=== PATIENT | female | born 1950 | race Caucasian/White ===

== ENCOUNTER 2020-10-25 07:17 | Outpatient (REF) | payer MEDICARE, SELFPAY ==
--- NOTE | ~2020-10-25 | MM_ITS ---
EXAMINATION: BONE DENSITOMETRY CLINICAL INDICATION: Osteoporosis. COMPARISON: Previous BD dated 10/20/2019 and baseline BD dated 09/05/2007. TECHNIQUE: Using a [employer] DXA System (software version: 13.1) manufactured by [employer], dual-energy x-ray absorptiometry was performed of the lumbar spine and left hip. The images are of good technical quality. Summary results are attached. FINDINGS: AP SPINE L1-L4: Current: BMD 1.210 g/cm2, Z-score 2.1, T-score 0.3, normal, 5.7% increase from previous, 11.5% increase from baseline (<5% change is not significant). Prior: BMD 1.145 g/cm2. Baseline: BMD 1.085 g/cm2. LEFT FEMUR, NECK: Current: BMD 0.796 g/cm2, Z-score 0.0, T-score -1.7, osteopenia. Prior: BMD 0.637 g/cm2. Baseline: BMD 0.879 g/cm2. LEFT FEMUR, TOTAL: Current: BMD 0.769 g/cm2, Z-score -0.4, T-score -1.9, osteopenia, 31.2% increase from previous, 6.2% decrease from baseline (<5% change is not significant). Prior: BMD 0.586 g/cm2. Baseline: BMD 0.820 g/cm2. IDENTIFIED RISK FACTORS: Menopause, glucocorticoids (chronic), osteoporosis. HISTORY OF FRACTURE: None listed. MEDICATIONS: Bisphosphonate. MM/XR DEXA axial skeleton IMPRESSION: 1. DIAGNOSIS: Osteopenia based on the lowest T-score value of -1.9 in the total femur applying World Health Organization criteria. 2. 10-YEAR FRACTURE RISK PREDICTION, FRAX: Major osteoporotic fracture (clinical spine, forearm, hip or shoulder) 16.5%. Hip fracture 2.9%. 3. Treatment Recommendations: NOF guidelines recommend consideration for treatment in postmenopausal women and men age 50 and older presenting with the following: -A hip or vertebral (clinical or morphometric) fracture. -T-score less than or equal to -2.5 at the femoral neck or spine after appropriate evaluation to exclude secondary causes. -Low bone mass at the hip or spine and a 10-year fracture probability by FRAX of greater than or equal to 3% for hip fracture or greater than or equal to 20% for major osteoporotic fracture based on the [place] adapted WHO algorithm. 4. Other Recommendations: All treatment decisions require clinical judgment and consideration of individual patient factors, including patient preferences, comorbidities, previous drug use, risk factors not captured in the FRAX model (e.g. frailty, falls, vitamin D deficiency, increased bone turnover, interval significant decline in bone density) and possible under or overestimation of fracture risk by FRAX. Additional medical evaluation for secondary cause of low bone mineral density may be appropriate. FUTURE SCAN RECOMMENDATION: People with diagnosed cases of osteoporosis or at high risk for fracture should have regular bone mineral density tests. For patients eligible for Medicare, routine testing is allowed once every 2 years. The testing frequency can be increased to one year for patients who have rapidly progressing disease, those who are receiving or discontinuing medical therapy to restore bone mass, or have additional risk factors.
--- NOTE | ~2020-10-25 | MM_ITS ---
EXAMINATION: MM SCREENING DIGITAL BREAST TOMOSYNTHESIS, BILATERAL CLINICAL INFORMATION: Screening. Asymptomatic. The lifetime risk of breast cancer based on the Tyrer-Cuzick Model is 3%. COMPARISON: Mammography: 10/20/2019, 10/10/2018, 10/08/2017 TECHNIQUE: Digital breast tomosynthesis is performed in both the craniocaudal and mediolateral oblique views along with computer-aided detection (CAD). Synthesized 2D images are generated from the tomosynthesis. FINDINGS: There are scattered areas of fibroglandular density (ACR BI-RADS breast composition Category b). There are no significant masses, abnormal calcifications, or other abnormalities. Incidental intramammary node again noted mid 9:00 right breast. The bilateral axilla and skin contours are unremarkable. MM/MM tomosynthesis screening BI IMPRESSION: No mammographic evidence of malignancy. ASSESSMENT: BI-RADS 2: Benign RECOMMENDATION: Routine annual mammography screening. This patient's information was entered into a reminder system with a target due date for their next mammogram.
== END 2020-10-25 07:18 | disposition home or self-care (01) ==
LOC: HO.MAMMO 07:17
PROVIDERS: PCP Internal Medicine; Visit Provider Internal Medicine
DX: Z12.31 Encounter for screening mammogram for malignant neoplasm of breast (principal); M81.0 Age-related osteoporosis without current pathological fracture; N95.9 Unspecified menopausal and perimenopausal disorder; Z79.899 Other long term (current) drug therapy
CPT/HCPCS: 77063; 77067; 77080

== ENCOUNTER 2020-11-15 14:21 | Outpatient (REF) | payer MEDICARE, OTHER, SELFPAY ==
--- NOTE | ~2020-11-15 | CT_ITS ---
EXAMINATION: CT CHEST SCREENING CLINICAL INFORMATION: Nicotine dependence. COMPARISON: CTA chest 10/17/2014 TECHNIQUE: Multidetector volumetric CT imaging of the chest is performed without contrast using low dose technique. Additional 2-D coronal and sagittal reformatted images and axial 3-D maximum intensity projection (MIP) images are generated on the CT workstation. This CT examination was performed using dose optimization techniques as appropriate, variously including the following: *Automated exposure control *Adjustment of mA and/or kV according to patient size (this includes techniques or standardized protocols for targeted exams where dose is matched to indication/reason for exam; i.e. extremities or head) *Use of iterative reconstruction technique DLP: 40 mGy-cm FINDINGS: LUNGS: There is centrilobular emphysema without acute pneumonic process. There are several pulmonary nodules. 3 mm nodule right upper lobe axial image 110/6, 5 mm nodule left upper lobe axial image 20/5, 4 mm, 5 and 2 mm nodules left lower lobe superior segment axial image 31/5, patchy atelectasis right middle lobe and lingular segments. There is bilateral anterior segment and right posterior segment lower lobe atelectasis. MEDIASTINUM: The thyroid lobes are symmetrical and normal. The central trachea and the bronchi are widely patent. Heart size and the great vessels are normal caliber. There are small shotty mediastinal lymph nodes. The thyroid glands are symmetrical and normal. No pericardial effusion seen. There are coronary artery calcifications present. PLEURA: There is no pleural effusion. No pleural mass or thickening. AXILLA: No lymphadenopathy. UPPER ABDOMEN: Visualized liver, spleen, pancreas, and bilateral adrenal glands are unremarkable. Gallbladder has been surgically removed. OSSEOUS STRUCTURES: No lytic or sclerotic process seen. There is mild spondylosis dorsal spine. CT/CT lung screening IMPRESSION: Several pulmonary nodules, as described above. There is mild centrilobular emphysema. Bilateral lower lobe anterobasal and right lower lobe posterobasal, right middle lobe and lingular segment atelectasis. ASSESSMENT: Lung-RADS category 2: Benign. RECOMMENDATION: Low-dose annual CT chest.
== END 2020-11-15 14:22 | disposition home or self-care (01) ==
LOC: HO.CT 14:21
PROVIDERS: Visit Provider Physician Assistant Medical
DX: Z87.891 Personal history of nicotine dependence (principal)
CPT/HCPCS: 71271; G0296

== ENCOUNTER 2021-11-05 07:19 | Outpatient (REF) | payer MEDICARE, OTHER, SELFPAY ==
--- NOTE | ~2021-11-05 | MM_ITS ---
EXAMINATION: MM SCREENING DIGITAL BREAST TOMOSYNTHESIS, BILATERAL CLINICAL INFORMATION: Screening. Asymptomatic. The lifetime risk of breast cancer based on the Tyrer-Cuzick Model is 3%. COMPARISON: Mammography: 10/25/2020, 10/20/2019, 10/10/2018 TECHNIQUE: Digital breast tomosynthesis is performed in both the craniocaudal and mediolateral oblique views along with computer-aided detection (CAD). Synthesized 2D images are generated from the tomosynthesis. FINDINGS: There are scattered areas of fibroglandular density (ACR BI-RADS breast composition Category b). There are no significant masses, abnormal calcifications, or other abnormalities. Parenchymal pattern is similar to prior studies. There is incidental intramammary node mid 9:00 right breast and upper outer quadrant mid left breast similar to prior exams. The axilla are unremarkable. MM/MM tomosynthesis screening BI IMPRESSION: No mammographic evidence of malignancy. ASSESSMENT: BI-RADS 2: Benign RECOMMENDATION: Routine annual mammography screening. This patient's information was entered into a reminder system with a target due date for their next mammogram.
== END 2021-11-05 07:20 | disposition home or self-care (01) ==
LOC: HO.MAMMO 07:19
PROVIDERS: PCP Internal Medicine; Visit Provider Internal Medicine
DX: Z12.31 Encounter for screening mammogram for malignant neoplasm of breast (principal)
CPT/HCPCS: 77063; 77067

== ENCOUNTER 2021-11-20 08:08 | Outpatient (REF) | payer MEDICARE, OTHER, SELFPAY ==
--- NOTE | ~2021-11-20 | CT_ITS ---
EXAMINATION: CT CHEST SCREENING CLINICAL INFORMATION: Former smoker. Quit 15 years ago. 45 pack year history. COMPARISON: Previous chest CT most recent October 2020 TECHNIQUE: Multidetector volumetric CT imaging of the chest is performed without contrast using low dose technique. Additional 2D coronal and sagittal reformatted images and axial 3D maximum intensity projection (MIP) images are generated on the CT workstation. This CT examination was performed using dose optimization techniques as appropriate, variously including the following: *Automated exposure control *Adjustment of mA and/or kV according to patient size (this includes techniques or standardized protocols for targeted exams where dose is matched to indication/reason for exam; i.e. extremities or head) *Use of iterative reconstruction technique DLP: 41 mGy-cm FINDINGS: LUNGS: There is evidence of emphysema. There is right apical pleural-parenchymal scarring. There is a 6 mm left lower lobe nodule that is no longer seen axial image 272 series 4 on 2020 exam. There is a 4 mm left upper lobe nodule that is decreased in size from 7 mm axial image 183 series 4 on October 2020 exam. The bilateral pulmonary nodules are otherwise stable. Largest pulmonary nodules are a 4 mm left upper lobe nodule axial image 65 and and bilobed no new pulmonary nodule. Tubular branching left lower lobe nodule measuring 8 x 9 mm axial image 256 series 5. No new pulmonary nodule. No endobronchial or endotracheal lesion. Scarring or subsegmental atelectasis at the lung bases that is stable. MEDIASTINUM: The mediastinum is normal. CORONARY ARTERY CALCIFICATION: Mild PLEURA: There is no pleural effusion. No pleural mass or thickening. Bilateral posterior medial diaphragmatic hernias containing fat. AXILLA: No lymphadenopathy. UPPER ABDOMEN: Unremarkable OSSEOUS STRUCTURES: Degenerative changes of the spine. CT/CT lung screening IMPRESSION: Emphysema. Stable right apical pleural and parenchymal scarring. Interval decrease in 2 left pulmonary nodules in the left upper and left lower lobes. Otherwise pulmonary nodules are stable. ASSESSMENT: Lung-RADS category 2: Benign RECOMMENDATION: Annual low-dose chest CT follow-up recommended.
== END 2021-11-20 08:09 | disposition home or self-care (01) ==
LOC: HO.CT 08:08
PROVIDERS: PCP Internal Medicine; Visit Provider Physician Assistant Medical
DX: Z12.2 Encounter for screening for malignant neoplasm of respiratory organs (principal); Z87.891 Personal history of nicotine dependence
CPT/HCPCS: 71271

== ENCOUNTER 2022-01-26 10:25 | Inpatient (IN) | payer MEDICARE, OTHER, SELFPAY ==
[2022-01-26] VITALS (12 sets, daily range): BP systolic 129–171; BP diastolic 79–90; PULSE 106–136; RESP 18–30; TEMP 35.8–37.3; O2SAT 90–95; BMI 26.4
--- NOTE | ~2022-01-26 | CT_ITS ---
EXAMINATION: CT ANGIOGRAM OF THE CHEST WITH AND WITHOUT CONTRAST (CT PULMONARY ANGIOGRAM FOR PE) CLINICAL INFORMATION: Reason for Exam hypoxia, sob, elevated ddimer COMPARISON: None TECHNIQUE: Prior to contrast administration, noncontrast localization images were obtained. Subsequently, multidetector volumetric imaging was performed from the thoracic inlet to below the diaphragms following the administration of 80 mL Omnipaque 350 intravenous contrast. No contrast reaction reported Sagittal, coronal, and MIP oblique sagittal reformatted images were obtained on the CT workstation, uploaded to PACS, and reviewed. This CT examination was performed using dose optimization techniques as appropriate, variously including the following: *Automated exposure control *Adjustment of mA and/or kV according to patient size (this includes techniques or standardized protocols for targeted exams where dose is matched to indication/reason for exam; i.e. extremities or head) *Use of iterative reconstruction technique Total exam dose-length product 124 mGy-cm FINDINGS: QUALITY OF STUDY/CONTRAST BOLUS: Satisfactory. PULMONARY ARTERIES: There is good opacification of main, right or left ovary arteries without any intraluminal filling defects or narrowing. THORACIC AORTA: No aneurysm or dissection. LUNG: There is diffuse emphysematous changes of both lungs with right lower lobe atelectasis/infiltrate and mild atelectatic changes in the left lung base. There are multiple bilateral nodules. 4 mm nodule right upper lobe axial image 166 2/7, 5 mm nodules adjacent to each other left lower lobe superior segment axial image 264/7,. There is mild bronchial wall thickening involving both upper lobes, lower lobes and right middle lobe. Focal atelectatic changes are seen in the right middle lobe. PLEURA: No pleural effusion or pneumothorax. MEDIASTINUM: Normal heart size. No pericardial effusion. No hilar or mediastinal lymphadenopathy. No evidence of septal bowing or right heart strain. CHEST WALL/AXILLA: No axillary or internal mammary lymphadenopathy. OSSEOUS STRUCTURES: No aggressive lytic or sclerotic process seen. UPPER ABDOMEN: Visualized liver, spleen, pancreas and bilateral adrenal glands unremarkable. No reflux of contrast into the hepatic veins to suggest elevated right heart pressures. CT/CT angio chest PE protocol IMPRESSION: 1. No evidence of PE. 2. No evidence of aortic dissection or aneurysm. 3. Diffuse emphysema with right lower lobe atelectasis/infiltrate and mild atelectatic changes left lung base. 4. Multiple bilateral pulmonary nodules. 5. Peribronchial wall thickening suggestive of bronchial airway disease. VTE: negative
--- NOTE | ~2022-01-26 | US_ITS ---
EXAMINATION: US VENOUS ULTRASOUND WITH DOPPLER LOWER EXTREMITY, RIGHT CLINICAL INFORMATION: Right lower extremity swelling. COMPARISON: None TECHNIQUE: Ultrasound of the deep veins is performed from the hip to the calf with compression sonography and color and pulse Doppler assessment. Spectral analysis with color-flow imaging is performed. FINDINGS: There is normal venous compression and respiratory variation and augmented flow. The visualized common femoral vein, superficial femoral vein, profunda femoral vein, popliteal vein, and the trifurcation region shows no evidence of deep venous thrombosis. No right popliteal cyst. Mild subcutaneous edema is noted in the right calf. US/US venous duplex LE RT IMPRESSION: 1. No evidence for deep venous thrombosis in the visualized veins of the right lower extremity. 2. Mild subcutaneous edema in the right calf.
--- NOTE | ~2022-01-26 | XR_ITS ---
EXAMINATION: XR CHEST CLINICAL INFORMATION: Shortness of breath and congestion COMPARISON: 11/15/2020 TECHNIQUE: 2 views of the chest were obtained. FINDINGS: The lungs are hyperaerated. No acute consolidations. Heart and pulmonary vessels are normal. XR/XR chest 2V IMPRESSION: No active disease. No evidence for congestive failure.
[2022-01-26 11:18] LABS: Anion Gap 20 (12-20); Blood Urea Nitrogen 18 mg/dL (9-16); Calcium 8.5 mg/dL (8.4-10.2); Carbon Dioxide 24 mmol/L (22-29); Chloride 102 mmol/L (96-108); Creatinine Clr Calc Pharmacy 49.8; Estimated Glomerular Filt Rate > 60; Glucose Random 167 mg/dL (60-115); Sodium 142 mmol/L (135-145)
[2022-01-26 11:21] LABS: Hematocrit 46.8 % (37.0-47.0); Hemoglobin 15.3 g/dl (12.0-16.0); Mean Corpuscular HGB Conc 32.7 g/dl (31.0-35.0); Mean Corpuscular Hemoglobin 30.7 pg (27.0-33.0); Mean Platelet Volume 9.9 fL (9.4-12.3); NRBC Pct Auto 0.6 /100WBC (0.0-0.2); Platelet Count 463 X10*3/uL (160-400); Red Blood Count 4.98 X10*6/uL (4.20-5.50); Red Cell Distribution Width 14.2 % (11.0-16.0)
[2022-01-26 11:31] LABS: WBC ABN SCTR FOR CBC 1; White Blood Count 14.3 X10*3/uL (4.8-10.8)
[2022-01-26 11:44] LABS: Influenza A PCR NEGATIVE (Negative); Influenza B PCR NEGATIVE (Negative); Resp Syncy Virus RNA Qual PCR NEGATIVE (Negative); SARS COV2 PCR INHOUSE NEGATIVE (Negative)
[2022-01-26 11:56] LABS: Neutrophils Percent Manual 39 % (45-73)
[2022-01-26 11:59] LABS: Atypical Lymph Absolute Manual 0.1 x10*3/uL; Atypical Lymphs Percent Manual 1 % (0-6); Band Neutrophils Percent 17 % (3-5); Basophils Abs Manual 0.3 X10*3/uL (0.0-0.2); Basophils Percent Manual 2 % (0-2); Lymphocytes Absolute Manual 4.3 X10*3/uL (1.2-4.9); Lymphocytes Percent Manual 30 % (20-40); Metamyelocytes Absolute 0.3 X10*3/uL; Metamyelocytes Percent 2 %; Monocytes Absolute Manual 1.3 X10*3/uL (0.1-1.2); Monocytes Percent Manual 9 % (2-11); Nucleated Red Blood Cells 2 /100WBC (0-0)
[2022-01-26 12:02] LABS: Burr Cells 1+ (0-2) /OIF; Platelet Estimate INCREASED (NORMAL); Platelet Morphology Comment NORMAL; Polychromasia 1+ (0-2) /OIF; RBC Morphology NOTED; Schistocytes 1+ (0-2) /OIF
--- NOTE | 2022-01-26 12:15 | ED_ITS ---
HPI - SOB/Dyspnea General Chief Complaint: Dyspnea Stated Complaint: SOB/on 2L of oxygen Time Seen by Provider: 01/26/22 12:08 Source: patient Mode of arrival: ambulatory Limitations: no limitations History of Present Illness HPI Narrative: patient has COPD and has had worsening shortness of breath despite taking her medications recently. Patient is on 2L at home and never needs it. Patient has had chills no fever. Has been taking mucinex with no improvement. MD elicited complaint: shortness of breath Pertinent past history: COPD Onset (ago): day(s) Context: recent illness Timing: constant Severity: moderate Known history of: COPD Associated symptoms: chest pain and cough Related Data Home Medications Medication Instructions Recorded Confirmed alendronate 70 mg tablet 1 tab PO SA 01/26/22 01/26/22 atorvastatin 20 mg tablet 1 tab PO DAILY 01/26/22 01/26/22 montelukast 10 mg tablet 1 tab PO DAILY 01/26/22 01/26/22 risperidone 0.5 mg tablet 0.5 tab PO DAILY 01/26/22 01/26/22 risperidone 0.5 mg tablet 1 tab PO BEDTIME 01/26/22 01/26/22 tiotropium bromide 18 mcg capsule 1 cap inhalation DAILY 01/26/22 01/26/22 with inhalation device (Spiriva with HandiHaler) valsartan 80 mg tablet 1 tab PO DAILY 01/26/22 01/26/22 venlafaxine 150 mg 1 cap PO DAILY 01/26/22 01/26/22 capsule,extended release 24 hr Allergies Allergy/AdvReac Type Severity Reaction Status Date / Time Sulfa (Sulfonamide Allergy Anaphylaxis Verified 01/26/22 10:36 Antibiotics) Review of Systems Neurologic: Denies Sensory deficit (Neuro) [facility] Past Medical History Medical History (Updated 01/26/22 @ 15:08 by DOMINGA Trejo) Depression Emphysema of lung Hypertension Osteopenia (~2007) Personal history of nicotine dependence Surgical History History of cholecystectomy History of colonoscopy Family History Family History Mother Eye cancer Maternal Grandmother Cirrhosis Father Lung cancer Social History Social History Alcohol intake: never Patient Tobacco Use Status: Former Tobacco user Quit Date: 2017 Years Smoked: 51 (onset 17, 1ppd x 51yrs, 47+PYH - quit 2016) Smoked in Last 30 Days: No Use of substances other than those prescribed or required for medical reasons: No Advance Directives: No Advance Directives Information Provided: Yes Physical Exam Vital Signs: Vital Signs: Last Vital Signs Temp 98.1 F 01/26/22 13:13 Pulse 112 H 01/26/22 15:20 Resp 18 01/26/22 15:20 BP 149/83 H 01/26/22 13:13 Pulse Ox 94 01/26/22 13:13 O2 Del Method 01/26/22 13:13 O2 Flow Rate 3 01/26/22 13:13 Oxygen Flow Rate 3 01/26/22 10:36 BMI result Body Mass Index 26.4 Const: Other: Frail short of breath Nutritional Appearance: average body habitus Orientation/consciousness: oriented to person and patient oriented x3 Limitations: no limitations HEENT: Head: Yes normal to inspection Ears: external ears normal General nose exam: Normal external nose present Mouth: Normal oral and palatal mucosa present and oropharynx normal Throat: Yes posterior oropharynx normal Eyes: General: appearance normal, both eyes and all related structures Neck: Other: supple Neck: Yes normal visual inspection Chest: Chest palpation & inspection: normal inspection of the chest Resp: Other: very distant Breath sounds Cardio: Jugular venous distension: no JVD Rate: regular rate Rhythm: regular rhythm Heart sounds: S1 normal heart sound present and S2 normal heart sound present GI: Inspection: Yes normal to inspection Palpation (GI): Soft to palpation, nontender and No hepatosplenomegaly present Auscultation: normal bowel sounds : General: Yes no CVA tenderness Back/Spine/Pelvis: Back: no CVA tenderness Skin: General skin exam: no rashes or lesions noted Neuro: General: oriented to person and patient oriented x3 Cranial nerves: Yes CN's II-XII intact bilaterally Motor exam (neuro): 5/5 motor strength present throughout Sensory Exam: No Sensory deficit (Neuro) Extrem: Other: right leg slightly swollen Psych: Appearance: grossly normal Course Reevaluation(s) Reevaluation #1: I spent 40 minutes of critical care, with interventions, assessments, speaking to patient, consultants, and family. Patient worked up for sepsis and respiratory failure. Will admit for infection and COPD exacerbation Time: 14:09 Medications Administered Generic Name Dose Route Start Last Admin Trade Name Freq PRN Reason Stop Dose Admin Albuterol/Ipratropium 3 ml 01/26/22 16:00 01/26/22 15:18 Albuterol/Iprat 2.5/0.5mg 3 Ml Ampul.Neb INHALE 3 ml RQ4H WHILE AWAKE STEF Administration Enoxaparin Sodium 40 mg 01/26/22 15:00 01/26/22 15:30 Enoxaparin Sodium 40 Mg/0.4 Ml Syringe SUBCUT 40 mg Q24H STEF Administration Ceftriaxone Sodium 1 gm/ 50 mls @ 100 mls/hr 01/26/22 15:00 01/26/22 15:30 Sodium Chloride IV 02/01/22 15:29 100 mls/hr Q24H STEF Administration Discontinued Medications Generic Name Dose Route Start Last Admin Trade Name Freq PRN Reason Stop Dose Admin Albuterol/Ipratropium 3 ml 01/26/22 12:38 01/26/22 13:21 Albuterol/Iprat 2.5/0.5mg 3 Ml Ampul.Neb INHALE 01/26/22 12:39 3 ml ONCE ONE Administration Sodium Chloride 500 mls @ 250 mls/hr 01/26/22 12:45 01/26/22 13:16 Ns IVCONT 01/26/22 14:44 250 mls/hr .Q2H STEF Administration MDM - SOB/Dyspnea Lab Data Result diagrams: 01/26/22 10:45 01/26/22 10:45 Labs: Lab Results 01/26/22 01/26/22 01/26/22 Range/Units 10:45 10:45 10:45 WBC 14.3 H (4.8-10.8) X10*3/uL RBC 4.98 (4.20-5.50) X10*6/uL Hgb 15.3 (12.0-16.0) g/dl Hct 46.8 (37.0-47.0) % MCV 94.0 (80.0-98.0) fL MCH 30.7 (27.0-33.0) pg MCHC 32.7 (31.0-35.0) g/dl RDW 14.2 (11.0-16.0) % Plt Count 463 H (160-400) X10*3/uL MPV 9.9 (9.4-12.3) fL Immature Gran % (Auto) Cancelled Neut % (Auto) Cancelled Lymph % (Auto) Cancelled Stearns % (Auto) Cancelled Eos % (Auto) Cancelled Baso % (Auto) Cancelled Lymph # (Auto) Cancelled Stearns # (Auto) Cancelled Eos # (Auto) Cancelled Baso # (Auto) Cancelled Abs Immat Gran (auto) Cancelled Absolute Neuts (auto) Cancelled Absolute Nucleated RBC 0.080 H (0.0-0.012) X10*3/uL Nucleated RBC % (auto) 0.6 H (0.0-0.2) /100WBC Neutrophils % (Manual) 39 L (45-73) % Band Neutrophils % 17 H (3-5) % Lymphocytes % (Manual) 30 (20-40) % Atypical Lymphs % (Man) 1 (0-6) % Monocytes % (Manual) 9 (2-11) % Basophils % (Manual) 2 (0-2) % Metamyelocytes % 2 % Abs Neuts (Manual) 8.0 (2.0-8.3) X10*3/uL Lymphocytes # (Manual) 4.3 (1.2-4.9) X10*3/uL Atyp Lymphs # (Manual) 0.1 x10*3/uL Monocytes # (Manual) 1.3 H (0.1-1.2) X10*3/uL Basophils # (Manual) 0.3 H (0.0-0.2) X10*3/uL Metamyelocytes # 0.3 X10*3/uL Nucleated RBCs 2 H (0-0) /100WBC Platelet Estimate INCREASED (NORMAL) Plt Morphology Comment NORMAL RBC Morphology NOTED Polychromasia 1+ (0-2) /OIF [place] Cells 1+ (0-2) /OIF Schistocytes 1+ (0-2) /OIF Sodium 142 (135-145) mmol/L Potassium 4.0 (3.3-5.1) mmol/L Chloride 102 (96-108) mmol/L Carbon Dioxide 24 (22-29) mmol/L Anion Gap 20 (12-20) BUN 18 H (9-16) mg/dL Creatinine 0.91 (0.5-1.4) mg/dL Estim Creat Clear Calc 49.8 Estimated GFR > 60 Random Glucose 167 H (60-115) mg/dL Lactic Acid (0.5-2.0) mmol/L Calcium 8.5 (8.4-10.2) mg/dL Influenza Type A (PCR) NEGATIVE (Negative) Influenza Type B (PCR) NEGATIVE (Negative) RSV RNA Qual (PCR) NEGATIVE (Negative) SARS-CoV-2 RNA (RT-PCR) NEGATIVE (Negative) 01/26/22 Range/Units 12:53 WBC (4.8-10.8) X10*3/uL RBC (4.20-5.50) X10*6/uL Hgb (12.0-16.0) g/dl Hct (37.0-47.0) % MCV (80.0-98.0) fL MCH (27.0-33.0) pg MCHC (31.0-35.0) g/dl RDW (11.0-16.0) % Plt Count (160-400) X10*3/uL MPV (9.4-12.3) fL Immature Gran % (Auto) Neut % (Auto) Lymph % (Auto) [place] % (Auto) Eos % (Auto) Baso % (Auto) Lymph # (Auto) Ste[place]s # (Auto) Eos # (Auto) Baso # (Auto) Abs Immat Gran (auto) Absolute Neuts (auto) Absolute Nucleated RBC (0.0-0.012) X10*3/uL Nucleated RBC % (auto) (0.0-0.2) /100WBC Neutrophils % (Manual) (45-73) % Band Neutrophils % (3-5) % Lymphocytes % (Manual) (20-40) % Atypical Lymphs % (Man) (0-6) % Monocytes % (Manual) (2-11) % Basophils % (Manual) (0-2) % Metamyelocytes % % Abs Neuts (Manual) (2.0-8.3) X10*3/uL Lymphocytes # (Manual) (1.2-4.9) X10*3/uL Atyp Lymphs # (Manual) x10*3/uL Monocytes # (Manual) (0.1-1.2) X10*3/uL Basophils # (Manual) (0.0-0.2) X10*3/uL Metamyelocytes # X10*3/uL Nucleated RBCs (0-0) /100WBC Platelet Estimate (NORMAL) Plt Morphology Comment RBC Morphology Polychromasia /OIF [place] Cells /OIF Schistocytes /OIF Sodium (135-145) mmol/L Potassium (3.3-5.1) mmol/L Chloride (96-108) mmol/L Carbon Dioxide (22-29) mmol/L Anion Gap (12-20) BUN (9-16) mg/dL Creatinine (0.5-1.4) mg/dL Estim Creat Clear Calc Estimated GFR Random Glucose (60-115) mg/dL Lactic Acid 1.6 (0.5-2.0) mmol/L Calcium (8.4-10.2) mg/dL Influenza Type A (PCR) (Negative) Influenza Type B (PCR) (Negative) RSV RNA Qual (PCR) (Negative) SARS-CoV-2 RNA (RT-PCR) (Negative) Imaging Data Chest x-ray: Radiologist's impression: FINDINGS: The lungs are hyperaerated. No acute consolidations. Heart and pulmonary vessels are normal. XR/XR chest 2V IMPRESSION: No active disease. No evidence for congestive failure. duplex: Radiologist's impression: FINDINGS: There is normal venous compression and respiratory variation and augmented flow. The visualized common femoral vein, superficial femoral vein, profunda femoral vein, popliteal vein, and the trifurcation region shows no evidence of deep venous thrombosis. No right popliteal cyst. Mild subcutaneous edema is noted in the right calf. US/US venous duplex LE RT IMPRESSION: 1.? No evidence for deep venous thrombosis in the visualized veins of the right lower extremity. 2.? Mild subcutaneous edema in the right calf. Discharge Plan Discharge Clinical Impression: Acute exacerbation of chronic obstructive pulmonary disease (COPD), Leukocytosis, Bandemia Patient Disposition: Admitted As Inpatient
[2022-01-26 13:10] LABS: Lactic Acid 1.6 mmol/L (0.5-2.0)
--- NOTE | 2022-01-26 13:11 | PHA.MEDREC ---
Pharmacy Consult ? Medication Reconciliation Pharmacy has completed the medication reconciliation.
[2022-01-26] MEDS: 0.9 % Sodium Chloride 500 ML 250 ML IVCONT (13:16)
[2022-01-26] MEDS: Albuterol/Iprat 2.5/0.5MG 3 ML AMPUL.NEB INHALE ×3 (13:21→19:03)
--- NOTE | 2022-01-26 13:22 | PC.NURSE ---
Antibiotic started late due to cultures needing to be drawn
--- NOTE | 2022-01-26 13:52 | PC.NURSE ---
No pumps on unit to start medication. Charge nurse notified
--- NOTE | 2022-01-26 14:27 | PC.NURSE ---
Phlebotomy called by technical services librarian due to patient being a difficult blood draw
--- NOTE | 2022-01-26 14:57 | PM.IMHP ---
History of Present Illness Date of Service: 01/26/22 Attending physician on admission: Josesito Friedman Chief Complaint: sob, cough, runny nose 71-year-old female with history of COPD on p.r.n. 2 L supplemental O2 at home, hypertension, hyperlipidemia, osteopenia, and who is a former smoker with 49 pack-year history presented to ED for evaluation of upper respiratory symptoms have been worsening over the last 4 days. She states that she developed a productive cough with runny nose, shortness of breath. There has also been anorexia and nausea but no vomiting. She has also noted pleuritic chest pain. She typically does not need to use her supplemental oxygen but has been requiring this due to the SOB. She denies any sick contacts. Denies any fevers, chills, sore throat, sinus pain, headaches, orthopnea, PND, vomiting, diarrhea, constipation, abdominal pain, urinary symptoms, or chest pressure. She denies any recent COPD exacerbations and has never been intubated. On arrival, patient is afebrile, tachycardic to 114, tachypneic to 24, with oximetry 91% on 3L supplemental O2, desatting into the high 80s on room air. There is leukocytosis of 14.1 with bandemia 17%. Lactic acid. Creatinine normal, electrolyte levels normal. Negative for COVID-19, RSV, and influenza. Chest x-ray negative for any acute focal consolidations or evidence of congestive heart failure. Right lower extremity was noted to be mildly swollen compared to the left and venous duplex results are pending. D-dimer results are pending. Does follow for routine lung cancer screenings with last chest CT showing emphysema with interval decrease in 2 left pulmonary nodules and left upper and left lower lobes with 1 year follow-up advised. In the ED, patient given DuoNeb updraft as well as 500 mL NS. Patient to be admitted for COPD exacerbation with sepsis. Review of Systems Review of Systems: General: No fevers, malaise, unintentional weight loss HEENT: + rhinorrhea. No blurred vision, diplopia. No sore throat, nasal congestion, sinus pain, ear pain Cardiovascular: + pleuritic chest pain. No chest pressure, palpitations, or leg edema Respiratory: + shortness of breath, productive cough. No orthopnea, PND, wheezing GI: +anorexia, +nausea. No vomiting, diarrhea, constipation, melena, hematochezia : No dysuria, hematuria, increased urinary frequency, decreased urinary output MSK: No myalgia, back pain Neuro: No headaches, weakness, paresthesias Skin: No rashes or lesions [facility] Medical History (Updated 01/26/22 @ 15:08 by DOMINGA Trejo) Depression Emphysema of lung Hypertension Osteopenia (~2007) Personal history of nicotine dependence Family History Mother Eye cancer Maternal Grandmother Cirrhosis Father Lung cancer Surgical History History of cholecystectomy History of colonoscopy Social History Alcohol intake: never Patient Tobacco Use Status: Former Tobacco user Quit Date: 2016 Years Smoked: 51 (onset 17, 1ppd x 51yrs, 47+PYH - quit 2016) Smoked in Last 30 Days: No Use of substances other than those prescribed or required for medical reasons: No Advance Directives: No Advance Directives Information Provided: Yes Meds Allergies Allergy/AdvReac Type Severity Reaction Status Date / Time Sulfa (Sulfonamide Allergy Anaphylaxis Verified 01/26/22 10:36 Antibiotics) Active Medications: Current Medications Acetaminophen (Acetaminophen 325 Mg Tablet) 650 mg PO Q6H PRN PRN Reason: Pain, Mild, fever Albuterol Sulfate (Albuterol Sulfate (0.083%) 2.5 Mg/3 Ml Vial.Neb) 2.5 mg INHALE Q2H PRN PRN Reason: Shortness of Breath/Wheezing Albuterol/Ipratropium (Albuterol/Iprat 2.5/0.5mg 3 Ml Ampul.Neb) 3 ml INHALE RQ4H WHILE AWAKE STEF Atorvastatin Calcium (Atorvastatin Calcium 20 Mg Tablet) 20 mg PO DAILY STEF Docusate Sodium (Docusate Sodium 100 Mg Capsule) 100 mg PO DAILY PRN PRN Reason: Constipation Enoxaparin Sodium (Enoxaparin Sodium 40 Mg/0.4 Ml Syringe) 40 mg SUBCUT Q24H STEF Azithromycin 500 mg/ Sodium (Chloride) 250 mls @ 125 mls/hr IV Q24H [facility] Stop: 01/28/22 16:59 Ceftriaxone Sodium 1 gm/ (Sodium Chloride) 50 mls @ 100 mls/hr IV Q24H [facility] Stop: 02/01/22 15:29 Montelukast Sodium (Montelukast Sodium 10 Mg Tablet) 10 mg PO DAILY [facility] Ondansetron HCl (Ondansetron Hcl 4 Mg/2 Ml Vial) 4 mg IVPUSH Q8H PRN PRN Reason: Nausea and Vomiting Pharmacy Consult (Consult Rx Perform Med Rec) 1 each MISCELLANE ONCE PRN PRN Reason: Consult order Risperidone (Risperidone 0.25 Mg Tablet) 0.25 mg PO DAILY [facility] Risperidone (Risperidone 0.5 Mg Tablet) 0.5 mg PO BEDTIME [facility] Sodium Chloride (0.9 % Sodium Chloride Flush 3 Ml Syringe) 3 ml IVFLUSH QSHIFT [facility] Tiotropium Forks (Tiotropium [place]ks 18 Mcg Cap.W.Dev) 1 puff INHALE RDAILY [facility] Valsartan (Valsartan 80 Mg Tablet) 80 mg PO DAILY [facility]; Protocol Venlafaxine HCl (Venlafaxine Hcl Er 150 Mg Cap.Er.24h) 150 mg PO DAILY [facility] Home Medications Medication Instructions Recorded Confirmed Last Taken Type alendronate 70 mg tablet 1 tab PO SA 01/26/22 01/26/22 01/24/22 History atorvastatin 20 mg tablet 1 tab PO DAILY 01/26/22 01/26/22 01/26/22 History montelukast 10 mg tablet 1 tab PO DAILY 01/26/22 01/26/22 01/26/22 History risperidone 0.5 mg tablet 0.5 tab PO DAILY 01/26/22 01/26/22 01/26/22 History risperidone 0.5 mg tablet 1 tab PO BEDTIME 01/26/22 01/26/22 01/25/22 History tiotropium bromide 18 mcg capsule 1 cap inhalation DAILY 01/26/22 01/26/22 01/26/22 History with inhalation device (Spiriva with HandiHaler) valsartan 80 mg tablet 1 tab PO DAILY 01/26/22 01/26/22 01/26/22 History venlafaxine 150 mg 1 cap PO DAILY 01/26/22 01/26/22 01/26/22 History capsule,extended release 24 hr Physical Exam Vital Signs and Narrative: Vital Signs: Last Vital Signs Temp 98.1 F 01/26/22 13:13 Pulse 114 H 01/26/22 13:22 Resp 20 01/26/22 13:13 BP 149/83 H 01/26/22 13:13 Pulse Ox 94 01/26/22 13:13 O2 Del Method 01/26/22 13:13 O2 Flow Rate 3 01/26/22 13:13 Oxygen Flow Rate 3 01/26/22 10:36 BMI result Body Mass Index 26.4 Constitutional - Awake and Alert, No apparent distress Eyes - PERRLA, EOMI Cardiovascular - S1S2, RRR, bilateral nonpitting edema Respiratory - Normal lung expansion, Normal respiratory effort, No respiratory distress, CTA bilaterally Gastrointestinal - NT / ND; +BS; No rebound or guarding - No CVA tenderness Extremities - no calf tenderness bilaterally, nonpitting ble edema, R>L Musculoskeletal - Normal inspection, normal ROM Skin - Warm/Dry Neurological - Alert & oriented x3, CN II-XII in tact, 5/5 strength BUE and BLE Psychological - Appropriate affect Results Labs CBC and Chem 7: 01/26/22 10:45 01/26/22 10:45 Labs: Laboratory Results - last 24 hr 01/26/22 01/26/22 01/26/22 10:45 10:45 10:45 MCV 94.0 MCH 30.7 MCHC 32.7 RDW 14.2 Plt Count 463 H MPV 9.9 Immature Gran % (Auto) Cancelled Neut % (Auto) Cancelled Lymph % (Auto) Cancelled [place] % (Auto) Cancelled Eos % (Auto) Cancelled Baso % (Auto) Cancelled Lymph # (Auto) Cancelled [place] # (Auto) Cancelled Eos # (Auto) Cancelled Baso # (Auto) Cancelled Abs Immat Gran (auto) Cancelled Absolute Neuts (auto) Cancelled Absolute Nucleated RBC 0.080 H Nucleated RBC % (auto) 0.6 H Neutrophils % (Manual) 39 L Band Neutrophils % 17 H Lymphocytes % (Manual) 30 Atypical Lymphs % (Man) 1 Monocytes % (Manual) 9 Basophils % (Manual) 2 Metamyelocytes % 2 Abs Neuts (Manual) 8.0 Lymphocytes # (Manual) 4.3 Atyp Lymphs # (Manual) 0.1 Monocytes # (Manual) 1.3 H Basophils # (Manual) 0.3 H Metamyelocytes # 0.3 Nucleated RBCs 2 H Platelet Estimate INCREASED Plt Morphology Comment NORMAL RBC Morphology NOTED Polychromasia 1+ (0-2) [place] Cells 1+ (0-2) Schistocytes 1+ (0-2) Anion Gap 20 Estim Creat Clear Calc 49.8 Estimated GFR > 60 Random Glucose 167 H Lactic Acid Calcium 8.5 Influenza Type A (PCR) NEGATIVE Influenza Type B (PCR) NEGATIVE RSV RNA Qual (PCR) NEGATIVE SARS-CoV-2 RNA (RT-PCR) NEGATIVE 01/26/22 12:53 MCV MCH MCHC RDW Plt Count MPV Immature Gran % (Auto) Neut % (Auto) Lymph % (Auto) [place] % (Auto) Eos % (Auto) Baso % (Auto) Lymph # (Auto) [place] # (Auto) Eos # (Auto) Baso # (Auto) Abs Immat Gran (auto) Absolute Neuts (auto) Absolute Nucleated RBC Nucleated RBC % (auto) Neutrophils % (Manual) Band Neutrophils % Lymphocytes % (Manual) Atypical Lymphs % (Man) Monocytes % (Manual) Basophils % (Manual) Metamyelocytes % Abs Neuts (Manual) Lymphocytes # (Manual) Atyp Lymphs # (Manual) Monocytes # (Manual) Basophils # (Manual) Metamyelocytes # Nucleated RBCs Platelet Estimate Plt Morphology Comment RBC Morphology Polychromasia [place] Cells Schistocytes Anion Gap Estim Creat Clear Calc Estimated GFR Random Glucose Lactic Acid 1.6 Calcium Influenza Type A (PCR) Influenza Type B (PCR) RSV RNA Qual (PCR) SARS-CoV-2 RNA (RT-PCR) Imaging Radiologist's Impressions: Impressions Chest X-Ray 01/26/22 10:54 IMPRESSION: No active disease. No evidence for congestive failure. Assessment and Plan (1) Acute exacerbation of chronic obstructive pulmonary disease (COPD): Status: Acute (2) Sepsis: Status: Acute Plan 71-year-old female with history of COPD on p.r.n. 2 L supplemental O2 at home, hypertension, hyperlipidemia, osteopenia, and who is a former smoker with 49 pack-year history admitted for COPD exacerbation with sepsis with acute hypoxic respiratory failure. #Sepsis-secondary to COPD exacerbation -leukocytosis 14.3 with 79% bandemia, tachycardic to 114 (sinus), tachypneic to 24. Lactic acid normal. No evidence of end-organ dysfunction -CXR negative for pneumonia -negative for COVID-19, influenza, RSV. Full respiratory panel pending -treat COPD exacerbation per below -follow CBC -admit to telemetry # acute hypoxic respiratory failure-secondary to COPD exacerbation -continue supplemental O2 to maintain oximetry of 92% -treat to OPD exacerbation as below -Venous duplex pending to rule out DVT given RLE swelling -D-Dimer ordered due to acute hypoxia. CTA chest pending results # acute COPD exacerbation -CXR negative for pneumonia -continue supplemental oxygen as above (requires intermittent use of 2 L supplemental O2 at home) -IV Solu-Medrol 60 mg b.i.d. -DuoNebs q.4h while awake -albuterol q.2h p.r.n. -continue maintenance medications -Tessalon Perles and guaifenesin p.r.n. for cough -IV ceftriaxone x7 days and 500 mg IV azithromycin x3 days # hypertension-reasonably controlled -continue valsartan # HLD -continue statin # depression/anxiety -continue venlafaxine and risperidone DVT prophylaxis-Lovenox Full code Patient requires inpatient stay of at least 2 midnights for management of COPD exacerbation with acute hypoxic respiratory failure with sepsis requiring supplemental O2 and IV antibiotics and close monitoring Quality Stroke Does the patient have a stroke diagnosis?: No VTE Prior VTE?: No VTE Risk Level:: Medical - moderate - high VTE Device Contraindication: Treatment Not Indicated VTE Drug Contraindication: N/A - Med Ordered
[2022-01-26] MEDS: Enoxaparin Sodium 40 MG/0.4 ML SYRINGE SUBCUT (15:30)
[2022-01-26] MEDS: cefTRIAXone sodium 1 GM in 0.9 % Sodium Chloride 50 ML IV (15:30)
[2022-01-26] MEDS: Azithromycin 500 MG in 0.9 % Sodium Chloride 250 ML 125 MG IV (16:05)
[2022-01-26] MEDS: methylPREDNISolone Sod Succ 125 MG/2 ML VIAL 60 MG IVPUSH (16:05)
[2022-01-26 16:13] LABS: D Dimer High Sensitivity 374 NG/ML
--- NOTE | 2022-01-26 16:14 | PC.NURSE ---
Provider aware of patients vital signs and is at bedside
[2022-01-26] MEDS: HYDROmorphone HCl 0.5 MG/0.5 ML SYRINGE 0.25 MG IVPUSH (16:37)
--- NOTE | 2022-01-26 18:06 | PC.NURSE ---
Addendum entered by Siddharth Nguyen 01/26/22 18:36: Dr. Shaffer, Dr. Friedman at [facility]. Original Note: Shreya Blankenship aware of vital signs and was at [facility].
[2022-01-26] MEDS: Enoxaparin Sodium 60 MG/0.6 ML SYRINGE 20 MG SUBCUT (18:13)
[2022-01-26 18:22] LABS: INTERNATIONAL NORM RATIO 1.3 (0.9-1.1); Prothrombin Time 15.1 SEC (10.0-13.1)
[2022-01-26 18:24] LABS: Partial Thromboplastin Time 31.9 SEC (26.0-36.4)
[2022-01-26 19:00] LABS: Venous Blood Gas Refer to POC result
[2022-01-26 19:02] LABS: VBG HCO3 25 mmol/L (22-26); VBG pCO2 52 mmHg; VBG pH 7.29 (7.32-7.43); VBG pO2 56 mmHg
[2022-01-26 19:36] LABS: ABG Base Excess -0.3 mmol/L; ABG HCO3 26 mmol/L (22-26); ABG pCO2 48 mmHg (32-45); ABG pH 7.33 (7.35-7.45); ABG pO2 70 mmHg (83-108)
--- NOTE | 2022-01-26 20:47 | MHC.CM.PN ---
IMM 01/26. Lives w . Independent. O2 prn ([employer]). No services. Pfizer x2/booster x1. HCP reviewed, completed and signed. Copies given. Uploaded into [facility] and [facility]. HCP/ London Sampson ([phone]). May need RT consult prior to d/c. D/C plan: home w/o services per patient. will provide transport home. CM following for discharge planning.
[2022-01-26] MEDS: risperiDONE 0.5 MG TABLET PO (21:21)
[2022-01-26 23:19] LABS: ABG Refer to POC result
[2022-01-27] VITALS (13 sets, daily range): BP systolic 127–176; BP diastolic 63–89; PULSE 111–125; RESP 18–24; TEMP 36.3–37.3; O2SAT 90–95; BMI 26.7
[2022-01-27] MEDS: 0.9 % Sodium Chloride Flush 3 ML SYRINGE IVFLUSH ×2 (00:33→09:17)
--- NOTE | 2022-01-27 02:04 | PC.NURSE ---
pt resting comfortably at this time. SpO2 93% on highflow
[2022-01-27] MEDS: methylPREDNISolone Sod Succ 125 MG/2 ML VIAL 60 MG IVPUSH ×2 (04:02→15:01)
[2022-01-27 06:33] LABS: Hematocrit 45.1 % (37.0-47.0); Hemoglobin 14.8 g/dl (12.0-16.0); Mean Corpuscular HGB Conc 32.8 g/dl (31.0-35.0); Mean Corpuscular Hemoglobin 31.2 pg (27.0-33.0); Mean Corpuscular Volume 94.9 fL (80.0-98.0); Mean Platelet Volume 9.8 fL (9.4-12.3); NRBC Pct Auto 0.5 /100WBC (0.0-0.2); Platelet Count 468 X10*3/uL (160-400); Red Blood Count 4.75 X10*6/uL (4.20-5.50); Red Cell Distribution Width 14.4 % (11.0-16.0)
[2022-01-27 06:34] LABS: WBC ABN SCTR FOR CBC 1
[2022-01-27 06:49] LABS: B Type Natriuretic Peptide 248 pg/mL (<100)
[2022-01-27 07:20] LABS: Atypical Lymph Absolute Manual 0.2 x10*3/uL; Atypical Lymphs Percent Manual 1 % (0-6); Band Neutrophils Percent 21 % (3-5); Lymphocytes Absolute Manual 2.2 X10*3/uL (1.2-4.9); Lymphocytes Percent Manual 12 % (20-40); Metamyelocytes Absolute 0.2 X10*3/uL; Metamyelocytes Percent 1 %; Monocytes Absolute Manual 1.8 X10*3/uL (0.1-1.2); Monocytes Percent Manual 10 % (2-11); Neutrophils Absolute Manual 13.7 X10*3/uL (2.0-8.3); Neutrophils Percent Manual 55 % (45-73)
--- NOTE | 2022-01-27 07:21 | ECG_ITS ---
Test Reason : ELEVATED TROPONINS Blood Pressure : / mmHG Vent. Rate : 129 BPM Atrial Rate : 129 BPM P-R Int : 136 ms QRS Dur : 080 ms QT Int : 312 ms P-R-T Axes : 065 066 068 degrees QTc Int : 457 ms Sinus tachycardia with occasional Premature ventricular complexes Low voltage QRS Nonspecific ST abnormality Abnormal ECG No previous ECGs available Referred By: Shreya Blankenship Electronically Signed By:FAISAL ROTHMAN MD
[2022-01-27 07:22] LABS: Dohle Bodies PRESENT; Macrocytosis 1+ (5-14) /OIF; Polychromasia 1+ (0-2) /OIF; RBC Morphology NOTED; Toxic Granulation PRESENT
[2022-01-27 07:27] LABS: Toxic Vacuolation PRESENT
[2022-01-27 07:28] LABS: Platelet Estimate INCREASED (NORMAL); Platelet Morphology Comment NORMAL
[2022-01-27] MEDS: Albuterol/Iprat 2.5/0.5MG 3 ML AMPUL.NEB INHALE ×4 (07:37→19:55)
[2022-01-27] MEDS: iohexoL 350 MG/ML 100 ML INFUS..BTL IV (08:40)
[2022-01-27] MEDS: Atorvastatin Calcium 20 MG TABLET PO (09:17)
[2022-01-27] MEDS: Montelukast Sodium 10 MG TABLET PO (09:17)
[2022-01-27] MEDS: risperiDONE 0.25 MG TABLET PO (09:17)
[2022-01-27] MEDS: Valsartan 80 MG TABLET PO (09:17)
[2022-01-27] MEDS: Venlafaxine HCl ER 150 MG CAP.ER.24H PO (09:17)
[2022-01-27 10:04] LABS: Troponin-I High Sensitivity 114.9 ng/L (<3.5-17.0)
--- NOTE | 2022-01-27 10:04 | HO.PM.IMPN ---
Subjective Subjective Date of Service: 01/27/22 Interval History: Seen in follow up for acute hypoxia with probable COPD exacerbation Interval history: Reports improvement in work of breathing since yesterday. Still with wheezing and coughing, pleuritic chest pain. No chest pain, lightheadedness, abd pain, nausea, vomiting, urinary symptoms. Remains afebrile. Review of Systems General: No fevers, malaise, unintentional weight loss HEENT: No blurred vision, diplopia. No sore throat, nasal congestion, rhinorrhea, sinus pain, ear pain Cardiovascular: +pleuritic chest pressure. No chest pain, palpitations, or leg edema Respiratory: +sob, +wheezing, +cough. GI: No abdominal pain, nausea, vomiting, diarrhea, constipation, melena, hematochezia : No dysuria, hematuria, increased urinary frequency, decreased urinary output MSK: No myalgia, back pain Neuro: No headaches, weakness, paresthesias Skin: No rashes or lesions Physical Exam Vital Signs: Vital Signs: Last Vital Signs Temp 98.3 F 01/27/22 07:43 Pulse 120 H 01/27/22 07:43 Resp 24 H 01/27/22 07:37 BP 176/85 H 01/27/22 07:43 Pulse Ox 93 01/27/22 07:43 O2 Del Method 01/27/22 07:43 O2 Flow Rate 40 01/27/22 03:00 FiO2 35 01/27/22 03:00 Oxygen Flow Rate 3 01/26/22 10:36 BMI result Body Mass Index 26.7 Constitutional - Awake and Alert, No apparent distress Eyes - PERRLA, EOMI Cardiovascular - S1S2, RRR, No edema Respiratory - Normal lung expansion, Normal respiratory effort, No respiratory distress on 5L high flow O2, wheezing RLL, otherwise CTA Gastrointestinal - NT / ND; +BS; No rebound or guarding Extremities - no calf tenderness bilaterally, no swelling Skin - Warm/Dry Neurological - Alert & oriented x3, CN II-XII in tact, 5/5 strength BUE and BLE Psychological - Appropriate affect Objective Data Active Medications Acetaminophen (Acetaminophen 325 Mg Tablet) 650 mg PO Q6H PRN PRN Reason: Pain, Mild, fever Albuterol Sulfate (Albuterol Sulfate (0.083%) 2.5 Mg/3 Ml Vial.Neb) 2.5 mg INHALE Q2H PRN PRN Reason: Shortness of Breath/Wheezing Albuterol/Ipratropium (Albuterol/Iprat 2.5/0.5mg 3 Ml Ampul.Neb) 3 ml INHALE RQ4H WHILE AWAKE [facility] Last Admin: 01/27/22 07:37 Dose: 3 ml Documented By: SHANEL Atorvastatin Calcium (Atorvastatin Calcium 20 Mg Tablet) 20 mg PO DAILY [facility] Last Admin: 01/27/22 09:17 Dose: 20 mg Documented By: LÓPEZ Docusate Sodium (Docusate Sodium 100 Mg Capsule) 100 mg PO DAILY PRN PRN Reason: Constipation Enoxaparin Sodium (Enoxaparin Sodium 40 Mg/0.4 Ml Syringe) 40 mg SUBCUT Q24H [facility] Last Admin: 01/26/22 15:30 Dose: 40 mg Documented By: KRISTOFER Hydromorphone HCl (Hydromorphone Hcl 0.5 Mg/0.5 Ml Syringe) 0.25 mg IVPUSH Q4H PRN; Protocol PRN Reason: increased wob/sob Last Admin: 01/26/22 16:37 Dose: 0.25 mg Documented By: KRISTOFER Azithromycin 500 mg/ Sodium (Chloride) 250 mls @ 125 mls/hr IV Q24H [facility] Stop: 01/28/22 16:59 Last Infusion: 01/27/22 03:03 Dose: 0 mls/hr Documented By: TARI Ceftriaxone Sodium 1 gm/ (Sodium Chloride) 50 mls @ 100 mls/hr IV Q24H [facility] Stop: 02/01/22 15:29 Last Infusion: 01/26/22 16:08 Dose: 0 mls/hr Documented By: KRISTOFER Methylprednisolone Sodium Succinate (Methylprednisolone Sod Succ 125 Mg/2 Ml Vial) 60 mg IVPUSH Q12H [facility] Last Admin: 01/27/22 04:02 Dose: 60 mg Documented By: TARI Montelukast Sodium (Montelukast Sodium 10 Mg Tablet) 10 mg PO DAILY [facility] Last Admin: 01/27/22 09:17 Dose: 10 mg Documented By: LÓPEZ Ondansetron HCl (Ondansetron Hcl 4 Mg/2 Ml Vial) 4 mg IVPUSH Q8H PRN PRN Reason: Nausea and Vomiting Pharmacy Consult (Consult Rx Perform Med Rec) 1 each MISCELLANE ONCE PRN PRN Reason: Consult order Risperidone (Risperidone 0.25 Mg Tablet) 0.25 mg PO DAILY [facility] Last Admin: 01/27/22 09:17 Dose: 0.25 mg Documented By: LÓPEZ Risperidone (Risperidone 0.5 Mg Tablet) 0.5 mg PO BEDTIME [facility] Last Admin: 01/26/22 21:21 Dose: 0.5 mg Documented By: ANNI Sodium Chloride (0.9 % Sodium Chloride Flush 3 Ml Syringe) 3 ml IVFLUSH QSHIFT [facility] Last Admin: 01/27/22 09:17 Dose: 3 ml Documented By: LÓPEZ Tiotropium Independence (Tiotropium Independence 18 Mcg Cap.W.Dev) 1 puff INHALE RDAILY [facility] Last Admin: 01/27/22 07:39 Dose: Not Given Documented By: SHANEL Non-Admin Reason: med not avail. pharmacy called Valsartan (Valsartan 80 Mg Tablet) 80 mg PO DAILY [facility]; Protocol Last Admin: 01/27/22 09:17 Dose: 80 mg Documented By: LÓPEZ Venlafaxine HCl (Venlafaxine Hcl Er 150 Mg Cap.Er.24h) 150 mg PO DAILY [facility] Last Admin: 01/27/22 09:17 Dose: 150 mg Documented By: LÓPEZ Labs CBC & Chem 7: 01/27/22 06:08 01/26/22 10:45 Labs: Laboratory Results - last 24 hr 01/26/22 01/26/22 01/26/22 10:45 10:45 10:45 MCV 94.0 MCH 30.7 MCHC 32.7 RDW 14.2 Plt Count 463 H MPV 9.9 Immature Gran % (Auto) Cancelled Neut % (Auto) Cancelled Lymph % (Auto) Cancelled Long % (Auto) Cancelled Eos % (Auto) Cancelled Baso % (Auto) Cancelled Lymph # (Auto) Cancelled Long # (Auto) Cancelled Eos # (Auto) Cancelled Baso # (Auto) Cancelled Abs Immat Gran (auto) Cancelled Absolute Neuts (auto) Cancelled Absolute Nucleated RBC 0.080 H Nucleated RBC % (auto) 0.6 H Neutrophils % (Manual) 39 L Band Neutrophils % 17 H Lymphocytes % (Manual) 30 Atypical Lymphs % (Man) 1 Monocytes % (Manual) 9 Basophils % (Manual) 2 Metamyelocytes % 2 Abs Neuts (Manual) 8.0 Lymphocytes # (Manual) 4.3 Atyp Lymphs # (Manual) 0.1 Monocytes # (Manual) 1.3 H Basophils # (Manual) 0.3 H Metamyelocytes # 0.3 Nucleated RBCs 2 H Toxic Granulation Toxic Vacuolation Dohle Bodies Platelet Estimate INCREASED Plt Morphology Comment NORMAL RBC Morphology NOTED Polychromasia 1+ (0-2) Macrocytosis [place] Cells 1+ (0-2) Schistocytes 1+ (0-2) Smear Path Review SEE NOTE PT INR APTT D-Dimer High Sensitivty O2 Saturation ABG pH at Pt Temp ABG pCO2 at Pt Temp ABG pO2 at Pt Temp ABG HCO3 ABG Base Excess (Actual) VBG pH VBG pCO2 VBG pO2 VBG HCO3 VBG O2 Saturation VBG Base Excess Anion Gap 20 Estim Creat Clear Calc 49.8 Estimated GFR > 60 Random Glucose 167 H Lactic Acid Calcium 8.5 Troponin I High Sens B-Natriuretic Peptide Influenza Type A (PCR) NEGATIVE Influenza Type B (PCR) NEGATIVE RSV RNA Qual (PCR) NEGATIVE SARS-CoV-2 RNA (RT-PCR) NEGATIVE 01/26/22 01/26/22 01/26/22 12:53 15:31 18:56 MCV MCH MCHC RDW Plt Count MPV Immature Gran % (Auto) Neut % (Auto) Lymph % (Auto) Long % (Auto) Eos % (Auto) Baso % (Auto) Lymph # (Auto) Long # (Auto) Eos # (Auto) Baso # (Auto) Abs Immat Gran (auto) Absolute Neuts (auto) Absolute Nucleated RBC Nucleated RBC % (auto) Neutrophils % (Manual) Band Neutrophils % Lymphocytes % (Manual) Atypical Lymphs % (Man) Monocytes % (Manual) Basophils % (Manual) Metamyelocytes % Abs Neuts (Manual) Lymphocytes # (Manual) Atyp Lymphs # (Manual) Monocytes # (Manual) Basophils # (Manual) Metamyelocytes # Nucleated RBCs Toxic Granulation Toxic Vacuolation Dohle Bodies Platelet Estimate Plt Morphology Comment RBC Morphology Polychromasia Macrocytosis [place] Cells Schistocytes Smear Path Review PT 15.1 H INR 1.3 H APTT 31.9 D-Dimer High Sensitivty 374 O2 Saturation ABG pH at Pt Temp ABG pCO2 at Pt Temp ABG pO2 at Pt Temp ABG HCO3 ABG Base Excess (Actual) VBG pH 7.29 L VBG pCO2 52 VBG pO2 56 VBG HCO3 25 VBG O2 Saturation 79.0 VBG Base Excess -2.0 Anion Gap Estim Creat Clear Calc Estimated GFR Random Glucose Lactic Acid 1.6 Calcium Troponin I High Sens B-Natriuretic Peptide Influenza Type A (PCR) Influenza Type B (PCR) RSV RNA Qual (PCR) SARS-CoV-2 RNA (RT-PCR) 01/26/22 01/27/22 01/27/22 19:29 06:08 06:08 MCV 94.9 MCH 31.2 MCHC 32.8 RDW 14.4 Plt Count 468 H MPV 9.8 Immature Gran % (Auto) Cancelled Neut % (Auto) Cancelled Lymph % (Auto) Cancelled Long % (Auto) Cancelled Eos % (Auto) Cancelled Baso % (Auto) Cancelled Lymph # (Auto) Cancelled Long # (Auto) Cancelled Eos # (Auto) Cancelled Baso # (Auto) Cancelled Abs Immat Gran (auto) Cancelled Absolute Neuts (auto) Cancelled Absolute Nucleated RBC 0.090 H Nucleated RBC % (auto) 0.5 H Neutrophils % (Manual) 55 Band Neutrophils % 21 H Lymphocytes % (Manual) 12 L Atypical Lymphs % (Man) 1 Monocytes % (Manual) 10 Basophils % (Manual) Metamyelocytes % 1 Abs Neuts (Manual) 13.7 H Lymphocytes # (Manual) 2.2 Atyp Lymphs # (Manual) 0.2 Monocytes # (Manual) 1.8 H Basophils # (Manual) Metamyelocytes # 0.2 Nucleated RBCs Toxic Granulation PRESENT Toxic Vacuolation PRESENT Dohle Bodies PRESENT Platelet Estimate INCREASED Plt Morphology Comment NORMAL RBC Morphology NOTED Polychromasia 1+ (0-2) Macrocytosis 1+ (5-14) [place] Cells Schistocytes Smear Path Review PT INR APTT D-Dimer High Sensitivty O2 Saturation 92.0 ABG pH at Pt Temp 7.33 L ABG pCO2 at Pt Temp 48 H ABG pO2 at Pt Temp 70 L ABG HCO3 26 ABG Base Excess (Actual) -0.3 VBG pH VBG pCO2 VBG pO2 VBG HCO3 VBG O2 Saturation VBG Base Excess Anion Gap Estim Creat Clear Calc Estimated GFR Random Glucose Lactic Acid Calcium Troponin I High Sens 134.0 H* B-Natriuretic Peptide Influenza Type A (PCR) Influenza Type B (PCR) RSV RNA Qual (PCR) SARS-CoV-2 RNA (RT-PCR) 01/27/22 01/27/22 06:08 09:04 MCV MCH MCHC RDW Plt Count MPV Immature Gran % (Auto) Neut % (Auto) Lymph % (Auto) Long % (Auto) Eos % (Auto) Baso % (Auto) Lymph # (Auto) Long # (Auto) Eos # (Auto) Baso # (Auto) Abs Immat Gran (auto) Absolute Neuts (auto) Absolute Nucleated RBC Nucleated RBC % (auto) Neutrophils % (Manual) Band Neutrophils % Lymphocytes % (Manual) Atypical Lymphs % (Man) Monocytes % (Manual) Basophils % (Manual) Metamyelocytes % Abs Neuts (Manual) Lymphocytes # (Manual) Atyp Lymphs # (Manual) Monocytes # (Manual) Basophils # (Manual) Metamyelocytes # Nucleated RBCs Toxic Granulation Toxic Vacuolation Dohle Bodies Platelet Estimate Plt Morphology Comment RBC Morphology Polychromasia Macrocytosis [place] Cells Schistocytes Smear Path Review PT INR APTT D-Dimer High Sensitivty O2 Saturation ABG pH at Pt Temp ABG pCO2 at Pt Temp ABG pO2 at Pt Temp ABG HCO3 ABG Base Excess (Actual) VBG pH VBG pCO2 VBG pO2 VBG HCO3 VBG O2 Saturation VBG Base Excess Anion Gap Estim Creat Clear Calc Estimated GFR Random Glucose Lactic Acid Calcium Troponin I High Sens 114.9 H* B-Natriuretic Peptide 248 H Influenza Type A (PCR) Influenza Type B (PCR) RSV RNA Qual (PCR) SARS-CoV-2 RNA (RT-PCR) Assessment and Plan (1) Sepsis: Status: Acute (2) Acute exacerbation of chronic obstructive pulmonary disease (COPD): Status: Acute (3) Pneumonia: Status: Acute (4) Acute on chronic respiratory failure with hypoxemia: Status: Acute Plan 71-year-old female with history of COPD on p.r.n. 2 L supplemental O2 at home, hypertension, hyperlipidemia, osteopenia, and who is a former smoker with 49 pack-year history admitted for COPD exacerbation with sepsis with acute hypoxic respiratory failure. #Sepsis-secondary to COPD exacerbation and evolving pneumonia -leukocytosis persists, WBC increased to 18.0 (steroids contributory) with 21% bandemia, tachycardic to 124 today (sinus, albuterol contributory), tachypneic to 22.? Lactic acid normal 1.6.? No evidence of end-organ dysfunction -negative for COVID-19, influenza, RSV.? Full respiratory panel pending -CTA chest showing possible evolving pneumonia left lung base -Continue ceftriaxone and azithromycin D2 -treat COPD exacerbation per below -follow CBC -admit to telemetry # acute hypoxic respiratory failure-secondary to COPD exacerbation and evolving pneumonia -ABG ph 7.33/48/70/26. Discussed with ICU providers who advise patient is compensating appropriately and that cause of hemodynamic instability is more metabolic than respiratory. Initial trop 134, repeat 114. EKG Sinus tach, rate 136, with occassional PVCs and nonspecific ST abnormality. Elevated trops likely secondary to demand ischemia from hypoxia. BNP 248. CTA chest without evidence of effusions/edema and no hx heart failure. Echocardiogram ordered -Currently requiring high flow O2 at 40 liter flow with FiO2 35. continue supplemental O2 to maintain oximetry of 88-93% -treat COPD exacerbation and pneumonia as below -Venous duplex RLE negative for DVT, D-Dimer elevated to 374. Chest CTA negative for PE, but showing possible evolving pneumonia vs atelectasis left lung base #Evolving pneumonia LLL -CTA chest with possible evolving pneumonia vs atelectassis as above -Continue ceftriaxone and azithromycin # acute COPD exacerbation- with wheezing and productive cough -continue supplemental oxygen as above (requires intermittent use of 2 L supplemental O2 at home) -IV Solu-Medrol 60 mg b.i.d. -DuoNebs q.4h while awake -albuterol q.2h p.r.n. -continue maintenance medications -Tessalon Perles and guaifenesin p.r.n. for cough -Abx as above # hypertension-reasonably controlled -continue valsartan # HLD -continue statin # depression/anxiety -continue venlafaxine and risperidone DVT prophylaxis-Lovenox Full code Patient requires ongoing inpatient stay for further work up and management of acute on chronic hypoxia with copd exacerbation and evolving pneumonia with sepsis requiring high flow O2, IV steroids, IV abx, and close monitoring due to hemodynamic instability. Quality Stroke Does the patient have a stroke diagnosis?: No VTE Prior VTE?: No VTE Risk Level:: Medical - moderate - high VTE Device Contraindication: Treatment Not Indicated VTE Drug Contraindication: N/A - Med Ordered
--- NOTE | 2022-01-27 12:32 | MHC.CM.PN ---
VA/IMM addressed with Patient at bedside; original has been given to Patient and a copy has been placed on the chart.
[2022-01-27] MEDS: Enoxaparin Sodium 40 MG/0.4 ML SYRINGE SUBCUT (14:59)
[2022-01-27] MEDS: 0.9 % Sodium Chloride 1,000 ML 80 ML IVCONT (14:59)
[2022-01-27] MEDS: cefTRIAXone sodium 1 GM in 0.9 % Sodium Chloride 50 ML IV (15:07)
[2022-01-27] MEDS: Azithromycin 500 MG in 0.9 % Sodium Chloride 250 ML 125 MG IV (16:54)
[2022-01-27 19:04] LABS: INTERNATIONAL NORM RATIO 1.2 (0.9-1.1); Prothrombin Time 14.4 SEC (10.0-13.1)
[2022-01-27] MEDS: risperiDONE 0.5 MG TABLET PO (19:51)
[2022-01-28] VITALS (10 sets, daily range): BP systolic 129–156; BP diastolic 70–85; PULSE 102–116; RESP 12–20; TEMP 35.9–36.7; O2SAT 92–96
[2022-01-28 06:28] LABS: Hematocrit 41.7 % (37.0-47.0); Hemoglobin 13.2 g/dl (12.0-16.0); Mean Corpuscular HGB Conc 31.7 g/dl (31.0-35.0); Mean Corpuscular Hemoglobin 30.7 pg (27.0-33.0); Mean Platelet Volume 9.8 fL (9.4-12.3); NRBC Pct Auto 0.5 /100WBC (0.0-0.2); Platelet Count 430 X10*3/uL (160-400); Red Cell Distribution Width 14.8 % (11.0-16.0)
[2022-01-28] MEDS: 0.9 % Sodium Chloride 1,000 ML 80 ML IVCONT ×2 (06:28→20:15)
[2022-01-28] MEDS: methylPREDNISolone Sod Succ 125 MG/2 ML VIAL 60 MG IVPUSH ×2 (06:28→16:21)
[2022-01-28 06:33] LABS: WBC ABN SCTR FOR CBC 1; White Blood Count 23.9 X10*3/uL (4.8-10.8)
--- NOTE | 2022-01-28 07:00 | CA_ITS ---
Transthoracic Echocardiogram Patient (Last, First, Middle): Kelly Sampson, Gender: Female Date of : 1950 Age: 71 Procedure Date: 01/28/2022 Procedure Type: Transthoracic Echocardiogram Location: [facility] [place] Height: 154. cm Weight: 63.96 kg BSA: 1.62 m2 Heart Rate: 105 bpm BP: 140 / 88 mmHg [facility] Counsel: STEFANIE Referring MD: Shreya ORR Symptoms: persistent sinus tach, hypoxia Study Quality: Technically Difficult/Contrast ECG Rhythm: Tachycardia Conclusions: - Normal left ventricular cavity size. There is normal left ventricular wall thickness. The left ventricular systolic function is hyperdynamic. The visually estimated ejection fraction is >70%. - Mildly increased right ventricular cavity size. There is normal right ventricular systolic function. - Prominent epicardial adipose tissue noted. There is no evidence of pericardial effusion. Findings Procedure Information Contrast agent, definity, is being given per protocol without apparent complications. Left Ventricle Normal left ventricular cavity size. There is normal left ventricular wall thickness. The left ventricular systolic function is hyperdynamic. The visually estimated ejection fraction is >70%. There is no evidence of regional wall motion abnormalities. There is abnormal septal motion with excessive respiratory change. Diastolic function is normal for age. Right Ventricle Mildly increased right ventricular cavity size. There is normal right ventricular systolic function. Atria The left atrium is normal in size. The right atrium is mildly dilated. Aortic Valve The aortic valve structure and function is likely normal. There is mild calcification of the aortic valve. There is no aortic valve stenosis. There is no aortic valve regurgitation. Mitral Valve The mitral valve appears normal. There is no mitral valve regurgitation. There is no mitral valve stenosis. Pulmonic Valve The pulmonic valve is likely normal. Tricuspid Valve Normal tricuspid valve structure and function. There is trace tricuspid valve regurgitation. Normal right atrial pressure. Mild pulmonary hypertension is present. Great Vessels The aorta was not well visualized. The visualized portions of the pulmonary artery and branches are normal. Venous The inferior vena cava is normal in size and collapses greater than 50% with inspiration. Pericardium/Pleural Prominent epicardial adipose tissue noted. There is no evidence of pericardial effusion. Prior Study Comparison No prior study available for comparison. Measurements 2D Linear Measurements IVSd: 0.66 0.6-0.9/0.6-1.0 cm LVIDd: 3.72 3.9-5.3/4.2-5.9 cm LVIDd Index: 2.30 2.4-3.2/2.2-3.1 cm/m2 LVIDs: 3.11 2.0-3.6 cm LVPWd: 0.79 0.7-1.1 cm LA Diam: 2.60 2.7-3.8/3.0-4.0 cm LAIDs Index: 1.60 1.5-2.3 cm/m2 LV Mass: 90.26 67-162/88-224 g LV Mass Index: 55.72 43-95/49-115 g/m2 LVOT Diam: 1.80 3.0+(-)1.3 cm 2D Systolic Function EF 4C: 79.50 >55% EF 2C: 75.40 >55% EF BiP: 77.60 >55% Mitral Valve MV Pk E: 0.54 MV PK A: 0.97 MV Decel Time: 190.00 E/A: 0.60 E'Lateral: 7.83 E'Medial: 6.64 E/E' Med: 8.20 E/E' Lat: 6.90 PHT: 56.00 MVA PHT: 3.93 Decel Sargent: 2.85 Aortic Valve AoV Pk Asaf: 1.78 AoV Mn Asaf: 1.22 AoV VTI: 0.28 AoV Pk Grad: 13.00 Aov Mn Grad: 7.00 TJ Cont.VTI: 1.93 LVOT LVOT Pk Asaf: 1.37 LVOT Mn Asaf: 0.83 LVOT VTI: 0.21 LVOT Pk Grad: 8.00 LVOT Mn Grad: 4.00 LVOT Diam: 1.80 LVOT Area: 2.54 Diastolic Function MV Pk E: 0.54 MV Pk A: 0.97 E/A: 0.60 E'Medial: 6.64 E/E' Med: 8.20 E' Laterial: 7.83 E/E' Lat: 6.90 Right Ventricle TAPSE (mm): 21.90 TVS' Asaf: 13.40 Tricuspid Valve TR Pk Asaf: 3.23 TR Pk Grad: 42.00 RA Press: 3.00 RVSP: 45.00 Great Vessels Aorta Sinus of Valsalva: 2.90 2.0-3.5 cm Ao Asc: 2.40 2.1-3.4 cm Pulmonary Valve PV Pk Asaf: 1.05 Peak PV Grad: 4.00 Updated in Other Vendor System with Status of Final Hayden Warren MD electronically signed on 01/29/2022 1:32:10 PM with status of Final
[2022-01-28] MEDS: Albuterol/Iprat 2.5/0.5MG 3 ML AMPUL.NEB INHALE ×3 (07:36→14:59)
[2022-01-28 07:38] LABS: VBG Base Excess -0.7 mmol/L; VBG HCO3 24 mmol/L (22-26); VBG pCO2 39 mmHg; VBG pH 7.38 (7.32-7.43); VBG pO2 59 mmHg
[2022-01-28 07:39] LABS: Venous Blood Gas Refer to POC result
[2022-01-28 07:53] LABS: Band Neutrophils Percent 8 % (3-5); Lymphocytes Absolute Manual 2.4 X10*3/uL (1.2-4.9); Lymphocytes Percent Manual 10 % (20-40); Metamyelocytes Absolute 0.2 X10*3/uL; Metamyelocytes Percent 1 %; Monocytes Absolute Manual 1.9 X10*3/uL (0.1-1.2); Monocytes Percent Manual 8 % (2-11); Myelocytes Absolute 1.9 X10*/uL; Myelocytes Percent 8 %; Neutrophils Absolute Manual 17.2 X10*3/uL (2.0-8.3); Neutrophils Percent Manual 64 % (45-73); Nucleated Red Blood Cells 1 /100WBC (0-0); Promyelocytes Absolute 0.2 X10*3/uL; Promyelocytes Percent 1 %
[2022-01-28 07:56] LABS: Macrocytosis 1+ (5-14) /OIF; Platelet Estimate INCREASED (NORMAL); Platelet Morphology Comment NORMAL; Polychromasia 1+ (0-2) /OIF; RBC Morphology NOTED; Toxic Granulation PRESENT
[2022-01-28 08:00] LABS: Anion Gap 17 (12-20); Blood Urea Nitrogen 39 mg/dL (9-16); Calcium 8.1 mg/dL (8.4-10.2); Carbon Dioxide 23 mmol/L (22-29); Chloride 107 mmol/L (96-108); Creatinine Clr Calc Pharmacy 51.2; Estimated Glomerular Filt Rate > 60; Glucose Random 138 mg/dL (60-115); Sodium 143 mmol/L (135-145)
[2022-01-28] MEDS: risperiDONE 0.25 MG TABLET PO (09:08)
[2022-01-28] MEDS: Montelukast Sodium 10 MG TABLET PO (09:08)
[2022-01-28] MEDS: Atorvastatin Calcium 20 MG TABLET PO (09:08)
[2022-01-28] MEDS: Venlafaxine HCl ER 150 MG CAP.ER.24H PO (09:08)
[2022-01-28] MEDS: Valsartan 80 MG TABLET PO (09:09)
--- NOTE | 2022-01-28 11:32 | HO.PM.IMPN ---
Subjective Subjective Date of Service: 01/28/22 Interval History: Seen in follow up for acute hypoxia with COPD exacerbation, pneumonia, and sepsis Interval history: Reports feeling much better. Resting comfortably on High flow O2. Improvement in cough, sob. Remains afebrile. Review of Systems General: No fevers, malaise, unintentional weight loss HEENT: No blurred vision, diplopia. Cardiovascular: +pleuritic chest pressure. No chest pain, palpitations, or leg edema Respiratory: No sob, wheezing, cough GI: No abdominal pain, nausea, vomiting, diarrhea, constipation, melena, hematochezia : No dysuria, hematuria, increased urinary frequency, decreased urinary output MSK: No myalgia, back pain Neuro: No headaches, weakness, paresthesias Skin: No rashes or lesions Physical Exam Vital Signs: Vital Signs: Last Vital Signs Temp 96.7 F L 01/28/22 09:04 Pulse 110 H 01/28/22 09:04 Resp 18 01/28/22 11:15 BP 156/75 H 01/28/22 09:04 Pulse Ox 93 01/28/22 09:04 O2 Del Method 01/28/22 09:04 O2 Flow Rate 35 01/28/22 09:04 FiO2 35 01/28/22 09:04 Oxygen Flow Rate 3 01/26/22 10:36 BMI result Body Mass Index 26.7 Constitutional - Awake and Alert, No apparent distress Eyes - PERRLA, EOMI Cardiovascular - S1S2, RRR, No edema Respiratory - Normal lung expansion, Normal respiratory effort, No respiratory distress on 5L high flow O2, scattered wheezing Gastrointestinal - NT / ND; +BS; No rebound or guarding Extremities - no calf tenderness bilaterally, no swelling Skin - Warm/Dry Neurological - Alert & oriented x3 Psychological - Appropriate affect Objective Data Active Medications Acetaminophen (Acetaminophen 325 Mg Tablet) 650 mg PO Q6H PRN PRN Reason: Pain, Mild, fever Albuterol Sulfate (Albuterol Sulfate (0.083%) 2.5 Mg/3 Ml Vial.Neb) 2.5 mg INHALE Q2H PRN PRN Reason: Shortness of Breath/Wheezing Albuterol/Ipratropium (Albuterol/Iprat 2.5/0.5mg 3 Ml Ampul.Neb) 3 ml INHALE RQ4H WHILE AWAKE [facility] Last Admin: 01/28/22 11:14 Dose: 3 ml Documented By: SHANEL Atorvastatin Calcium (Atorvastatin Calcium 20 Mg Tablet) 20 mg PO DAILY [facility] Last Admin: 01/28/22 09:08 Dose: 20 mg Documented By: JUANITO Docusate Sodium (Docusate Sodium 100 Mg Capsule) 100 mg PO DAILY PRN PRN Reason: Constipation Enoxaparin Sodium (Enoxaparin Sodium 40 Mg/0.4 Ml Syringe) 40 mg SUBCUT Q24H [facility] Last Admin: 01/27/22 14:59 Dose: 40 mg Documented By: LÓPEZ Hydromorphone HCl (Hydromorphone Hcl 0.5 Mg/0.5 Ml Syringe) 0.25 mg IVPUSH Q4H PRN; Protocol PRN Reason: increased wob/sob Last Admin: 01/26/22 16:37 Dose: 0.25 mg Documented By: KRISTOFER Azithromycin 500 mg/ Sodium (Chloride) 250 mls @ 125 mls/hr IV Q24H [facility] Stop: 01/28/22 16:59 Last Infusion: 01/27/22 19:24 Dose: 0 mls/hr Documented By: LÓPEZ Ceftriaxone Sodium 1 gm/ (Sodium Chloride) 50 mls @ 100 mls/hr IV Q24H [facility] Stop: 02/01/22 15:29 Last Infusion: 01/27/22 16:29 Dose: 0 mls/hr Documented By: LÓPEZ Sodium Chloride (Ns) 1,000 mls @ 80 mls/hr IVCONT .[id number] [facility] Last Admin: 01/28/22 06:28 Dose: 80 mls/hr Documented By: MATTHIAS Methylprednisolone Sodium Succinate (Methylprednisolone Sod Succ 125 Mg/2 Ml Vial) 60 mg IVPUSH Q12H [facility] Last Admin: 01/28/22 06:28 Dose: 60 mg Documented By: MATTHIAS Montelukast Sodium (Montelukast Sodium 10 Mg Tablet) 10 mg PO DAILY [facility] Last Admin: 01/28/22 09:08 Dose: 10 mg Documented By: JUANITO Ondansetron HCl (Ondansetron Hcl 4 Mg/2 Ml Vial) 4 mg IVPUSH Q8H PRN PRN Reason: Nausea and Vomiting Pharmacy Consult (Consult Rx Perform Med Rec) 1 each MISCELLANE ONCE PRN PRN Reason: Consult order Risperidone (Risperidone 0.25 Mg Tablet) 0.25 mg PO DAILY [facility] Last Admin: 01/28/22 09:08 Dose: 0.25 mg Documented By: JUANITO Risperidone (Risperidone 0.5 Mg Tablet) 0.5 mg PO BEDTIME [facility] Last Admin: 01/27/22 19:51 Dose: 0.5 mg Documented By: MATTHIAS Sodium Chloride (0.9 % Sodium Chloride Flush 3 Ml Syringe) 3 ml IVFLUSH QSHIFT [facility] Last Admin: 01/28/22 09:11 Dose: Not Given Documented By: JUANITO Non-Admin Reason: IV Running Tiotropium [place] (Tiotropium [place] 18 Mcg Cap.W.Dev) 1 puff INHALE RDAILY [facility] Last Admin: 01/28/22 07:40 Dose: Not Given Documented By: SHANEL Non-Admin Reason: med unavail pharmacy called Valsartan (Valsartan 80 Mg Tablet) 80 mg PO DAILY [facility]; Protocol Last Admin: 01/28/22 09:09 Dose: 80 mg Documented By: JUANITO Venlafaxine HCl (Venlafaxine Hcl Er 150 Mg Cap.Er.24h) 150 mg PO DAILY [facility] Last Admin: 01/28/22 09:08 Dose: 150 mg Documented By: JUANITO Labs CBC & Chem 7: 01/28/22 05:36 01/28/22 05:36 Labs: Laboratory Results - last 24 hr 01/27/22 01/28/22 01/28/22 18:24 05:36 05:36 MCV 97.0 MCH 30.7 MCHC 31.7 RDW 14.8 Plt Count 430 H MPV 9.8 Immature Gran % (Auto) Cancelled Neut % (Auto) Cancelled Lymph % (Auto) Cancelled [place] % (Auto) Cancelled Eos % (Auto) Cancelled Baso % (Auto) Cancelled Lymph # (Auto) Cancelled [place] # (Auto) Cancelled Eos # (Auto) Cancelled Baso # (Auto) Cancelled Abs Immat Gran (auto) Cancelled Absolute Neuts (auto) Cancelled Absolute Nucleated RBC 0.120 H Nucleated RBC % (auto) 0.5 H Neutrophils % (Manual) 64 Band Neutrophils % 8 H Lymphocytes % (Manual) 10 L Monocytes % (Manual) 8 Metamyelocytes % 1 Myelocytes % 8 Promyelocytes % 1 Abs Neuts (Manual) 17.2 H Lymphocytes # (Manual) 2.4 Monocytes # (Manual) 1.9 H Metamyelocytes # 0.2 Myelocytes # 1.9 Promyelocytes # 0.2 Nucleated RBCs 1 H Toxic Granulation PRESENT Platelet Estimate INCREASED Plt Morphology Comment NORMAL RBC Morphology NOTED Polychromasia 1+ (0-2) Macrocytosis 1+ (5-14) PT 14.4 H INR 1.2 H VBG pH VBG pCO2 VBG pO2 VBG HCO3 VBG O2 Saturation VBG Base Excess Anion Gap 17 Estim Creat Clear Calc 51.2 Estimated GFR > 60 Random Glucose 138 H Calcium 8.1 L 01/28/22 07:32 MCV MCH MCHC RDW Plt Count MPV Immature Gran % (Auto) Neut % (Auto) Lymph % (Auto) [place] % (Auto) Eos % (Auto) Baso % (Auto) Lymph # (Auto) [place] # (Auto) Eos # (Auto) Baso # (Auto) Abs Immat Gran (auto) Absolute Neuts (auto) Absolute Nucleated RBC Nucleated RBC % (auto) Neutrophils % (Manual) Band Neutrophils % Lymphocytes % (Manual) Monocytes % (Manual) Metamyelocytes % Myelocytes % Promyelocytes % Abs Neuts (Manual) Lymphocytes # (Manual) Monocytes # (Manual) Metamyelocytes # Myelocytes # Promyelocytes # Nucleated RBCs Toxic Granulation Platelet Estimate Plt Morphology Comment RBC Morphology Polychromasia Macrocytosis PT INR VBG pH 7.38 VBG pCO2 39 VBG pO2 59 VBG HCO3 24 VBG O2 Saturation 86.0 VBG Base Excess -0.7 Anion Gap Estim Creat Clear Calc Estimated GFR Random Glucose Calcium Microbiology Microbiology Results: Microbiology 01/26/22 15:29 Blood Culture - Preliminary Blood - Venous No growth after 24 hours. 01/26/22 15:35 Blood Culture - Preliminary Blood - Venous No growth after 24 hours. Assessment and Plan (1) Acute on chronic respiratory failure with hypoxemia: Status: Acute (2) Pneumonia: Status: Acute (3) Sepsis: Status: Acute (4) Acute exacerbation of chronic obstructive pulmonary disease (COPD): Status: Acute Plan 71-year-old female with history of COPD on p.r.n. 2 L supplemental O2 at home, hypertension, hyperlipidemia, osteopenia, and who is a former smoker with 49 pack-year history admitted for COPD exacerbation with sepsis with acute hypoxic respiratory failure. #Sepsis-secondary to COPD exacerbation and pneumonia- resolving -leukocytosis persists, WBC increased to 23.5 (like 2/2 steroids) with 8% bandemia, tachycardic improved (sinus, albuterol contributory), tachypneic resolved.? Lactic acid normal 1.6.? No evidence of end-organ dysfunction -negative for COVID-19, influenza, RSV.? Full respiratory panel pending -CTA chest showing possible evolving pneumonia left lung base -Blood cultures negative -Continue ceftriaxone and azithromycin D3 (duration 5 days) -treat COPD exacerbation per below -follow CBC -admit to telemetry # acute hypoxic respiratory failure-secondary to COPD exacerbation and evolving pneumonia- improving -ABG ph 7.33/48/70/26 on admission. -Venous duplex RLE negative for DVT, D-Dimer elevated to 374. Chest CTA negative for PE, but showing possible evolving pneumonia vs atelectasis left lung base. Discussed with ICU providers who advise patient is compensating appropriately and that cause of hemodynamic instability is more metabolic than respiratory. Initial trop 134, repeat 114. EKG Sinus tach, rate 136, with occassional PVCs and nonspecific ST abnormality. Elevated trops likely secondary to demand ischemia from hypoxia. BNP 248. CTA chest without evidence of effusions/edema and no hx heart failure. Echocardiogram pending -Repeated VBG this morning- normal, no CO2 retention -Titrate O2 from high flow to [place] oxymask @15L to maintain O2 sat 92% -treat COPD exacerbation and pneumonia as below #Evolving pneumonia LLL -CTA chest with possible evolving pneumonia vs atelectassis as above -Continue ceftriaxone and azithromycin (duration 5 days, D3) -Strep pneumo, legionella, and sputum cultures pending # acute COPD exacerbation- still with wheezing requiring supplemental O2 as above -IV Solu-Medrol 60 mg b.i.d. -DuoNebs q.4h while awake -albuterol q.2h p.r.n. -continue maintenance medications -Tessalon Perles and guaifenesin p.r.n. for cough -Abx as above # hypertension-reasonably controlled -continue valsartan # HLD -continue statin # depression/anxiety -continue venlafaxine and risperidone DVT prophylaxis-Lovenox Full code Patient requires ongoing inpatient stay for further work up and management of acute on chronic hypoxia with copd exacerbation and evolving pneumonia with sepsis requiring high flow O2, IV steroids, IV abx, and close monitoring for hemodynamic stability. Quality Stroke Does the patient have a stroke diagnosis?: No VTE Prior VTE?: No VTE Risk Level:: Medical - moderate - high VTE Device Contraindication: Treatment Not Indicated VTE Drug Contraindication: N/A - Med Ordered
[2022-01-28] MEDS: cefTRIAXone sodium 1 GM in 0.9 % Sodium Chloride 50 ML IV (16:12)
--- NOTE | 2022-01-28 16:14 | MHC.CM.PN ---
per rounds pt ready for dc
[2022-01-28] MEDS: Enoxaparin Sodium 40 MG/0.4 ML SYRINGE SUBCUT (16:16)
[2022-01-28] MEDS: Azithromycin 500 MG in 0.9 % Sodium Chloride 250 ML 125 MG IV (16:55)
[2022-01-28] MEDS: risperiDONE 0.5 MG TABLET PO (20:13)
[2022-01-28] MEDS: 0.9 % Sodium Chloride Flush 3 ML SYRINGE IVFLUSH (20:13)
[2022-01-29] VITALS (9 sets, daily range): BP systolic 118–153; BP diastolic 69–83; PULSE 78–118; RESP 16–20; TEMP 36.4–36.9; O2SAT 90–98
[2022-01-29] MEDS: methylPREDNISolone Sod Succ 125 MG/2 ML VIAL 60 MG IVPUSH (04:20)
[2022-01-29 07:12] LABS: Hematocrit 41.5 % (37.0-47.0); Hemoglobin 13.2 g/dl (12.0-16.0); Mean Corpuscular HGB Conc 31.8 g/dl (31.0-35.0); Mean Corpuscular Volume 97.4 fL (80.0-98.0); Mean Platelet Volume 9.5 fL (9.4-12.3); NRBC Pct Auto 0.2 /100WBC (0.0-0.2); Platelet Count 461 X10*3/uL (160-400); Red Blood Count 4.26 X10*6/uL (4.20-5.50); Red Cell Distribution Width 14.8 % (11.0-16.0)
[2022-01-29 07:13] LABS: WBC ABN SCTR FOR CBC 1
[2022-01-29 07:30] LABS: Anion Gap 14 (12-20); Blood Urea Nitrogen 31 mg/dL (9-16); Calcium 7.7 mg/dL (8.4-10.2); Carbon Dioxide 26 mmol/L (22-29); Chloride 109 mmol/L (96-108); Creatinine Clr Calc Pharmacy 59.2; Estimated Glomerular Filt Rate > 60; Glucose Random 128 mg/dL (60-115); Potassium 3.7 mmol/L (3.3-5.1); Sodium 145 mmol/L (135-145)
[2022-01-29] MEDS: Albuterol/Iprat 2.5/0.5MG 3 ML AMPUL.NEB INHALE ×3 (07:46→15:19)
[2022-01-29 08:03] LABS: Atypical Lymphs Percent Manual 1 % (0-6); Band Neutrophils Percent 9 % (3-5); Basophils Percent Manual 2 % (0-2); Lymphocytes Percent Manual 3 % (20-40); Metamyelocytes Percent 3 %; Monocytes Percent Manual 7 % (2-11); Myelocytes Percent 1 %; Neutrophils Percent Manual 74 % (45-73)
[2022-01-29 08:06] LABS: Macrocytosis 1+ (5-14) /OIF; Platelet Estimate INCREASED (NORMAL); Platelet Morphology Comment NORMAL; RBC Morphology NOTED
[2022-01-29 08:07] LABS: Toxic Granulation PRESENT
[2022-01-29 08:08] LABS: Atypical Lymph Absolute Manual 0.3 x10*3/uL; Basophils Abs Manual 0.5 X10*3/uL (0.0-0.2); Lymphocytes Absolute Manual 0.8 X10*3/uL (1.2-4.9); Metamyelocytes Absolute 0.8 X10*3/uL; Monocytes Absolute Manual 1.9 X10*3/uL (0.1-1.2); Myelocytes Absolute 0.3 X10*/uL; Neutrophils Absolute Manual 22.7 X10*3/uL (2.0-8.3); White Blood Count 27.4 X10*3/uL (4.8-10.8)
[2022-01-29] MEDS: Valsartan 80 MG TABLET PO (09:40)
[2022-01-29] MEDS: Atorvastatin Calcium 20 MG TABLET PO (09:40)
[2022-01-29] MEDS: Montelukast Sodium 10 MG TABLET PO (09:40)
[2022-01-29] MEDS: risperiDONE 0.25 MG TABLET PO (09:41)
[2022-01-29] MEDS: Venlafaxine HCl ER 150 MG CAP.ER.24H PO (09:41)
[2022-01-29] MEDS: 0.9 % Sodium Chloride Flush 3 ML SYRINGE IVFLUSH ×3 (09:41→19:18)
--- NOTE | 2022-01-29 14:11 | HO.PM.IMPN ---
Subjective Subjective Date of Service: 01/29/22 Interval History: Feeling better this morning, feels shortness of breath has improved, denies fever chills, no lightheadedness or dizziness no nausea, no vomiting, no abdominal pain, no acute overnight events currently on 5 L of oxygen Review of Systems SHIP BOSS no headache no dizziness CVS no chest pain no urgency, no frequency. Review of Systems: Yes all other systems are reviewed and are negative Physical Exam Vital Signs: Vital Signs: Last Vital Signs Temp 98.5 F 01/29/22 11:30 Pulse 115 H 01/29/22 12:05 Resp 17 01/29/22 12:05 BP 137/76 01/29/22 11:30 Pulse Ox 94 01/29/22 11:30 O2 Del Method 01/29/22 11:30 O2 Flow Rate 6 01/29/22 11:30 FiO2 33 01/29/22 07:33 Oxygen Flow Rate 3 01/26/22 10:36 BMI result Body Mass Index 26.7 Const: Other: General awake alert x3, resting comfortably in no acute distress. Neck no JVD. CVS regular rate rhythm, Respiratory lungs diminished breath sound few expiratory wheeze,no respiratory distress Gastrointestinal abdomen soft, nontender, bowel sounds audible, no guarding , no rigidity. Extremities no edema. Neuro nonfocal Skin no rash Psych appropriate affect Objective Data Active Medications Acetaminophen (Acetaminophen 325 Mg Tablet) 650 mg PO Q6H PRN PRN Reason: Pain, Mild, fever Albuterol Sulfate (Albuterol Sulfate (0.083%) 2.5 Mg/3 Ml Vial.Neb) 2.5 mg INHALE Q2H PRN PRN Reason: Shortness of Breath/Wheezing Albuterol/Ipratropium (Albuterol/Iprat 2.5/0.5mg 3 Ml Ampul.Neb) 3 ml INHALE RQ4H WHILE AWAKE [facility] Last Admin: 01/29/22 12:01 Dose: 3 ml Documented By: SHAE Atorvastatin Calcium (Atorvastatin Calcium 20 Mg Tablet) 20 mg PO DAILY [facility] Last Admin: 01/29/22 09:40 Dose: 20 mg Documented By: CECIL Docusate Sodium (Docusate Sodium 100 Mg Capsule) 100 mg PO DAILY PRN PRN Reason: Constipation Enoxaparin Sodium (Enoxaparin Sodium 40 Mg/0.4 Ml Syringe) 40 mg SUBCUT Q24H [facility] Last Admin: 01/28/22 16:16 Dose: 40 mg Documented By: JUANITO Hydromorphone HCl (Hydromorphone Hcl 0.5 Mg/0.5 Ml Syringe) 0.25 mg IVPUSH Q4H PRN; Protocol PRN Reason: increased wob/sob Last Admin: 01/26/22 16:37 Dose: 0.25 mg Documented By: KRISTOFER Ceftriaxone Sodium 1 gm/ (Sodium Chloride) 50 mls @ 100 mls/hr IV Q24H [facility] Stop: 02/01/22 15:29 Last Infusion: 01/28/22 16:58 Dose: 0 mls/hr Documented By: JUANITO Methylprednisolone Sodium Succinate (Methylprednisolone Sod Succ 125 Mg/2 Ml Vial) 60 mg IVPUSH Q12H [facility] Last Admin: 01/29/22 04:20 Dose: 60 mg Documented By: JOLEEN Montelukast Sodium (Montelukast Sodium 10 Mg Tablet) 10 mg PO DAILY [facility] Last Admin: 01/29/22 09:40 Dose: 10 mg Documented By: CECIL Ondansetron HCl (Ondansetron Hcl 4 Mg/2 Ml Vial) 4 mg IVPUSH Q8H PRN PRN Reason: Nausea and Vomiting Pharmacy Consult (Consult Rx Perform Med Rec) 1 each MISCELLANE ONCE PRN PRN Reason: Consult order Risperidone (Risperidone 0.25 Mg Tablet) 0.25 mg PO DAILY [facility] Last Admin: 01/29/22 09:41 Dose: 0.25 mg Documented By: CECIL Risperidone (Risperidone 0.5 Mg Tablet) 0.5 mg PO BEDTIME [facility] Last Admin: 01/28/22 20:13 Dose: 0.5 mg Documented By: JOLEEN Sodium Chloride (0.9 % Sodium Chloride Flush 3 Ml Syringe) 3 ml IVFLUSH QSHIFT [facility] Last Admin: 01/29/22 09:41 Dose: 3 ml Documented By: CECIL Tiotropium [place] (Tiotropium [place] 18 Mcg Cap.W.Dev) 1 puff INHALE RDAILY [facility] Last Admin: 01/29/22 12:01 Dose: 1 puff Documented By: SHAE Valsartan (Valsartan 80 Mg Tablet) 80 mg PO DAILY [facility]; Protocol Last Admin: 01/29/22 09:40 Dose: 80 mg Documented By: CECIL Venlafaxine HCl (Venlafaxine Hcl Er 150 Mg Cap.Er.24h) 150 mg PO DAILY [facility] Last Admin: 01/29/22 09:41 Dose: 150 mg Documented By: CECIL Labs CBC & Chem 7: 01/29/22 06:19 01/29/22 06:19 Labs: Laboratory Results - last 24 hr 01/27/22 01/29/22 01/29/22 18:08 06:19 06:19 MCV 97.4 MCH 31.0 MCHC 31.8 RDW 14.8 Plt Count 461 H MPV 9.5 Immature Gran % (Auto) Cancelled Neut % (Auto) Cancelled Lymph % (Auto) Cancelled [place] % (Auto) Cancelled Eos % (Auto) Cancelled Baso % (Auto) Cancelled Lymph # (Auto) Cancelled [place] # (Auto) Cancelled Eos # (Auto) Cancelled Baso # (Auto) Cancelled Abs Immat Gran (auto) Cancelled Absolute Neuts (auto) Cancelled Absolute Nucleated RBC 0.060 H Nucleated RBC % (auto) 0.2 Neutrophils % (Manual) 74 H Band Neutrophils % 9 H Lymphocytes % (Manual) 3 L Atypical Lymphs % (Man) 1 Monocytes % (Manual) 7 Basophils % (Manual) 2 Metamyelocytes % 3 Myelocytes % 1 Abs Neuts (Manual) 22.7 H Lymphocytes # (Manual) 0.8 L Atyp Lymphs # (Manual) 0.3 Monocytes # (Manual) 1.9 H Basophils # (Manual) 0.5 H Metamyelocytes # 0.8 Myelocytes # 0.3 Toxic Granulation PRESENT Platelet Estimate INCREASED Plt Morphology Comment NORMAL RBC Morphology NOTED Macrocytosis 1+ (5-14) Anion Gap 14 Estim Creat Clear Calc 59.2 Estimated GFR > 60 Random Glucose 128 H Calcium 7.7 L Respiratory Panel Rodríguez Cancelled Adenovirus (Rapid PCR) Cancelled B.pert (TEM-PCR) Cancelled B.parapertussis DNA PCR Cancelled C. pneumoniae DNA (PCR) Cancelled Coronavirus OC43 (PCR) Cancelled Coronavirus HKU1 (PCR) Cancelled Coronavirus 229E (PCR) Cancelled Coronavirus NL63 (PCR) Cancelled Human Metapneumovir PCR Cancelled Influenza A (RT-PCR) Cancelled Influenza B (RT-PCR) Cancelled M. pneumoniae (PCR) Cancelled Parainfluenza 1 (PCR) Cancelled Parainfluenza 2 (PCR) Cancelled Parainfluenza 3 (PCR) Cancelled Parainfluenza 4 (PCR) Cancelled RSV (PCR) Cancelled Entero/Rhino (PCR) Cancelled SARS-CoV-2 RNA (RT-PCR) Cancelled Microbiology Microbiology Results: Microbiology 01/26/22 15:29 Blood Culture - Preliminary Blood - Venous No growth after 48 hours. 01/26/22 15:35 Blood Culture - Preliminary Blood - Venous No growth after 48 hours. Assessment and Plan (1) Acute on chronic respiratory failure with hypoxemia: Status: Acute (2) Pneumonia: Status: Acute (3) Sepsis: Status: Acute (4) Acute exacerbation of chronic obstructive pulmonary disease (COPD): Status: Acute Plan 71-year-old female with history of COPD on p.r.n. 2 L supplemental O2 at home, hypertension, hyperlipidemia, osteopenia, and who is a former smoker with 49 pack-year history admitted for COPD exacerbation with sepsis with acute hypoxic respiratory failure. #Sepsis-secondary to COPD exacerbation and pneumonia- resolving -leukocytosis persists likely due to steroids, no diarrhea, tachycardia improved , tachypneic resolved.? Lactic acid normal 1.6.? No evidence of end-organ dysfunction -negative for COVID-19, influenza, RSV.? -CTA chest showing possible evolving pneumonia left lung base -Blood cultures negative -Continue ceftriaxone and azithromycin D4/5 # acute hypoxic respiratory failure-secondary to acute COPD exacerbation and evolving pneumonia- improving Hypoxia improving, On 5 L of oxygen, gradually wean oxygen ABG ph 7.33/48/70/26 on admission. Repeat VBG is normal Venous duplex RLE negative for DVT, D-Dimer elevated to 374. Chest CTA negative for PE, but showing possible evolving pneumonia vs atelectasis left lung base. CTA chest without evidence of effusions/edema and no hx heart failure. Echocardiogram showed EF greater than 70% no wall motion abnormality, normal diastolic function abnormal septal motion with excessive respiratory change continue ceftriaxone and azithromycin day 4/5 -Strep pneumo, legionella, and sputum cultures pending -IV Solu-Medrol 60 mg b.i.d. -DuoNebs q.4h while awake,albuterol q.2h p.r.n. -Tessalon Perles and guaifenesin p.r.n. for cough Continue close clinical follow-up # hypertension-reasonably controlled -continue valsartan # HLD -continue statin # depression/anxiety -continue venlafaxine and risperidone DVT prophylaxis-Lovenox Full code Patient requires ongoing inpatient stay for further work up and management of acute on chronic hypoxia with copd exacerbation and evolving pneumonia with sepsis Quality Stroke Does the patient have a stroke diagnosis?: No VTE Prior VTE?: No VTE Risk Level:: Medical - moderate - high VTE Device Contraindication: Treatment Not Indicated VTE Drug Contraindication: N/A - Med Ordered
[2022-01-29] MEDS: Omeprazole 20 MG CAPSULE.DR PO (15:49)
[2022-01-29] MEDS: Enoxaparin Sodium 40 MG/0.4 ML SYRINGE SUBCUT (15:49)
[2022-01-29] MEDS: cefTRIAXone sodium 1 GM in 0.9 % Sodium Chloride 50 ML IV (15:49)
[2022-01-29] MEDS: methylPREDNISolone Sod Succ 40 MG/ML VIAL IVPUSH (15:49)
[2022-01-29] MEDS: Azithromycin 250 MG TABLET PO (15:49)
[2022-01-29] MEDS: risperiDONE 0.5 MG TABLET PO (19:18)
[2022-01-30] VITALS (10 sets, daily range): BP systolic 93–141; BP diastolic 58–86; PULSE 52–108; RESP 13–20; TEMP 36.1–37; O2SAT 89–98
[2022-01-30] MEDS: methylPREDNISolone Sod Succ 40 MG/ML VIAL IVPUSH ×2 (02:43→15:15)
[2022-01-30] MEDS: Omeprazole 20 MG CAPSULE.DR PO (05:11)
[2022-01-30] MEDS: Albuterol/Iprat 2.5/0.5MG 3 ML AMPUL.NEB INHALE ×4 (07:41→19:37)
[2022-01-30 07:54] LABS: Anion Gap 13 (12-20); Blood Urea Nitrogen 22 mg/dL (9-16); Calcium 8.2 mg/dL (8.4-10.2); Carbon Dioxide 30 mmol/L (22-29); Chloride 105 mmol/L (96-108); Creatinine Clr Calc Pharmacy 64.2; Estimated Glomerular Filt Rate > 60; Glucose Random 142 mg/dL (60-115); Sodium 144 mmol/L (135-145)
[2022-01-30] MEDS: Atorvastatin Calcium 20 MG TABLET PO (10:30)
[2022-01-30] MEDS: Montelukast Sodium 10 MG TABLET PO (10:30)
[2022-01-30] MEDS: Venlafaxine HCl ER 150 MG CAP.ER.24H PO (10:30)
[2022-01-30] MEDS: risperiDONE 0.25 MG TABLET PO (10:30)
[2022-01-30] MEDS: Valsartan 80 MG TABLET PO (10:30)
--- NOTE | 2022-01-30 14:28 | HO.PM.IMPN ---
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 Review of Systems: Yes all other systems are reviewed and are negative Physical Exam Vital Signs: Vital Signs: Last Vital Signs Temp 98.2 F 01/30/22 11:02 Pulse 108 H 01/30/22 11:41 Resp 18 01/30/22 11:41 BP 139/76 01/30/22 11:02 Pulse Ox 92 01/30/22 11:02 O2 Del Method 01/30/22 11:02 O2 Flow Rate 3 01/30/22 11:02 FiO2 33 01/29/22 07:33 Oxygen Flow Rate 3 01/26/22 10:36 BMI result Body Mass Index 26.7 Const: Other: General awake alert x3, resting comfortably in no acute distress.? Neck? no JVD. CVS? regular rate rhythm, Respiratory lungs persistent diminished breath sound with expiratory wheeze,no respiratory distress Gastrointestinal abdomen soft, nontender, bowel sounds audible, no guarding , no rigidity. Extremities no edema. Neuro nonfocal Skin no rash Psych appropriate affect Objective Data Active Medications Acetaminophen (Acetaminophen 325 Mg Tablet) 650 mg PO Q6H PRN PRN Reason: Pain, Mild, fever Albuterol Sulfate (Albuterol Sulfate (0.083%) 2.5 Mg/3 Ml Vial.Neb) 2.5 mg INHALE Q2H PRN PRN Reason: Shortness of Breath/Wheezing Albuterol/Ipratropium (Albuterol/Iprat 2.5/0.5mg 3 Ml Ampul.Neb) 3 ml INHALE RQ4H WHILE AWAKE [facility] Last Admin: 01/30/22 14:26 Dose: 3 ml Documented By: SEBAS Atorvastatin Calcium (Atorvastatin Calcium 20 Mg Tablet) 20 mg PO DAILY [facility] Last Admin: 01/30/22 10:30 Dose: 20 mg Documented By: YRN Azithromycin (Azithromycin 250 Mg Tablet) 250 mg PO Q24H [facility] Last Admin: 01/29/22 15:49 Dose: 250 mg Documented By: CECIL Docusate Sodium (Docusate Sodium 100 Mg Capsule) 100 mg PO DAILY PRN PRN Reason: Constipation Enoxaparin Sodium (Enoxaparin Sodium 40 Mg/0.4 Ml Syringe) 40 mg SUBCUT Q24H [facility] Last Admin: 01/29/22 15:49 Dose: 40 mg Documented By: CECIL Hydromorphone HCl (Hydromorphone Hcl 0.5 Mg/0.5 Ml Syringe) 0.25 mg IVPUSH Q4H PRN; Protocol PRN Reason: increased wob/sob Last Admin: 01/26/22 16:37 Dose: 0.25 mg Documented By: KRISTOFER Ceftriaxone Sodium 1 gm/ (Sodium Chloride) 50 mls @ 100 mls/hr IV Q24H [facility] Stop: 02/01/22 15:29 Last Infusion: 01/29/22 16:24 Dose: 0 mls/hr Documented By: CECIL Methylprednisolone Sodium Succinate (Methylprednisolone Sod Succ 40 Mg/Ml Vial) 40 mg IVPUSH Q12H [facility] Last Admin: 01/30/22 02:43 Dose: 40 mg Documented By: JOLEEN Montelukast Sodium (Montelukast Sodium 10 Mg Tablet) 10 mg PO DAILY [facility] Last Admin: 01/30/22 10:30 Dose: 10 mg Documented By: YRN Omeprazole (Omeprazole 20 Mg Capsule.Dr) 20 mg PO DAILY@0630 [facility] Last Admin: 01/30/22 05:11 Dose: 20 mg Documented By: JOLEEN Ondansetron HCl (Ondansetron Hcl 4 Mg/2 Ml Vial) 4 mg IVPUSH Q8H PRN PRN Reason: Nausea and Vomiting Pharmacy Consult (Consult Rx Perform Med Rec) 1 each MISCELLANE ONCE PRN PRN Reason: Consult order Risperidone (Risperidone 0.25 Mg Tablet) 0.25 mg PO DAILY [facility] Last Admin: 01/30/22 10:30 Dose: 0.25 mg Documented By: YRN Risperidone (Risperidone 0.5 Mg Tablet) 0.5 mg PO BEDTIME [facility] Last Admin: 01/29/22 19:18 Dose: 0.5 mg Documented By: JOLEEN Sodium Chloride (0.9 % Sodium Chloride Flush 3 Ml Syringe) 3 ml IVFLUSH QSHIFT [facility] Last Admin: 01/30/22 07:23 Dose: Not Given Documented By: YRN Non-Admin Reason: See Note Tiotropium [place] (Tiotropium [place] 18 Mcg Cap.W.Dev) 1 puff INHALE RDAILY [facility] Last Admin: 01/30/22 07:41 Dose: 1 puff Documented By: SHAE Valsartan (Valsartan 80 Mg Tablet) 80 mg PO DAILY [facility]; Protocol Last Admin: 01/30/22 10:30 Dose: 80 mg Documented By: YRN Venlafaxine HCl (Venlafaxine Hcl Er 150 Mg Cap.Er.24h) 150 mg PO DAILY [facility] Last Admin: 01/30/22 10:30 Dose: 150 mg Documented By: YRN Labs CBC & Chem 7: 01/29/22 06:19 01/30/22 07:05 Labs: Laboratory Results - last 24 hr 01/30/22 07:05 Anion Gap 13 Estim Creat Clear Calc 64.2 Estimated GFR > 60 Random Glucose 142 H Calcium 8.2 L D Assessment and Plan (1) Acute on chronic respiratory failure with hypoxemia: Status: Acute (2) Pneumonia: Status: Acute (3) Sepsis: Status: Acute (4) Acute exacerbation of chronic obstructive pulmonary disease (COPD): Status: Acute Plan 71-year-old female with history of COPD on p.r.n. 2 L supplemental O2 at home, hypertension, hyperlipidemia, osteopenia, and who is a former smoker with 49 pack-year history admitted for COPD exacerbation with sepsis with acute hypoxic respiratory failure. #Sepsis-secondary to COPD exacerbation and pneumonia- resolving -leukocytosis persists likely due to steroids, no diarrhea, tachycardia improved , tachypneic resolved.? Lactic acid normal 1.6.? No evidence of end-organ dysfunction -negative for COVID-19, influenza, RSV.? -CTA chest showing possible evolving pneumonia left lung base -Blood cultures negative -Continue ceftriaxone and azithromycin D5/5 # acute hypoxic respiratory failure-secondary to acute COPD exacerbation and evolving pneumonia- improving Hypoxia improving, On 3 L of oxygen, has 2 L of oxygen at home but was not using. ABG ph 7.33/48/70/26 on admission. Repeat VBG is normal Venous duplex RLE negative for DVT, D-Dimer elevated to 374. Chest CTA negative for PE, but showing possible evolving pneumonia vs atelectasis left lung base. Echocardiogram showed EF greater than 70% no wall motion abnormality, normal diastolic function abnormal septal motion with excessive respiratory change continue ceftriaxone and azithromycin day 5 -Strep pneumo, legionella, and sputum cultures pending -IV Solu-Medrol reduced to 40 mg b.i.d.continue DuoNebs q.4h while awake,albuterol q.2h p.r.n. -Tessalon Perles and guaifenesin p.r.n. for cough will continue current treatment due to persistent diminished breath sound encourage out of bed to chair, incentive spirometry # hypertension-reasonably controlled -continue valsartan # HLD -continue statin # depression/anxiety -continue venlafaxine and risperidone DVT prophylaxis-Lovenox Full code Patient requires ongoing inpatient stay for further work up and management of acute on chronic hypoxia with copd exacerbation and evolving pneumonia with sepsis on IV steroids and IV antibiotics Quality Stroke Does the patient have a stroke diagnosis?: No VTE Prior VTE?: No VTE Risk Level:: Medical - moderate - high VTE Device Contraindication: Treatment Not Indicated VTE Drug Contraindication: N/A - Med Ordered
[2022-01-30] MEDS: Azithromycin 250 MG TABLET PO (15:16)
[2022-01-30] MEDS: cefTRIAXone sodium 1 GM in 0.9 % Sodium Chloride 50 ML IV (15:16)
[2022-01-30] MEDS: Enoxaparin Sodium 40 MG/0.4 ML SYRINGE SUBCUT (15:16)
[2022-01-30] MEDS: 0.9 % Sodium Chloride Flush 3 ML SYRINGE IVFLUSH ×2 (15:17→21:35)
--- NOTE | 2022-01-30 15:23 | MHC.CM.PN ---
per rounds pt not ready for dc today plan remanins home with family
[2022-01-30] MEDS: risperiDONE 0.5 MG TABLET PO (21:35)
[2022-01-31] VITALS (8 sets, daily range): BP systolic 137–165; BP diastolic 72–97; PULSE 84–115; RESP 12–18; TEMP 36.9–37.2; O2SAT 89–93
[2022-01-31] MEDS: methylPREDNISolone Sod Succ 40 MG/ML VIAL IVPUSH ×2 (03:08→16:17)
[2022-01-31] MEDS: Omeprazole 20 MG CAPSULE.DR PO (05:46)
[2022-01-31 07:00] LABS: Hematocrit 41.8 % (37.0-47.0); Hemoglobin 13.7 g/dl (12.0-16.0); Mean Corpuscular HGB Conc 32.8 g/dl (31.0-35.0); Mean Corpuscular Hemoglobin 32.1 pg (27.0-33.0); Mean Corpuscular Volume 97.9 fL (80.0-98.0); Mean Platelet Volume 9.7 fL (9.4-12.3); NRBC Pct Auto 0.1 /100WBC (0.0-0.2); Platelet Count 391 X10*3/uL (160-400); Red Blood Count 4.27 X10*6/uL (4.20-5.50); Red Cell Distribution Width 14.6 % (11.0-16.0); White Blood Count 28.3 X10*3/uL (4.8-10.8)
[2022-01-31 07:01] LABS: Hemoglobin 13.4 g/dl (12.0-16.0); Mean Corpuscular HGB Conc 31.9 g/dl (31.0-35.0); Mean Corpuscular Hemoglobin 31.1 pg (27.0-33.0); Mean Corpuscular Volume 97.4 fL (80.0-98.0); Mean Platelet Volume 9.6 fL (9.4-12.3); NRBC Pct Auto 0.1 /100WBC (0.0-0.2); Platelet Count 399 X10*3/uL (160-400); Red Blood Count 4.31 X10*6/uL (4.20-5.50); Red Cell Distribution Width 14.6 % (11.0-16.0); White Blood Count 28.3 X10*3/uL (4.8-10.8)
[2022-01-31 07:49] LABS: Anion Gap 13 (12-20); Blood Urea Nitrogen 18 mg/dL (9-16); Carbon Dioxide 31 mmol/L (22-29); Chloride 102 mmol/L (96-108); Creatinine Clr Calc Pharmacy 63.2; Estimated Glomerular Filt Rate > 60; Glucose Random 130 mg/dL (60-115); Potassium 3.5 mmol/L (3.3-5.1); Sodium 142 mmol/L (135-145)
[2022-01-31] MEDS: Albuterol/Iprat 2.5/0.5MG 3 ML AMPUL.NEB INHALE ×3 (07:59→14:44)
[2022-01-31] MEDS: Atorvastatin Calcium 20 MG TABLET PO (09:37)
[2022-01-31] MEDS: Montelukast Sodium 10 MG TABLET PO (09:37)
[2022-01-31] MEDS: Valsartan 80 MG TABLET PO (09:37)
[2022-01-31] MEDS: Venlafaxine HCl ER 150 MG CAP.ER.24H PO (09:37)
[2022-01-31] MEDS: risperiDONE 0.25 MG TABLET PO (09:37)
[2022-01-31] MEDS: 0.9 % Sodium Chloride Flush 3 ML SYRINGE IVFLUSH ×3 (09:40→20:07)
--- NOTE | 2022-01-31 12:43 | HO.PM.IMPN ---
Subjective Subjective Date of Service: 01/31/22 Interval History: still complaining of shortness of breath and chest congestion, remains on 3 L of oxygen finger oximetry 91%, denies fever, no chills, denies headache or dizziness tolerating diet no nausea no vomiting no diarrhea no abdominal pain, denies chest discomfort, has been mostly in bed. 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 Review of Systems: Yes all other systems are reviewed and are negative Physical Exam Vital Signs: Vital Signs: Last Vital Signs Temp 98.7 F 01/31/22 08:00 Pulse 111 H 01/31/22 10:44 Resp 12 01/31/22 08:00 BP 137/72 01/31/22 08:00 Pulse Ox 92 01/31/22 08:00 O2 Del Method 01/31/22 08:00 O2 Flow Rate 3.5 01/31/22 08:00 FiO2 33 01/29/22 07:33 Oxygen Flow Rate 3 01/26/22 10:36 BMI result Body Mass Index 26.7 Const: Other: General awake alert x3, in no acute distress.? Neck? no JVD. CVS? regular rate rhythm, Respiratory lungs persistent diminished breath sound? with expiratory wheeze,no respiratory distress Gastrointestinal abdomen soft, nontender, bowel sounds audible, no guarding , no rigidity. Extremities no edema. Neuro nonfocal Skin no rash Psych appropriate affect Objective Data Active Medications Acetaminophen (Acetaminophen 325 Mg Tablet) 650 mg PO Q6H PRN PRN Reason: Pain, Mild, fever Albuterol Sulfate (Albuterol Sulfate (0.083%) 2.5 Mg/3 Ml Vial.Neb) 2.5 mg INHALE Q2H PRN PRN Reason: Shortness of Breath/Wheezing Albuterol/Ipratropium (Albuterol/Iprat 2.5/0.5mg 3 Ml Ampul.Neb) 3 ml INHALE RQ4H WHILE AWAKE [facility] Last Admin: 01/31/22 10:43 Dose: 3 ml Documented By: SHANEL Atorvastatin Calcium (Atorvastatin Calcium 20 Mg Tablet) 20 mg PO DAILY [facility] Last Admin: 01/31/22 09:37 Dose: 20 mg Documented By: KALEY Azithromycin (Azithromycin 250 Mg Tablet) 250 mg PO Q24H [facility] Last Admin: 01/30/22 15:16 Dose: 250 mg Documented By: WICHO Docusate Sodium (Docusate Sodium 100 Mg Capsule) 100 mg PO DAILY PRN PRN Reason: Constipation Enoxaparin Sodium (Enoxaparin Sodium 40 Mg/0.4 Ml Syringe) 40 mg SUBCUT Q24H [facility] Last Admin: 01/30/22 15:16 Dose: 40 mg Documented By: WICHO Hydromorphone HCl (Hydromorphone Hcl 0.5 Mg/0.5 Ml Syringe) 0.25 mg IVPUSH Q4H PRN; Protocol PRN Reason: increased wob/sob Last Admin: 01/26/22 16:37 Dose: 0.25 mg Documented By: KRISTOFER Ceftriaxone Sodium 1 gm/ (Sodium Chloride) 50 mls @ 100 mls/hr IV Q24H [facility] Stop: 02/01/22 15:29 Last Infusion: 01/30/22 17:12 Dose: 100 mls/hr Documented By: WICHO Methylprednisolone Sodium Succinate (Methylprednisolone Sod Succ 40 Mg/Ml Vial) 40 mg IVPUSH Q12H [facility] Last Admin: 01/31/22 03:08 Dose: 40 mg Documented By: PAUL Montelukast Sodium (Montelukast Sodium 10 Mg Tablet) 10 mg PO DAILY [facility] Last Admin: 01/31/22 09:37 Dose: 10 mg Documented By: KALEY Omeprazole (Omeprazole 20 Mg Capsule.Dr) 20 mg PO DAILY@0630 [facility] Last Admin: 01/31/22 05:46 Dose: 20 mg Documented By: PAUL Ondansetron HCl (Ondansetron Hcl 4 Mg/2 Ml Vial) 4 mg IVPUSH Q8H PRN PRN Reason: Nausea and Vomiting Pharmacy Consult (Consult Rx Perform Med Rec) 1 each MISCELLANE ONCE PRN PRN Reason: Consult order Risperidone (Risperidone 0.25 Mg Tablet) 0.25 mg PO DAILY [facility] Last Admin: 01/31/22 09:37 Dose: 0.25 mg Documented By: KALEY Risperidone (Risperidone 0.5 Mg Tablet) 0.5 mg PO BEDTIME [facility] Last Admin: 01/30/22 21:35 Dose: 0.5 mg Documented By: PAUL Sodium Chloride (0.9 % Sodium Chloride Flush 3 Ml Syringe) 3 ml IVFLUSH QSHIFT [facility] Last Admin: 01/31/22 09:40 Dose: 3 ml Documented By: KALEY Tiotropium [place] (Tiotropium [place] 18 Mcg Cap.W.Dev) 1 puff INHALE RDAILY [facility] Last Admin: 01/31/22 07:59 Dose: 1 puff Documented By: SHANEL Valsartan (Valsartan 80 Mg Tablet) 80 mg PO DAILY [facility]; Protocol Last Admin: 01/31/22 09:37 Dose: 80 mg Documented By: KALEY Venlafaxine HCl (Venlafaxine Hcl Er 150 Mg Cap.Er.24h) 150 mg PO DAILY [facility] Last Admin: 01/31/22 09:37 Dose: 150 mg Documented By: KALEY Labs CBC & Chem 7: 01/31/22 06:22 12 06:22 Labs: Laboratory Results - last 24 hr 01/31/22 01/31/22 01/31/22 06:22 06:22 06:22 MCV 97.9 97.4 MCH 32.1 31.1 MCHC 32.8 31.9 RDW 14.6 14.6 Plt Count 391 399 MPV 9.7 9.6 Absolute Nucleated RBC 0.020 H 0.020 H Nucleated RBC % (auto) 0.1 0.1 Anion Gap 13 Estim Creat Clear Calc 63.2 Estimated GFR > 60 Random Glucose 130 H Calcium 8.0 L Assessment and Plan (1) Acute on chronic respiratory failure with hypoxemia: Status: Acute (2) Pneumonia: Status: Acute (3) Sepsis: Status: Acute (4) Acute exacerbation of chronic obstructive pulmonary disease (COPD): Status: Acute Plan 71-year-old female with history of COPD on p.r.n. 2 L supplemental O2 at home, hypertension, hyperlipidemia, osteopenia, and who is a former smoker with 49 pack-year history admitted for COPD exacerbation with sepsis with acute hypoxic respiratory failure. #Sepsis-secondary to COPD exacerbation and pneumonia- slowly improving -leukocytosis persists likely due to steroids, no diarrhea, no fever, intermittent tachycardia likely due to updraft , tachypneic resolved.? Lactic acid normal 1.6.? No evidence of end-organ dysfunction -negative for COVID-19, influenza, RSV.? -CTA chest showed multiple pulmonary nodules diffuse emphysema with right lower lobe atelectasis/ infiltrate and mild atelectatic changes left lung base -Blood cultures negative -on ceftriaxone and azithromycin D6 # acute hypoxic respiratory failure-secondary to acute COPD exacerbation and evolving pneumonia- improving Hypoxia improving, On 3 L of oxygen, has 2 L of oxygen at home but was not using. ABG ph 7.33/48/70/26 on admission. Repeat VBG is normal Venous duplex RLE negative for DVT, D-Dimer elevated to 374. Chest CTA negative for PE, but showing possible evolving pneumonia vs atelectasis left lung base. Echocardiogram showed EF greater than 70% no wall motion abnormality, normal diastolic function abnormal septal motion with excessive respiratory change Strep pneumo, legionella, and sputum cultures pending -IV Solu-Medrol 40 mg b.i.d.continue DuoNebs q.4h while awake,albuterol q.2h p.r.n. -Tessalon Perles and guaifenesin p.r.n. for cough, will add Breo daily encourage out of bed to chair, incentive spirometry # hypertension-reasonably controlled -continue valsartan # HLD -continue statin # depression/anxiety -continue venlafaxine and risperidone DVT prophylaxis-Lovenox Full code Patient requires ongoing inpatient stay for further work up and management of acute on chronic hypoxia with copd exacerbation and evolving pneumonia with sepsis on IV steroids and IV antibiotics Quality Stroke Does the patient have a stroke diagnosis?: No VTE Prior VTE?: No VTE Risk Level:: Medical - moderate - high VTE Device Contraindication: Treatment Not Indicated VTE Drug Contraindication: N/A - Med Ordered
[2022-01-31] MEDS: Azithromycin 250 MG TABLET PO (16:17)
[2022-01-31] MEDS: Enoxaparin Sodium 40 MG/0.4 ML SYRINGE SUBCUT (16:17)
[2022-01-31] MEDS: cefTRIAXone sodium 1 GM in 0.9 % Sodium Chloride 50 ML IV (16:18)
[2022-01-31] MEDS: risperiDONE 0.5 MG TABLET PO (20:07)
[2022-02-01] VITALS (10 sets, daily range): BP systolic 131–168; BP diastolic 75–95; PULSE 100–114; RESP 16–20; TEMP 36.1–37.1; O2SAT 86–94
[2022-02-01] MEDS: methylPREDNISolone Sod Succ 40 MG/ML VIAL IVPUSH ×2 (02:18→15:56)
[2022-02-01] MEDS: Omeprazole 20 MG CAPSULE.DR PO (05:23)
[2022-02-01 05:34] LABS: Strep Pneumo Ag urine Not Detected (Not Detected)
[2022-02-01] MEDS: Albuterol/Iprat 2.5/0.5MG 3 ML AMPUL.NEB INHALE ×4 (07:50→18:52)
[2022-02-01] MEDS: Fluticasone/Vilanterol 100/25 BLST.W.DEV 1 PUFF INHALE (07:51)
[2022-02-01] MEDS: Venlafaxine HCl ER 150 MG CAP.ER.24H PO (08:03)
[2022-02-01] MEDS: Valsartan 80 MG TABLET PO (08:03)
[2022-02-01] MEDS: Montelukast Sodium 10 MG TABLET PO (08:04)
[2022-02-01] MEDS: Atorvastatin Calcium 20 MG TABLET PO (08:04)
[2022-02-01] MEDS: 0.9 % Sodium Chloride Flush 3 ML SYRINGE IVFLUSH ×3 (08:04→20:04)
[2022-02-01] MEDS: risperiDONE 0.25 MG TABLET PO (08:04)
--- NOTE | 2022-02-01 15:29 | P.PNIM_ITS ---
Subjective Subjective Date of Service: 02/01/22 Interval History: feeling better eager to be discharged home but noted to have significant drop in oxygen to 83% with minimal ambulation, feels better with less shortness of breath cough denies fever chills, tolerating diet with no nausea no vomiting no abdominal pain or diarrhea denies chest pain, currently on 3 L of oxygen with finger oximetry 91% Review of Systems Review of Systems: Yes all other systems are reviewed and are negative Physical Exam Vital Signs: Vital Signs: Last Vital Signs Temp 97.7 F 02/01/22 12:00 Pulse 104 H 02/01/22 14:27 Resp 18 02/01/22 14:27 BP 145/78 H 02/01/22 12:00 Pulse Ox 91 L 02/01/22 12:00 O2 Del Method 02/01/22 12:00 O2 Flow Rate 3 02/01/22 08:00 FiO2 33 01/29/22 07:33 Oxygen Flow Rate 3 01/26/22 10:36 BMI result Body Mass Index 26.7 Const: Other: General awake alert x3, in no acute distress.? Neck? no JVD. CVS? regular rate rhythm, Respiratory lungs persistent diminished breath sound? with expiratory wheeze,no respiratory distress Gastrointestinal abdomen soft, nontender, bowel sounds audible, no guarding , no rigidity. Extremities no edema. Neuro nonfocal Skin no rash Psych appropriate affect Objective Data Active Medications Acetaminophen (Acetaminophen 325 Mg Tablet) 650 mg PO Q6H PRN PRN Reason: Pain, Mild, fever Albuterol Sulfate (Albuterol Sulfate (0.083%) 2.5 Mg/3 Ml Vial.Neb) 2.5 mg INHALE Q2H PRN PRN Reason: Shortness of Breath/Wheezing Albuterol/Ipratropium (Albuterol/Iprat 2.5/0.5mg 3 Ml Ampul.Neb) 3 ml INHALE RQ4H WHILE AWAKE [facility] Last Admin: 02/01/22 14:26 Dose: 3 ml Documented By: SHANEL Atorvastatin Calcium (Atorvastatin Calcium 20 Mg Tablet) 20 mg PO DAILY [facility] Last Admin: 02/01/22 08:04 Dose: 20 mg Documented By: KALEY Azithromycin (Azithromycin 250 Mg Tablet) 250 mg PO Q24H [facility] Last Admin: 01/31/22 16:17 Dose: 250 mg Documented By: KALEY Docusate Sodium (Docusate Sodium 100 Mg Capsule) 100 mg PO DAILY PRN PRN Reason: Constipation Enoxaparin Sodium (Enoxaparin Sodium 40 Mg/0.4 Ml Syringe) 40 mg SUBCUT Q24H [facility] Last Admin: 01/31/22 16:17 Dose: 40 mg Documented By: KALEY Fluticasone/Vilanterol (Fluticasone/Vilanterol 100/25 Blst.W.Dev) 1 puff INHALE RDAILY [facility] Last Admin: 02/01/22 07:51 Dose: 1 puff Documented By: SHANEL Methylprednisolone Sodium Succinate (Methylprednisolone Sod Succ 40 Mg/Ml Vial) 40 mg IVPUSH Q12H [facility] Last Admin: 02/01/22 02:18 Dose: 40 mg Documented By: PAUL Montelukast Sodium (Montelukast Sodium 10 Mg Tablet) 10 mg PO DAILY [facility] Last Admin: 02/01/22 08:04 Dose: 10 mg Documented By: KALEY Omeprazole (Omeprazole 20 Mg Capsule.Dr) 20 mg PO DAILY@0630 [facility] Last Admin: 02/01/22 05:23 Dose: 20 mg Documented By: PAUL Ondansetron HCl (Ondansetron Hcl 4 Mg/2 Ml Vial) 4 mg IVPUSH Q8H PRN PRN Reason: Nausea and Vomiting Pharmacy Consult (Consult Rx Perform Med Rec) 1 each MISCELLANE ONCE PRN PRN Reason: Consult order Risperidone (Risperidone 0.25 Mg Tablet) 0.25 mg PO DAILY [facility] Last Admin: 02/01/22 08:04 Dose: 0.25 mg Documented By: KALEY Risperidone (Risperidone 0.5 Mg Tablet) 0.5 mg PO BEDTIME [facility] Last Admin: 01/31/22 20:07 Dose: 0.5 mg Documented By: PAUL Sodium Chloride (0.9 % Sodium Chloride Flush 3 Ml Syringe) 3 ml IVFLUSH QSHIFT [facility] Last Admin: 02/01/22 08:04 Dose: 3 ml Documented By: KALEY Tiotropium [place] (Tiotropium [place] 18 Mcg Cap.W.Dev) 1 puff INHALE RDAILY [facility] Last Admin: 02/01/22 07:51 Dose: 1 puff Documented By: SHANEL Valsartan (Valsartan 80 Mg Tablet) 80 mg PO DAILY [facility]; Protocol Last Admin: 02/01/22 08:03 Dose: 80 mg Documented By: KALEY Venlafaxine HCl (Venlafaxine Hcl Er 150 Mg Cap.Er.24h) 150 mg PO DAILY [facility] Last Admin: 02/01/22 08:03 Dose: 150 mg Documented By: KALEY Labs CBC & Chem 7: 01/31/22 06:22 01/31/22 06:22 Labs: Laboratory Results - last 24 hr 01/28/22 03:15 Ur Strep pneumoniae Ag Not Detected Microbiology Microbiology Results: Microbiology 01/26/22 15:29 Blood Culture - Final Blood - Venous No growth after 5 days. 01/26/22 15:35 Blood Culture - Final Blood - Venous No growth after 5 days. Assessment and Plan (1) Acute on chronic respiratory failure with hypoxemia: Status: Acute (2) Pneumonia: Status: Acute (3) Sepsis: Status: Acute (4) Acute exacerbation of chronic obstructive pulmonary disease (COPD): Status: Acute Plan 71-year-old female with history of COPD on p.r.n. 2 L supplemental O2 at home, hypertension, hyperlipidemia, osteopenia, and who is a former smoker with 49 pack-year history admitted for COPD exacerbation with sepsis with acute hypoxic respiratory failure. #Sepsis-secondary to COPD exacerbation and pneumonia- slowly improving -leukocytosis persists likely due to steroids, no diarrhea, no fever, intermittent tachycardia likely due to updraft , tachypneic resolved.? Lactic acid normal 1.6.? No evidence of end-organ dysfunction -negative for COVID-19, influenza, RSV.? -CTA chest showed multiple pulmonary nodules diffuse emphysema with right lower lobe atelectasis/ infiltrate and mild atelectatic changes left lung base -Blood cultures negative - last day on ceftriaxone and azithromycin D7 # acute hypoxic respiratory failure-secondary to acute COPD exacerbation and evolving pneumonia- improving Hypoxia improving, On 3 L of oxygen, has 2 L of oxygen at home but was not using. ABG ph 7.33/48/70/26 on admission. Repeat VBG is normal Venous duplex RLE negative for DVT, D-Dimer elevated to 374. Chest CTA negative for PE, but showing possible evolving pneumonia vs atelectasis left lung base. Echocardiogram showed EF greater than 70% no wall motion abnormality, normal diastolic function abnormal septal motion with excessive respiratory change Strep pneumo not detected, legionella, pending -IV Solu-Medrol 40 mg b.i.d.continue DuoNebs q.4h while awake,albuterol q.2h p.r.n. -Tessalon Perles and guaifenesin p.r.n. for cough, Breo daily encourage out of bed to chair, incentive spirometry, oxygenation dropped with ambulation will assess for home O2 at a.m. question has 2 L of oxygen at home # hypertension-reasonably controlled -continue valsartan # HLD -continue statin # depression/anxiety -continue venlafaxine and risperidone DVT prophylaxis-Lovenox Full code Patient requires ongoing inpatient stay for further work up and management of acute on chronic hypoxia with copd exacerbation and evolving pneumonia with sepsis on IV steroids and IV antibiotics Quality Stroke Does the patient have a stroke diagnosis?: No VTE Prior VTE?: No VTE Risk Level:: Medical - moderate - high VTE Device Contraindication: Treatment Not Indicated VTE Drug Contraindication: N/A - Med Ordered
[2022-02-01] MEDS: cefTRIAXone sodium 1 GM in 0.9 % Sodium Chloride 50 ML IV (15:56)
[2022-02-01] MEDS: Enoxaparin Sodium 40 MG/0.4 ML SYRINGE SUBCUT (15:56)
[2022-02-01] MEDS: Azithromycin 250 MG TABLET PO (15:56)
[2022-02-01] MEDS: risperiDONE 0.5 MG TABLET PO (20:04)
[2022-02-02] MEDS: methylPREDNISolone Sod Succ 40 MG/ML VIAL IVPUSH (02:49)
[2022-02-02 03:40] VITALS: BP 167/97; PULSE 105; RESP 18; TEMP 36.4; O2SAT 95
[2022-02-02] MEDS: Omeprazole 20 MG CAPSULE.DR PO (05:22)
[2022-02-02] MEDS: Fluticasone/Vilanterol 100/25 BLST.W.DEV 1 PUFF INHALE (07:26)
[2022-02-02] MEDS: Albuterol/Iprat 2.5/0.5MG 3 ML AMPUL.NEB INHALE ×2 (07:26→10:59)
[2022-02-02 07:28] VITALS: PULSE 86; RESP 18; O2SAT 91
[2022-02-02 07:37] VITALS: BP 159/96; PULSE 106; RESP 16; O2SAT 92
[2022-02-02] MEDS: Montelukast Sodium 10 MG TABLET PO (09:20)
[2022-02-02] MEDS: risperiDONE 0.25 MG TABLET PO (09:20)
[2022-02-02] MEDS: Venlafaxine HCl ER 150 MG CAP.ER.24H PO (09:21)
[2022-02-02] MEDS: Atorvastatin Calcium 20 MG TABLET PO (09:21)
[2022-02-02] MEDS: Valsartan 80 MG TABLET PO (09:21)
[2022-02-02 10:17] VITALS: PULSE 108; PULSE 111; PULSE 112; O2SAT 84; O2SAT 86; O2SAT 89
[2022-02-02 10:22] LABS: CDiff Gene PCR NEGATIVE (Negative)
[2022-02-02 11:00] VITALS: PULSE 102; RESP 18; O2SAT 90
[2022-02-02 11:09] VITALS: BP 142/69; PULSE 107; RESP 16; TEMP 37.1; O2SAT 92
--- NOTE | 2022-02-02 11:19 | PC.RT ---
pt was evaluated for Home Oxygen. SHe needs 2 liters at rest and 6 while ambulating. Pt states she has an [employer] she bought out right for her home use. The max this goes to is 3 liters. I told her she needed 6 and she refuses to have any other DME and oxygen at home except her [employer]. I also told her the severity of her low Oxygen Sat levels when ambulating. Dr. Friedman is aware and will speak to the patient.
--- NOTE | 2022-02-02 13:13 | MHC.CM.PN ---
per rounds pt not READY FOR DC TODAY dc plan remains home with
[2022-02-02] MEDS: predniSONE 20 MG TABLET 40 MG PO (14:16)
--- NOTE | 2022-02-02 14:17 | PM.DS ---
DS: Providers Provider Date of Service: 02/02/22 Date of admission: 01/26/22 14:36 Primary care physician: Alok Guallpa MD DS: Diagnosis Discharge Diagnosis (1) Acute on chronic respiratory failure with hypoxemia: Status: Acute (2) Pneumonia: Status: Acute (3) Sepsis: Status: Acute (4) Acute exacerbation of chronic obstructive pulmonary disease (COPD): Status: Acute DS: Summary Hospital Course Hospital Course: Date of Service: 01/26/22 Attending physician on admission: Josesito Friedman Chief Complaint: sob, cough, runny nose 71-year-old female with history of COPD on p.r.n. 2 L supplemental O2 at home, hypertension, hyperlipidemia, osteopenia, and who is a former smoker with 49 pack-year history presented to ED for evaluation of upper respiratory symptoms have been worsening over the last 4 days.? She states that she developed a productive cough with runny nose, shortness of breath.? There has also been anorexia and nausea but no vomiting.? She has also noted pleuritic chest pain.? She typically does not need to use her supplemental oxygen but has been requiring this due to the SOB.? She denies any sick contacts.? Denies any fevers, chills, sore throat, sinus pain, headaches, orthopnea, PND, vomiting, diarrhea, constipation, abdominal pain, urinary symptoms, or chest pressure.? She denies any recent COPD exacerbations and has never been intubated.? On arrival, patient is afebrile, tachycardic to 114, tachypneic to 24, with oximetry 91% on 3L supplemental O2, desatting into the high 80s on room air.? There is leukocytosis of 14.1 with bandemia 17%.? Lactic acid.? Creatinine normal, electrolyte levels normal.? Negative for COVID-19, RSV, and influenza.? Chest x-ray negative for any acute focal consolidations or evidence of congestive heart failure.? Right lower extremity was noted to be mildly swollen compared to the left and venous duplex results are pending.? D-dimer results are pending.? Does follow for routine lung cancer screenings with last chest CT showing emphysema with interval decrease in 2 left pulmonary nodules and left upper and left lower lobes with 1 year follow-up advised.? In the ED, patient given DuoNeb updraft as well as 500 mL NS.? Patient to be admitted for COPD exacerbation with sepsis. hospital course 71-year-old female with history of COPD on p.r.n. 2 L supplemental O2 at home, hypertension, hyperlipidemia, osteopenia, and who is a former smoker with 49 pack-year history admitted for COPD exacerbation with sepsis with acute hypoxic respiratory failure. #Sepsis-secondary to COPD exacerbation and pneumonia, shortness of breath gradually improved, leukocytosis persists likely due to steroids, no diarrhea, no fever, intermittent tachycardia likely due to updraft , tachypneic resolved.? Lactic acid normal 1.6.? No evidence of end-organ dysfunction,negative for COVID-19, influenza, RSV,CTA chest? showed multiple pulmonary nodules diffuse emphysema with right lower lobe atelectasis/ infiltrate and mild atelectatic changes left lung base, patient treated with iv steroids,updrafts treatment ,IV ceftriaxone and azithromycin for 7 days, blood cultures came back negative, since patient is overall feeling better she is being discharged home on prednisone, recommend to use prednisone po, albuterol inhaler as needed and Breo 1 inhaler added, advised to rest avoid crowded places and secondhand smoke, patient has advanced emphysema, encouraged to use incentive spirometry. # acute hypoxic respiratory failure-secondary to acute COPD exacerbation and pneumonia prior to discharge patient had home O2 eval and qualifies for 2 L of oxygen at rest and 6 L with ambulation ?? # hypertension-reasonably controlled continue valsartan # HLD -continue statin # depression/anxiety -continue venlafaxine and risperidone Time Spent with Patient Time attestation: Total time spent providing and/or coordinating discharge services: Discharge coordination time: Greater than 30 minutes Quality: Safe Use of Opioids Does Pt have an Active Cancer Diagnosis on the Problem List?: No Quality: Stroke Does the patient have a stroke diagnosis?: No Physical Exam Vital Signs: Vital Signs: Last Vital Signs Temp 98.7 F 02/02/22 11:09 Pulse 107 H 02/02/22 11:09 Resp 16 02/02/22 11:09 BP 142/69 H 02/02/22 11:09 Pulse Ox 92 02/02/22 11:09 O2 Del Method 02/02/22 11:09 O2 Flow Rate 3 02/02/22 11:09 FiO2 33 01/29/22 07:33 Oxygen Flow Rate 3 01/26/22 10:36 BMI result Body Mass Index 26.7 Const: Other: General awake alert x3, in no acute distress.? Neck? no JVD. CVS? regular rate rhythm, Respiratory lungs sounds improved, no expiratory wheeze, no respiratory distress diminished breath sounds, Gastrointestinal abdomen soft, nontender, bowel sounds audible, no guarding , no rigidity. Extremities no edema. Neuro nonfocal Skin no rash Psych appropriate affect DS: Data Data Completed and Pending Labs on day of discharge: Laboratory Results - last 24 hr 02/02/22 09:25 C. difficile Tox B Gene NEGATIVE Discharge Plan Discharge Anticipated Discharge Date/Time: 02/02/22 14:04 Patient Disposition: Home, Self-Care Discharge Diagnosis: sepsis secondary to COPD exacerbation and pneumonia acute hypoxic respiratory failure Referrals: Alok Guallpa MD [Primary Care Provider] - 1 Week Discharge Medications: New fluticasone furoate-vilanterol [Breo Ellipta] 100-25 mcg/dose Blister With Device 1 ea inhalation RDAILY Qty: 60 0RF albuterol sulfate 2.5 mg /3 mL (0.083 %) Solution For Nebulization 2.5 mg inhalation Q2H PRN (Reason: Shortness Of Breath/Wheezing) Qty: 90 0RF prednisone 20 mg tablet 20 mg PO DAILY Qty: 15 0RF Rx Instructions: take 40mg (20 mg 2 tablets) x5 days, then take 20 mg 1 tablet by mouth daily for 5 days Continued atorvastatin 20 mg tablet 1 tab PO DAILY alendronate 70 mg tablet 1 tab PO SA venlafaxine 150 mg capsule,extended release 24hr 1 cap PO DAILY valsartan 80 mg tablet 1 tab PO DAILY montelukast 10 mg tablet 1 tab PO DAILY risperidone 0.5 mg tablet 0.5 tab PO DAILY risperidone 0.5 mg tablet 1 tab PO BEDTIME Spiriva with HandiHaler 18 mcg capsule, w/inhalation device 1 cap inhalation DAILY Discharge Orders: Discharge Order (Routine); Ordered 02/02/22 Ordered By: Josesito Friedman Diet: Advance to usual diet Activity on Discharge: As tolerated Stand Alone Forms: Patient Portal Discharge page Care Plan Goals: hypoxia take 2 L of oxygen at rest and 6 L with ambulation, avoid crowded places, no exposure to smoke, rest, take albuterol inhaler 2 puffs every 3 hours as needed take prednisone 40 mg daily for 5 days then 20 mg daily for 5 days take Spiriva and Breo inhaler Health Concerns: take all home medications as before Plan of Treatment: outpatient follow-up with primary care physician Assessment: as above Patient Instructions: Influenza Virus Vaccine (By injection)
--- NOTE | 2022-02-02 14:21 | MHC.CM.PN ---
pt dcd home no skilled serveis orderd by
[2022-02-04 20:23] LABS: Legionella Ag Urine Not Detected (Not Detected)
== END 2022-02-02 14:40 | disposition home or self-care (01) | DRG 871 ==
LOC: HO.ED 14:10 → HO.EDOVER 15:01 → HO.IMC 01-27 02:04
PROVIDERS: Student in an Organized Health Care Education/Training Program; Admitting Provider Physician Assistant; Emergency Provider Emergency Medicine; PCP Internal Medicine; Visit Provider Hospitalist
DX: A41.9 Sepsis, unspecified organism (principal); J18.9 Pneumonia, unspecified organism; J96.21 Acute and chronic respiratory failure with hypoxia; I24.8 Other forms of acute ischemic heart disease; J43.9 Emphysema, unspecified; I10 Essential (primary) hypertension; F41.9 Anxiety disorder, unspecified; F32.A Depression, unspecified; E78.5 Hyperlipidemia, unspecified; Z20.822 Contact with and (suspected) exposure to COVID-19; Z23 Encounter for immunization; Z99.81 Dependence on supplemental oxygen; Z87.891 Personal history of nicotine dependence; Z88.2 Allergy status to sulfonamides; Z79.899 Other long term (current) drug therapy
CPT/HCPCS: 0241U; 36415; 36600; 71046; 71275; 80048; 82803; 83605; 83880; 84484; 85007; 85025; 85027; 85379; 85610; 85730; 87040; 87449; 87493; 87633; 87899; 90686; 93005; 93306; 93971; 94640; 99285; J0456; J0696; J1170; J1650; J2920; J2930; Q9957; Q9967

== ENCOUNTER 2022-02-16 13:12 | Outpatient (REF) | payer MEDICARE, OTHER, SELFPAY ==
--- NOTE | ~2022-02-16 | XR_ITS ---
EXAMINATION: XR CHEST CLINICAL INFORMATION: Shortness of breath, rule out pneumonia COMPARISON: CTA chest 01/27/2022 TECHNIQUE: 2 views of the chest were obtained. FINDINGS: Streaky bibasilar opacities again seen. The appearance is similar to the prior chest CT 01/27/2022. No new focal consolidation. No pleural effusion. Normal pulmonary vascularity. Regional skeleton intact. Multilevel degenerative changes of the thoracic spine. XR/XR chest 2V IMPRESSION: Persistent streaky opacities at the right greater than left lung base. This could represent atelectasis or pneumonia, similar to 01/27/2022, new since 11/20/2021.
[2022-02-16 16:53] LABS: PLT CLUMP 1
[2022-02-16 16:55] LABS: Basophils Absolute Auto 0.1 X10*3/uL (0.0-0.2); Basophils Percent Auto 0.6 % (0-2); Eosinophils Absolute Auto 0.3 X10*3/uL (0.0-0.4); Eosinophils Percent Auto 2.4 % (0-4); Hematocrit 45.6 % (37.0-47.0); Hemoglobin 14.7 g/dl (12.0-16.0); Imm Gran Abs Auto 0.12 X10*3/uL (0.00-0.03); Lymphocytes Absolute Auto 3.2 X10*3/uL (1.2-4.9); MANUAL DIFF FLAG SCAN; Mean Corpuscular HGB Conc 32.2 g/dl (31.0-35.0); Mean Corpuscular Hemoglobin 31.1 pg (27.0-33.0); Mean Corpuscular Volume 96.6 fL (80.0-98.0); Mean Platelet Volume 12.1 fL (9.4-12.3); Monocytes Absolute Auto 1.6 X10*3/uL (0.1-1.2); Monocytes Percent Auto 12.7 % (2-11); Neutrophils Percent Auto 57.3 % (45-73); Red Blood Count 4.72 X10*6/uL (4.20-5.50); Red Cell Distribution Width 14.7 % (11.0-16.0); SCAN SMEAR FLAG 1
[2022-02-16 17:14] LABS: White Blood Count 12.2 X10*3/uL (4.8-10.8)
[2022-02-16 17:15] LABS: SLIDE REVIEW VERIFIED
[2022-02-16 17:26] LABS: Alanine Aminotransferase 23 U/L (0-31); Alkaline Phosphatase 75 U/L (39-117); Anion Gap 17 (12-20); Aspartate Amino Transferase 19 U/L (5-31); Bilirubin Total 0.8 mg/dL (0.0-1.0); Blood Urea Nitrogen 12 mg/dL (9-16); Calcium 9.6 mg/dL (8.4-10.2); Carbon Dioxide 26 mmol/L (22-29); Chloride 102 mmol/L (96-108); Estimated Glomerular Filt Rate 55; Glucose Random 117 mg/dL (60-115); Potassium 4.7 mmol/L (3.3-5.1); Sodium 140 mmol/L (135-145); Total Protein 6.8 g/dL (6.5-8.0)
== END 2022-02-16 13:13 | disposition home or self-care (01) ==
LOC: HO.HMGCX 13:12
PROVIDERS: PCP Internal Medicine; Visit Provider Internal Medicine
DX: R53.83 Other fatigue (principal); R06.02 Shortness of breath; D72.829 Elevated white blood cell count, unspecified
CPT/HCPCS: 36415; 71046; 80053; 85025

== ENCOUNTER 2022-02-24 12:47 | Outpatient (REF) | payer MEDICARE, OTHER, SELFPAY ==
--- NOTE | ~2022-02-24 | XR_ITS ---
EXAMINATION: XR CHEST CLINICAL INFORMATION: Shortness of breath. Rule out pneumonia. COMPARISON: Previous chest x-ray 02/16/[address] December 2021 TECHNIQUE: 2 views of the chest were obtained. FINDINGS: The cardiac and mediastinal contours are stable. The lungs are well inflated. There is bibasilar bronchial wall thickening. No definite pneumonia is seen. There is blunting at the posterior costophrenic angles questionable for tiny bilateral pleural effusions. No pneumothorax. Degenerative changes of the spine. XR/XR chest 2V IMPRESSION: Well-inflated lungs. Bronchial wall thickening at the lung bases. No definite pneumonia.
[2022-02-24 14:00] LABS: MANUAL DIFF FLAG NO
[2022-02-24 14:10] LABS: Basophils Absolute Auto 0.1 X10*3/uL (0.0-0.2); Basophils Percent Auto 0.9 % (0-2); Eosinophils Absolute Auto 0.4 X10*3/uL (0.0-0.4); Eosinophils Percent Auto 3.4 % (0-4); Hematocrit 43.9 % (37.0-47.0); Hemoglobin 14.2 g/dl (12.0-16.0); Imm Gran Abs Auto 0.08 X10*3/uL (0.00-0.03); Imm Gran Pct Auto 0.6 % (0.0-0.4); Lymphocytes Percent Auto 31.1 % (20-40); Mean Corpuscular HGB Conc 32.3 g/dl (31.0-35.0); Mean Corpuscular Hemoglobin 30.7 pg (27.0-33.0); Mean Corpuscular Volume 94.8 fL (80.0-98.0); Mean Platelet Volume 10.5 fL (9.4-12.3); Monocytes Absolute Auto 1.4 X10*3/uL (0.1-1.2); Monocytes Percent Auto 11.1 % (2-11); Neutrophils Absolute Auto 6.8 x10*3/uL (2.0-8.3); Neutrophils Percent Auto 52.9 % (45-73); Platelet Count 237 X10*3/uL (160-400); Red Blood Count 4.63 X10*6/uL (4.20-5.50); Red Cell Distribution Width 14.2 % (11.0-16.0); White Blood Count 12.9 X10*3/uL (4.8-10.8)
== END 2022-02-24 12:48 | disposition home or self-care (01) ==
LOC: HO.HMGCX 12:47
PROVIDERS: PCP Internal Medicine; Visit Provider Internal Medicine
DX: R06.02 Shortness of breath (principal)
CPT/HCPCS: 36415; 71046; 85025

== ENCOUNTER 2022-03-05 13:12 | Outpatient (REF) | payer MEDICARE, OTHER, SELFPAY ==
--- NOTE | ~2022-03-05 | XR_ITS ---
EXAMINATION: XR CHEST CLINICAL INFORMATION: Cough, rule out pneumonia COMPARISON: CT chest 01/27/2022, Chest radiograph 02/24/2022 TECHNIQUE: 2 views of the chest were obtained. FINDINGS: Lungs are once again noted to be hyperinflated with flattening of the diaphragms consistent with COPD. Bibasilar atelectasis is again noted. No infiltrates, effusions or lung masses are seen. The pulmonary nodules seen on the CT scan are beyond the resolution of plain film radiograph. The heart size is normal and there is no evidence of CHF. XR/XR chest 2V IMPRESSION: COPD. No acute intrathoracic disease.
[2022-03-05 14:08] LABS: Basophils Absolute Auto 0.1 X10*3/uL (0.0-0.2); Eosinophils Absolute Auto 0.4 X10*3/uL (0.0-0.4); Eosinophils Percent Auto 2.8 % (0-4); Hematocrit 42.1 % (37.0-47.0); Hemoglobin 13.8 g/dl (12.0-16.0); Imm Gran Pct Auto 0.8 % (0.0-0.4); Lymphocytes Absolute Auto 4.1 X10*3/uL (1.2-4.9); Lymphocytes Percent Auto 32.1 % (20-40); MANUAL DIFF FLAG SCAN; Mean Corpuscular HGB Conc 32.8 g/dl (31.0-35.0); Mean Corpuscular Hemoglobin 30.7 pg (27.0-33.0); Mean Corpuscular Volume 93.6 fL (80.0-98.0); Mean Platelet Volume 9.9 fL (9.4-12.3); Monocytes Absolute Auto 1.7 X10*3/uL (0.1-1.2); Monocytes Percent Auto 13.2 % (2-11); Neutrophils Absolute Auto 6.4 x10*3/uL (2.0-8.3); Neutrophils Percent Auto 50.1 % (45-73); Platelet Count 338 X10*3/uL (160-400); Red Cell Distribution Width 14.6 % (11.0-16.0); SCAN SMEAR FLAG 1; White Blood Count 12.7 X10*3/uL (4.8-10.8)
[2022-03-05 14:42] LABS: SLIDE REVIEW VERIFIED
== END 2022-03-05 13:13 | disposition home or self-care (01) ==
LOC: HO.HMGCX 13:12
PROVIDERS: PCP Internal Medicine; Visit Provider Internal Medicine
DX: R53.83 Other fatigue (principal)
CPT/HCPCS: 36415; 71046; 85025

== ENCOUNTER 2022-03-24 13:38 | Outpatient (REF) | payer MEDICARE, OTHER, SELFPAY ==
--- NOTE | ~2022-03-24 | CT_ITS ---
EXAMINATION: CT CHEST WITH CONTRAST CLINICAL INFORMATION: Shortness of breath COMPARISON: Chest radiograph 03/05/2022. CT 01/27/2022. TECHNIQUE: Multidetector volumetric CT imaging of the chest was obtained after the administration of 65 mL of Omnipaque 350 intravenous contrast without immediate adverse reactions. Axial MIP volume rendering provided. Sagittal and coronal reformatted images were obtained. This CT examination was performed using dose optimization techniques as appropriate, variously including the following: *Automated exposure control *Adjustment of mA and/or kV according to patient size (this includes techniques or standardized protocols for targeted exams where dose is matched to indication/reason for exam; i.e. extremities or head) *Use of iterative reconstruction technique DLP: ID mGy-cm FINDINGS: [employer]: Right upper quadrant surgical clips. LUNGS: The central airways are patent. There is severe centrilobular and paraseptal emphysema. Streaky opacities of the right middle lobe and both lower lobes. No dense consolidation. No pneumothorax. Pulmonary nodules are noted. 1. Redemonstration of left lower lobe nodules in the superior segment measuring up to 0.6 cm on series 5 image 105. This measured 0.5 cm on the prior. There is an adjacent 0.4 cm nodule on series 5 image 105 which is slightly decreased in prominence from previous. This is likely a bronchial filling defect, with additional small bronchial filling defects noted. 2. There is a new left upper lobe 0.6 cm nodule on series 5 image 64. 3. Increased anterior right upper lobe 0.4 cm nodule on series 5 image 61. This previously measured 0.2 cm. MEDIASTINUM: Normal heart size. No pericardial effusion. No mediastinal lymphadenopathy. The visualized thyroid gland is unremarkable. PLEURA: There is no pleural effusion. No pleural mass or thickening. AXILLA: No lymphadenopathy. UPPER ABDOMEN: Cholecystectomy. Low-attenuation of the liver suggestive of hepatic steatosis. OSSEOUS STRUCTURES: No acute or suspicious osseous abnormality. Mild degenerative changes throughout the spine. CT/CT chest w IV con IMPRESSION: 1. Severe emphysema. No consolidation. 2. There are multiple pulmonary nodules which are either new or increased in size from previous imaging. These measure up to 0.6 cm in the left lower lobe. Recommendations are below . 3. Streaky opacities of the right middle lobe and both lower lobes may represent atelectasis or scarring. No dense consolidation. According to the UPDATED 2017 Fleischner Society recommendations, the advised follow-up imaging for multiple solid nodules, the largest measuring 6 mm or greater, is: LOW RISK PATIENT: CT at 3-6 months, then consider CT at 18-24 months. HIGH RISK PATIENT: CT at 3-6 months, then at 18-24 months. Fleischner guidelines were followed.
[2022-03-24] MEDS: iohexoL 350 MG/ML 100 ML INFUS..BTL IV (14:49)
[2022-03-25 08:24] LABS: GFR POC 57
== END 2022-03-24 13:39 | disposition home or self-care (01) ==
LOC: HO.CT 13:38
PROVIDERS: Visit Provider Internal Medicine
DX: R06.02 Shortness of breath (principal)
CPT/HCPCS: 71260; 82565; Q9967

== ENCOUNTER → 2022-04-23 13:04 | Outpatient (BNVA) | payer MEDICARE, OTHER, SELFPAY | PROVIDERS: PCP Internal Medicine; Visit Provider Hospitalist | DX: J41.8 Mixed simple and mucopurulent chronic bronchitis (principal); J96.11 Chronic respiratory failure with hypoxia; R91.8 Other nonspecific abnormal finding of lung field; K21.9 Gastro-esophageal reflux disease without esophagitis | CPT/HCPCS: 99202 ==

== ENCOUNTER 2022-05-26 08:46 | Outpatient (REF) | payer MEDICARE, OTHER, SELFPAY ==
--- NOTE | 2022-05-26 11:36 | PFT_ITS ---
Forced vital capacity 67%, FEV1 38%, FEV1/FVC ratio is 43. PBF82-57 is 14% and MVV 39%. Post bronchodilator therapy, there is no change. Total lung capacity 93%, and residual volume 121%. Diffusion capacity 24% CONCLUSION: Very severe obstructive airway disorder. No response to bronchodilator therapy. There is evidence of some air trapping. Clinical correlation recommended. MD EDILIA Ac/MODL / [id number]
== END 2022-05-26 08:47 | disposition home or self-care (01) ==
LOC: HO.RESP 08:46
PROVIDERS: PCP Internal Medicine; Visit Provider Hospitalist
DX: J41.8 Mixed simple and mucopurulent chronic bronchitis (principal)
CPT/HCPCS: 94060; 94727; 94729

== ENCOUNTER → 2022-06-04 13:46 | Outpatient (BNVA) | payer MEDICARE, OTHER, SELFPAY | PROVIDERS: PCP Internal Medicine; Visit Provider Hospitalist | DX: J96.11 Chronic respiratory failure with hypoxia (principal); J41.8 Mixed simple and mucopurulent chronic bronchitis; R91.8 Other nonspecific abnormal finding of lung field; K21.9 Gastro-esophageal reflux disease without esophagitis | CPT/HCPCS: 99212 ==

== ENCOUNTER 2022-06-22 13:35 | Outpatient (REF) | payer MEDICARE, OTHER, SELFPAY ==
--- NOTE | ~2022-06-22 | CT_ITS ---
EXAMINATION: CT CHEST WITHOUT CONTRAST CLINICAL INFORMATION: Follow-up pulmonary nodule COMPARISON: Previous chest CT most recent March 2022 TECHNIQUE: Multidetector volumetric CT imaging of the chest was done. Axial MIP volume rendering provided. Sagittal and coronal reformatted images were obtained. This CT examination was performed using dose optimization techniques as appropriate, variously including the following: *Automated exposure control *Adjustment of mA and/or kV according to patient size (this includes techniques or standardized protocols for targeted exams where dose is matched to indication/reason for exam; i.e. extremities or head) *Use of iterative reconstruction technique DLP: 121 mGy-cm FINDINGS: LUNGS: There is evidence of emphysema. There is biapical pleural parenchymal scarring that is stable. Left: There is a 3 mm left apical nodule axial image 76 series 5 that is stable. The previously identified apical posterior segment left upper lobe nodule measures 3 x 5 mm axial image 184 series 5 compared to 3 x 7 mm March 2022. There is an adjacent more inferior 3 mm nodule 92 series 5 that is stable. There is a 4 mm left upper lobe nodule axial image 209 series 5 that is stable. There is a 5 mm left lower lobe nodule axial image 3:15 series 5 that is stable. There is a new 3 mm left lower lobe nodule axial image 351 series 5. There 3 small adjacent approximately 3 mm left lower lobe nodules axial image 417, 4:30 and measuring 2 mm axial image 433 series 5 that are stable. There is chronic scarring or subsegmental atelectasis in the lingula and left lower lobe. Right: There is a 4 mm right upper lobe nodule axial image 173 series 5. This may be slightly increased in size measuring 4 mm on prior exam. There is a 3 x 4 mm posterior segment of right upper lobe nodule located medially near the mediastinum axial image 211 series 5. This is decreased in size in size from 6 mm on previous exam. There is a 4 mm right anterior upper lobe nodule axial image 305 series 5 that is stable. There is a new 4 mm right middle lobe nodule axial image 351 series 5. There is chronic scarring or subsegmental atelectasis right middle lobe and right lower lobe that is stable. There is mild bronchiectasis in the right middle and right lower lobes. MEDIASTINUM: The mediastinum is normal. CORONARY ARTERY CALCIFICATION: Moderate PLEURA: There is no pleural effusion. No pleural mass or thickening. AXILLA: No lymphadenopathy. UPPER ABDOMEN: Unremarkable. OSSEOUS STRUCTURES: Degenerative changes of the spine. CT/CT chest wo IV con IMPRESSION: Waxing and waning appearance of pulmonary nodules. The largest pulmonary nodules in the bilateral upper lobes appear slightly decreased in size. Continued chest CT follow-up in 6-12 months recommended. Emphysema. Fleischner guidelines were followed.
== END 2022-06-22 13:36 | disposition home or self-care (01) ==
LOC: HO.CT 13:35
PROVIDERS: PCP Internal Medicine; Visit Provider Internal Medicine
DX: R91.1 Solitary pulmonary nodule (principal)
CPT/HCPCS: 71250

== ENCOUNTER 2022-11-12 07:19 | Outpatient (REF) | payer MEDICARE, OTHER, SELFPAY ==
--- NOTE | ~2022-11-12 | MM_ITS ---
EXAMINATION: MM SCREENING DIGITAL BREAST TOMOSYNTHESIS, BILATERAL CLINICAL INFORMATION: Screening. Asymptomatic. COMPARISON: Mammography: This study is compared with prior exams dating back to 2017. TECHNIQUE: Digital breast tomosynthesis is performed in both the craniocaudal and mediolateral oblique views along with computer-aided detection (CAD). Synthesized 2D images are generated from the tomosynthesis. FINDINGS: The breasts are almost entirely fatty (ACR BI-RADS breast composition Category a). There are no significant masses, abnormal calcifications, or other abnormalities. MM/MM tomosynthesis screening BI IMPRESSION: No mammographic evidence of malignancy. ASSESSMENT: BI-RADS BI-RADS 1 - Negative RECOMMENDATION: Routine annual mammography screening. 1 year F/U This examination should not preclude the clinical evaluation of a suspicious palpable abnormality. This patient's information was entered into a reminder system with a target due date for their next mammogram.
== END 2022-11-12 07:20 | disposition home or self-care (01) ==
LOC: HO.MAMMO 07:19
PROVIDERS: PCP Internal Medicine; Visit Provider Internal Medicine
DX: Z12.31 Encounter for screening mammogram for malignant neoplasm of breast (principal)
CPT/HCPCS: 77063; 77067

== ENCOUNTER → 2022-11-12 07:30 | Outpatient (BNV) | payer MEDICARE, OTHER, SELFPAY | PROVIDERS: PCP Internal Medicine; Visit Provider Radiology Diagnostic Radiology | DX: Z12.31 Encounter for screening mammogram for malignant neoplasm of breast (principal) | CPT/HCPCS: 77063; 77067 ==

== ENCOUNTER 2022-12-01 09:40 | Outpatient (AMB) | payer MEDICARE, OTHER, SELFPAY ==
[2022-12-01 10:05] VITALS: BP 128/76; PULSE 77; O2SAT 89; BMI 26.9
--- NOTE | 2022-12-01 10:05 | MHC.OFFVIS ---
Intake Vital Signs 12/01/22 10:05 Height 5 ft 1 in Weight 142 lb 3.17 oz BMI 26.9 BP 128/76 Blood Pressure Location Lt brachial Position Sitting Pulse 77 Pulse Source Pulse Oximeter Pulse Oximetry (%) 89 L Oxygen Delivery Method Room Air Comment 2 Liters Oxygen(Inogen One) Intake Visit Reasons: copd Ton Container Filler Required: No Allergies Sulfa (Sulfonamide Antibiotics) Allergy (Verified 12/01/22 10:08) Anaphylaxis HPI HPI Comments History of Present Illness Details The patient is a 72 year woman with a known history of COPD and chronic respiratory failure on oxygen who apparently was in her usual state health until back in late fall when she developed worsening respiratory symptoms and was admitted to the hospital with right lower lobe pneumonia. The patient was treated with antibiotics in addition to prednisone and she done was also placed on oxygen. She did have a portable oxygen concentrator that she had for many years but she did not really have to use it. After that hospitalization she started having to use it more often. As far as his follow-up she did see her primary care doctor who will order repeat CT scan sometime in March 2022. it actually demonstrated that she has either new nodules or worsening of her ongoing nodules. She is also taking part of the lung cancer screening program. Therefore based on her increasing nodular densities in the concerns because of her high risk for cancer will go ahead and % throughout the lung cancer screening program that is scheduled for WednesdayMay 01. Once we can review her imaging studies from previous and her most recent CT scan with give further recommendations about future CT scans through the lung cancer screening program in the meantime the patient will continue using her oxygen. She is very happy with her current respiratory regimen including Spiriva Respimat and Breo. Therefore when I going to be looking to change that at this time. She seems to very happy with her treatment. She will need pulmonary function studies although she is reluctant to do so to assess her baseline pulmonary function. The patient still is very active. She was seen by Pulmonary in the past and she did go to pulmonary rehabilitation but she did find it very useful. 06/04/2022 the patient is here for a pulmonary follow-up visit. The patient overall is feeling about the same. She continues use her oxygen via the portable oxygen concentrator with good effect. She continues to have shortness of breath. Moderate severity. She tries to stay active. She already did pulmonary rehabilitation. She is not interested in doing it again. 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 She does have a component of chronic bronchitis. Will go ahead and start her on azithromycin for the chronic bronchitis therapy. We also talked about Daliresp being an option although I does have the GI symptoms. Theophylline will be another option for her. The last blood gas she had was in 2021 demonstrated normal acid-base status with therefore she does not qualify for noninvasive ventilator at this time. The patient is not interested in referral to [place] for lung transplant. The patient would not qualify for lung volume reduction intervention as her diffusing capacity is also significantly low already. For the chronic bronchitis component will start her on his azithromycin and will also request an Acapella valve for chest physical therapy that she can perform twice a day. 12/01/2022 the patient is here for a pulmonary follow-up visit. Overall the patient has been doing well. She continues use oxygen with good effect. She did take the azithromycin 3 times a week for 3 months and it did help. She stop that after worse. The patient continues to use the Breo and also the Spiriva. I have been affecting beneficial. She has not required any prednisone. She is starting to exercise a little more which is reassuring. She does wonder about other options regarding her emphysema and COPD. We did talk about lung volume reduction to interventions but at this point I do not believe she will be a great candidate because heard air trapping is not significantly elevated. In addition to that we talked about medications such as theophylline. She does have some wheezing on examination and I do believe that the often will provide her some relief with some of the bronchodilator effects. Will start her on a low dose to minimize adverse reactions. Will keep her in the low stop therapeutic range to minimize adverse effects. We did also review her CT scan of the chest that she had to the lung cancer screening program. It was reassuring that she does have waxing waning pulmonary nodules in the bigger nodules did disappear. COUNT INCLUDES THE [facility] Medical History (Updated 09/10/22 @ 08:43 by Shreya Bates PA-C) GERD (gastroesophageal reflux disease) Pulmonary nodules COPD (chronic obstructive pulmonary disease) Chronic respiratory failure Depression Hypertension Personal history of nicotine dependence Osteopenia (~2004) Surgical History (Updated 09/10/22 @ 08:43 by Shreya Bates PA-C) History of cholecystectomy History of colonoscopy Family History Mother Eye cancer Maternal Grandmother Cirrhosis Father Lung cancer Social History Household Members: Spouse Housing: House Do you presently have visiting nurse or other home services: No Alcohol intake: never Patient Tobacco Use Status: Former Tobacco user Quit Date: 2016 Tobacco use type: Cigarette Years Smoked: 51 (onset 17, 1ppd x 51yrs, 47+PYH - quit 2017) Second Hand Smoke Exposure: No service: No Current occupational status: retired Review of Systems Const Denies fever(s) and Denies weight loss Eyes Denies change in vision ENT Denies change in voice Card Denies chest pain and Reports dyspnea on exertion Resp Reports cough, Reports dyspnea on exertion and Denies wheezing GI Reports dyspepsia and Reports heartburn Musc Reports myalgias Skin/Breast Denies rash Neuro Reports no additional complaints Endo Denies flushing Stuatr/Lymph Denies easy bleeding and Denies easy bruising Aller/Immun Denies wheezing Physical Exam Vital Signs: Last Vital Signs Pulse 77 12/01/22 10:05 BP 128/76 12/01/22 10:05 Pulse Ox 89 L 12/01/22 10:05 Oxygen Delivery Method Room Air 12/01/22 10:05 BMI result Body Mass Index 26.9 Const General: comfortable HEENT Head: Yes normocephalic Neck Neck: Yes supple Chest Chest palpation & inspection: normal inspection of the chest Resp Effort & Inspection: normal respiratory effort and prolonged expiratory phase Auscultation: no rhonchi, wheezes and diminished lung sounds Cardio Rate: regular rate Rhythm: regular rhythm Heart sounds: S1 normal heart sound present and S2 normal heart sound present GI Palpation (GI): Soft to palpation Skin General skin exam: no rashes or lesions noted Extrem General: Yes no clubbing, cyanosis or edema Assessment & Plan Assessment & Plan (1) Chronic respiratory failure: Code(s): J96.10 - Chronic respiratory failure, unspecified whether with hypoxia or hypercapnia Qualifiers: Respiratory failure complication: hypoxia Qualified Code(s): J96.11 - Chronic respiratory failure with hypoxia (2) COPD (chronic obstructive pulmonary disease): Code(s): J44.9 - Chronic obstructive pulmonary disease, unspecified Qualifiers: COPD type: chronic bronchitis Chronic bronchitis type: mixed simple and mucopurulent Qualified Code(s): J41.8 - Mixed simple and mucopurulent chronic bronchitis (3) Pulmonary nodules: Code(s): R91.8 - Other nonspecific abnormal finding of lung field (4) GERD (gastroesophageal reflux disease): Code(s): K21.9 - Gastro-esophageal reflux disease without esophagitis Qualifiers: Esophagitis presence: without esophagitis Qualified Code(s): K21.9 - Gastro-esophageal reflux disease without esophagitis Plan Continue Breo/Spiriva stop Azithromycin MWF for now start Thephylline MANDIE as needed continue singulair 200 daily, then increase to BID LDCT program reflux diet sleep with HOB elevated continue oxygen supplementation F/U 6 months Medications: New theophylline ER 200 mg PO Q12H 30 days 60 tabs 6RF Coding Level of Care Code Est Pt Level 4 (12030) Diagnoses Chronic respiratory failure with hypoxia J96.11 Respiratory failure complication: hypoxia Mixed simple and mucopurulent chronic bronchitis J41.8 COPD type: chronic bronchitis Chronic bronchitis type: mixed simple and mucopurulent Pulmonary nodules R91.8 Gastroesophageal reflux disease without esophagitis K21.9 Esophagitis presence: without esophagitis Time Spent (min) 17
== END 2022-12-01 10:23 | disposition home or self-care (01) ==
PROVIDERS: PCP Internal Medicine; Visit Provider Hospitalist
DX: J96.11 Chronic respiratory failure with hypoxia (principal); J41.8 Mixed simple and mucopurulent chronic bronchitis; R91.8 Other nonspecific abnormal finding of lung field; K21.9 Gastro-esophageal reflux disease without esophagitis
CPT/HCPCS: 99214

== ENCOUNTER → 2022-12-01 09:40 | Outpatient (BNVA) | payer MEDICARE, OTHER, SELFPAY | PROVIDERS: Visit Provider Hospitalist | DX: J41.8 Mixed simple and mucopurulent chronic bronchitis (principal); J96.11 Chronic respiratory failure with hypoxia; R91.8 Other nonspecific abnormal finding of lung field; K21.9 Gastro-esophageal reflux disease without esophagitis; Z79.899 Other long term (current) drug therapy | CPT/HCPCS: 99212 ==

== ENCOUNTER 2023-01-05 07:35 | Outpatient (REF) | payer MEDICARE, OTHER, SELFPAY ==
--- NOTE | ~2023-01-05 | CT_ITS ---
EXAMINATION: CT CHEST LOW-DOSE SCREENING WITHOUT CONTRAST HISTORY: Asymptomatic patient meeting criteria for lung screening. PATIENT PACK-YEAR HISTORY: 57 Current Smoker: No If former smoker, years since quittin COMPARISON: 06/22/2022 TECHNIQUE: Multidetector volumetric non-contrast CT imaging of the chest was performed using low dose screening CT technique. Axial thin section 0.625 mm reformations in soft tissue and lung windows were obtained. Sagittal and coronal reformations were obtained. Axial MIP images were also created and reviewed. RECONSTRUCTED WIDTH: 1.25 mm x 1.25 mm TOTAL EXAM DLP: 45 mGy-cm CTDIvol: 1.05 L mGy FINDINGS: LUNGS: Moderate centrilobular emphysema. 4 mm nodule right upper lobe on image 132 of series 6. 5 mm nodule right upper lobe on image 170 of series 6. 4 mm nodule right middle lobe on image 236 of series 6. 4 mm nodule in the lingula on image 255 of series 6. 6 mm nodule left lower lobe on image 263 of series 6. There are additional scattered nodules measuring 3 mm and less. No focal consolidation. Central airways are patent. PLEURA: No pleural effusion. LYMPH NODES: No bulky mediastinal, hilar or axillary lymphadenopathy. MEDIASTINUM: Pulmonary arteries are ectatic. Heart size is normal. No pericardial effusion. CORONARY ARTERY CALCIFICATIONS: Moderate. CHEST WALL/BREASTS: No acute abnormality. UPPER ABDOMEN: This study was performed without contrast and with lower than standard dose, reducing the sensitivity for detection of small lesions in the upper abdomen. Status post cholecystectomy. OSSEOUS STRUCTURES: No destructive bone lesions. CT/CT lung screen follow up IMPRESSION: No change in bilateral pulmonary nodules measuring up to 6 mm. LUNG-RADS CATEGORY ASSESSMENT: 2. Benign appearance or behavior. Nodules with a very low likelihood of becoming a clinically active cancer due to size or lack of growth. Continue annual screening with low-dose CT in 12 months. Probability of malignancy less than 1%. INCIDENTAL FINDINGS (S CATEGORY): Finding: No incidental findings. Significance category: Normal or normal variant. RECOMMENDATION: Low dose lung CT. overall in 1 year. Visual estimate of coronary calcified plaque burden: Moderate. However, this exam cannot replace a dedicated cardiac CT calcium score for accurate assessment. LUNG-RADS CATEGORY: 2 -- BENIGN
== END 2023-01-05 07:36 | disposition home or self-care (01) ==
LOC: HO.CT 07:35
PROVIDERS: PCP Internal Medicine; Visit Provider Physician Assistant Medical
DX: Z12.2 Encounter for screening for malignant neoplasm of respiratory organs (principal); Z87.891 Personal history of nicotine dependence
CPT/HCPCS: 71250

== ENCOUNTER 2023-06-01 09:30 | Outpatient (AMB) | payer MEDICARE, OTHER, SELFPAY ==
[2023-06-01 09:46] VITALS: BP 134/60; PULSE 86; O2SAT 91; BMI 25.5
--- NOTE | 2023-06-01 09:46 | MHC.OFFVIS ---
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 The patient was treated with antibiotics in addition to prednisone and she done was also placed on oxygen. She did have a portable oxygen concentrator that she had for many years but she did not really have to use it. After that hospitalization she started having to use it more often. As far as his follow-up she did see her primary care doctor who will order repeat CT scan sometime in March 2022. it actually demonstrated that she has either new nodules or worsening of her ongoing nodules. She is also taking part of the lung cancer screening program. Therefore based on her increasing nodular densities in the concerns because of her high risk for cancer will go ahead and % throughout the lung cancer screening program that is scheduled for WednesdayMay 01. Once we can review her imaging studies from previous and her most recent CT scan with give further recommendations about future CT scans through the lung cancer screening program in the meantime the patient will continue using her oxygen. She is very happy with her current respiratory regimen including Spiriva Respimat and Breo. Therefore when I going to be looking to change that at this time. She seems to very happy with her treatment. She will need pulmonary function studies although she is reluctant to do so to assess her baseline pulmonary function. The patient still is very active. She was seen by Pulmonary in the past and she did go to pulmonary rehabilitation but she did find it very useful. 06/04/2022 the patient is here for a pulmonary follow-up visit. The patient overall is feeling about the same. She continues use her oxygen via the portable oxygen concentrator with good effect. She continues to have shortness of breath. Moderate severity. She tries to stay active. She already did pulmonary rehabilitation. She is not interested in doing it again. We did review her pulmonary function studies demonstrating very severe COPD with a trend of hyperinflation and air trapping and very severe diffusion impairment due to her Eneida. She does have a component of chronic bronchitis. Will go ahead and start her on azithromycin for the chronic bronchitis therapy. We also talked about Daliresp being an option although I does have the GI symptoms. Theophylline will be another option for her. The last blood gas she had was in 2021 demonstrated normal acid-base status with therefore she does not qualify for noninvasive ventilator at this time. The patient is not interested in referral to [facility] for lung transplant. The patient would not qualify for lung volume reduction intervention as her diffusing capacity is also significantly low already. For the chronic bronchitis component will start her on his azithromycin and will also request an Acapella valve for chest physical therapy that she can perform twice a day. 12/01/2022 the patient is here for a pulmonary follow-up visit. Overall the patient has been doing well. She continues use oxygen with good effect. She did take the azithromycin 3 times a week for 3 months and it did help. She stop that after worse. The patient continues to use the Breo and also the Spiriva. I have been affecting beneficial. She has not required any prednisone. She is starting to exercise a little more which is reassuring. She does wonder about other options regarding her emphysema and COPD. We did talk about lung volume reduction to interventions but at this point I do not believe she will be a great candidate because heard air trapping is not significantly elevated. In addition to that we talked about medications such as theophylline. She does have some wheezing on examination and I do believe that the often will provide her some relief with some of the bronchodilator effects. Will start her on a low dose to minimize adverse reactions. Will keep her in the low stop therapeutic range to minimize adverse effects. We did also review her CT scan of the chest that she had to the lung cancer screening program. It was reassuring that she does have waxing waning pulmonary nodules in the bigger nodules did disappear. 06/01/2023 the patient is here for a pulmonary follow-up visit. The patient overall has been doing well. She is responding well to the current respiratory regimen. She also has the oxygen supplementation that is also affecting beneficial. The patient did try the theophylline but she stopped it because of palpitations. She is participating in the lung cancer screening program. Next the fall 2023. She is working on smoking cessation. She has been smoking cigarette today. She does have patches available at home that she can put on if she feels her cravings getting significant. [facility] Medical History (Updated 09/10/22 @ 08:43 by Shreya Bates PA-C) GERD (gastroesophageal reflux disease) Pulmonary nodules COPD (chronic obstructive pulmonary disease) Chronic respiratory failure Depression Hypertension Personal history of nicotine dependence Osteopenia (~2005) Surgical History (Updated 09/10/22 @ 08:43 by Shreya Bates PA-C) History of cholecystectomy History of colonoscopy Family History Mother Eye cancer Maternal Grandmother Cirrhosis Father Lung cancer Social History Household Members: Spouse Housing: House Do you presently have visiting nurse or other home services: No Alcohol intake: never Comment: patient refuses bed alarm. 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 Tobacco Use Status: Former Tobacco user Quit Date: 2016 Tobacco use type: Cigarette Years Smoked: 51 (onset 17, 1ppd x 51yrs, 47+PYH - quit 2016) Second Hand Smoke Exposure: No service: No Current occupational status: retired Review of Systems Const Denies fever(s) and Denies weight loss Eyes Denies change in vision ENT Denies change in voice Card Denies chest pain and Reports dyspnea on exertion Resp Reports cough, Reports dyspnea on exertion and Denies wheezing GI Reports dyspepsia and Reports heartburn Musc Reports myalgias Skin/Breast Denies rash Neuro Reports no additional complaints Endo Denies flushing Stuart/Lymph Denies easy bleeding and Denies easy bruising Aller/Immun Denies wheezing Physical Exam Vital Signs: Last Vital Signs Pulse 86 06/01/23 09:46 BP 134/60 06/01/23 09:46 Pulse Ox 91 L 06/01/23 09:46 Oxygen Delivery Method Room Air 06/01/23 09:46 BMI result Body Mass Index 25.5 Const General: comfortable HEENT Head: Yes normocephalic Neck Neck: Yes supple Chest Chest palpation & inspection: normal inspection of the chest Resp Effort & Inspection: normal respiratory effort and prolonged expiratory phase Auscultation: no rhonchi, wheezes and diminished lung sounds Cardio Rate: regular rate Rhythm: regular rhythm Heart sounds: S1 normal heart sound present and S2 normal heart sound present GI Palpation (GI): Soft to palpation Skin General skin exam: no rashes or lesions noted Extrem General: Yes no clubbing, cyanosis or edema Assessment & Plan Assessment & Plan (1) Chronic respiratory failure: Code(s): J96.10 - Chronic respiratory failure, unspecified whether with hypoxia or hypercapnia Qualifiers: Respiratory failure complication: hypoxia Qualified Code(s): J96.11 - Chronic respiratory failure with hypoxia (2) COPD (chronic obstructive pulmonary disease): Code(s): J44.9 - Chronic obstructive pulmonary disease, unspecified Qualifiers: COPD type: chronic bronchitis Chronic bronchitis type: mixed simple and mucopurulent Qualified Code(s): J41.8 - Mixed simple and mucopurulent chronic bronchitis (3) Pulmonary nodules: Code(s): R91.8 - Other nonspecific abnormal finding of lung field (4) GERD (gastroesophageal reflux disease): Code(s): K21.9 - Gastro-esophageal reflux disease without esophagitis Qualifiers: Esophagitis presence: without esophagitis Qualified Code(s): K21.9 - Gastro-esophageal reflux disease without esophagitis Plan Continue Breo/Spiriva stopped Azithromycin MWF for now stopped Thephylline due to palpitation MANDIE as needed continue singulair 10mg daily, LDCT program reflux diet sleep with HOB elevated continue oxygen supplementation F/U 6-12 months Coding Level of Care Code Est Pt Level 4 (15937) Diagnoses Chronic respiratory failure with hypoxia J96.11 Respiratory failure complication: hypoxia Mixed simple and mucopurulent chronic bronchitis J41.8 COPD type: chronic bronchitis Chronic bronchitis type: mixed simple and mucopurulent Pulmonary nodules R91.8 Gastroesophageal reflux disease without esophagitis K21.9 Esophagitis presence: without esophagitis Time Spent (min) 16
== END 2023-06-01 10:04 | disposition home or self-care (01) ==
PROVIDERS: PCP Internal Medicine; Visit Provider Hospitalist
DX: J96.11 Chronic respiratory failure with hypoxia (principal); J41.8 Mixed simple and mucopurulent chronic bronchitis; R91.8 Other nonspecific abnormal finding of lung field; K21.9 Gastro-esophageal reflux disease without esophagitis
CPT/HCPCS: 99214

== ENCOUNTER → 2023-06-01 09:30 | Outpatient (BNVA) | payer MEDICARE, OTHER, SELFPAY | PROVIDERS: PCP Internal Medicine; Visit Provider Hospitalist | DX: K21.9 Gastro-esophageal reflux disease without esophagitis (principal); J96.11 Chronic respiratory failure with hypoxia; J41.8 Mixed simple and mucopurulent chronic bronchitis; R91.8 Other nonspecific abnormal finding of lung field | CPT/HCPCS: 99212 ==

== ENCOUNTER 2023-11-19 07:12 | Outpatient (REF) | payer MEDICARE, OTHER, SELFPAY ==
--- NOTE | ~2023-11-19 | MM_ITS ---
EXAMINATION: BONE DENSITOMETRY CLINICAL INDICATION: Postmenopausal. Rule out osteoporosis. COMPARISON: Previous BD dated 10/25/2020 and baseline BD dated 09/05/2007. TECHNIQUE: Using a [employer] DXA System (software version: 13.1) manufactured by [email or web address], dual-energy x-ray absorptiometry was performed of the lumbar spine and left hip. The images are of good technical quality. Summary results are attached. FINDINGS: LEFT FEMUR, NECK: Current: BMD 0.851 g/cm2, Z-score 0.6, T-score -1.3, osteopenia. Prior: BMD 0.796 g/cm2. Baseline: BMD 0.879 g/cm2. LEFT FEMUR, TOTAL: Current: BMD 0.791 g/cm2, Z-score 0.0, T-score -1.7, osteopenia, 2.9% increase from previous, 3.5% decrease from baseline (<5% change is not significant). Prior: BMD 0.769 g/cm2. Baseline: BMD 0.820 g/cm2. AP SPINE L1-L3 (excluding L4): The data of L1-L4 has been changed to exclude the L4 vertebral body, because at this level may cause overestimation of lumbar spine density. Current: BMD 1.160 g/cm2, Z-score 1.9, T-score -0.1, normal, 0.4% increase from previous, 8.5% increase from baseline (<5% change is not significant). Prior: BMD 1.155 g/cm2. Baseline: BMD 1.069 g/cm2. IDENTIFIED RISK FACTORS: Osteoporosis, menopause. HISTORY OF FRACTURE: None listed. MEDICATIONS: Bisphosphonates. MM/XR DEXA axial skeleton IMPRESSION: 1. DIAGNOSIS: Osteopenia based on the lowest T-score value of -1.7 in the total femur applying World Health Organization criteria. 2. 10-YEAR FRACTURE RISK PREDICTION, FRAX: Not performed in this patient on estrogen or bone building treatments. 3. Treatment Recommendations: NOF guidelines recommend consideration for treatment in postmenopausal women and men age 50 and older presenting with the following: -A hip or vertebral (clinical or morphometric) fracture. -T-score less than or equal to -2.5 at the femoral neck or spine after appropriate evaluation to exclude secondary causes. -Low bone mass at the hip or spine and a 10-year fracture probability by FRAX of greater than or equal to 3% for hip fracture or greater than or equal to 20% for major osteoporotic fracture based on the [place] adapted WHO algorithm. 4. Other Recommendations: All treatment decisions require clinical judgment and consideration of individual patient factors, including patient preferences, comorbidities, previous drug use, risk factors not captured in the FRAX model (e.g. frailty, falls, vitamin D deficiency, increased bone turnover, interval significant decline in bone density) and possible under or overestimation of fracture risk by FRAX. Additional medical evaluation for secondary cause of low bone mineral density may be appropriate. FUTURE SCAN RECOMMENDATION: People with diagnosed cases of osteoporosis or at high risk for fracture should have regular bone mineral density tests. For patients eligible for Medicare, routine testing is allowed once every 2 years. The testing frequency can be increased to one year for patients who have rapidly progressing disease, those who are receiving or discontinuing medical therapy to restore bone mass, or have additional risk factors. Electronically signed by: Vick Bobby MD 12/07/2023 08:38 AM EDT
--- NOTE | ~2023-11-19 | MM_ITS ---
EXAMINATION: MM SCREENING DIGITAL BREAST TOMOSYNTHESIS, BILATERAL CLINICAL INFORMATION: Screening. Asymptomatic. COMPARISON: Mammography: Comparison is made with available priors TECHNIQUE: Digital breast mammography with tomosynthesis is performed in both the craniocaudal and mediolateral oblique views along with computer-aided detection (CAD). FINDINGS: There are scattered areas of fibroglandular density (ACR BI-RADS breast composition Category b). There are no significant masses, abnormal calcifications, or other abnormalities. MM/MM tomosynthesis screening BI IMPRESSION: No mammographic evidence of malignancy. ASSESSMENT: BI-RADS BI-RADS 1 - Negative RECOMMENDATION: Routine annual mammography screening. 1 year F/U This examination should not preclude the clinical evaluation of a suspicious palpable abnormality. This patient's information was entered into a reminder system with a target due date for their next mammogram. Electronically signed by: Jeri Foster DO 12/01/2023 11:58 AM EDT
== END 2023-11-19 07:13 | disposition home or self-care (01) ==
LOC: HO.MAMMO 07:12
PROVIDERS: PCP Internal Medicine; Visit Provider Internal Medicine
DX: Z12.31 Encounter for screening mammogram for malignant neoplasm of breast (principal); Z13.820 Encounter for screening for osteoporosis; Z78.0 Asymptomatic menopausal state
CPT/HCPCS: 77063; 77067; 77080

== ENCOUNTER → 2023-11-19 07:30 | Outpatient (BNV) | payer MEDICARE, OTHER, SELFPAY | PROVIDERS: PCP Internal Medicine; Visit Provider Internal Medicine | DX: Z12.31 Encounter for screening mammogram for malignant neoplasm of breast (principal) | CPT/HCPCS: 77063; 77067 ==

== ENCOUNTER 2024-01-10 07:23 | Outpatient (REF) | payer MEDICARE, OTHER, SELFPAY | END 2024-01-10 07:24 | disposition home or self-care (01) | LOC: HO.CT 07:23 | PROVIDERS: PCP Internal Medicine; Visit Provider Physician Assistant Medical | DX: Z12.2 Encounter for screening for malignant neoplasm of respiratory organs (principal); Z87.891 Personal history of nicotine dependence | CPT/HCPCS: 71271 ==

== ENCOUNTER 2024-02-07 12:35 | Inpatient (IN) | payer MEDICARE, OTHER, SELFPAY ==
[2024-02-07] VITALS (17 sets, daily range): BP systolic 60–142; BP diastolic 38–73; PULSE 88–119; RESP 16–22; TEMP 36.4–36.9; O2SAT 93–102; BMI 21.7
--- NOTE | ~2024-02-07 | CT_ITS ---
EXAMINATION: CT ABDOMEN AND PELVIS WITHOUT CONTRAST CLINICAL INFORMATION: Leukocytosis. C. difficile. COMPARISON: Lung screening CT 01/10/2024. TECHNIQUE: Multidetector volumetric imaging was performed from the superior aspect of the liver through the pubic symphysis. Sagittal and coronal reformatted images were obtained on the technologist's workstation. This CT examination was performed using dose optimization techniques as appropriate, variously including the following: *Automated exposure control *Adjustment of mA and/or kV according to patient size (this includes techniques or standardized protocols for targeted exams where dose is matched to indication/reason for exam; i.e. extremities or head) *Use of iterative reconstruction technique DLP: 423 mGy-cm FINDINGS: LUNG BASES: New bronchial wall thickening and patchy bibasilar consolidation right more than left. Concerns include bronchopneumonia or aspiration. Known severe emphysema. Known coronary disease. LIVER, GALLBLADDER, AND BILIARY TREE: Unenhanced liver is within normal limits in size, density and contour. A 12 mm low-attenuation lesion in segment IVb adjacent to falciform ligament likely reflects an hemangioma. Appearance is indeterminate. No follow-up indicated at this time. The gallbladder is surgically absent. No biliary ductal dilation. PANCREAS: The pancreas demonstrates diffuse atrophy and fatty replacement. No gross ductal dilation or mass. No inflammation. SPLEEN: Unremarkable. ADRENAL GLANDS: Unremarkable. KIDNEYS AND URETERS: No renal mass, calculus or hydronephrosis. Nonspecific bilateral perinephric fat stranding typically age-related. BLADDER: The bladder is unremarkable. GASTROINTESTINAL TRACT: The splenic flexure and descending colon are thick-walled with mild pericolonic fat stranding. This is consistent with known C. difficile colitis. The rectum is distended with air and fluid consistent with liquid stool. No perirectal abscess or collection. There is moderate sigmoid diverticulosis. Inflammatory changes predominate proximal to the diverticular disease. No definite diverticulitis. Normal appendix. Normal terminal ileum. No small bowel obstruction. No free peritoneal gas. No significant ascites aside from trace fluid in the left paracolic gutter. ABDOMINAL WALL: Significant dependent edema along the back. Soft tissue gas in the left abdominal wall consistent with an injection site. LYMPH NODES: No retroperitoneal adenopathy. VASCULAR: Moderate atherosclerotic peripheral vascular disease. PELVIC VISCERA: Uterus and adnexa within normal limits for technique. No gross pelvic free fluid or adenopathy. OSSEOUS STRUCTURES: Degenerative changes in the hips and spine. Spondylosis most pronounced at the L5-S1 level. Diffuse osteopenia. CT/CT abdomen pelvis wo IV con IMPRESSION: 1. Mild descending colitis. 2. Moderate sigmoid diverticulosis without definite diverticulitis. 3. Cholecystectomy. 4. Patchy bibasilar consolidation and bronchial wall thickening concerning for aspiration or bronchopneumonia. Fleischner guidelines were followed. Electronically signed by: Jamaal Martínez MD 02/12/2024 04:58 PM EST
--- NOTE | ~2024-02-07 | NM_ITS ---
EXAMINATION: PULMONARY PERFUSION STUDY CLINICAL INFORMATION: Tachycardia, shortness of breath, question pulmonary embolism. COMPARISON: No previous lung scan is available for comparison. A radiograph of the chest dated 02/13/2024 is available for comparison. TECHNIQUE: Following the intravenous injection of 3.5 mCi Tc-99m MAA, the lungs were imaged in the anterior and posterior, left and right lateral and POLA, CAIN, LPO, and RPO projections using a gamma scintillation camera. FINDINGS: No segmental perfusion defects are present. There is mild heterogeneity present bilaterally, most severely in the upper lobes bilaterally, but there are no focal anatomic appearing perfusion defects present. The chest radiograph dated 02/13/2024 shows bibasilar infiltrates slice atelectasis and subpulmonic pleural effusions. NM/NM pul perfusion IMPRESSION: Very low probability of pulmonary embolism. Electronically signed by: Ander Mcleod MD 02/14/2024 03:50 PM [facility]
--- NOTE | ~2024-02-07 | XR_ITS ---
EXAMINATION: XR CHEST CLINICAL INFORMATION: Coughing. COMPARISON: 03/05/2022. TECHNIQUE: Frontal view of the chest was obtained. FINDINGS: Prominent epicardial fat pad. Cardiac, hilar, and mediastinal contours are normal. There is calcification of the aortic arch. Diffuse hyperinflated and hyperlucent pulmonary parenchyma, consistent with COPD. Increased thoracic AP diameter. Stable foci of scarring in the right middle lobe and lingula. Lungs otherwise clear. No pneumothorax or effusions. There are mild to moderate spinal degenerative changes. No acute bony or soft tissue abnormalities. XR/XR chest 1V IMPRESSION: 1. COPD. Stable foci of scarring right middle lobe and lingula. 2. No active superimposed disease. Electronically signed by: Adin Pruitt MD 02/07/2024 04:20 PM [facility]
--- NOTE | ~2024-02-07 | US_ITS ---
EXAMINATION: US RETROPERITONEAL LIMITED (RENAL ONLY) CLINICAL INFORMATION: Elevated creatinine. Rule out obstruction.. COMPARISON: None available. TECHNIQUE: Renal ultrasound FINDINGS: RIGHT KIDNEY: 9.7 x 3.8 x 4.3 cm (SAG x AP x TRV). The kidney is normal in size, contour, and echogenicity. Renal cortical thickness is normal. No calculi or focal parenchymal lesions. No hydronephrosis. LEFT KIDNEY: 9.5 x 4.2 x 5 cm (SAG x AP x TRV). The kidney is normal in size, contour, and echogenicity. Renal cortical thickness is normal. No calculi or focal parenchymal lesions. No hydronephrosis. US/US renal BI IMPRESSION: No evidence of hydronephrosis.. Electronically signed by: Jorge Conti MD 02/07/2024 06:48 PM [facility]
--- NOTE | ~2024-02-07 | XR_ITS ---
EXAMINATION: XR CHEST 1 VIEW CLINICAL INFORMATION: hypoxia COMPARISON: February 07, 2024 TECHNIQUE: Single portable frontal view. Tubes and lines: None Lungs and pleura: Bibasilar infiltrate/atelectasis at lung bases and bilateral subpulmonic pleural effusions has increased. Heart and mediastinum: The mediastinum is within normal limits.. Bones/soft tissue: Skeletal structures included are normal for patient's age. XR/XR chest 1V IMPRESSION: 1. Worsening bibasilar infiltrate/atelectasis and bilateral subpulmonic pleural effusions. 2. No pneumothorax. 3. No significant change. Electronically signed by: Vick Bobby MD 02/13/2024 02:51 PM EST
--- NOTE | 2024-02-07 13:09 | ED_ITS ---
HPI - General Adult General Chief complaint: Abdominal Pain Stated complaint: Low blood pressure sent by [employer] Time Seen by Provider: 02/07/24 13:42 Source: patient and family (-Ej) Mode of arrival: ambulatory Limitations: no limitations History of Present Illness ED Provider: Dr. Manuel Cramer HPI narrative: 73-year-old female with a history of hypertension, COPD, GERD, nicotine dependence who presents emergency department for evaluation of lightheadedness, dizziness, weakness, nausea, diarrhea and 2 syncopal episodes. Patient states that she got sick (02/04/2024) , 3 days prior to evaluation. She states that she had loose watery diarrheal stool which was brown. She had 2-3 episodes per day. She states that on Wednesday she felt lightheaded and dizzy and had 2 episodes where she passed out. She states that since that time she has been feeling lightheaded especially when she gets up to walk. She states that she was had fever, chills, rhinorrhea, sore throat, cough which is nonproductive, chest tightness which is worse with coughing and shortness of breath. She states she was had no appetite and she was had nausea but no vomiting. Her states she got weaker so he brought her to the hospital today for evaluation. Related Data Home Medications ?Medication ?Instructions ?Recorded ?Confirmed alendronate 70 mg tablet 70 mg PO SA 01/26/22 01/26/22 atorvastatin 20 mg tablet 20 mg PO DAILY 01/26/22 01/26/22 montelukast 10 mg tablet 10 mg PO DAILY 01/26/22 01/26/22 risperidone 0.5 mg tablet 0.5 tab PO DAILY 01/26/22 01/26/22 valsartan 80 mg tablet 80 mg PO DAILY 01/26/22 01/26/22 venlafaxine 150 mg 150 mg PO DAILY 01/26/22 01/26/22 capsule,extended release 24 hr Oxygen Home Use 04/23/22 tiotropium bromide 2.5 2 puff inhalation DAILY 02/08/24 mcg/actuation mist for inhalation (Spiriva Respimat) Previous Rx's ?Medication ?Instructions ?Recorded fluticasone furoate 100 1 ea inhalation RDAILY #60 ea 02/02/22 mcg-vilanterol 25 mcg/dose inhalation powder (Breo Ellipta) Allergies Allergy/AdvReac Type Severity Reaction Status Date / Time Sulfa (Sulfonamide Allergy Anaphylaxis Verified 02/07/24 13:10 Antibiotics) Review of Systems 2 Review of Systems: Yes all other systems are reviewed and are negative [facility] Past Medical History [facility] Narrative: Social history: The patient denies tobacco use. She occasionally drinks alcohol. She denies drug use. Her , Efren is here in the emergency department with her. Medical History (Updated 02/07/24 @ 23:12 by Mimi Bautista PA-C) GERD (gastroesophageal reflux disease) Pulmonary nodules COPD (chronic obstructive pulmonary disease) Chronic respiratory failure Depression Hypertension Personal history of nicotine dependence Osteopenia (~2004) Surgical History (Updated 09/10/22 @ 08:43 by Shreya Bates PA-C) History of cholecystectomy History of colonoscopy Family History Family History Mother Eye cancer Maternal Grandmother Cirrhosis Father Lung cancer Social History Social History Household Members: Spouse Housing: House Do you presently have visiting nurse or other home services: No Alcohol intake: never Comment: patient refuses bed alarm. 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4 F Pulse Rate 90 88 90 Respiratory Rate 18 18 17 Blood Pressure 60/38 L 72/39 L 86/51 L Pulse Oximetry 93 95 96 Oxygen Delivery Method Room Air Room Air Room Air 02/07/24 15:36 02/07/24 16:00 02/07/24 16:19 Temperature 98 F 97.5 F Pulse Rate 94 100 111 H Respiratory Rate 18 19 18 Blood Pressure 100/61 92/55 L 78/50 L Pulse Oximetry 95 98 94 Oxygen Delivery Method Room Air 02/07/24 16:45 02/07/24 16:58 02/07/24 17:04 Temperature Pulse Rate 104 H 112 H 103 H Respiratory Rate 18 18 Blood Pressure 84/51 L 96/57 L 85/49 L Pulse Oximetry 102 H 94 Oxygen Delivery Method Room Air Room Air 02/07/24 17:04 02/07/24 17:05 02/07/24 17:28 Temperature 97.9 F Pulse Rate 109 H 119 H 98 Respiratory Rate 18 Blood Pressure 83/48 L 71/40 L 95/58 L Pulse Oximetry 94 Oxygen Delivery Method Room Air 02/07/24 18:09 02/07/24 19:00 02/07/24 19:18 Temperature 97.6 F Pulse Rate 95 90 92 Respiratory Rate 22 H 16 Blood Pressure 88/58 L 100/66 90/63 Pulse Oximetry 96 93 Oxygen Delivery Method Room Air Room Air 02/07/24 19:53 02/07/24 21:23 02/07/24 21:54 Temperature 97.7 F Pulse Rate 95 94 100 Respiratory Rate 16 20 20 Blood Pressure 142/73 H 123/67 114/60 Pulse Oximetry 97 97 97 Oxygen Delivery Method Room Air Room Air Room Air BMI result Body Mass Index 21.7 Vital signs revealed hypotension with a blood pressure of 60/38 Exam: General: Awake, alert in no distress Head: Normocephalic, atraumatic EENT: PERRL, Lids normal, sclera normal, conjunctiva normal, nose normal , ears normal, throat without erythema or exudates Neck: Supple, no adenopathy Lung: breath sounds symmetric, no wheezing, rales or rhonchi Chest: symmetric movement, nontender Heart: regular rate and rhythm, normal S1, S2 no murmurs or rubs Abdomen: soft, non-tender, nondistended, normal bowel sounds Back: no vertebral tenderness, no CVAT Extremities: no deformities, moves all extremities symmetrically Neuro: Awake, alert, oriented, normal speech, cranial nerves intact, moves all extremities symmetrically Psych: Pleasant, cooperative Course Course Course Narrative: RME: Patient presents to ED for feeling lightheaded. Patient was sent from primary care provider due to low blood pressure. Patient states having diarrhea since Wednesday multiple rounds. Patient is hypotensive 60 over 38. Mother symptoms chest tightness. Labs fluids ordered. Patient to be brought to the ED. patient had increased dosage of Wegovy weight loss shot. Medications Administered Generic Name Dose Route Start Last Admin Trade Name Freq PRN Reason Stop Dose Admin Heparin Sodium (Porcine) 5,000 unit 02/07/24 23:00 02/07/24 23:59 Heparin Sodium,Porcine 5,000 Unit/Ml Vial SUBCUT 5,000 unit Q8H STEF Administration Lactated Ringer's 1,000 mls @ 125 mls/hr 02/07/24 22:45 02/08/24 08:09 Lr IVCONT 125 mls/hr .Q8H STEF Administration Sodium Chloride 3 ml 02/08/24 00:00 02/08/24 00:03 0.9 % Sodium Chloride Flush 3 Ml Syringe IVFLUSH Not Given QSHIFT STEF Vancomycin HCl 125 mg 02/08/24 00:00 02/08/24 06:40 Vancomycin Hcl 125 Mg Capsule PO 125 mg Q6H STEF Administration Discontinued Medications Generic Name Dose Route Start Last Admin Trade Name Freq PRN Reason Stop Dose Admin Ceftriaxone Sodium 1 gm 02/07/24 15:05 02/07/24 15:18 Ceftriaxone Sodium 1 Gm Vial IVPUSH 02/07/24 15:06 1 gm ONCE ONE Administration Sodium Chloride 1,000 mls @ 999 mls/hr 02/07/24 13:10 02/07/24 14:42 Ns IV 02/07/24 14:10 Infused .Q1H1M STA Infusion Sodium Chloride 1,000 mls @ 999 mls/hr 02/07/24 14:48 02/07/24 16:23 Ns IV 02/07/24 15:48 Infused .Q1H1M STA Infusion Potassium Chloride 10 meq in 100 mls @ 100 mls/hr 02/07/24 15:00 02/07/24 20:18 Potassium Chloride/H20 IV 02/07/24 18:59 Infused Q1H STEF Infusion Azithromycin 500 mg/ Sodium 250 mls @ 125 mls/hr 02/07/24 15:05 02/07/24 17:51 Chloride IV 02/07/24 17:04 Infused ONCE ONE Infusion Lactated Ringer's 1,000 mls @ 999 mls/hr 02/07/24 16:12 12/09/24 19:00 Lr IV 02/07/24 17:12 Infused .Q1H1M STA Infusion Potassium Chloride 40 meq 02/07/24 14:49 02/07/24 15:11 Potassium Chloride Packet 20 Meq Packet PO 02/07/24 14:50 40 meq ONCE ONE Administration Potassium Chloride 40 meq 02/07/24 19:27 02/07/24 19:52 Potassium Chloride Packet 20 Meq Packet PO 02/07/24 19:28 40 meq ONCE ONE Administration Medical Decision Making Medical Decision Making MDM Narrative: 73-year-old female with a history of hypertension, COPD, GERD, nicotine dependence who presents emergency department for evaluation of lightheadedness, dizziness, weakness, nausea, diarrhea and 2 syncopal episodes. These symptoms started 3 days prior. She also stated that she was had fever, chills, rhinorrhea, sore throat, cough which is nonproductive, chest tightness which is worse with coughing and shortness of breath. She states she was had no appetite and she was had nausea but no vomiting. Her states she got weaker so he brought her to the hospital today for evaluation. Vital signs revealed that she was hypotensive otherwise unremarkable. Physical exam was unremarkable. 14:59 Differential diagnosis: ?Includes but is not limited to viral syndrome, COVID- 19, RSV, influenza, pneumonia, bronchitis, volume depletion, dehydration, electrolyte abnormalities Following evaluation was ordered: CBC, CMP, BNP, lactic acid, rapid strep, COVID-19, influenza, RSV, urinalysis, blood cultures x2, chest x-ray one view Course: 14:59 At this time, I suspect that the patient may have an infectious process therefore she was made a code sepsis. Laboratory evaluation revealed an elevated white blood cell count, low potassium and elevated BUN and creatinine above her baseline suggesting that she is severely volume depleted most likely secondary to her diarrhea and lack of oral intake. This severe volume depletion most likely explains her hypotension , however sepsis needs to be considered as well. Patient was ordered to get 2 L of normal saline IV and 1 L of lactated Ringer's IV. The patient may have a very subtle subtle left lower lobe infiltrate compared to a previous x-ray in March of 2022. Patient was ordered to get ceftriaxone 1 g IV and azithromycin 500 mg IV for community-acquired pneumonia. I ordered the following treatment for the patient's low potassium : potassium chloride 40 mEq orally x2 and potassium chloride 10 mEq per 100 cc normal saline per hours x4 doses. 21:08 Renal ultrasound did not reveal any obstructive process which is reassuring. Urinalysis positive for protein, blood and leukocyte esterase. Microscopic however revealed 0-2 RBCs, 6-10 WBCs 6-10 squamous cells and no bacteria suggesting that she was not have a urinary tract infection at this time. Radiology interpretation of the chest x-ray was no acute disease. 21:37 Patient's repeat BMP revealed normalization of the patient potassium to 3.5. Patient's BUN and creatinine also improved to 49 and 2.89. At this time I suspect that the patient has an acute viral illness causing gastroenteritis. After repleting her volume, her blood pressure is now 142/73. The patient will need to be admitted for further volume depletion and to monitor her acute kidney injury. I did discuss admission over tiger text with the covering hospitalist, Dr. Davidson and the patient will be admitted for further treatment. Admission/Observation Consideration of admission/observation: Escalation of care including admission/observation considered (Yes) Lab Data MDM Lab Attestation statement: I reviewed the patient's lab results. My individual interpretation patient's laboratory evaluation is as follows: WBC elevated 24,400 with a left shift 80 neutrophils. Potassium was low 2.2. BUN and creatinine were elevated at 62 and 3.75. Bicarb was low at 19. COVID-19, influenza and RSV were negative. Rapid strep was negative. BNP was normal. Lactic acid was normal at 1.9. COVID-19, influenza, RSV and rapid strep were negative. 02/08/24 05:13 02/08/24 05:13 Labs: Lab Results 02/07/24 02/07/24 02/07/24 Range/Units 13:28 16:57 20:53 WBC 24.4 H (4.8-10.8) X10*3/uL RBC 4.69 (4.20-5.50) X10*6/uL Hgb 14.9 (12.0-16.0) g/dl Hct 41.7 (37.0-47.0) % MCV 88.9 (80.0-98.0) fL MCH 31.8 (27.0-33.0) pg MCHC 35.7 H (31.0-35.0) g/dl RDW 13.8 (11.0-16.0) % Plt Count 321 (160-400) X10*3/uL MPV 10.4 (9.4-12.3) fL Immature Gran % (Auto) 0.9 H (0.0-0.4) % Neut % (Auto) 80.6 H (45-73) % Lymph % (Auto) 5.4 L (20-40) % [place] % (Auto) 9.8 (2-11) % Eos % (Auto) 2.7 (0-4) % Baso % (Auto) 0.6 (0-2) % Lymph # (Auto) 1.3 (1.2-4.9) X10*3/uL [place] # (Auto) 2.4 H (0.1-1.2) X10*3/uL Eos # (Auto) 0.7 H (0.0-0.4) X10*3/uL Baso # (Auto) 0.1 (0.0-0.2) X10*3/uL Abs Immat Gran (auto) 0.22 H (0.00-0.03) X10*3/uL Absolute Neuts (auto) 19.7 H (2.0-8.3) x10*3/uL Absolute Nucleated RBC 0.000 (0.0-0.012) X10*3/uL Nucleated RBC % (auto) 0.0 (0.0-0.2) /100WBC Smear Tech's Comments VERIFIED Sodium 135 137 (135-145) mmol/L Potassium 2.2 L* 3.5 D (3.3-5.1) mmol/L Chloride 101 117 H (96-108) mmol/L Carbon Dioxide 19 L 11 L (22-29) mmol/L Anion Gap 17 13 (12-20) BUN 62 H 49 H (9-16) mg/dL Creatinine 3.75 H 2.89 H (0.5-1.4) mg/dL Estim Creat Clear Calc 10.4 13.4 Estimated GFR 12 16 Random Glucose 121 H 113 (60-115) mg/dL Lactic Acid 1.9 (0.5-2.0) mmol/L Calcium 8.4 D 7.5 L D (8.4-10.2) mg/dL Magnesium 2.0 (1.6-2.6) mg/dL Total Bilirubin 0.5 (0.0-1.0) mg/dL AST 19 (5-31) U/L ALT 20 (0-31) U/L Alkaline Phosphatase 75 (39-117) U/L Troponin I High Sens 7.5 D (<3.5-17.0) ng/L B-Natriuretic Peptide 30 (<100) pg/mL Total Protein 7.2 (6.5-8.0) g/dL Albumin 3.9 (3.5-5.0) g/dL Procalcitonin 2.99 ng/mL Urine Color Yellow Urine Appearance Clear Urine pH 5.5 (5.0-9.0) Ur Specific [place] 1.010 (1.005-1.025) Urine Protein 30 (1+) H (Neg-Trace) mg/dL Urine Glucose (UA) Negative (Negative) mg/dL Urine Ketones Negative (Negative) mg/dL Urine Blood Trace H (Negative) Urine Nitrite Negative (Negative) Ur Leukocyte Esterase Small (1+) H (Negative) Urine RBC 0-2 (0-2) /HPF Urine WBC 6-10 H (0-5) /HPF Ur Squamous Epith Cells 6-10 (0-2) /HPF Urine Bacteria None Seen (None Seen) Hyaline Casts 6-10 (0-2) /LPF C. difficile Tox B Gene (Negative) C. difficile Toxin A&B (Negative) C. difficile Interpret Influenza Type A (PCR) NEGATIVE (Negative) Influenza Type B (PCR) NEGATIVE (Negative) RSV RNA Qual (PCR) NEGATIVE (Negative) SARS-CoV-2 RNA (RT-PCR) NEGATIVE (Negative) S. pyogenes GrpA ELBA Negative (Negative) 02/07/24 Range/Units 21:53 WBC (4.8-10.8) X10*3/uL RBC (4.20-5.50) X10*6/uL Hgb (12.0-16.0) g/dl Hct (37.0-47.0) % MCV (80.0-98.0) fL MCH (27.0-33.0) pg MCHC (31.0-35.0) g/dl RDW (11.0-16.0) % Plt Count (160-400) X10*3/uL MPV (9.4-12.3) fL Immature Gran % (Auto) (0.0-0.4) % Neut % (Auto) (45-73) % Lymph % (Auto) (20-40) % [place] % (Auto) (2-11) % Eos % (Auto) (0-4) % Baso % (Auto) (0-2) % Lymph # (Auto) (1.2-4.9) X10*3/uL [place] # (Auto) (0.1-1.2) X10*3/uL Eos # (Auto) (0.0-0.4) X10*3/uL Baso # (Auto) (0.0-0.2) X10*3/uL Abs Immat Gran (auto) (0.00-0.03) X10*3/uL Absolute Neuts (auto) (2.0-8.3) x10*3/uL Absolute Nucleated RBC (0.0-0.012) X10*3/uL Nucleated RBC % (auto) (0.0-0.2) /100WBC Smear Tech's Comments Sodium (135-145) mmol/L Potassium (3.3-5.1) mmol/L Chloride (96-108) mmol/L Carbon Dioxide (22-29) mmol/L Anion Gap (12-20) BUN (9-16) mg/dL Creatinine (0.5-1.4) mg/dL Estim Creat Clear Calc Estimated GFR Random Glucose (60-115) mg/dL Lactic Acid (0.5-2.0) mmol/L Calcium (8.4-10.2) mg/dL Magnesium (1.6-2.6) mg/dL Total Bilirubin (0.0-1.0) mg/dL AST (5-31) U/L ALT (0-31) U/L Alkaline Phosphatase (39-117) U/L Troponin I High Sens (<3.5-17.0) ng/L B-Natriuretic Peptide (<100) pg/mL Total Protein (6.5-8.0) g/dL Albumin (3.5-5.0) g/dL Procalcitonin ng/mL Urine Color Urine Appearance Urine pH (5.0-9.0) Ur Specific [place] (1.005-1.025) Urine Protein (Neg-Trace) mg/dL Urine Glucose (UA) (Negative) mg/dL Urine Ketones (Negative) mg/dL Urine Blood (Negative) Urine Nitrite (Negative) Ur Leukocyte Esterase (Negative) Urine RBC (0-2) /HPF Urine WBC (0-5) /HPF Ur Squamous Epith Cells (0-2) /HPF Urine Bacteria (None Seen) Hyaline Casts (0-2) /LPF C. difficile Tox B Gene POSITIVE A* (Negative) C. difficile Toxin A&B Positive A* (Negative) C. difficile Interpret SEE NOTE Influenza Type A (PCR) (Negative) Influenza Type B (PCR) (Negative) RSV RNA Qual (PCR) (Negative) SARS-CoV-2 RNA (RT-PCR) (Negative) S. pyogenes GrpA ELBA (Negative) Independent Interpretation I performed an independent interpretation of an: Plain X-Ray Interpretation: 15:15 hours: My independent interpretation patient's chest x-ray is as follows: Subtle left lower lobe infiltrate, new compared to 03/05/2022 x-ray 15:15 hours: My independent interpretation patient's 12 EKG done at Radiology Impression Discussion of test interpretation with radiology: I have reviewed the radiologist's reading. Radiologist Impression: XR chest 1V IMPRESSION: 1. COPD. Stable foci of scarring right middle lobe and lingula. 2. No active superimposed disease. Electronically signed by: Adin Pruitt MD 02/07/2024 04:20 PM EST Independent Historian Clinical information obtained from an independent historian. History obtained from or confirmed by: Spouse Critical Care Time Critical Care Time Critical Care Time: Yes Total Critical Care Time: 120 Attestation: Critical Care: The patient was critically ill with a high probability of imminent or life threatening deterioration. I spent greater than 30 minutes of discontinuous time evaluating the patient,delivering critical care at the bedside, discussing and evaluating pertinent data with consultants. Critical care time does not include time spent performing separately billable procedures or teaching. Total time spent performing critical care was 120 minutes. Discharge Plan Discharge Clinical Impression: Prerenal renal failure, Volume depletion, Acute hypokalemia, Diarrhea, Poor fluid intake, Acute hypotension Patient Disposition: Admitted As Inpatient
[2024-02-07 13:40] LABS: Basophils Absolute Auto 0.1 X10*3/uL (0.0-0.2); Basophils Percent Auto 0.6 % (0-2); Eosinophils Absolute Auto 0.7 X10*3/uL (0.0-0.4); Eosinophils Percent Auto 2.7 % (0-4); Hematocrit 41.7 % (37.0-47.0); Imm Gran Abs Auto 0.22 X10*3/uL (0.00-0.03); Imm Gran Pct Auto 0.9 % (0.0-0.4); Lymphocytes Absolute Auto 1.3 X10*3/uL (1.2-4.9); Lymphocytes Percent Auto 5.4 % (20-40); MANUAL DIFF FLAG SCAN; Mean Corpuscular HGB Conc 35.7 g/dl (31.0-35.0); Mean Corpuscular Hemoglobin 31.8 pg (27.0-33.0); Mean Corpuscular Volume 88.9 fL (80.0-98.0); Mean Platelet Volume 10.4 fL (9.4-12.3); Monocytes Absolute Auto 2.4 X10*3/uL (0.1-1.2); Monocytes Percent Auto 9.8 % (2-11); Neutrophils Absolute Auto 19.7 x10*3/uL (2.0-8.3); Neutrophils Percent Auto 80.6 % (45-73); Platelet Count 321 X10*3/uL (160-400); Red Blood Count 4.69 X10*6/uL (4.20-5.50); Red Cell Distribution Width 13.8 % (11.0-16.0); SCAN SMEAR FLAG 1; White Blood Count 24.4 X10*3/uL (4.8-10.8)
[2024-02-07] MEDS: 0.9 % Sodium Chloride 1,000 ML 999 ML IV ×2 (13:41→14:53)
[2024-02-07 13:42] LABS: Hemoglobin 14.9 g/dl (12.0-16.0)
[2024-02-07 13:48] LABS: IDNOW Serial# 58CA691E; Strep A Nucleic Acid Negative (Negative)
[2024-02-07 13:59] LABS: SLIDE REVIEW VERIFIED
[2024-02-07 14:04] LABS: Lactic Acid 1.9 mmol/L (0.5-2.0)
--- NOTE | 2024-02-07 14:06 | ED.NAVMDI ---
HPI - Nausea/Vomiting/Diarrhea General Chief complaint: Abdominal Pain Stated complaint: Low blood pressure sent by [employer] Time Seen by Provider: 02/07/24 13:42 Source: patient and family (-Ej) Mode of arrival: ambulatory Limitations: no limitations History of Present Illness ED Provider: Dr. Manuel Cramer HPI Narrative: 73-year-old female with a history of GERD, pulmonary nodule, COPD, chronic respiratory failure, depression, hypertension, nicotine dependence, osteopenia, who presents emergency department for evaluation of nausea, vomiting, diarrhea, lightheadedness, poor oral intake, chest pain since Wednesday (3 days prior to evaluation). Patient states that on Wednesday she developed 2-3 loose diarrheal stools per day with no blood in his stool. She also states she had 1-2 episodes of vomiting on Wednesday. She states that her diarrhea persisted until today. She states that on Wednesday she felt lightheaded and dizzy and had 2 episodes where she passed out. She states that she was had a subjective fever and chills at home. She also complains of rhinorrhea, sore throat and a nonproductive cough. She states she has been having intermittent chest tightness as well as feeling extremely weak. The patient does take Wegovy. Related Data Home Medications ?Medication ?Instructions ?Recorded ?Confirmed alendronate 70 mg tablet 1 tab PO SA 01/26/22 01/26/22 atorvastatin 20 mg tablet 1 tab PO DAILY 01/26/22 01/26/22 montelukast 10 mg tablet 1 tab PO DAILY 01/26/22 01/26/22 risperidone 0.5 mg tablet 0.5 tab PO DAILY 01/26/22 01/26/22 valsartan 80 mg tablet 1 tab PO DAILY 01/26/22 01/26/22 venlafaxine 150 mg 1 cap PO DAILY 01/26/22 01/26/22 capsule,extended release 24 hr Oxygen Home Use 04/23/22 tiotropium bromide 2.5 2 puff inhalation DAILY 04/23/22 mcg/actuation mist for inhalation (Spiriva Respimat) Previous Rx's ?Medication ?Instructions ?Recorded fluticasone furoate 100 1 ea inhalation RDAILY #60 ea 02/02/22 mcg-vilanterol 25 mcg/dose inhalation powder (Breo Ellipta) Allergies Allergy/AdvReac Type Severity Reaction Status Date / Time Sulfa (Sulfonamide Allergy Anaphylaxis Verified 02/07/24 13:10 Antibiotics) Review of Systems Review of Systems: Yes all other systems are reviewed and are negative [facility] Past Medical History [facility] Narrative: Social history: She was in her is here in the emergency department with her. She denies tobacco use. She occasionally drinks alcohol. She denies drug use. Medical History (Updated 02/07/24 @ 21:09 by Manuel Cramer MD) GERD (gastroesophageal reflux disease) Pulmonary nodules COPD (chronic obstructive pulmonary disease) Chronic respiratory failure Depression Hypertension Personal history of nicotine dependence Osteopenia (~2004) Surgical History (Updated 09/10/22 @ 08:43 by Shreya Bates PA-C) History of cholecystectomy History of colonoscopy Family History Family History Mother Eye cancer Maternal Grandmother Cirrhosis Father Lung cancer Social History Social History Household Members: Spouse Housing: House Do you presently have visiting nurse or other home services: No Alcohol intake: never Comment: patient refuses bed alarm. educated marketing communications manager thomas Patient Tobacco Use Status: Former Tobacco user Tobacco use type: Cigarette Years Smoked: 51 (onset 17, 1ppd x 51yrs, 47+PYH - quit 2016) Smoked in Last 30 Days: Yes Second Hand Smoke Exposure: No Use of substances other than those prescribed or required for medical reasons: No Any prior treatment program specific to substance use: No Advance Directives: No Advance Directives Information Provided: Yes Do you have a plan to hurt others: No Plan service: No Current occupational status: retired Physical Exam Vital Signs: Vital Signs: Last Vital Signs Temp 97.7 F 02/07/24 21:54 Pulse 100 02/07/24 21:54 Resp 20 02/07/24 21:54 BP 114/60 02/07/24 21:54 Pulse Ox 97 02/07/24 21:54 O2 Del Method Room Air 02/07/24 21:54 BMI result Body Mass Index 21.7 Vital signs revealed hypotension with a blood pressure of 72/39 Exam: General: Awake, alert in no distress Head: Normocephalic, atraumatic EENT: PERRL, Lids normal, sclera normal, conjunctiva normal, nose normal , ears normal, throat without erythema or exudates Neck: Supple, no adenopathy Lung: breath sounds symmetric, no wheezing, rales or rhonchi Chest: symmetric movement, nontender Heart: regular rate and rhythm, normal S1, S2 no murmurs or rubs Abdomen: soft, non-tender, nondistended, normal bowel sounds Back: no vertebral tenderness, no CVAT Extremities: no deformities, moves all extremities symmetrically Neuro: Awake, alert, oriented, normal speech, cranial nerves intact, moves all extremities symmetrically Psych: Pleasant, cooperative Medications Administered Discontinued Medications Generic Name Dose Route Start Last Admin Trade Name Freq PRN Reason Stop Dose Admin Ceftriaxone Sodium 1 gm 02/07/24 15:05 02/07/24 15:18 Ceftriaxone Sodium 1 Gm Vial IVPUSH 02/07/24 15:06 1 gm ONCE ONE Administration Sodium Chloride 1,000 mls @ 999 mls/hr 02/07/24 13:10 02/07/24 14:42 Ns IV 02/07/24 14:10 Infused .Q1H1M STA Infusion Sodium Chloride 1,000 mls @ 999 mls/hr 02/07/24 14:48 02/07/24 16:23 Ns IV 02/07/24 15:48 Infused .Q1H1M STA Infusion Potassium Chloride 10 meq in 100 mls @ 100 mls/hr 02/07/24 15:00 02/07/24 20:18 Potassium Chloride/H20 IV 02/07/24 18:59 Infused Q1H STEF Infusion Azithromycin 500 mg/ Sodium 250 mls @ 125 mls/hr 02/07/24 15:05 02/07/24 17:51 Chloride IV 02/07/24 17:04 Infused ONCE ONE Infusion Lactated Ringer's 1,000 mls @ 999 mls/hr 02/07/24 16:12 02/07/24 19:00 Lr IV 02/07/24 17:12 Infused .Q1H1M STA Infusion Potassium Chloride 40 meq 02/07/24 14:49 02/07/24 15:11 Potassium Chloride Packet 20 Meq Packet PO 02/07/24 14:50 40 meq ONCE ONE Administration Potassium Chloride 40 meq 02/07/24 19:27 02/07/24 19:52 Potassium Chloride Packet 20 Meq Packet PO 02/07/24 19:28 40 meq ONCE ONE Administration Medical Decision Making Medical Decision Making [facility] Narrative: 73-year-old female with a history of GERD, pulmonary nodule, COPD, chronic respiratory failure, depression, hypertension, nicotine dependence, osteopenia, who presents emergency department for evaluation of nausea, vomiting, diarrhea, lightheadedness, poor oral intake, chest pain since Wednesday (3 days prior to evaluation). Patient had 2 syncopal episodes on Wednesday. Vital signs revealed hypotension otherwise unremarkable. Physical exam was unremarkable. Differential diagnosis: ?Includes but is not limited to viral syndrome, COVID-19, influenza, RSV, electrolyte abnormalities, anemia Following evaluation was ordered: CBC, CMP, BNP, VBG, lactic acid, PTT, troponin, lipase, urinalysis, blood cultures x2, COVID-19, influenza, RSV, chest x-ray two view, EKG Course: 1459: Given the [place] [address], is concerned that she may have an infectious source therefore she was made a sepsis alert. Lab Data 02/07/24 13:28 02/07/24 20:53 Labs: Lab Results 02/07/24 02/07/24 02/07/24 Range/Units 13:28 16:57 20:53 WBC 24.4 H (4.8-10.8) X10*3/uL RBC 4.69 (4.20-5.50) X10*6/uL Hgb 14.9 (12.0-16.0) g/dl Hct 41.7 (37.0-47.0) % MCV 88.9 (80.0-98.0) fL MCH 31.8 (27.0-33.0) pg MCHC 35.7 H (31.0-35.0) g/dl RDW 13.8 (11.0-16.0) % Plt Count 321 (160-400) X10*3/uL MPV 10.4 (9.4-12.3) fL Immature Gran % (Auto) 0.9 H (0.0-0.4) % Neut % (Auto) 80.6 H (45-73) % Lymph % (Auto) 5.4 L (20-40) % [place] % (Auto) 9.8 (2-11) % Eos % (Auto) 2.7 (0-4) % Baso % (Auto) 0.6 (0-2) % Lymph # (Auto) 1.3 (1.2-4.9) X10*3/uL [place] # (Auto) 2.4 H (0.1-1.2) X10*3/uL Eos # (Auto) 0.7 H (0.0-0.4) X10*3/uL Baso # (Auto) 0.1 (0.0-0.2) X10*3/uL Abs Immat Gran (auto) 0.22 H (0.00-0.03) X10*3/uL Absolute Neuts (auto) 19.7 H (2.0-8.3) x10*3/uL Absolute Nucleated RBC 0.000 (0.0-0.012) X10*3/uL Nucleated RBC % (auto) 0.0 (0.0-0.2) /100WBC Smear Tech's Comments VERIFIED Sodium 135 137 (135-145) mmol/L Potassium 2.2 L* 3.5 D (3.3-5.1) mmol/L Chloride 101 117 H (96-108) mmol/L Carbon Dioxide 19 L 11 L (22-29) mmol/L Anion Gap 17 13 (12-20) BUN 62 H 49 H (9-16) mg/dL Creatinine 3.75 H 2.89 H (0.5-1.4) mg/dL Estim Creat Clear Calc 10.4 13.4 Estimated GFR 12 16 Random Glucose 121 H 113 (60-115) mg/dL Lactic Acid 1.9 (0.5-2.0) mmol/L Calcium 8.4 D 7.5 L D (8.4-10.2) mg/dL Magnesium 2.0 (1.6-2.6) mg/dL Total Bilirubin 0.5 (0.0-1.0) mg/dL AST 19 (5-31) U/L ALT 20 (0-31) U/L Alkaline Phosphatase 75 (39-117) U/L Troponin I High Sens 7.5 D (<3.5-17.0) ng/L B-Natriuretic Peptide 30 (<100) pg/mL Total Protein 7.2 (6.5-8.0) g/dL Albumin 3.9 (3.5-5.0) g/dL Urine Color Yellow Urine Appearance Clear Urine pH 5.5 (5.0-9.0) Ur Specific [place] 1.010 (1.005-1.025) Urine Protein 30 (1+) H (Neg-Trace) mg/dL Urine Glucose (UA) Negative (Negative) mg/dL Urine Ketones Negative (Negative) mg/dL Urine Blood Trace H (Negative) Urine Nitrite Negative (Negative) Ur Leukocyte Esterase Small (1+) H (Negative) Urine RBC 0-2 (0-2) /HPF Urine WBC 6-10 H (0-5) /HPF Ur Squamous Epith Cells 6-10 (0-2) /HPF Urine Bacteria None Seen (None Seen) Hyaline Casts 6-10 (0-2) /LPF Influenza Type A (PCR) NEGATIVE (Negative) Influenza Type B (PCR) NEGATIVE (Negative) RSV RNA Qual (PCR) NEGATIVE (Negative) SARS-CoV-2 RNA (RT-PCR) NEGATIVE (Negative) S. pyogenes GrpA ELBA Negative (Negative) Radiology Impression Discussion of test interpretation with radiology: I have reviewed the radiologist's reading. Radiologist Impression: US renal BI IMPRESSION: No evidence of hydronephrosis.. Electronically signed by: Jorge Conti MD 02/07/2024 06:48 PM EST XR chest 1V IMPRESSION: 1. COPD. Stable foci of scarring right middle lobe and lingula. 2. No active superimposed disease. Electronically signed by: Adin Pruitt MD 02/07/2024 04:20 PM EST Independent Historian Clinical information obtained from an independent historian. History obtained from or confirmed by: Spouse Discharge Plan Discharge Clinical Impression: Prerenal renal failure, Volume depletion, Acute hypokalemia, Diarrhea, Poor fluid intake, Acute hypotension Patient Disposition: Admitted As Inpatient Print Language: Ecuadorean
[2024-02-07 14:09] LABS: B Type Natriuretic Peptide 30 pg/mL (<100)
[2024-02-07 14:12] LABS: Troponin-I High Sensitivity 7.5 ng/L (<3.5-17.0)
[2024-02-07 14:13] LABS: Alanine Aminotransferase 20 U/L (0-31); Albumin Level 3.9 g/dL (3.5-5.0); Alkaline Phosphatase 75 U/L (39-117); Anion Gap 17 (12-20); Aspartate Amino Transferase 19 U/L (5-31); Bilirubin Total 0.5 mg/dL (0.0-1.0); Blood Urea Nitrogen 62 mg/dL (9-16); Calcium 8.4 mg/dL (8.4-10.2); Carbon Dioxide 19 mmol/L (22-29); Chloride 101 mmol/L (96-108); Creatinine Clr Calc Pharmacy 10.4; Estimated Glomerular Filt Rate 12; Glucose Random 121 mg/dL (60-115); Sodium 135 mmol/L (135-145); Total Protein 7.2 g/dL (6.5-8.0)
[2024-02-07 14:15] LABS: Influenza A PCR NEGATIVE (Negative); Influenza B PCR NEGATIVE (Negative); Potassium 2.2 mmol/L (3.3-5.1); Resp Syncy Virus RNA Qual PCR NEGATIVE (Negative); SARS COV2 PCR INHOUSE NEGATIVE (Negative)
[2024-02-07] MEDS: Potassium Chloride Packet 20 MEQ PACKET 40 MEQ PO ×2 (15:11→19:52)
[2024-02-07] MEDS: Potassium Chloride/H20 10 MEQ/100 ML PIGGYBACK 100 MEQ IV ×4 (15:11→19:18)
--- NOTE | 2024-02-07 15:16 | ECG_ITS ---
Test Reason : sepsis Blood Pressure : / mmHG Vent. Rate : 095 BPM Atrial Rate : 095 BPM P-R Int : 156 ms QRS Dur : 086 ms QT Int : 366 ms P-R-T Axes : 065 076 062 degrees QTc Int : 459 ms Normal sinus rhythm Low voltage QRS ST & T wave abnormality, consider inferior ischemia Abnormal ECG When compared with ECG of 27-JAN-2022 09:24, Premature ventricular complexes are no longer Present Nonspecific T wave abnormality now evident in Inferior leads Nonspecific T wave abnormality, worse in Anterolateral leads Referred By: Manuel Cramer Electronically Signed By:CHARLIE ROMO MD
[2024-02-07] MEDS: cefTRIAXone sodium 1 GM VIAL IVPUSH (15:18)
[2024-02-07] MEDS: Azithromycin 500 MG in 0.9 % Sodium Chloride 250 ML 125 MG IV (15:26)
[2024-02-07] MEDS: Lactated Ringers 1,000 ML 999 ML IV (16:19)
[2024-02-07 17:04] LABS: Appearance Urine Clear; Color Urine Yellow; Glucose Urine UA Negative (Negative); Leukocyte Esterase Urine Small (1+) (Negative); Nitrite Urine Negative (Negative); PH 5.5 (5.0-9.0); UMIC TRIGGER UACC YES; Urine Blood Trace (Negative); Urine Ketones Negative (Negative); Urine Protein 30 (1+) mg/dL (Neg-Trace)
[2024-02-07 17:40] LABS: Bacteria Urine None Seen (None Seen); RBC Urine 0-2 /HPF (0-2); UACC Culture Trigger YES
--- NOTE | 2024-02-07 20:10 | MHC.EDTECH ---
This tech took over care of pt at 1900,rounded and introduced self to pt,RN assisted pt to the bathroom,pt has a steady gait,pt appears comfortable,call thomas in reach
--- NOTE | 2024-02-07 20:14 | PC.NURSE ---
assumed care of pt 1899. ivf infused bp as documented. MD made aware of 1920 BP pt denies complaints of dizziness/cp/sob/other. last bag of potassium hung and infusing pt is on continuous cardiac monitoring nsr. pt ambulated with steady gait to bathroom and back, had another episode of diarrhea, consulted with MD ?medication to help with diarrhea and to defer at this time per MD, will obtain sample with next episode. verbal order to repeat bmp when iv potassium infused. pt resting comfortably. call thomas within reach.
--- NOTE | 2024-02-07 20:56 | MHC.EDTECH ---
Repeat lab drawn and sent to lab
[2024-02-07 21:12] LABS: Anion Gap 13 (12-20); Blood Urea Nitrogen 49 mg/dL (9-16); Calcium 7.5 mg/dL (8.4-10.2); Carbon Dioxide 11 mmol/L (22-29); Chloride 117 mmol/L (96-108); Creatinine Clr Calc Pharmacy 13.4; Estimated Glomerular Filt Rate 16; Glucose Random 113 mg/dL (60-115); Potassium 3.5 mmol/L (3.3-5.1); Sodium 137 mmol/L (135-145)
--- NOTE | 2024-02-07 21:55 | MHC.EDTECH ---
Rounds and vitals completed,pt ambulated to the bathroom with a steady gait,patient had a liquid BM,sample obtained and sent to lab
--- NOTE | 2024-02-07 22:44 | P.HPHOSP_ITS ---
History of Present Illness Date of Service: 02/07/24 Attending physician on admission: Hina Krueger Chief Complaint: Diarrhea, vomiting, poor p.o. intake Patient is a 73-year-old female with a past medical history significant for HTN, COPD, GERD, previous smoker, who presented to the ED with 3-4 days of lightheadedness, weakness, nausea, vomiting x1 episode, diarrhea and 2 syncopal episodes 4 days ago at home. She reports loose watery diarrhea, brown, no hematochezia. Episodes occur multiple times a day if she has anything to eat or drink. She has not been able to tolerate much by mouth due to her symptoms. She reported 2 episodes of dizziness and syncope a few days ago prior to the diarrheal illness beginning. She now has lightheadedness with exertion. She also reports recent fever, chills, runny nose, sore throat and productive cough but has not been able to bring up the sputum. She reports that her is being treated currently for an upper respiratory infection. Review of Systems 2 Constitutional: Constitutional: Reports chills, Reports fatigue, Reports fever(s) and Reports headache(s) (mild) Eyes: Eyes: Denies change in vision ENT: Reports headache(s) (mild), Reports nasal congestion, Reports nasal discharge and Reports sore throat Cardiovascular: Cardiovascular: Denies chest pain, Denies rapid heart rate, Reports lightheadedness and Denies dyspnea on exertion Respiratory: Respiratory: Reports chest congestion, Reports cough, Denies hemoptysis, Denies dyspnea on exertion and Denies wheezing Gastrointestinal: Gastrointestinal: Denies melena, Denies hematochezia, Denies coffee ground emesis, Reports diarrhea, Reports nausea, Reports vomiting and Denies hematemesis Genitourinary: Genitourinary: Denies dysuria and Denies urinary urgency Musculoskeletal: Musculoskeletal: Denies myalgias Integumentary/Breasts: Skin/Breast: Denies rash Neurologic: Denies confusion and Reports headache(s) (mild) Psychiatric: Psychiatric: Denies confusion Endocrine: Endocrine: Reports fatigue Hematologic/Lymphatic: Hematologic/Lymphatic: Denies easy bleeding and Denies easy bruising Allergic/Immunologic: Allergic/Immunologic: Denies wheezing [facility] Medical History (Updated 02/07/24 @ 23:12 by Mimi Bautista PA-C) GERD (gastroesophageal reflux disease) Pulmonary nodules COPD (chronic obstructive pulmonary disease) Chronic respiratory failure Depression Hypertension Personal history of nicotine dependence Osteopenia (~2005) Functional capacity: independent ambulation Family History Mother Eye cancer Maternal Grandmother Cirrhosis Father Lung cancer Surgical History (Updated 09/10/22 @ 08:43 by Shreya Bates PA-C) History of cholecystectomy History of colonoscopy Social History Household Members: Spouse Housing: House Do you presently have visiting nurse or other home services: No Alcohol intake: never Comment: patient refuses bed alarm. educated electronic systems technician thomas Patient Tobacco Use Status: Former Tobacco user Tobacco use type: Cigarette Years Smoked: 51 (onset 17, 1ppd x 51yrs, 47+PYH - quit 2016) Smoked in Last 30 Days: Yes Second Hand Smoke Exposure: No Use of substances other than those prescribed or required for medical reasons: No Any prior treatment program specific to substance use: No Advance Directives: No Advance Directives Information Provided: Yes Do you have a plan to hurt others: No Plan service: No Current occupational status: retired Narrative: Social occasional alcohol, previous smoker quit 8 years ago, no drug use. Meds Allergies Allergy/AdvReac Type Severity Reaction Status Date / Time Sulfa (Sulfonamide Allergy Anaphylaxis Verified 02/07/24 13:10 Antibiotics) Home Medications ?Medication ?Instructions ?Recorded ?Confirmed ?Last Taken ?Type alendronate 70 mg tablet 1 tab PO SA 01/26/22 01/26/22 01/24/22 History atorvastatin 20 mg tablet 1 tab PO DAILY 01/26/22 01/26/22 01/26/22 History montelukast 10 mg tablet 1 tab PO DAILY 01/26/22 01/26/22 01/26/22 History risperidone 0.5 mg tablet 0.5 tab PO DAILY 01/26/22 01/26/22 01/26/22 History valsartan 80 mg tablet 1 tab PO DAILY 01/26/22 01/26/22 01/26/22 History venlafaxine 150 mg 1 cap PO DAILY 01/26/22 01/26/22 01/26/22 History capsule,extended release 24 hr Oxygen Home Use 04/23/22 Unknown History tiotropium bromide 2.5 2 puff inhalation DAILY 04/23/22 Unknown History mcg/actuation mist for inhalation (Spiriva Respimat) Physical Exam 2 Vital Signs and Narrative: Vital Signs: Last Vital Signs Temp 97.7 F 02/07/24 21:54 Pulse 100 02/07/24 21:54 Resp 20 02/07/24 21:54 BP 114/60 02/07/24 21:54 Pulse Ox 97 02/07/24 21:54 O2 Del Method Room Air 02/07/24 21:54 BMI result Body Mass Index 21.7 General: AOx3, no acute distress Resp: CTA bilaterally CVS: S1, S2, RRR GI: +BS, NT, no distention Skin: Warm, dry Neuro: Cranial nerves II-XII grossly intact bilaterally. Motor grossly intact bilaterally Extremities: No LE edema Psych: Appropriate affect Const: General: No confusion Orientation/consciousness: No confusion Neuro: General: No confusion Results Labs 02/07/24 13:28 02/07/24 20:53 Labs: Laboratory Results - last 24 hr 02/07/24 02/07/24 02/07/24 13:28 16:57 20:53 MCV 88.9 MCH 31.8 MCHC 35.7 H RDW 13.8 Plt Count 321 MPV 10.4 Immature Gran % (Auto) 0.9 H Neut % (Auto) 80.6 H Lymph % (Auto) 5.4 L [place] % (Auto) 9.8 Eos % (Auto) 2.7 Baso % (Auto) 0.6 Lymph # (Auto) 1.3 [place] # (Auto) 2.4 H Eos # (Auto) 0.7 H Baso # (Auto) 0.1 Abs Immat Gran (auto) 0.22 H Absolute Neuts (auto) 19.7 H Absolute Nucleated RBC 0.000 Nucleated RBC % (auto) 0.0 Smear Tech's Comments VERIFIED Anion Gap 17 13 Estim Creat Clear Calc 10.4 13.4 Estimated GFR 12 16 Random Glucose 121 H 113 Lactic Acid 1.9 Calcium 8.4 D 7.5 L D Magnesium 2.0 Total Bilirubin 0.5 AST 19 ALT 20 Alkaline Phosphatase 75 Troponin I High Sens 7.5 D B-Natriuretic Peptide 30 Total Protein 7.2 Albumin 3.9 Urine Color Yellow Urine Appearance Clear Urine pH 5.5 Ur Specific [place] 1.010 Urine Protein 30 (1+) H Urine Glucose (UA) Negative Urine Ketones Negative Urine Blood Trace H Urine Nitrite Negative Ur Leukocyte Esterase Small (1+) H Urine RBC 0-2 Urine WBC 6-10 H Ur Squamous Epith Cells 6-10 Urine Bacteria None Seen Hyaline Casts 6-10 Influenza Type A (PCR) NEGATIVE Influenza Type B (PCR) NEGATIVE RSV RNA Qual (PCR) NEGATIVE SARS-CoV-2 RNA (RT-PCR) NEGATIVE S. pyogenes GrpA ELBA Negative Imaging Radiologist's Impressions: Impressions Chest X-Ray 02/07/24 14:15 IMPRESSION: 1. COPD. Stable foci of scarring right middle lobe and lingula. 2. No active superimposed disease. Electronically signed by: Adni Pruitt MD 02/07/2024 04:20 PM EST RP Renal Ultrasound 02/07/24 15:47 IMPRESSION: No evidence of hydronephrosis.. Electronically signed by: Jorge Conti MD 02/07/2024 06:48 PM EST RP Assessment and Plan (1) VIKI (acute kidney injury): Status: Acute (2) C. difficile diarrhea: Status: Acute (3) SIRS (systemic inflammatory response syndrome): Status: Acute (4) Acute hypokalemia: Status: Acute Plan Patient is a 73-year-old female with a past medical history significant for HTN, COPD, GERD, previous smoker, who presented to the ED with 3-4 days of lightheadedness, weakness, nausea, vomiting x1 episode, diarrhea and 2 syncopal episodes 4 days ago at home. VIKI/SIRS secondary to c diff - leukocytosis [id number], normal lactate, blood cultures pending - hypotensive likely due to volume depletion and lack of PO intake, responsive to fluids in ED - CXR negative - COVID/flu/RSV negative - renal US normal, UA negative, urine cx pending - c diff + and GI panel pending - orthostatics and EKG normal. trop negative - given 3L IVF in ED, continue LR 125ml/hr - started ceftraixone and azithromycin in ED for presumed pneumonia, doubt bacterial pneumonia, will discontinue - c diff +, vancomycin 125mg PO Q6H - ID consult - monitor CBC, BMP hypokalemia - K 2.2, 3.5 on repeat - given PO K 80meq and 30meq IV in ED - mag normal - follow BMP and mag HTN - continue home meds once med rec done COPD unspecified without acute exacerbation - continue home inhalers/meds once med rec done GERD - no PPI due to C diff infection Full code VTE prophylaxis: Heparin Patient with VIKI/sirs secondary to C diff infection requiring admission for at least 2 midnights stay for IV fluids and monitoring. Quality Stroke Does the patient have a stroke diagnosis?: No VTE Prior VTE?: No VTE Risk Level:: Medical - moderate - high VTE Device Contraindication: Treatment Not Indicated VTE Drug Contraindication: N/A - Med Ordered
[2024-02-07 23:05] LABS: CDiff Gene PCR POSITIVE (Negative)
[2024-02-07 23:05] LABS: Procalcitonin 2.99 ng/mL
[2024-02-07 23:51] LABS: CDIFF Internal ctrl Dots and bkg OK (V); CDiff Toxin Positive (Negative)
[2024-02-07] MEDS: vancomycin HCL 125 MG CAPSULE PO (23:59)
[2024-02-07] MEDS: Lactated Ringers 1,000 ML 125 ML IVCONT (23:59)
[2024-02-07] MEDS: Heparin Sodium,Porcine 5,000 UNIT/ML VIAL 5000 UNIT SUBCUT (23:59)
[2024-02-08] VITALS (10 sets, daily range): BP systolic 103–146; BP diastolic 62–85; PULSE 73–109; RESP 16–21; TEMP 36.6–37; O2SAT 92–97; BMI 21.7
--- NOTE | 2024-02-08 00:06 | MHC.EDTECH ---
Rounds completed,pt is resting quietly,belongings list completed,copy placed in chart,call thomas in reach
[2024-02-08 05:20] LABS: Basophils Absolute Auto 0.1 X10*3/uL (0.0-0.2); Basophils Percent Auto 0.6 % (0-2); Eosinophils Absolute Auto 0.6 X10*3/uL (0.0-0.4); Eosinophils Percent Auto 2.7 % (0-4); Hematocrit 36.6 % (37.0-47.0); Imm Gran Abs Auto 0.46 X10*3/uL (0.00-0.03); Imm Gran Pct Auto 2.1 % (0.0-0.4); Lymphocytes Absolute Auto 1.4 X10*3/uL (1.2-4.9); Lymphocytes Percent Auto 6.4 % (20-40); MANUAL DIFF FLAG SCAN; Mean Corpuscular HGB Conc 35.5 g/dl (31.0-35.0); Mean Corpuscular Hemoglobin 31.7 pg (27.0-33.0); Mean Corpuscular Volume 89.3 fL (80.0-98.0); Mean Platelet Volume 10.3 fL (9.4-12.3); Monocytes Absolute Auto 2.7 X10*3/uL (0.1-1.2); Monocytes Percent Auto 12.4 % (2-11); Neutrophils Absolute Auto 16.6 x10*3/uL (2.0-8.3); Neutrophils Percent Auto 75.8 % (45-73); Platelet Count 302 X10*3/uL (160-400); Red Cell Distribution Width 14.3 % (11.0-16.0); SCAN SMEAR FLAG 1; White Blood Count 21.9 X10*3/uL (4.8-10.8)
[2024-02-08 05:36] LABS: Anion Gap 15 (12-20); Blood Urea Nitrogen 42 mg/dL (9-16); Calcium 7.7 mg/dL (8.4-10.2); Carbon Dioxide 11 mmol/L (22-29); Chloride 118 mmol/L (96-108); Estimated Glomerular Filt Rate 24; Glucose Random 95 mg/dL (60-115); Magnesium 1.6 mg/dL (1.6-2.6); Potassium 3.3 mmol/L (3.3-5.1); Sodium 141 mmol/L (135-145)
[2024-02-08 05:41] LABS: SLIDE REVIEW VERIFIED
[2024-02-08] MEDS: vancomycin HCL 125 MG CAPSULE PO ×3 (06:40→18:19)
[2024-02-08] MEDS: Lactated Ringers 1,000 ML 125 ML IVCONT ×2 (08:09→18:19)
[2024-02-08 09:24] LABS: Venous Blood Gas Refer to POC result
[2024-02-08 09:24] LABS: VBG Base Excess -10.1 mmol/L; VBG HCO3 13 mmol/L (22-26); VBG pCO2 23 mmHg; VBG pH 7.35 (7.32-7.43); VBG pO2 146 mmHg
[2024-02-08] MEDS: Potassium Chloride ER 20 MEQ TAB.ER.PRT PO (09:28)
[2024-02-08] MEDS: Heparin Sodium,Porcine 5,000 UNIT/ML VIAL 5000 UNIT SUBCUT ×2 (09:28→15:35)
[2024-02-08] MEDS: 0.9 % Sodium Chloride Flush 3 ML SYRINGE IVFLUSH ×2 (09:29→15:35)
--- NOTE | 2024-02-08 09:30 | PC.NURSE ---
Assumed care of patient at 0700 , patient holding home pill case in her hands. Stating she is going to take morning meds. Patient educated that patient should not take her homes meds that the pharmacy comes to do a med rec with patient and we will give patient her medications one they are ordered. Patient stating the pharmacy saw her last night and told her it was fine to take her home meds. Pharmacy called stating no one told patient that but they would come do a med rec with her. Message sent to Dr. Metzger- aware that patient may take her own home meds. Dr. Metzger at bedside also told patient not to take home meds. Upon MD leaving patient took all home meds except lipitor Message sent to MD about taking patient taking her home meds except lipitor. at bedside.
--- NOTE | 2024-02-08 09:35 | PC.NURSE ---
stating patient should not take lipitor, patient aware
--- NOTE | 2024-02-08 09:45 | PHA.MEDREC ---
Addendum entered by Tania Vincent RPh 02/08/24 09:57: reviewed by [facility]. Original Note: Pharmacy Consult ? Medication Reconciliation Pharmacy has completed the medication reconciliation. Spoke to patient to confirm med list. Patient was able to name what medications she takes. Patient confirmed Alendronate 70 mg is every Wednesday, last dose 02/05/24. Risperidone is 0.5 mg qam and 0.25 mg qpm. Patient took all her medications except Breo Ellipta, Spiriva Respimat and Atorvastatin 20 mg. Patient was very adamant about taking her own home medications while she is her. Spent a good 10 min explaining the importance of her NOT taking her medications on her own. DR Metzger came in as I was Explaining to the patient that we will administer her medications here, he also instructed patient NOT to take any of her home medications.
--- NOTE | 2024-02-08 12:34 | MHC.CM.PN ---
CM met with Patient and her at bedside in the ED; Patient appeared to need to use the restroom and asked CM to speak with her /HCP, outside of the curtain/room. CM addressed IMM with and in error, gave him the signed copy. Patient lives in a house with her and she required no services nor DME [employer]. Home/self care is the goal and CM has initiated and will follow for dc planning. PCP is Dr. Alok Guallpa and will transport to home.
[2024-02-08 14:02] LABS: Anion Gap 14 (12-20); Blood Urea Nitrogen 32 mg/dL (9-16); Calcium 7.7 mg/dL (8.4-10.2); Carbon Dioxide 16 mmol/L (22-29); Chloride 118 mmol/L (96-108); Creatinine Clr Calc Pharmacy 23.5; Estimated Glomerular Filt Rate 31; Glucose Random 90 mg/dL (60-115); Potassium 3.3 mmol/L (3.3-5.1); Sodium 145 mmol/L (135-145)
--- NOTE | 2024-02-08 14:07 | P.PNIM_ITS ---
Subjective Subjective Date of Service: 02/08/24 Interval History: c diff ,viki,syncope Review of Systems diarrhae improving no new syncope episode Physical Exam 2 Vital Signs: Vital Signs: Last Vital Signs Temp 97.9 F 02/08/24 04:00 Pulse 95 02/08/24 08:03 Resp 18 02/08/24 08:03 BP 123/77 02/08/24 08:03 Pulse Ox 94 02/08/24 08:03 O2 Del Method Room Air 02/08/24 08:03 BMI result Body Mass Index 21.7 General: AOx3, no acute distress Resp: CTA bilaterally CVS: S1, S2, RRR GI: +BS, NT, no distention Skin: Warm, dry Neuro: Cranial nerves II-XII grossly intact bilaterally. Motor grossly intact bilaterally Extremities: No LE edema Psych: Appropriate affect Objective Data Active Medications Acetaminophen (Acetaminophen 325 Mg Tablet) 975 mg PO Q6H PRN PRN Reason: Pain, Mild (Pain Scale 1-3), fever or headache Calcium Carbonate (Calcium Carbonate 750 Mg Tab.Chew) 750 mg PO Q4H PRN PRN Reason: Heartburn Heparin Sodium (Porcine) (Heparin Sodium,Porcine 5,000 Unit/Ml Vial) 5,000 unit SUBCUT Q8H [facility] Last Admin: 02/08/24 09:28 Dose: 5,000 unit Documented By: WENCESLAO Lactated Ringer's (Lr) 1,000 mls @ 125 mls/hr IVCONT .Q8H [facility] Last Admin: 02/08/24 08:09 Dose: 125 mls/hr Documented By: WENCESLAO Metronidazole (Flagyl) 500 mg in 100 mls @ 100 mls/hr IV Q8H [facility] Magnesium Hydroxide (Milk Of Magnesia 30 Ml Oral.Susp) 30 ml PO DAILY PRN PRN Reason: Constipation Melatonin (Melatonin 3 Mg Tablet) 6 mg PO BEDTIME PRN PRN Reason: Insomnia Ondansetron HCl (Ondansetron Hcl 4 Mg/2 Ml Vial) 4 mg IVPUSH Q6H PRN PRN Reason: Nausea and Vomiting Oxycodone HCl (Oxycodone Hcl Immed Release 5 Mg Tablet) 5 mg PO Q6H PRN PRN Reason: Pain, Moderate(Pain Scale 4-6) Sodium Chloride (0.9 % Sodium Chloride Flush 3 Ml Syringe) 3 ml IVFLUSH QSHIFT [facility] Last Admin: 02/08/24 09:29 Dose: 3 ml Documented By: WENCESLAO Vancomycin HCl (Vancomycin Hcl 125 Mg Capsule) 125 mg PO Q6H [facility] Last Admin: 02/08/24 11:58 Dose: 125 mg Documented By: BEVERLEY Labs 02/08/24 05:13 02/08/24 13:36 Labs: Laboratory Results - last 24 hr 02/07/24 02/07/24 02/07/24 13:28 16:57 20:53 MCV MCH MCHC RDW Plt Count MPV Immature Gran % (Auto) Neut % (Auto) Lymph % (Auto) [place] % (Auto) Eos % (Auto) Baso % (Auto) Lymph # (Auto) [place] # (Auto) Eos # (Auto) Baso # (Auto) Abs Immat Gran (auto) Absolute Neuts (auto) Absolute Nucleated RBC Nucleated RBC % (auto) Smear Tech's Comments VBG pH VBG pCO2 VBG pO2 VBG HCO3 VBG O2 Saturation VBG Base Excess Anion Gap 17 13 Estim Creat Clear Calc 10.4 13.4 Estimated GFR 12 16 Random Glucose 121 H 113 Calcium 8.4 D 7.5 L D Magnesium 2.0 Total Bilirubin 0.5 AST 19 ALT 20 Alkaline Phosphatase 75 Troponin I High Sens 7.5 D B-Natriuretic Peptide 30 Total Protein 7.2 Albumin 3.9 Procalcitonin 2.99 Urine Color Yellow Urine Appearance Clear Urine pH 5.5 Ur Specific [place] 1.010 Urine Protein 30 (1+) H Urine Glucose (UA) Negative Urine Ketones Negative Urine Blood Trace H Urine Nitrite Negative Ur Leukocyte Esterase Small (1+) H Urine RBC 0-2 Urine WBC 6-10 H Ur Squamous Epith Cells 6-10 Urine Bacteria None Seen Hyaline Casts 6-10 C. difficile Tox B Gene C. difficile Toxin A&B C. difficile Interpret Influenza Type A (PCR) NEGATIVE Influenza Type B (PCR) NEGATIVE RSV RNA Qual (PCR) NEGATIVE SARS-CoV-2 RNA (RT-PCR) NEGATIVE 02/07/24 02/08/24 02/08/24 21:53 05:13 09:19 MCV 89.3 MCH 31.7 MCHC 35.5 H RDW 14.3 Plt Count 302 MPV 10.3 Immature Gran % (Auto) 2.1 H Neut % (Auto) 75.8 H Lymph % (Auto) 6.4 L [place] % (Auto) 12.4 H Eos % (Auto) 2.7 Baso % (Auto) 0.6 Lymph # (Auto) 1.4 [place] # (Auto) 2.7 H Eos # (Auto) 0.6 H Baso # (Auto) 0.1 Abs Immat Gran (auto) 0.46 H Absolute Neuts (auto) 16.6 H Absolute Nucleated RBC 0.000 Nucleated RBC % (auto) 0.0 Smear Tech's Comments VERIFIED VBG pH 7.35 VBG pCO2 23 VBG pO2 146 VBG HCO3 13 L VBG O2 Saturation 99.0 VBG Base Excess -10.1 Anion Gap 15 Estim Creat Clear Calc 19.0 Estimated GFR 24 Random Glucose 95 Calcium 7.7 L Magnesium 1.6 Total Bilirubin AST ALT Alkaline Phosphatase Troponin I High Sens B-Natriuretic Peptide Total Protein Albumin Procalcitonin Urine Color Urine Appearance Urine pH Ur Specific [place] Urine Protein Urine Glucose (UA) Urine Ketones Urine Blood Urine Nitrite Ur Leukocyte Esterase Urine RBC Urine WBC Ur Squamous Epith Cells Urine Bacteria Hyaline Casts C. difficile Tox B Gene POSITIVE A* C. difficile Toxin A&B Positive A* C. difficile Interpret SEE NOTE Influenza Type A (PCR) Influenza Type B (PCR) RSV RNA Qual (PCR) SARS-CoV-2 RNA (RT-PCR) 02/08/24 13:36 MCV MCH MCHC RDW Plt Count MPV Immature Gran % (Auto) Neut % (Auto) Lymph % (Auto) [place] % (Auto) Eos % (Auto) Baso % (Auto) Lymph # (Auto) [place] # (Auto) Eos # (Auto) Baso # (Auto) Abs Immat Gran (auto) Absolute Neuts (auto) Absolute Nucleated RBC Nucleated RBC % (auto) Smear Tech's Comments VBG pH VBG pCO2 VBG pO2 VBG HCO3 VBG O2 Saturation VBG Base Excess Anion Gap 14 Estim Creat Clear Calc 23.5 Estimated GFR 31 Random Glucose 90 Calcium 7.7 L Magnesium Total Bilirubin AST ALT Alkaline Phosphatase Troponin I High Sens B-Natriuretic Peptide Total Protein Albumin Procalcitonin Urine Color Urine Appearance Urine pH Ur Specific [place] Urine Protein Urine Glucose (UA) Urine Ketones Urine Blood Urine Nitrite Ur Leukocyte Esterase Urine RBC Urine WBC Ur Squamous Epith Cells Urine Bacteria Hyaline Casts C. difficile Tox B Gene C. difficile Toxin A&B C. difficile Interpret Influenza Type A (PCR) Influenza Type B (PCR) RSV RNA Qual (PCR) SARS-CoV-2 RNA (RT-PCR) Microbiology Microbiology Results: Microbiology 02/07/24 Unknown Urine Culture - Preliminary Urine clean catch - Clean Catch Midstream No growth to date. Assessment and Plan (1) C. difficile diarrhea: Status: Acute (2) VIKI (acute kidney injury): Status: Acute (3) SIRS (systemic inflammatory response syndrome): Status: Acute Assessment and Plan: 73-year-old female with a past medical history significant for HTN, COPD, GERD, previous smoker, who presented to the ED with 3-4 days of lightheadedness, weakness, nausea, vomiting x1 episode, diarrhea and 2 syncopal episodes 4 days ago at home. VIKI/SIRS secondary to c diff: wbc: 21.9, normal lactate, blood cultures pending hypotensive likely due to volume depletion and lack of PO intake, responsive to fluids in ED CXR negative,COVID/flu/RSV negative renal US normal, UA negative c diff + and GI panel pending,cultures pending orthostatics and EKG normal. trop negative. plan:seen by iD-vancomycin 125mg PO Q6H as well as flagyl 500 mh q8hr added monitor CBC, BMP hypokalemia and hypomagnesemia : repleted and resolved viki -due to dec po intake/dehydration continue ivf NAGMA-due to dirrahae -ph normal on vbg,improving with hydration. syncope epsodes-tele seems fine sofar seems likely due to hypotension /bp meds /dec po intake. HTN- Hold valsartan.bp stable COPD unspecified without acute exacerbation continue home inhalers. GERD - no PPI due to C diff infection VTE prophylaxis: Heparin ongoing need : VIKI/sirs secondary to C diff infection -need iv antibiotics and monitering of renal function/elecatrolytes ,monitering bp. Quality Stroke Does the patient have a stroke diagnosis?: No VTE Prior VTE?: No VTE Risk Level:: Medical - moderate - high VTE Device Contraindication: Treatment Not Indicated VTE Drug Contraindication: N/A - Med Ordered
[2024-02-08] MEDS: metroNIDAZOLE/NS 500 MG/100 ML PIGGYBACK 100 MG IV (15:35)
[2024-02-08 16:24] LABS: Adenovirus F 40/41 Not Detected (Not Detect.); Astrovirus Not Detected (Not Detect.); Campylobacter Not Detected (Not Detect.); Cryptosporidium Not Detected (Not Detect.); Cyclospora cayetanensis Not Detected (Not Detect.); E. coli EAEC Not Detected (Not Detect.); E. coli EPEC Not Detected (Not Detect.); E. coli ETEC Not Detected (Not Detect.); E. coli STEC Not Detected (Not Detect.); Entamoeba histolytica Not Detected (Not Detect.); Giardia lamblia Not Detected (Not Detect.); Norovirus GI/GII Not Detected (Not Detect.); Plesiomonas shigelloides Not Detected (Not Detect.); Rotavirus A Not Detected (Not Detect.); Salmonella Not Detected (Not Detect.); Sapovirus Not Detected (Not Detect.); Shigella sp./EIEC Not Detected (Not Detect.); Vibrio Not Detected (Not Detect.); Vibrio Cholerae Not Detected (Not Detect.); Yersinia enterocolitica Not Detected (Not Detect.)
[2024-02-08] MEDS: risperiDONE 0.25 MG TABLET PO (22:29)
[2024-02-08] MEDS: metroNIDAZOLE/NS 500 MG/100 ML PIGGYBACK IV (22:30)
[2024-02-09] MEDS: vancomycin HCL 125 MG CAPSULE PO ×5 (00:45→23:03)
[2024-02-09] MEDS: Heparin Sodium,Porcine 5,000 UNIT/ML VIAL 5000 UNIT SUBCUT ×4 (00:46→21:22)
[2024-02-09 03:32] VITALS: BP 135/82; PULSE 100; RESP 20; TEMP 36.8; O2SAT 91
[2024-02-09] MEDS: metroNIDAZOLE/NS 500 MG/100 ML PIGGYBACK 100 MG IV ×3 (05:09→21:21)
[2024-02-09] MEDS: Lactated Ringers 1,000 ML 125 ML IVCONT (05:10)
[2024-02-09 06:15] LABS: Hematocrit 37.5 % (37.0-47.0); Hemoglobin 13.2 g/dl (12.0-16.0); Mean Corpuscular Volume 89.7 fL (80.0-98.0); Red Blood Count 4.18 X10*6/uL (4.20-5.50); White Blood Count 19.6 X10*3/uL (4.8-10.8)
[2024-02-09 06:16] LABS: Hematocrit 37.5 % (37.0-47.0); Hemoglobin 12.9 g/dl (12.0-16.0); Mean Corpuscular HGB Conc 34.4 g/dl (31.0-35.0); Mean Corpuscular HGB Conc 35.2 g/dl (31.0-35.0); Mean Corpuscular Hemoglobin 30.9 pg (27.0-33.0); Mean Corpuscular Hemoglobin 31.6 pg (27.0-33.0); Mean Corpuscular Volume 89.7 fL (80.0-98.0); Mean Platelet Volume 10.5 fL (9.4-12.3); Platelet Count 308 X10*3/uL (160-400); Platelet Count 316 X10*3/uL (160-400); Red Blood Count 4.18 X10*6/uL (4.20-5.50); Red Cell Distribution Width 14.5 % (11.0-16.0); Red Cell Distribution Width 14.6 % (11.0-16.0); White Blood Count 19.1 X10*3/uL (4.8-10.8)
[2024-02-09 07:17] LABS: Anion Gap 13 (12-20); Blood Urea Nitrogen 22 mg/dL (9-16); Carbon Dioxide 14 mmol/L (22-29); Chloride 121 mmol/L (96-108); Creatinine Clr Calc Pharmacy 34.8; Estimated Glomerular Filt Rate 48; Glucose Random 100 mg/dL (60-115); Magnesium 1.4 mg/dL (1.6-2.6); Sodium 145 mmol/L (135-145)
[2024-02-09 07:18] VITALS: BP 157/89; PULSE 98; RESP 16; TEMP 37.1; O2SAT 94
[2024-02-09] MEDS: Magnesium Sulfate/D5W 1 GM/100 ML PIGGYBACK IV ×2 (07:45→15:02)
[2024-02-09] MEDS: Potassium Chloride ER 20 MEQ TAB.ER.PRT 40 MEQ PO (07:45)
[2024-02-09] MEDS: Sodium Bicarbonate 650 MG TABLET PO ×4 (07:45→20:30)
[2024-02-09] MEDS: 0.9 % Sodium Chloride Flush 3 ML SYRINGE IVFLUSH ×2 (07:45→20:30)
[2024-02-09] MEDS: Atorvastatin Calcium 20 MG TABLET PO (07:45)
[2024-02-09] MEDS: risperiDONE 0.5 MG TABLET PO (07:46)
[2024-02-09] MEDS: Montelukast Sodium 10 MG TABLET PO (07:46)
[2024-02-09] MEDS: Venlafaxine HCl ER 150 MG CAP.ER.24H PO (07:46)
[2024-02-09 08:23] LABS: Band Neutrophils Percent 4 % (3-5); Eosinophils Absolute Manual 0.8 X10*3/uL (0.0-0.4); Eosinophils Percent Manual 4 % (0-4); Lymphocytes Absolute Manual 2.4 X10*3/uL (1.2-4.9); Lymphocytes Percent Manual 12 % (20-40); Metamyelocytes Absolute 0.4 X10*3/uL; Metamyelocytes Percent 2 %; Monocytes Percent Manual 5 % (2-11); Neutrophils Absolute Manual 15.1 X10*3/uL (2.0-8.3); Neutrophils Percent Manual 73 % (45-73)
[2024-02-09 08:25] LABS: Platelet Estimate NORMAL (NORMAL); Platelet Morphology Comment NORMAL; RBC Morphology NORMAL
[2024-02-09] MEDS: Tiotropium Bromide 2.5 mcg 1 PUFF/2.5 MCG MIST.INHAL 2 PUFF INHALE (08:30)
[2024-02-09] MEDS: Fluticasone/Vilanterol 100/25 BLST.W.DEV 1 PUFF INHALE (08:31)
--- NOTE | 2024-02-09 10:44 | MHC.CM.PN ---
Per Rounds, Patient us not yet medically cleared for dc (VIKI); home is the goal and CM will follow.
[2024-02-09 11:59] VITALS: BP 145/86; PULSE 95; RESP 16; TEMP 36.4; O2SAT 93
--- NOTE | 2024-02-09 13:08 | HO.PM.IMPN ---
Subjective Subjective Date of Service: 02/09/24 Interval History: c diff , fran Review of Systems po intake improving diarrhae some what improving Physical Exam Vital Signs: Vital Signs: Last Vital Signs Temp 97.5 F 02/09/24 11:59 Pulse 95 02/09/24 11:59 Resp 16 02/09/24 11:59 BP 145/86 H 02/09/24 11:59 Pulse Ox 93 02/09/24 11:59 O2 Del Method Room Air 02/09/24 11:59 BMI result Body Mass Index 21.7 General: AOx3, no acute distress Resp: CTA bilaterally CVS: S1, S2, RRR GI: +BS, NT, no distention Skin: Warm, dry Neuro: Cranial nerves II-XII grossly intact bilaterally. Motor grossly intact bilaterally Extremities: No LE edema Objective Data Active Medications Acetaminophen (Acetaminophen 325 Mg Tablet) 975 mg PO Q6H PRN PRN Reason: Pain, Mild (Pain Scale 1-3), fever or headache Atorvastatin Calcium (Atorvastatin Calcium 20 Mg Tablet) 20 mg PO DAILY [facility] Last Admin: 02/09/24 07:45 Dose: 20 mg Documented By: BRITTNI Calcium Carbonate (Calcium Carbonate 750 Mg Tab.Chew) 750 mg PO Q4H PRN PRN Reason: Heartburn Fluticasone/Vilanterol (Fluticasone/Vilanterol 100/25 Blst.W.Dev) 1 puff INHALE RDAILY [facility] Last Admin: 02/09/24 08:31 Dose: 1 puff Documented By: ZE Heparin Sodium (Porcine) (Heparin Sodium,Porcine 5,000 Unit/Ml Vial) 5,000 unit SUBCUT Q8H [facility] Last Admin: 02/09/24 07:46 Dose: 5,000 unit Documented By: BRITTNI Lactated Ringer's (Lr) 1,000 mls @ 80 mls/hr IVCONT .[id number] [facility] Last Infusion: 02/09/24 07:47 Dose: 80 mls/hr Documented By: BRITTNI Metronidazole (Flagyl) 500 mg in 100 mls @ 100 mls/hr IV Q8H [facility] Last Infusion: 02/09/24 06:40 Dose: Infused Documented By: ANKUR-JOZEB Magnesium Hydroxide (Milk Of Magnesia 30 Ml Oral.Susp) 30 ml PO DAILY PRN PRN Reason: Constipation Melatonin (Melatonin 3 Mg Tablet) 6 mg PO BEDTIME PRN PRN Reason: Insomnia Montelukast Sodium (Montelukast Sodium 10 Mg Tablet) 10 mg PO DAILY [facility] Last Admin: 02/09/24 07:46 Dose: 10 mg Documented By: BRITTNI Ondansetron HCl (Ondansetron Hcl 4 Mg/2 Ml Vial) 4 mg IVPUSH Q6H PRN PRN Reason: Nausea and Vomiting Oxycodone HCl (Oxycodone Hcl Immed Release 5 Mg Tablet) 5 mg PO Q6H PRN PRN Reason: Pain, Moderate(Pain Scale 4-6) Risperidone (Risperidone 0.25 Mg Tablet) 0.25 mg PO BEDTIME [facility] Last Admin: 02/08/24 22:29 Dose: 0.25 mg Documented By: SAGE Risperidone (Risperidone 0.5 Mg Tablet) 0.5 mg PO DAILY [facility] Last Admin: 02/09/24 07:46 Dose: 0.5 mg Documented By: BRITTNI Sodium Bicarbonate (Sodium Bicarbonate 650 Mg Tablet) 650 mg PO QID [facility] Last Admin: 02/09/24 07:45 Dose: 650 mg Documented By: BRITTNI Sodium Chloride (0.9 % Sodium Chloride Flush 3 Ml Syringe) 3 ml IVFLUSH QSHIFT [facility] Last Admin: 02/09/24 07:45 Dose: 3 ml Documented By: BRITTNI Tiotropium [place] (Tiotropium [place] 2.5 Mcg 1 Puff/2.5 Mcg Mist.Inhal) 2 puff INHALE RDAILY [facility] Last Admin: 02/09/24 08:30 Dose: 2 puff Documented By: ZE Vancomycin HCl (Vancomycin Hcl 125 Mg Capsule) 125 mg PO Q6H [facility] Last Admin: 02/09/24 05:10 Dose: 125 mg Documented By: ANTOIC Venlafaxine HCl (Venlafaxine Hcl Er 150 Mg Cap.Er.24h) 150 mg PO DAILY [facility] Last Admin: 02/09/24 07:46 Dose: 150 mg Documented By: BRITTNI Labs 02/09/24 05:39 02/09/24 05:39 Labs: Laboratory Results - last 24 hr 02/07/24 02/08/24 02/09/24 21:53 13:36 05:39 MCV 89.7 MCH MCHC RDW Plt Count MPV Immature Gran % (Auto) Neut % (Auto) Lymph % (Auto) [place] % (Auto) Eos % (Auto) Baso % (Auto) Lymph # (Auto) [place] # (Auto) Eos # (Auto) Baso # (Auto) Abs Immat Gran (auto) Absolute Neuts (auto) Absolute Nucleated RBC Nucleated RBC % (auto) Neutrophils % (Manual) Band Neutrophils % Lymphocytes % (Manual) Monocytes % (Manual) Eosinophils % (Manual) Metamyelocytes % Abs Neuts (Manual) Lymphocytes # (Manual) Monocytes # (Manual) Eosinophils # (Manual) Metamyelocytes # Platelet Estimate Plt Morphology Comment RBC Morphology Anion Gap 14 Estim Creat Clear Calc 23.5 Estimated GFR 31 Random Glucose 90 Calcium 7.7 L Magnesium Stl C. cayetanensis PCR Not Detected Stool Rotavirus A PCR Not Detected Stl Adenov F 40/41 PCR Not Detected Stool Astrovirus (PCR) Not Detected Stool Campylobacter PCR Not Detected Stool Cryptosporidium PCR Not Detected Stl Sh Tox Pr E STEC PCR Not Detected Stool E coli O157 PCR Not applicable Stl Enterotoxigenic E PCR Not Detected Stool EPEC (PCR) Not Detected Stool EAEC (PCR) Not Detected Stl E. histolytica PCR Not Detected Stool Giardia Lamblia PCR Not Detected Stl P. shigelloides PCR Not Detected Stool Salmonella PCR Not Detected Stool Sapovirus (PCR) Not Detected Stl Shigella/EIEC PCR Not Detected St Y.enterocolitica PCR Not Detected Stool Vibrio (PCR) Not Detected Stl Vibrio cholerae PCR Not Detected Stl Norovirus GI/GII PCR Not Detected 02/09/24 02/09/24 02/09/24 05:39 05:39 05:39 MCV 89.7 MCH 30.9 31.6 MCHC 34.4 35.2 H RDW 14.5 Plt Count MPV Immature Gran % (Auto) Neut % (Auto) Lymph % (Auto) Henderson % (Auto) Eos % (Auto) Baso % (Auto) Lymph # (Auto) Henderson # (Auto) Eos # (Auto) Baso # (Auto) Abs Immat Gran (auto) Absolute Neuts (auto) Absolute Nucleated RBC Nucleated RBC % (auto) Neutrophils % (Manual) Band Neutrophils % Lymphocytes % (Manual) Monocytes % (Manual) Eosinophils % (Manual) Metamyelocytes % Abs Neuts (Manual) Lymphocytes # (Manual) Monocytes # (Manual) Eosinophils # (Manual) Metamyelocytes # Platelet Estimate Plt Morphology Comment RBC Morphology Anion Gap Estim Creat Clear Calc Estimated GFR Random Glucose Calcium Magnesium Stl C. cayetanensis PCR Stool Rotavirus A PCR Stl Adenov F PCR Stool Astrovirus (PCR) Stool Campylobacter PCR Stool Cryptosporidium PCR Stl Sh Tox Pr E STEC PCR Stool E coli O157 PCR Stl Enterotoxigenic E PCR Stool EPEC (PCR) Stool EAEC (PCR) Stl E. histolytica PCR Stool Giardia Lamblia PCR Stl P. shigelloides PCR Stool Salmonella PCR Stool Sapovirus (PCR) Stl Shigella/EIEC PCR St Y.enterocolitica PCR Stool Vibrio (PCR) Stl Vibrio cholerae PCR Stl Norovirus GI/GII PCR 02/09/24 02/09/24 02/09/24 05:39 05:39 05:39 MCV MCH MCHC RDW 14.6 Plt Count 316 308 MPV 10.5 10.5 Immature Gran % (Auto) Cancelled Neut % (Auto) Cancelled Lymph % (Auto) Cancelled Henderson % (Auto) Cancelled Eos % (Auto) Cancelled Baso % (Auto) Cancelled Lymph # (Auto) Cancelled Henderson # (Auto) Cancelled Eos # (Auto) Cancelled Baso # (Auto) Cancelled Abs Immat Gran (auto) Cancelled Absolute Neuts (auto) Cancelled Absolute Nucleated RBC 0.000 Nucleated RBC % (auto) Neutrophils % (Manual) Band Neutrophils % Lymphocytes % (Manual) Monocytes % (Manual) Eosinophils % (Manual) Metamyelocytes % Abs Neuts (Manual) Lymphocytes # (Manual) Monocytes # (Manual) Eosinophils # (Manual) Metamyelocytes # Platelet Estimate Plt Morphology Comment RBC Morphology Anion Gap Estim Creat Clear Calc Estimated GFR Random Glucose Calcium Magnesium Stl C. cayetanensis PCR Stool Rotavirus A PCR Stl Adenov F PCR Stool Astrovirus (PCR) Stool Campylobacter PCR Stool Cryptosporidium PCR Stl Sh Tox Pr E STEC PCR Stool E coli O157 PCR Stl Enterotoxigenic E PCR Stool EPEC (PCR) Stool EAEC (PCR) Stl E. histolytica PCR Stool Giardia Lamblia PCR Stl P. shigelloides PCR Stool Salmonella PCR Stool Sapovirus (PCR) Stl Shigella/EIEC PCR St Y.enterocolitica PCR Stool Vibrio (PCR) Stl Vibrio cholerae PCR Stl Norovirus GI/GII PCR 02/09/24 02/09/24 02/09/24 05:39 05:39 05:39 MCV MCH MCHC RDW Plt Count MPV Immature Gran % (Auto) Neut % (Auto) Lymph % (Auto) Henderson % (Auto) Eos % (Auto) Baso % (Auto) Lymph # (Auto) Henderson # (Auto) Eos # (Auto) Baso # (Auto) Abs Immat Gran (auto) Absolute Neuts (auto) Absolute Nucleated RBC 0.000 Nucleated RBC % (auto) 0.0 0.0 Neutrophils % (Manual) 73 Band Neutrophils % 4 Lymphocytes % (Manual) 12 L Monocytes % (Manual) 5 Eosinophils % (Manual) 4 Metamyelocytes % 2 Abs Neuts (Manual) 15.1 H Lymphocytes # (Manual) 2.4 Monocytes # (Manual) 1.0 Eosinophils # (Manual) 0.8 H Metamyelocytes # 0.4 Platelet Estimate NORMAL Plt Morphology Comment NORMAL RBC Morphology NORMAL Anion Gap Cancelled 13 Estim Creat Clear Calc Cancelled Estimated GFR Random Glucose Calcium Magnesium Stl C. cayetanensis PCR Stool Rotavirus A PCR Stl Adenov F 40/41 PCR Stool Astrovirus (PCR) Stool Campylobacter PCR Stool Cryptosporidium PCR Stl Sh Tox Pr E STEC PCR Stool E coli O157 PCR Stl Enterotoxigenic E PCR Stool EPEC (PCR) Stool EAEC (PCR) Stl E. histolytica PCR Stool Giardia Lamblia PCR Stl P. shigelloides PCR Stool Salmonella PCR Stool Sapovirus (PCR) Stl Shigella/EIEC PCR St Y.enterocolitica PCR Stool Vibrio (PCR) Stl Vibrio cholerae PCR Stl Norovirus GI/GII PCR 02/09/24 02/09/24 02/09/24 05:39 05:39 05:39 MCV MCH MCHC RDW Plt Count MPV Immature Gran % (Auto) Neut % (Auto) Lymph % (Auto) Henderson % (Auto) Eos % (Auto) Baso % (Auto) Lymph # (Auto) Henderson # (Auto) Eos # (Auto) Baso # (Auto) Abs Immat Gran (auto) Absolute Neuts (auto) Absolute Nucleated RBC Nucleated RBC % (auto) Neutrophils % (Manual) Band Neutrophils % Lymphocytes % (Manual) Monocytes % (Manual) Eosinophils % (Manual) Metamyelocytes % Abs Neuts (Manual) Lymphocytes # (Manual) Monocytes # (Manual) Eosinophils # (Manual) Metamyelocytes # Platelet Estimate Plt Morphology Comment RBC Morphology Anion Gap Estim Creat Clear Calc 34.8 Estimated GFR Cancelled 48 Random Glucose Cancelled 100 Calcium Cancelled Magnesium Stl C. cayetanensis PCR Stool Rotavirus A PCR Stl Adenov F 40 PCR Stool Astrovirus (PCR) Stool Campylobacter PCR Stool Cryptosporidium PCR Stl Sh Tox Pr E STEC PCR Stool E coli O157 PCR Stl Enterotoxigenic E PCR Stool EPEC (PCR) Stool EAEC (PCR) Stl E. histolytica PCR Stool Giardia Lamblia PCR Stl P. shigelloides PCR Stool Salmonella PCR Stool Sapovirus (PCR) Stl Shigella/EIEC PCR St Y.enterocolitica PCR Stool Vibrio (PCR) Stl Vibrio cholerae PCR Stl Norovirus GI/GII PCR 02/09/24 05:39 MCV MCH MCHC RDW Plt Count MPV Immature Gran % (Auto) Neut % (Auto) Lymph % (Auto) Henderson % (Auto) Eos % (Auto) Baso % (Auto) Lymph # (Auto) Henderson # (Auto) Eos # (Auto) Baso # (Auto) Abs Immat Gran (auto) Absolute Neuts (auto) Absolute Nucleated RBC Nucleated RBC % (auto) Neutrophils % (Manual) Band Neutrophils % Lymphocytes % (Manual) Monocytes % (Manual) Eosinophils % (Manual) Metamyelocytes % Abs Neuts (Manual) Lymphocytes # (Manual) Monocytes # (Manual) Eosinophils # (Manual) Metamyelocytes # Platelet Estimate Plt Morphology Comment RBC Morphology Anion Gap Estim Creat Clear Calc Estimated GFR Random Glucose Calcium 8.0 L Magnesium 1.4 L* Stl C. cayetanensis PCR Stool Rotavirus A PCR Stl Adenov F PCR Stool Astrovirus (PCR) Stool Campylobacter PCR Stool Cryptosporidium PCR Stl Sh Tox Pr E STEC PCR Stool E coli O157 PCR Stl Enterotoxigenic E PCR Stool EPEC (PCR) Stool EAEC (PCR) Stl E. histolytica PCR Stool Giardia Lamblia PCR Stl P. shigelloides PCR Stool Salmonella PCR Stool Sapovirus (PCR) Stl Shigella/EIEC PCR St Y.enterocolitica PCR Stool Vibrio (PCR) Stl Vibrio cholerae PCR Stl Norovirus GI/GII PCR Microbiology Microbiology Results: Microbiology 02/07/24 Unknown Urine Culture - Final Urine clean catch - Clean Catch Midstream No growth. 02/07/24 13:28 Blood Culture - Preliminary Blood - Venous No growth after 24 hours. 02/07/24 13:29 Blood Culture - Preliminary Blood - Venous No growth after 24 hours. Assessment and Plan (1) C. difficile diarrhea: Status: Acute (2) FRAN (acute kidney injury): Status: Acute (3) SIRS (systemic inflammatory response syndrome): Status: Acute Assessment and Plan: 73-year-old female with a past medical history significant for HTN, COPD, GERD, previous smoker, who presented to the ED with 3-4 days of lightheadedness, weakness, nausea, vomiting x1 episode, diarrhea and 2 syncopal episodes 4 days ago at home. FRAN/SIRS secondary to c diff: wbc:19.6 , normal lactate, blood cultures neg@24hrs renal US normal, UA negative,urine culture negative c diff +, GI panel negative, plan:seen by iD-vancomycin 125mg PO Q6H as well as flagyl 500 mh q8hr added monitor CBC, BMP hypokalemia and hypomagnesemia : replacement po and iv ordered. fran -due to dec po intake/dehydration continue ivf NAGMA-due to dirrahae -ph normal on vbg,improving with hydration. syncope epsodes-tele seems fine sofar seems likely due to hypotension /bp meds /dec po intake. HTN- Hold valsartan.bp stable COPD unspecified without acute exacerbation continue home inhalers. GERD - no PPI due to C diff infection VTE prophylaxis: Heparin ongoing need : FRAN/sirs secondary to C diff infection -need iv antibiotics and monitering of renal function/elecatrolytes ,monitering bp. Quality Stroke Does the patient have a stroke diagnosis?: No VTE Prior VTE?: No VTE Risk Level:: Medical - moderate - high VTE Device Contraindication: Treatment Not Indicated VTE Drug Contraindication: N/A - Med Ordered
--- NOTE | 2024-02-09 15:49 | P.CNID_ITS ---
History of Present Illness Data of Consult Service Date: 02/08/24 Requesting physician: Monica Metzger Primary Care Provider: Alok Guallpa MD HPI Reason for consult: severe Cdiff with leukocytosis and renal insufficiency She presents with weakness and diarrhea 6-10 times a day. She has no fever or chills. She has creatinine of 2.0 and WBC elevated above 15,000. Cdiff is positive. Review of Systems 2 Review of Systems: Yes all other systems are reviewed and are negative [facility] Past Medical History Medical History GERD (gastroesophageal reflux disease) Pulmonary nodules COPD (chronic obstructive pulmonary disease) Chronic respiratory failure Depression Hypertension Personal history of nicotine dependence Osteopenia (~2004) Family History Family History Mother Eye cancer Maternal Grandmother Cirrhosis Father Lung cancer Family history: reviewed and not pertinent Surgical History Surgical History History of cholecystectomy History of colonoscopy Social History Social History Household Members: Spouse Housing: House Do you presently have visiting nurse or other home services: No Alcohol intake: never Comment: pt refusing high fall socks - has shoes with rubber soles on Patient Tobacco Use Status: Former Tobacco user Tobacco use type: Cigarette Years Smoked: 51 (onset 17, 1ppd x 51yrs, 47+PYH - quit 2016) Second Hand Smoke Exposure: No service: No Current occupational status: retired Meds Allergies Allergy/AdvReac Type Severity Reaction Status Date / Time Sulfa (Sulfonamide Allergy Anaphylaxis Verified 02/07/24 13:10 Antibiotics) Active Medications: Current Medications Acetaminophen (Acetaminophen 325 Mg Tablet) 975 mg PO Q6H PRN PRN Reason: Pain, Mild (Pain Scale 1-3), fever or headache Atorvastatin Calcium (Atorvastatin Calcium 20 Mg Tablet) 20 mg PO DAILY [facility] Last Admin: 02/09/24 07:45 Dose: 20 mg Calcium Carbonate (Calcium Carbonate 750 Mg Tab.Chew) 750 mg PO Q4H PRN PRN Reason: Heartburn Fluticasone/Vilanterol (Fluticasone/Vilanterol 100/25 Blst.W.Dev) 1 puff INHALE RDAILY [facility] Last Admin: 02/09/24 08:31 Dose: 1 puff Heparin Sodium (Porcine) (Heparin Sodium,Porcine 5,000 Unit/Ml Vial) 5,000 unit SUBCUT Q8H [facility] Last Admin: 02/09/24 15:03 Dose: 5,000 unit Lactated Ringer's (Lr) 1,000 mls @ 80 mls/hr IVCONT .[id number] [facility] Last Infusion: 02/09/24 07:47 Dose: 80 mls/hr Metronidazole (Flagyl) 500 mg in 100 mls @ 100 mls/hr IV Q8H [facility] Last Infusion: 02/09/24 14:59 Dose: Infused Magnesium Hydroxide (Milk Of Magnesia 30 Ml Oral.Susp) 30 ml PO DAILY PRN PRN Reason: Constipation Melatonin (Melatonin 3 Mg Tablet) 6 mg PO BEDTIME PRN PRN Reason: Insomnia Montelukast Sodium (Montelukast Sodium 10 Mg Tablet) 10 mg PO DAILY [facility] Last Admin: 02/09/24 07:46 Dose: 10 mg Ondansetron HCl (Ondansetron Hcl 4 Mg/2 Ml Vial) 4 mg IVPUSH Q6H PRN PRN Reason: Nausea and Vomiting Oxycodone HCl (Oxycodone Hcl Immed Release 5 Mg Tablet) 5 mg PO Q6H PRN PRN Reason: Pain, Moderate(Pain Scale 4-6) Risperidone (Risperidone 0.25 Mg Tablet) 0.25 mg PO BEDTIME [facility] Last Admin: 02/08/24 22:29 Dose: 0.25 mg Risperidone (Risperidone 0.5 Mg Tablet) 0.5 mg PO DAILY [facility] Last Admin: 02/09/24 07:46 Dose: 0.5 mg Sodium Bicarbonate (Sodium Bicarbonate 650 Mg Tablet) 650 mg PO QID [facility] Last Admin: 02/09/24 13:14 Dose: 650 mg Sodium Chloride (0.9 % Sodium Chloride Flush 3 Ml Syringe) 3 ml IVFLUSH QSHIFT [facility] Last Admin: 02/09/24 15:44 Dose: Not Given Tiotropium [place] (Tiotropium [place] 2.5 Mcg 1 Puff/2.5 Mcg Mist.Inhal) 2 puff INHALE RDAILY [facility] Last Admin: 02/09/24 08:30 Dose: 2 puff Vancomycin HCl (Vancomycin Hcl 125 Mg Capsule) 125 mg PO Q6H [facility] Last Admin: 02/09/24 13:14 Dose: 125 mg Venlafaxine HCl (Venlafaxine Hcl Er 150 Mg Cap.Er.24h) 150 mg PO DAILY [facility] Last Admin: 02/09/24 07:46 Dose: 150 mg Home Medications ?Medication ?Instructions ?Recorded ?Confirmed ?Last Taken ?Type alendronate 70 mg tablet 70 mg PO SA 01/26/22 02/08/24 02/05/24 History atorvastatin 20 mg tablet 20 mg PO DAILY 01/26/22 02/08/24 02/07/24 History montelukast 10 mg tablet 10 mg PO DAILY 01/26/22 02/08/24 02/08/24 History risperidone 0.5 mg tablet 1 tab PO DAILY 01/26/22 02/08/24 02/08/24 History valsartan 80 mg tablet 80 mg PO DAILY 01/26/22 02/08/24 02/08/24 History venlafaxine 150 mg 150 mg PO DAILY 01/26/22 02/08/24 02/08/24 History capsule,extended release 24 hr Oxygen Home Use 04/23/22 Unknown History risperidone 0.5 mg tablet 0.25 mg PO BEDTIME 02/08/24 02/08/24 02/07/24 History tiotropium bromide 2.5 2 puff inhalation DAILY 02/08/24 02/08/24 02/07/24 History mcg/actuation mist for inhalation (Spiriva Respimat) Physical Exam 2 Vital Signs: Vital Signs: Last Vital Signs Temp 97.5 F 02/09/24 11:59 Pulse 95 02/09/24 11:59 Resp 16 02/09/24 11:59 BP 145/86 H 02/09/24 11:59 Pulse Ox 93 02/09/24 11:59 O2 Del Method Room Air 02/09/24 11:59 BMI result Body Mass Index 21.7 Const: General: cooperative HEENT: Head: Yes normal to inspection Face and sinus: Yes normal facial exam Mouth: Normal oral and palatal mucosa present Teeth and gingiva: d entition normal Eyes: General: appearance normal, both eyes and all related structures P upils: Equal, round and reactive pupils present Resp: Effort & Inspection: normal respiratory effort Cardio: Rate: regular rate Rhythm: regular rhythm GI: Palpation (GI): Soft to palpation and nontender : General: Yes no CVA tenderness Back/Spine/Pelvis: Back: no CVA tenderness Skin: General skin exam: no rashes or lesions noted Neuro: General: moves all extremities Cranial nerves: Yes Equal, round and reactive pupils present Extrem: General: Yes normal to inspection Psych: Appearance: grossly normal Results Labs 02/09/24 05:39 02/09/24 05:39 Labs: Short CBC 02/09/24 02/09/24 02/09/24 Range/Units 05:39 05:39 05:39 WBC 19.1 H 19.6 H (4.8-10.8) X10*3/uL Hgb 12.9 13.2 (12.0-16.0) g/dl Hct 37.5 (37.0-47.0) % Plt Count (160-400) X10*3/uL 02/09/24 02/09/24 Range/Units 05:39 05:39 WBC (4.8-10.8) X10*3/uL Hgb (12.0-16.0) g/dl Hct 37.5 (37.0-47.0) % Plt Count 316 308 (160-400) X10*3/uL BMP 02/09/24 02/09/24 02/09/24 05:39 05:39 05:39 Sodium Cancelled 145 Potassium Cancelled 3.0 L Chloride Cancelled Carbon Dioxide BUN Creatinine Calcium 02/09/24 02/09/24 02/09/24 05:39 05:39 05:39 Sodium Potassium Chloride 121 H Carbon Dioxide Cancelled 14 L BUN Cancelled 22 H Creatinine Cancelled Calcium 02/09/24 02/09/24 05:39 05:39 Sodium Potassium Chloride Carbon Dioxide BUN Creatinine 1.12 Calcium Cancelled 8.0 L Microbiology Microbiology Results: Microbiology 02/07/24 13:28 Blood - Venous Blood Culture - Preliminary No growth after 48 hours. 02/07/24 13:29 Blood - Venous Blood Culture - Preliminary No growth after 48 hours. 02/07/24 Unknown Urine clean catch - Clean Catch Midstream Urine Culture - Final No growth. Assessment and Plan (1) C. difficile diarrhea: Status: Acute (2) VIKI (acute kidney injury): Status: Acute (3) SIRS (systemic inflammatory response syndrome): Status: Acute Plan She has severe Cdiff with leukocytosis as well as increased creatinine. She should use IV Flagyl as well as po Vancomycin until improved and then po Vancomycin 125 mg qid for 10 days.
[2024-02-09 16:00] VITALS: BP 147/85; PULSE 97; RESP 20; TEMP 36.4; O2SAT 93
[2024-02-09] MEDS: Lactated Ringers 1,000 ML 80 ML IVCONT (17:22)
[2024-02-09 20:01] VITALS: BP 140/84; PULSE 96; RESP 18; TEMP 36.4; O2SAT 92
[2024-02-09] MEDS: risperiDONE 0.25 MG TABLET PO (20:30)
[2024-02-09 23:40] VITALS: BP 132/87; PULSE 95; RESP 20; TEMP 36.8; O2SAT 88
[2024-02-10] VITALS (7 sets, daily range): BP systolic 115–150; BP diastolic 75–84; PULSE 80–107; RESP 12–20; TEMP 36.2–37; O2SAT 90–94
[2024-02-10] MEDS: Heparin Sodium,Porcine 5,000 UNIT/ML VIAL 5000 UNIT SUBCUT ×3 (06:29→21:56)
[2024-02-10] MEDS: metroNIDAZOLE/NS 500 MG/100 ML PIGGYBACK 100 MG IV ×3 (06:29→21:57)
[2024-02-10] MEDS: vancomycin HCL 125 MG CAPSULE PO ×4 (06:29→23:10)
[2024-02-10] MEDS: Montelukast Sodium 10 MG TABLET PO (07:36)
[2024-02-10] MEDS: Venlafaxine HCl ER 150 MG CAP.ER.24H PO (07:36)
[2024-02-10] MEDS: Sodium Bicarbonate 650 MG TABLET PO ×4 (07:36→21:56)
[2024-02-10] MEDS: Atorvastatin Calcium 20 MG TABLET PO (07:37)
[2024-02-10] MEDS: Lactated Ringers 1,000 ML 80 ML IVCONT (07:37)
[2024-02-10] MEDS: risperiDONE 0.5 MG TABLET PO (07:37)
[2024-02-10] MEDS: 0.9 % Sodium Chloride Flush 3 ML SYRINGE IVFLUSH ×3 (07:37→21:58)
[2024-02-10 07:39] LABS: Hematocrit 36.1 % (37.0-47.0); Hemoglobin 13.1 g/dl (12.0-16.0); Mean Corpuscular HGB Conc 36.3 g/dl (31.0-35.0); Mean Corpuscular Hemoglobin 31.9 pg (27.0-33.0); Mean Corpuscular Volume 87.8 fL (80.0-98.0); Mean Platelet Volume 10.7 fL (9.4-12.3); Platelet Count 330 X10*3/uL (160-400); Red Blood Count 4.11 X10*6/uL (4.20-5.50); Red Cell Distribution Width 14.7 % (11.0-16.0)
[2024-02-10] MEDS: Fluticasone/Vilanterol 100/25 BLST.W.DEV 1 PUFF INHALE (07:42)
[2024-02-10] MEDS: Tiotropium Bromide 2.5 mcg 1 PUFF/2.5 MCG MIST.INHAL 2 PUFF INHALE (07:42)
[2024-02-10 07:52] LABS: Anion Gap 15 (12-20); Blood Urea Nitrogen 11 mg/dL (9-16); Carbon Dioxide 19 mmol/L (22-29); Chloride 115 mmol/L (96-108); Creatinine Clr Calc Pharmacy 47.4; Estimated Glomerular Filt Rate > 60; Glucose Random 105 mg/dL (60-115); Magnesium 1.6 mg/dL (1.6-2.6); Potassium 3.2 mmol/L (3.3-5.1); Sodium 146 mmol/L (135-145)
[2024-02-10 08:35] LABS: Band Neutrophils Percent 5 % (3-5); Eosinophils Absolute Manual 0.6 X10*3/uL (0.0-0.4); Eosinophils Percent Manual 3 % (0-4); Lymphocytes Absolute Manual 1.6 X10*3/uL (1.2-4.9); Lymphocytes Percent Manual 8 % (20-40); Metamyelocytes Absolute 0.4 X10*3/uL; Metamyelocytes Percent 2 %; Monocytes Absolute Manual 1.6 X10*3/uL (0.1-1.2); Monocytes Percent Manual 8 % (2-11); Myelocytes Absolute 0.2 X10*/uL; Myelocytes Percent 1 %; Neutrophils Absolute Manual 15.6 X10*3/uL (2.0-8.3); Neutrophils Percent Manual 73 % (45-73)
[2024-02-10 08:40] LABS: Burr Cells 1+ (0-2) /OIF; Platelet Estimate NORMAL (NORMAL); Platelet Morphology Comment NORMAL; RBC Morphology NOTED
[2024-02-10] MEDS: Potassium Chloride ER 20 MEQ TAB.ER.PRT 40 MEQ PO (10:35)
--- NOTE | 2024-02-10 11:59 | HO.PM.IMPN ---
Subjective Subjective Date of Service: 02/10/24 Interval History: cdiff Review of Systems hypokalemia/hypernatremia still has significant diarrhae no abd pain or fevers Physical Exam Vital Signs: Vital Signs: Last Vital Signs Temp 98.0 F 02/10/24 11:33 Pulse 101 H 02/10/24 11:33 Resp 18 02/10/24 11:33 BP 140/76 H 02/10/24 11:33 Pulse Ox 94 02/10/24 11:33 O2 Del Method Room Air 02/10/24 11:33 BMI result Body Mass Index 21.7 General: AOx3, no acute distress Resp: CTA bilaterally CVS: S1, S2, RRR GI: +BS, NT, no distention Skin: Warm, dry Neuro: Cranial nerves II-XII grossly intact bilaterally. Motor grossly intact bilaterally Extremities: No LE edema Objective Data Active Medications Acetaminophen (Acetaminophen 325 Mg Tablet) 975 mg PO Q6H PRN PRN Reason: Pain, Mild (Pain Scale 1-3), fever or headache Atorvastatin Calcium (Atorvastatin Calcium 20 Mg Tablet) 20 mg PO DAILY [facility] Last Admin: 02/10/24 07:37 Dose: 20 mg Documented By: LIANA Calcium Carbonate (Calcium Carbonate 750 Mg Tab.Chew) 750 mg PO Q4H PRN PRN Reason: Heartburn Fluticasone/Vilanterol (Fluticasone/Vilanterol 100/25 Blst.W.Dev) 1 puff INHALE RDAILY [facility] Last Admin: 02/10/24 07:42 Dose: 1 puff Documented By: ROSE MARIE Heparin Sodium (Porcine) (Heparin Sodium,Porcine 5,000 Unit/Ml Vial) 5,000 unit SUBCUT Q8H [facility] Last Admin: 02/10/24 06:29 Dose: 5,000 unit Documented By: NABIL Metronidazole (Flagyl) 500 mg in 100 mls @ 100 mls/hr IV Q8H [facility] Last Infusion: 02/10/24 07:35 Dose: Infused Documented By: LIANA Magnesium Hydroxide (Milk Of Magnesia 30 Ml Oral.Susp) 30 ml PO DAILY PRN PRN Reason: Constipation Melatonin (Melatonin 3 Mg Tablet) 6 mg PO BEDTIME PRN PRN Reason: Insomnia Montelukast Sodium (Montelukast Sodium 10 Mg Tablet) 10 mg PO DAILY [facility] Last Admin: 02/10/24 07:36 Dose: 10 mg Documented By: LIANA Ondansetron HCl (Ondansetron Hcl 4 Mg/2 Ml Vial) 4 mg IVPUSH Q6H PRN PRN Reason: Nausea and Vomiting Oxycodone HCl (Oxycodone Hcl Immed Release 5 Mg Tablet) 5 mg PO Q6H PRN PRN Reason: Pain, Moderate(Pain Scale 4-6) Risperidone (Risperidone 0.25 Mg Tablet) 0.25 mg PO BEDTIME [facility] Last Admin: 02/09/24 20:30 Dose: 0.25 mg Documented By: NABIL Risperidone (Risperidone 0.5 Mg Tablet) 0.5 mg PO DAILY [facility] Last Admin: 02/10/24 07:37 Dose: 0.5 mg Documented By: LIANA Sodium Bicarbonate (Sodium Bicarbonate 650 Mg Tablet) 650 mg PO QID [facility] Last Admin: 02/10/24 07:36 Dose: 650 mg Documented By: LIANA Sodium Chloride (0.9 % Sodium Chloride Flush 3 Ml Syringe) 3 ml IVFLUSH QSHIFT [facility] Last Admin: 02/10/24 07:37 Dose: 3 ml Documented By: LIANA Tiotropium [place] (Tiotropium [place] 2.5 Mcg 1 Puff/2.5 Mcg Mist.Inhal) 2 puff INHALE RDAILY [facility] Last Admin: 02/10/24 07:42 Dose: 2 puff Documented By: ROSE MARIE Vancomycin HCl (Vancomycin Hcl 125 Mg Capsule) 125 mg PO Q6H [facility] Last Admin: 02/10/24 10:35 Dose: 125 mg Documented By: LIANA Venlafaxine HCl (Venlafaxine Hcl Er 150 Mg Cap.Er.24h) 150 mg PO DAILY [facility] Last Admin: 02/10/24 07:36 Dose: 150 mg Documented By: LIANA Labs 02/10/24 06:22 02/10/24 06:22 Labs: Laboratory Results - last 24 hr 02/10/24 06:22 MCV 87.8 MCH 31.9 MCHC 36.3 H RDW 14.7 Plt Count 330 MPV 10.7 Immature Gran % (Auto) Cancelled Neut % (Auto) Cancelled Lymph % (Auto) Cancelled [place] % (Auto) Cancelled Eos % (Auto) Cancelled Baso % (Auto) Cancelled Lymph # (Auto) Cancelled [place] # (Auto) Cancelled Eos # (Auto) Cancelled Baso # (Auto) Cancelled Abs Immat Gran (auto) Cancelled Absolute Neuts (auto) Cancelled Absolute Nucleated RBC 0.000 Nucleated RBC % (auto) 0.0 Neutrophils % (Manual) 73 Band Neutrophils % 5 Lymphocytes % (Manual) 8 L Monocytes % (Manual) 8 Eosinophils % (Manual) 3 Metamyelocytes % 2 Myelocytes % 1 Abs Neuts (Manual) 15.6 H Lymphocytes # (Manual) 1.6 Monocytes # (Manual) 1.6 H Eosinophils # (Manual) 0.6 H Metamyelocytes # 0.4 Myelocytes # 0.2 Platelet Estimate NORMAL Plt Morphology Comment NORMAL RBC Morphology NOTED [place] Cells 1+ (0-2) Anion Gap 15 Estim Creat Clear Calc 47.4 Estimated GFR > 60 Random Glucose 105 Calcium 8.0 L Magnesium 1.6 Microbiology Microbiology Results: Microbiology 02/07/24 13:28 Blood Culture - Preliminary Blood - Venous No growth after 48 hours. 02/07/24 13:29 Blood Culture - Preliminary Blood - Venous No growth after 48 hours. 02/07/24 Unknown Urine Culture - Final Urine clean catch - Clean Catch Midstream No growth. Assessment and Plan (1) C. difficile diarrhea: Status: Acute (2) VIKI (acute kidney injury): Status: Acute (3) SIRS (systemic inflammatory response syndrome): Status: Acute Assessment and Plan: 73-year-old female with a past medical history significant for HTN, COPD, GERD, previous smoker, who presented to the ED with 3-4 days of lightheadedness, weakness, nausea, vomiting x1 episode, diarrhea and 2 syncopal episodes 4 days ago at home. VIKI/SIRS secondary to c diff: has signifcant diarrhae but somewhat improving wbc:20 , normal lactate, blood cultures neg@48hrs ,urine cultures neg renal US normal, UA negative,urine culture negative c diff +, GI panel negative. plan:seen by iD-vancomycin 125mg PO Q6H as well as flagyl 500 mh q8hr added monitor CBC, BMP. Hypernatremia : mild sec to gi loss encouraged for po free water moniter renal function/electrolytes. hypokalemia : replacement added viki -due to dec po intake/dehydration continue ivf NAGMA-due to dirrahae -ph normal on vbg,improving with hydration. syncope epsodes-tele seems fine sofar seems likely due to hypotension /bp meds /dec po intake. HTN- Hold valsartan.bp stable COPD unspecified without acute exacerbation continue home inhalers. GERD - no PPI due to C diff infection VTE prophylaxis: Heparin ongoing need : VIKI/sirs secondary to C diff infection -need iv antibiotics and monitering of renal function/elecatrolytes ,monitering bp. Quality Stroke Does the patient have a stroke diagnosis?: No VTE Prior VTE?: No VTE Risk Level:: Medical - moderate - high VTE Device Contraindication: Treatment Not Indicated VTE Drug Contraindication: N/A - Med Ordered
[2024-02-10] MEDS: risperiDONE 0.25 MG TABLET PO (21:56)
[2024-02-11 04:00] VITALS: BP 138/89; PULSE 108; RESP 17; TEMP 36.7; O2SAT 91
[2024-02-11] MEDS: Heparin Sodium,Porcine 5,000 UNIT/ML VIAL 5000 UNIT SUBCUT ×2 (06:04→14:29)
[2024-02-11] MEDS: vancomycin HCL 125 MG CAPSULE PO ×3 (06:04→16:59)
[2024-02-11] MEDS: metroNIDAZOLE/NS 500 MG/100 ML PIGGYBACK 100 MG IV ×3 (06:04→20:57)
[2024-02-11 07:05] LABS: Hematocrit 39.1 % (37.0-47.0); Hemoglobin 13.7 g/dl (12.0-16.0); Mean Corpuscular Hemoglobin 31.4 pg (27.0-33.0); Mean Corpuscular Volume 89.5 fL (80.0-98.0); Mean Platelet Volume 9.8 fL (9.4-12.3); NRBC Pct Auto 0.1 /100WBC (0.0-0.2); Platelet Count 293 X10*3/uL (160-400); Red Blood Count 4.37 X10*6/uL (4.20-5.50); Red Cell Distribution Width 14.7 % (11.0-16.0); White Blood Count 21.6 X10*3/uL (4.8-10.8)
[2024-02-11 07:07] VITALS: BP 132/84; PULSE 103; RESP 20; TEMP 36.7; O2SAT 92
[2024-02-11 07:25] LABS: Anion Gap 13 (12-20); Blood Urea Nitrogen 8 mg/dL (9-16); Calcium 7.8 mg/dL (8.4-10.2); Carbon Dioxide 21 mmol/L (22-29); Chloride 114 mmol/L (96-108); Creatinine Clr Calc Pharmacy 49.9; Estimated Glomerular Filt Rate > 60; Glucose Random 141 mg/dL (60-115); Potassium 3.2 mmol/L (3.3-5.1); Sodium 145 mmol/L (135-145)
[2024-02-11] MEDS: Fluticasone/Vilanterol 100/25 BLST.W.DEV 1 PUFF INHALE (07:50)
[2024-02-11] MEDS: Tiotropium Bromide 2.5 mcg 1 PUFF/2.5 MCG MIST.INHAL 2 PUFF INHALE (07:50)
[2024-02-11 07:51] VITALS: PULSE 103; RESP 20; O2SAT 100
[2024-02-11 08:32] LABS: Magnesium 1.4 mg/dL (1.6-2.6)
[2024-02-11] MEDS: Montelukast Sodium 10 MG TABLET PO (09:13)
[2024-02-11] MEDS: Sodium Bicarbonate 650 MG TABLET PO ×2 (09:13→12:22)
[2024-02-11] MEDS: risperiDONE 0.5 MG TABLET PO (09:13)
[2024-02-11] MEDS: Atorvastatin Calcium 20 MG TABLET PO (09:13)
[2024-02-11] MEDS: Venlafaxine HCl ER 150 MG CAP.ER.24H PO (09:13)
[2024-02-11] MEDS: 0.9 % Sodium Chloride Flush 3 ML SYRINGE IVFLUSH ×2 (09:14→14:35)
[2024-02-11] MEDS: Potassium Chloride/H20 10 MEQ/100 ML PIGGYBACK 100 MEQ IV ×6 (09:14→15:30)
--- NOTE | 2024-02-11 10:26 | MHC.CM.PN ---
Per ROUNDS, Patient is not yet medically cleared for dc (electrolyte abnormalities); home is the goal and CM will follow.
[2024-02-11] MEDS: Magnesium Sulfate/H2O 2 GM/50 ML PIGGYBACK IV (11:05)
[2024-02-11 11:28] VITALS: BP 134/90; PULSE 100; RESP 18; TEMP 37.4; O2SAT 92
--- NOTE | 2024-02-11 14:08 | HO.PM.IMPN ---
Subjective Subjective Date of Service: 02/11/24 Interval History: cdiff diarrhae ,hypokalemia and hypomagnesemia Review of Systems has diarrahae leucocytosis slightly trending up no fevers Physical Exam Vital Signs: Vital Signs: Last Vital Signs Temp 99.3 F 02/11/24 11:28 Pulse 100 02/11/24 11:28 Resp 18 02/11/24 11:28 BP 134/90 H 02/11/24 11:28 Pulse Ox 92 02/11/24 11:28 O2 Del Method Room Air 02/11/24 11:28 O2 Flow Rate 1 02/11/24 07:07 BMI result Body Mass Index 21.7 General: AOx3, no acute distress Resp: CTA bilaterally CVS: S1, S2, RRR GI: +BS, NT, no distention Skin: Warm, dry Neuro: Cranial nerves II-XII grossly intact bilaterally. Motor grossly intact bilaterally Extremities: No LE edema Objective Data Active Medications Acetaminophen (Acetaminophen 325 Mg Tablet) 975 mg PO Q6H PRN PRN Reason: Pain, Mild (Pain Scale 1-3), fever or headache Atorvastatin Calcium (Atorvastatin Calcium 20 Mg Tablet) 20 mg PO DAILY [facility] Last Admin: 02/11/24 09:13 Dose: 20 mg Documented By: DAVIS Calcium Carbonate (Calcium Carbonate 750 Mg Tab.Chew) 750 mg PO Q4H PRN PRN Reason: Heartburn Fluticasone/Vilanterol (Fluticasone/Vilanterol 100/25 Blst.W.Dev) 1 puff INHALE RDAILY [facility] Last Admin: 02/11/24 07:50 Dose: 1 puff Documented By: MOISES Heparin Sodium (Porcine) (Heparin Sodium,Porcine 5,000 Unit/Ml Vial) 5,000 unit SUBCUT Q8H [facility] Last Admin: 02/11/24 06:04 Dose: 5,000 unit Documented By: NABIL Metronidazole (Flagyl) 500 mg in 100 mls @ 100 mls/hr IV Q8H [facility] Last Infusion: 02/11/24 09:19 Dose: Infused Documented By: DAVIS Magnesium Hydroxide (Milk Of Magnesia 30 Ml Oral.Susp) 30 ml PO DAILY PRN PRN Reason: Constipation Melatonin (Melatonin 3 Mg Tablet) 6 mg PO BEDTIME PRN PRN Reason: Insomnia Montelukast Sodium (Montelukast Sodium 10 Mg Tablet) 10 mg PO DAILY [facility] Last Admin: 02/11/24 09:13 Dose: 10 mg Documented By: DAVIS Ondansetron HCl (Ondansetron Hcl 4 Mg/2 Ml Vial) 4 mg IVPUSH Q6H PRN PRN Reason: Nausea and Vomiting Oxycodone HCl (Oxycodone Hcl Immed Release 5 Mg Tablet) 5 mg PO Q6H PRN PRN Reason: Pain, Moderate(Pain Scale 4-6) Risperidone (Risperidone 0.25 Mg Tablet) 0.25 mg PO BEDTIME [facility] Last Admin: 02/10/24 21:56 Dose: 0.25 mg Documented By: NABIL Risperidone (Risperidone 0.5 Mg Tablet) 0.5 mg PO DAILY [facility] Last Admin: 02/11/24 09:13 Dose: 0.5 mg Documented By: DAVIS Sodium Bicarbonate (Sodium Bicarbonate 650 Mg Tablet) 650 mg PO QID [facility] Last Admin: 02/11/24 12:22 Dose: 650 mg Documented By: DAVIS Sodium Chloride (0.9 % Sodium Chloride Flush 3 Ml Syringe) 3 ml IVFLUSH QSHIFT [facility] Last Admin: 02/11/24 09:14 Dose: 3 ml Documented By: DAVIS Tiotropium [place] (Tiotropium [place] 2.5 Mcg 1 Puff/2.5 Mcg Mist.Inhal) 2 puff INHALE RDAILY [facility] Last Admin: 02/11/24 07:50 Dose: 2 puff Documented By: MOISES Vancomycin HCl (Vancomycin Hcl 125 Mg Capsule) 125 mg PO Q6H [facility] Last Admin: 02/11/24 11:05 Dose: 125 mg Documented By: DAVIS Venlafaxine HCl (Venlafaxine Hcl Er 150 Mg Cap.Er.24h) 150 mg PO DAILY [facility] Last Admin: 02/11/24 09:13 Dose: 150 mg Documented By: DAVIS Labs 02/11/24 06:51 02/11/24 06:51 Labs: Laboratory Results - last 24 hr 02/11/24 06:51 MCV 89.5 MCH 31.4 MCHC 35.0 RDW 14.7 Plt Count 293 MPV 9.8 Absolute Nucleated RBC 0.020 H Nucleated RBC % (auto) 0.1 Anion Gap 13 Estim Creat Clear Calc 49.9 Estimated GFR > 60 Random Glucose 141 H Calcium 7.8 L Magnesium 1.4 L* Assessment and Plan (1) C. difficile diarrhea: Status: Acute (2) VIKI (acute kidney injury): Status: Acute (3) Acute hypokalemia: Status: Acute Assessment and Plan: 73-year-old female with a past medical history significant for HTN, COPD, GERD, previous smoker, who presented to the ED with 3-4 days of lightheadedness, weakness, nausea, vomiting x1 episode, diarrhea and 2 syncopal episodes 4 days ago at home. VIKI/SIRS secondary to c diff: wbc:21.6, normal lactate, blood cultures neg@48hrs ,urine cultures neg renal US normal, UA negative,urine culture negative c diff +, GI panel negative. has diarrhae and electrolytic abnormalities plan:seen by iD-vancomycin 125mg PO Q6H as well as flagyl 500 mh q8hr added monitor CBC, BMP. Hypernatremia : mild sec to gi loss encouraged for po free water resolved. hypokalemia/hypomag : replacement added iv will moniter potasium and magnesium viki -due to dec po intake/dehydration NAGMA-due to dirrahae above improved with hydration. syncope epsodes-tele seems fine sofar seems likely due to hypotension /bp meds /dec po intake. HTN- Hold valsartan.bp stable COPD unspecified without acute exacerbation continue home inhalers. GERD - no PPI due to C diff infection VTE prophylaxis: Heparin ongoing need : VIKI/sirs secondary to C diff infection and multiple electrolytic abnormalities -need iv antibiotics and monitering of renal function/elecatrolytes ,monitering bp. Quality Stroke Does the patient have a stroke diagnosis?: No VTE Prior VTE?: No VTE Risk Level:: Medical - moderate - high VTE Device Contraindication: Treatment Not Indicated VTE Drug Contraindication: N/A - Med Ordered
[2024-02-11] MEDS: Magnesium Sulfate/D5W 1 GM/100 ML PIGGYBACK IV (14:25)
[2024-02-11 15:06] VITALS: BP 133/90; PULSE 95; RESP 20; TEMP 37; O2SAT 92
[2024-02-11] MEDS: Calcium Gluconate/NaCl,Iso-Osm 1 GM/50 ML PLAST..BAG IV (16:52)
[2024-02-11 17:08] LABS: Magnesium 2.1 mg/dL (1.6-2.6); Potassium 3.7 mmol/L (3.3-5.1)
[2024-02-11 19:08] LABS: Strep Pneumo Ag urine Not Detected (Not Detected)
[2024-02-11 19:17] VITALS: BP 128/75; PULSE 105; RESP 16; TEMP 36; O2SAT 91
[2024-02-11] MEDS: risperiDONE 0.25 MG TABLET PO (20:57)
[2024-02-11] MEDS: Calcium Carbonate 750 MG TAB.CHEW PO (20:57)
[2024-02-12] VITALS: BP 129/85; PULSE 98; RESP 16; TEMP 36.1; O2SAT 93
[2024-02-12] MEDS: Heparin Sodium,Porcine 5,000 UNIT/ML VIAL 5000 UNIT SUBCUT ×4 (00:10→22:14)
[2024-02-12] MEDS: vancomycin HCL 125 MG CAPSULE PO ×5 (00:11→23:28)
[2024-02-12] MEDS: 0.9 % Sodium Chloride Flush 3 ML SYRINGE IVFLUSH ×4 (00:11→22:18)
[2024-02-12 03:32] VITALS: BP 142/82; PULSE 113; RESP 16; TEMP 36.2; O2SAT 92
[2024-02-12] MEDS: metroNIDAZOLE/NS 500 MG/100 ML PIGGYBACK 100 MG IV ×3 (06:15→22:14)
[2024-02-12 06:58] VITALS: BP 128/84; PULSE 100; RESP 18; TEMP 37.1; O2SAT 92
[2024-02-12 07:00] LABS: Hematocrit 39.2 % (37.0-47.0); Hemoglobin 13.5 g/dl (12.0-16.0); Mean Corpuscular HGB Conc 34.4 g/dl (31.0-35.0); Mean Corpuscular Volume 90.1 fL (80.0-98.0); Mean Platelet Volume 10.1 fL (9.4-12.3); Platelet Count 306 X10*3/uL (160-400); Red Blood Count 4.35 X10*6/uL (4.20-5.50); Red Cell Distribution Width 14.8 % (11.0-16.0)
[2024-02-12 07:18] LABS: Anion Gap 14 (12-20); Blood Urea Nitrogen 7 mg/dL (9-16); Calcium 7.9 mg/dL (8.4-10.2); Carbon Dioxide 21 mmol/L (22-29); Chloride 112 mmol/L (96-108); Creatinine Clr Calc Pharmacy 50.5; Estimated Glomerular Filt Rate > 60; Glucose Random 105 mg/dL (60-115); Magnesium 1.8 mg/dL (1.6-2.6); Potassium 3.5 mmol/L (3.3-5.1); Sodium 143 mmol/L (135-145)
[2024-02-12] MEDS: Fluticasone/Vilanterol 100/25 BLST.W.DEV 1 PUFF INHALE (07:52)
[2024-02-12] MEDS: Tiotropium Bromide 2.5 mcg 1 PUFF/2.5 MCG MIST.INHAL 2 PUFF INHALE (07:52)
[2024-02-12] MEDS: Montelukast Sodium 10 MG TABLET PO (08:51)
[2024-02-12] MEDS: Venlafaxine HCl ER 150 MG CAP.ER.24H PO (08:51)
[2024-02-12] MEDS: risperiDONE 0.5 MG TABLET PO (08:51)
[2024-02-12] MEDS: Calcium Carbonate 750 MG TAB.CHEW PO (08:51)
[2024-02-12] MEDS: Atorvastatin Calcium 20 MG TABLET PO (08:51)
[2024-02-12 11:04] VITALS: BP 135/84; PULSE 106; RESP 18; TEMP 37.1; O2SAT 91
[2024-02-12 12:06] LABS: Lactic Acid 1.5 mmol/L (0.5-2.0)
--- NOTE | 2024-02-12 13:36 | P.PNIM_ITS ---
Subjective Subjective Date of Service: 02/12/24 Interval History: c diff , leucocytosis Review of Systems she does not have fever denies abd pain diarrhae improving Physical Exam 2 Vital Signs: Vital Signs: Last Vital Signs Temp 98.8 F 02/12/24 11:04 Pulse 106 H 02/12/24 11:04 Resp 18 02/12/24 11:04 BP 135/84 02/12/24 11:04 Pulse Ox 91 L 02/12/24 11:04 O2 Del Method Room Air 02/12/24 11:04 O2 Flow Rate 2 02/12/24 03:32 BMI result Body Mass Index 21.7 General: AOx3, no acute distress Resp: CTA bilaterally CVS: S1, S2, RRR GI: +BS, NT, no distention Skin: Warm, dry Neuro: Cranial nerves II-XII grossly intact bilaterally. Motor grossly intact bilaterally Extremities: No LE edema Objective Data Active Medications Acetaminophen (Acetaminophen 325 Mg Tablet) 975 mg PO Q6H PRN PRN Reason: Pain, Mild (Pain Scale 1-3), fever or headache Atorvastatin Calcium (Atorvastatin Calcium 20 Mg Tablet) 20 mg PO DAILY [facility] Last Admin: 02/12/24 08:51 Dose: 20 mg Documented By: LÓPEZ Calcium Carbonate (Calcium Carbonate 750 Mg Tab.Chew) 750 mg PO BID [facility] Last Admin: 02/12/24 08:51 Dose: 750 mg Documented By: LÓPEZ Fluticasone/Vilanterol (Fluticasone/Vilanterol 100/25 Blst.W.Dev) 1 puff INHALE RDAILY [facility] Last Admin: 02/12/24 07:52 Dose: 1 puff Documented By: ROSE MARIE Heparin Sodium (Porcine) (Heparin Sodium,Porcine 5,000 Unit/Ml Vial) 5,000 unit SUBCUT Q8H [facility] Last Admin: 02/12/24 08:51 Dose: 5,000 unit Documented By: LÓPEZ Metronidazole (Flagyl) 500 mg in 100 mls @ 100 mls/hr IV Q8H [facility] Last Infusion: 02/12/24 08:59 Dose: Infused Documented By: LÓPEZ Magnesium Hydroxide (Milk Of Magnesia 30 Ml Oral.Susp) 30 ml PO DAILY PRN PRN Reason: Constipation Melatonin (Melatonin 3 Mg Tablet) 6 mg PO BEDTIME PRN PRN Reason: Insomnia Montelukast Sodium (Montelukast Sodium 10 Mg Tablet) 10 mg PO DAILY [facility] Last Admin: 02/12/24 08:51 Dose: 10 mg Documented By: LÓPEZ Ondansetron HCl (Ondansetron Hcl 4 Mg/2 Ml Vial) 4 mg IVPUSH Q6H PRN PRN Reason: Nausea and Vomiting Oxycodone HCl (Oxycodone Hcl Immed Release 5 Mg Tablet) 5 mg PO Q6H PRN PRN Reason: Pain, Moderate(Pain Scale 4-6) Risperidone (Risperidone 0.25 Mg Tablet) 0.25 mg PO BEDTIME [facility] Last Admin: 02/11/24 20:57 Dose: 0.25 mg Documented By: MERYL Risperidone (Risperidone 0.5 Mg Tablet) 0.5 mg PO DAILY [facility] Last Admin: 02/12/24 08:51 Dose: 0.5 mg Documented By: LÓPEZ Sodium Chloride (0.9 % Sodium Chloride Flush 3 Ml Syringe) 3 ml IVFLUSH QSHIFT [facility] Last Admin: 02/12/24 08:52 Dose: 3 ml Documented By: LÓPEZ Tiotropium [place] (Tiotropium [place] 2.5 Mcg 1 Puff/2.5 Mcg Mist.Inhal) 2 puff INHALE RDAILY [facility] Last Admin: 02/12/24 07:52 Dose: 2 puff Documented By: ROSE MARIE Vancomycin HCl (Vancomycin Hcl 125 Mg Capsule) 125 mg PO Q6H [facility] Last Admin: 02/12/24 06:15 Dose: 125 mg Documented By: MERYL Venlafaxine HCl (Venlafaxine Hcl Er 150 Mg Cap.Er.24h) 150 mg PO DAILY [facility] Last Admin: 02/12/24 08:51 Dose: 150 mg Documented By: LÓPEZ Labs 02/12/24 06:11 02/12/24 06:11 Labs: Laboratory Results - last 24 hr 02/07/24 02/11/24 02/12/24 16:57 16:31 06:11 MCV 90.1 MCH 31.0 MCHC 34.4 RDW 14.8 Plt Count 306 MPV 10.1 Absolute Nucleated RBC 0.000 Nucleated RBC % (auto) 0.0 Anion Gap 14 Estim Creat Clear Calc 50.5 Estimated GFR > 60 Random Glucose 105 Lactic Acid Calcium 7.9 L Magnesium 2.1 1.8 Ur Strep pneumoniae Ag Not Detected 02/12/24 11:39 MCV MCH MCHC RDW Plt Count MPV Absolute Nucleated RBC Nucleated RBC % (auto) Anion Gap Estim Creat Clear Calc Estimated GFR Random Glucose Lactic Acid 1.5 Calcium Magnesium Ur Strep pneumoniae Ag Assessment and Plan (1) C. difficile diarrhea: Status: Acute Assessment and Plan: 73-year-old female with a past medical history significant for HTN, COPD, GERD, previous smoker, who presented to the ED with 3-4 days of lightheadedness, weakness, nausea, vomiting x1 episode, diarrhea and 2 syncopal episodes 4 days ago at home. VIKI/SIRS secondary to c diff: wbc:25 , normal lactate, blood cultures neg@48hrs ,urine cultures neg renal US normal, UA negative,urine culture negative c diff +, GI panel negative. diarrhae improving, no fever tachycardia sec to dehydration/anxiety -not due to sirs or sepsis. plan: d/w iD -leucocytosis ? unclear reason (?leucomoid reacction )lactic acid normal , blood cultures repeat , ct abd added . continue vancomycin 125mg PO Q6H as well as flagyl 500 mh q8hr added monitor CBC, BMP. Hypernatremia : mild sec to gi loss improved. hypokalemia : replacement added. viki -due to dec po intake/dehydration continue ivf NAGMA-due to dirrahae -ph normal on vbg,improving with hydration. syncope epsodes-tele seems fine sofar seems likely due to hypotension /bp meds /dec po intake. HTN- Hold valsartan.bp stable COPD unspecified without acute exacerbation continue home inhalers. GERD - no PPI due to C diff infection VTE prophylaxis: Heparin ongoing need : VIKI/sirs secondary to C diff infection -need iv antibiotics and monitering of renal function/elecatrolytes ,monitering bp Quality Stroke Does the patient have a stroke diagnosis?: No VTE Prior VTE?: No VTE Risk Level:: Medical - moderate - high VTE Device Contraindication: Treatment Not Indicated VTE Drug Contraindication: N/A - Med Ordered
[2024-02-12] MEDS: Potassium Chloride ER 20 MEQ TAB.ER.PRT PO (14:47)
[2024-02-12] MEDS: Magnesium Sulfate/D5W 1 GM/100 ML PIGGYBACK IV (14:47)
[2024-02-12 16:00] VITALS: BP 129/84; PULSE 106; RESP 18; TEMP 36.7; O2SAT 92
[2024-02-12 19:51] VITALS: BP 143/92; PULSE 103; RESP 16; TEMP 37.2; O2SAT 92
[2024-02-12] MEDS: risperiDONE 0.25 MG TABLET PO (20:08)
[2024-02-13] VITALS (9 sets, daily range): BP systolic 121–148; BP diastolic 79–95; PULSE 93–108; RESP 14–20; TEMP 36.4–37.4; O2SAT 89–98
[2024-02-13 05:53] LABS: Legionella Ag Urine Not Detected (Not Detected)
[2024-02-13] MEDS: vancomycin HCL 125 MG CAPSULE PO ×4 (06:01→23:04)
[2024-02-13] MEDS: metroNIDAZOLE/NS 500 MG/100 ML PIGGYBACK 100 MG IV ×3 (06:01→20:33)
[2024-02-13] MEDS: Heparin Sodium,Porcine 5,000 UNIT/ML VIAL 5000 UNIT SUBCUT ×3 (06:04→23:04)
[2024-02-13] MEDS: Fluticasone/Vilanterol 100/25 BLST.W.DEV 1 PUFF INHALE (07:51)
[2024-02-13] MEDS: Tiotropium Bromide 2.5 mcg 1 PUFF/2.5 MCG MIST.INHAL 2 PUFF INHALE (07:51)
[2024-02-13] MEDS: Venlafaxine HCl ER 150 MG CAP.ER.24H PO (08:20)
[2024-02-13] MEDS: risperiDONE 0.5 MG TABLET PO (08:20)
[2024-02-13] MEDS: Atorvastatin Calcium 20 MG TABLET PO (08:20)
[2024-02-13] MEDS: 0.9 % Sodium Chloride Flush 3 ML SYRINGE IVFLUSH ×3 (08:20→23:10)
[2024-02-13] MEDS: Montelukast Sodium 10 MG TABLET PO (08:20)
[2024-02-13 08:36] LABS: Hematocrit 38.3 % (37.0-47.0); Hemoglobin 13.1 g/dl (12.0-16.0); Mean Corpuscular HGB Conc 34.2 g/dl (31.0-35.0); Mean Corpuscular Hemoglobin 31.3 pg (27.0-33.0); Mean Corpuscular Volume 91.4 fL (80.0-98.0); Mean Platelet Volume 9.9 fL (9.4-12.3); Platelet Count 308 X10*3/uL (160-400); Red Blood Count 4.19 X10*6/uL (4.20-5.50); Red Cell Distribution Width 14.8 % (11.0-16.0); White Blood Count 24.7 X10*3/uL (4.8-10.8)
--- NOTE | 2024-02-13 13:53 | HO.PM.IMPN ---
Subjective Subjective Date of Service: 02/14/24 Interval History: cdiff ,leucocytosis Review of Systems she does not have fever denies abd pain diarrhae improving dry cough Physical Exam Vital Signs: Vital Signs: Last Vital Signs Temp 97.7 F 02/13/24 11:43 Pulse 108 H 02/13/24 11:43 Resp 18 02/13/24 11:43 BP 121/95 H 02/13/24 11:43 Pulse Ox 89 L 02/13/24 11:43 O2 Del Method Room Air 02/13/24 11:43 O2 Flow Rate 2 02/13/24 03:50 BMI result Body Mass Index 21.7 General: AOx3, no acute distress Resp: air entry fair ,diminshed at bases. CVS: S1, S2, RRR GI: +BS, NT, no distention Skin: Warm, dry Neuro: Cranial nerves II-XII grossly intact bilaterally. Motor grossly intact bilaterally Extremities: No LE edema Objective Data Active Medications Acetaminophen (Acetaminophen 325 Mg Tablet) 975 mg PO Q6H PRN PRN Reason: Pain, Mild (Pain Scale 1-3), fever or headache Atorvastatin Calcium (Atorvastatin Calcium 20 Mg Tablet) 20 mg PO DAILY [facility] Last Admin: 02/13/24 08:20 Dose: 20 mg Documented By: LÓPEZ Calcium Carbonate (Calcium Carbonate 750 Mg Tab.Chew) 750 mg PO BID [facility] Last Admin: 02/13/24 08:28 Dose: Not Given Documented By: LÓPEZ Non-Admin Reason: Patient Refused Fluticasone/Vilanterol (Fluticasone/Vilanterol 100/25 Blst.W.Dev) 1 puff INHALE RDAILY [facility] Last Admin: 02/13/24 07:51 Dose: 1 puff Documented By: SHANEL Heparin Sodium (Porcine) (Heparin Sodium,Porcine 5,000 Unit/Ml Vial) 5,000 unit SUBCUT Q8H [facility] Last Admin: 02/13/24 06:04 Dose: 5,000 unit Documented By: PAUL Metronidazole (Flagyl) 500 mg in 100 mls @ 100 mls/hr IV Q8H [facility] Last Infusion: 02/13/24 07:18 Dose: Infused Documented By: LÓPEZ Magnesium Hydroxide (Milk Of Magnesia 30 Ml Oral.Susp) 30 ml PO DAILY PRN PRN Reason: Constipation Melatonin (Melatonin 3 Mg Tablet) 6 mg PO BEDTIME PRN PRN Reason: Insomnia Montelukast Sodium (Montelukast Sodium 10 Mg Tablet) 10 mg PO DAILY [facility] Last Admin: 02/13/24 08:20 Dose: 10 mg Documented By: LÓPEZ Ondansetron HCl (Ondansetron Hcl 4 Mg/2 Ml Vial) 4 mg IVPUSH Q6H PRN PRN Reason: Nausea and Vomiting Oxycodone HCl (Oxycodone Hcl Immed Release 5 Mg Tablet) 5 mg PO Q6H PRN PRN Reason: Pain, Moderate(Pain Scale 4-6) Risperidone (Risperidone 0.25 Mg Tablet) 0.25 mg PO BEDTIME [facility] Last Admin: 02/12/24 20:08 Dose: 0.25 mg Documented By: PAUL Risperidone (Risperidone 0.5 Mg Tablet) 0.5 mg PO DAILY [facility] Last Admin: 02/13/24 08:20 Dose: 0.5 mg Documented By: LÓPEZ Sodium Chloride (0.9 % Sodium Chloride Flush 3 Ml Syringe) 3 ml IVFLUSH QSHIFT [facility] Last Admin: 02/13/24 08:20 Dose: 3 ml Documented By: LÓPEZ Tiotropium [place] (Tiotropium [place] 2.5 Mcg 1 Puff/2.5 Mcg Mist.Inhal) 2 puff INHALE RDAILY [facility] Last Admin: 02/13/24 07:51 Dose: 2 puff Documented By: SHANEL Vancomycin HCl (Vancomycin Hcl 125 Mg Capsule) 125 mg PO Q6H [facility] Last Admin: 02/13/24 06:01 Dose: 125 mg Documented By: PAUL Venlafaxine HCl (Venlafaxine Hcl Er 150 Mg Cap.Er.24h) 150 mg PO DAILY [facility] Last Admin: 02/13/24 08:20 Dose: 150 mg Documented By: LÓPEZ Labs 02/13/24 08:22 02/12/24 06:11 Labs: Laboratory Results - last 24 hr 02/07/24 02/13/24 16:57 08:22 MCV 91.4 MCH 31.3 MCHC 34.2 RDW 14.8 Plt Count 308 MPV 9.9 Absolute Nucleated RBC 0.000 Nucleated RBC % (auto) 0.0 Ur L.pneumophila Ag Not Detected Microbiology Microbiology Results: Microbiology 02/12/24 11:39 Blood Culture - Preliminary Blood - Venous No growth after 24 hours. 02/12/24 11:39 Blood Culture - Preliminary Blood - Venous No growth after 24 hours. 02/07/24 13:28 Blood Culture - Final Blood - Venous No growth after 5 days. 02/07/24 13:29 Blood Culture - Final Blood - Venous No growth after 5 days. Assessment and Plan (1) C. difficile diarrhea: Status: Acute (2) VIKI (acute kidney injury): Status: Acute Assessment and Plan: 73-year-old female with a past medical history significant for HTN, COPD, GERD, previous smoker, who presented to the ED with 3-4 days of lightheadedness, weakness, nausea, vomiting x1 episode, diarrhea and 2 syncopal episodes 4 days ago at home. VIKI/SIRS secondary to c diff: wbc:25 , normal lactate, blood cultures neg@48hrs ,urine cultures neg renal US normal, UA negative,urine culture negative c diff +, GI panel negative. diarrhae improving, no fever tachycardia sec to dehydration/anxiety -not due to sirs or sepsis. ct abd -colitis ,? bibasilar atelactasis / infiltrate. cxr- bibasilar atelactasis / infiltrate. plan: d/w iD -leucocytosis ? unclear reason (?leucomoid reacction )lactic acid normal , blood cultures repeat , ct abd added . continue vancomycin 125mg PO Q6H as well as flagyl 500 mh q8hr , d/w id - azithromycin ,RVP. monitor CBC, BMP. Hypernatremia : mild sec to gi loss improved. hypokalemia : replacement added. viki -due to dec po intake/dehydration continue ivf NAGMA-due to dirrahae -ph normal on vbg,improving with hydration. syncope epsodes-tele seems fine sofar seems likely due to hypotension /bp meds /dec po intake. HTN- Hold valsartan.bp stable COPD unspecified without acute exacerbation continue home inhalers. GERD - no PPI due to C diff infection VTE prophylaxis: Heparin ongoing need : VIKI/sirs secondary to C diff infection -need iv antibiotics and monitering of renal function/elecatrolytes ,monitering bp Quality Stroke Does the patient have a stroke diagnosis?: No VTE Prior VTE?: No VTE Risk Level:: Medical - moderate - high VTE Device Contraindication: Treatment Not Indicated VTE Drug Contraindication: N/A - Med Ordered
[2024-02-13] MEDS: Albuterol/Iprat 2.5/0.5MG 3 ML AMPUL.NEB INHALE ×2 (15:03→19:23)
[2024-02-13] MEDS: risperiDONE 0.25 MG TABLET PO (20:32)
[2024-02-13] MEDS: Calcium Carbonate 750 MG TAB.CHEW PO (20:33)
[2024-02-14] VITALS (10 sets, daily range): BP systolic 119–164; BP diastolic 82–101; PULSE 97–129; RESP 18–24; TEMP 36.6–37.5; O2SAT 89–94
[2024-02-14] MEDS: metroNIDAZOLE/NS 500 MG/100 ML PIGGYBACK 100 MG IV ×3 (04:52→22:03)
[2024-02-14] MEDS: vancomycin HCL 125 MG CAPSULE PO ×4 (04:53→23:28)
[2024-02-14] MEDS: Venlafaxine HCl ER 150 MG CAP.ER.24H PO (07:41)
[2024-02-14] MEDS: 0.9 % Sodium Chloride Flush 3 ML SYRINGE IVFLUSH ×2 (07:41→15:13)
[2024-02-14] MEDS: Atorvastatin Calcium 20 MG TABLET PO (07:41)
[2024-02-14] MEDS: Montelukast Sodium 10 MG TABLET PO (07:41)
[2024-02-14] MEDS: risperiDONE 0.5 MG TABLET PO ×2 (07:41→13:38)
[2024-02-14] MEDS: Heparin Sodium,Porcine 5,000 UNIT/ML VIAL 5000 UNIT SUBCUT ×3 (07:41→23:28)
[2024-02-14] MEDS: Tiotropium Bromide 2.5 mcg 1 PUFF/2.5 MCG MIST.INHAL 2 PUFF INHALE (07:45)
[2024-02-14] MEDS: Albuterol/Iprat 2.5/0.5MG 3 ML AMPUL.NEB INHALE ×2 (07:45→11:19)
[2024-02-14 08:31] LABS: Hematocrit 37.9 % (37.0-47.0); Hemoglobin 12.9 g/dl (12.0-16.0); Mean Corpuscular Hemoglobin 31.2 pg (27.0-33.0); Mean Corpuscular Volume 91.8 fL (80.0-98.0); Mean Platelet Volume 9.6 fL (9.4-12.3); Platelet Count 263 X10*3/uL (160-400); Red Blood Count 4.13 X10*6/uL (4.20-5.50); White Blood Count 19.9 X10*3/uL (4.8-10.8)
[2024-02-14 08:44] LABS: Anion Gap 15 (12-20); Blood Urea Nitrogen 5 mg/dL (9-16); Calcium 7.8 mg/dL (8.4-10.2); Carbon Dioxide 22 mmol/L (22-29); Chloride 110 mmol/L (96-108); Creatinine Clr Calc Pharmacy 49.2; Estimated Glomerular Filt Rate > 60; Glucose Random 113 mg/dL (60-115); Magnesium 1.6 mg/dL (1.6-2.6); Potassium 3.2 mmol/L (3.3-5.1); Sodium 144 mmol/L (135-145)
[2024-02-14 09:47] LABS: Adenovirus PCR Not Detected (Not Detect.); Bordetella parapertussis PCR Not Detected (Not Detect.); Bordetella pertussis PCR Not Detected (Not Detect.); Chlamydia pneumoniae PCR Not Detected (Not Detect.); Coronavirus 229E PCR Not Detected (Not Detect.); Coronavirus HKU1 PCR Not Detected (Not Detect.); Coronavirus NL63 PCR Not Detected (Not Detect.); Coronavirus OC43 PCR Not Detected (Not Detect.); Human metapneumovirus PCR Not Detected (Not Detect.); Influenza A PCR Not Detected (Not Detect.); Influenza B PCR Not Detected (Not Detect.); Mycoplasma pneumoniae PCR Not Detected (Not Detect.); Parainfluenza 1 PCR Not Detected (Not Detect.); Parainfluenza 2 PCR Not Detected (Not Detect.); Parainfluenza 3 PCR Not Detected (Not Detect.); Parainfluenza 4 PCR Not Detected (Not Detect.); RSV PCR Not Detected (Not Detect.); Rhino/Enterovirus PCR Detected (Not Detect.)
[2024-02-14 09:50] LABS: SARS-CoV-2 PCR Not Detected (Not Detect.)
[2024-02-14 10:01] LABS: Atypical Lymph Absolute Manual 0.4 x10*3/uL; Atypical Lymphs Percent Manual 2 % (0-6); Band Neutrophils Percent 5 % (3-5); Basophils Abs Manual 0.2 X10*3/uL (0.0-0.2); Basophils Percent Manual 1 % (0-2); Burr Cells 1+ (0-2) /OIF; Eosinophils Absolute Manual 0.2 X10*3/uL (0.0-0.4); Eosinophils Percent Manual 1 % (0-4); Lymphocytes Absolute Manual 2.4 X10*3/uL (1.2-4.9); Lymphocytes Percent Manual 12 % (20-40); Macrocytosis 1+ (5-14) /OIF; Metamyelocytes Absolute 0.2 X10*3/uL; Metamyelocytes Percent 1 %; Monocytes Absolute Manual 1.8 X10*3/uL (0.1-1.2); Monocytes Percent Manual 9 % (2-11); Neutrophils Absolute Manual 14.7 X10*3/uL (2.0-8.3); Neutrophils Percent Manual 69 % (45-73); Platelet Estimate NORMAL (NORMAL); Platelet Morphology Comment NORMAL; RBC Morphology NOTED
[2024-02-14 10:02] LABS: Basophilic Stippling 1+ (0-2) /OIF; Polychromasia 1+ (0-2) /OIF
[2024-02-14] MEDS: Furosemide 20 MG/2 ML VIAL 10 MG IVPUSH (10:50)
[2024-02-14] MEDS: Magnesium Sulfate/D5W 1 GM/100 ML PIGGYBACK IV (10:50)
[2024-02-14] MEDS: Potassium Chloride ER 20 MEQ TAB.ER.PRT 40 MEQ PO (10:50)
[2024-02-14 13:27] LABS: Potassium 3.4 mmol/L (3.3-5.1)
[2024-02-14] MEDS: Potassium Chloride Packet 20 MEQ PACKET PO (13:42)
--- NOTE | 2024-02-14 15:00 | CA_ITS ---
Transthoracic Echocardiogram Patient (Last, First, Middle): Kelly Sampson L Gender: Female Date of : 1950 Age: 73 Procedure Date: 02/14/2024 Procedure Type: Transthoracic Echocardiogram Location: [facility] [place] Height: 154.94 cm Weight: 51.71 kg BSA: 1.49 m2 Heart Rate: bpm BP: 128 / 60 mmHg [employer]: Referring MD: Monica Metzger MD Symptoms: persistent tachy cardia and pleural effusion-? CMp Study Quality: Adequate ECG Rhythm: Sinus tachycardia Conclusions: - The left ventricular systolic function is mildly decreased. The calculated ejection fraction is 46% by biplane method. - The inferolateral wall, the basal inferior, mid inferior, mid inferoseptal, and basal anteroseptal segments are hypokinetic. - No obvious valvular pathology seen on this study. Findings Left Ventricle Normal left ventricular cavity size. There is normal left ventricular wall thickness. The left ventricular systolic function is mildly decreased. The calculated ejection fraction is 46% by biplane method. There is evidence of regional wall motion abnormalities. Evidence suggests grade I (mild) diastolic dysfunction. Wall Motion Rest Echo Findings The inferolateral wall, the basal inferior, mid inferior, mid inferoseptal, and basal anteroseptal segments are hypokinetic. Right Ventricle Normal right ventricular cavity size and systolic function. Atria Both atria are normal in size. Aortic Valve The aortic valve was not well visualized. There is no aortic valve stenosis. There is trace (trivial) aortic valve regurgitation. Mitral Valve The mitral valve appears normal. There is no mitral valve regurgitation. There is no mitral valve stenosis. Pulmonic Valve The pulmonic valve is likely normal. Tricuspid Valve There is mild tricuspid valve regurgitation. Mild pulmonary hypertension is present. Great Vessels The aorta was not well visualized. The sinuses of valsalva is normal in size. Venous The inferior vena cava is normal in size and collapses greater than 50% with inspiration. Pericardium/Pleural There is no evidence of pericardial effusion. Prior Study Comparison Changes noted compared to prior study dated: 01/28/2022. see comments on LVEF/wall motion. Recommendations, Care & Conclusions No obvious valvular pathology seen on this study. Measurements 2D Linear Measurements IVSd: 0.86 0.6-0.9/0.6-1.0 cm LVIDd: 3.91 3.9-5.3/4.2-5.9 cm LVIDd Index: 2.62 2.4-3.2/2.2-3.1 cm/m2 LVIDs: 2.74 2.0-3.6 cm LVPWd: 0.82 0.7-1.1 cm Ao Root: 3.20 2.1-3.5 cm LA Diam: 2.90 2.7-3.8/3.0-4.0 cm LAIDs Index: 1.95 1.5-2.3 cm/m2 LV Mass: 119.50 67-162/88-224 g LV Mass Index: 80.20 43-95/49-115 g/m2 LVOT Diam: 1.90 3.0+(-)1.3 cm 2D Systolic Function EF 4C: 45.60 >55% EF 2C: 46.30 >55% EF BiP: 46.20 >55% Mitral Valve MV Pk E: 0.63 MV PK A: 1.08 MV Decel Time: 102.00 E/A: 0.60 E'Lateral: 6.53 E'Medial: 5.87 E/E' Med: 10.70 E/E' Lat: 9.60 PHT: 30.00 MVA PHT: 7.33 Decel [place]: 6.15 Aortic Valve AoV Pk Asaf: 1.46 AoV Mn Asaf: 1.01 AoV VTI: 0.28 AoV Pk Grad: 9.00 Aov Mn Grad: 5.00 TJ Cont.VTI: 1.84 LVOT LVOT Pk Asaf: 0.93 LVOT Mn Asaf: 0.58 LVOT VTI: 0.18 LVOT Pk Grad: 3.00 LVOT Mn Grad: 2.00 LVOT Diam: 1.90 LVOT Area: 2.84 Diastolic Function MV Pk E: 0.63 MV Pk A: 1.08 E/A: 0.60 E'Medial: 5.87 E/E' Med: 10.70 E' Laterial: 6.53 E/E' Lat: 9.60 Right Ventricle TAPSE (mm): 26.00 Tricuspid Valve TR Pk Asaf: 3.26 TR Pk Grad: 43.00 RA Press: 3.00 RVSP: 46.00 Great Vessels Aorta Ao Root-2D: 3.20 2.0-3.7 cm Pulmonary Valve PV Pk Asaf: 1.05 Peak PV Grad: 4.00 Updated in Other Vendor System with Status of Final Ronald Schneider MD electronically signed on 02/15/2024 10:03:50 AM with status of Final
--- NOTE | 2024-02-14 15:39 | HO.PM.IMPN ---
Subjective Subjective Date of Service: 02/14/24 Interval History: tachycardia ,mild pna ,pleural effusions Review of Systems sob seems improving diarrhae improvin anxious no fevers Physical Exam Vital Signs: Vital Signs: Last Vital Signs Temp 100.3 F 02/14/24 15:33 Pulse 118 H 02/14/24 15:33 Resp 22 H 02/14/24 15:33 BP 114/75 02/14/24 15:33 Pulse Ox 94 02/14/24 15:33 O2 Del Method Nasal Cannula 02/14/24 11:48 O2 Flow Rate 2 02/14/24 11:48 BMI result Body Mass Index 21.7 General: AOx3, no acute distress Resp: air entry fair ,diminshed at bases. CVS: S1, S2, RRR, tachy GI: +BS, NT, no distention Skin: Warm, dry Neuro: Cranial nerves II-XII grossly intact bilaterally. Motor grossly intact bilaterally Extremities: No LE edema Objective Data Active Medications Acetaminophen (Acetaminophen 325 Mg Tablet) 975 mg PO Q6H PRN PRN Reason: Pain, Mild (Pain Scale 1-3), fever or headache Albuterol/Ipratropium (Albuterol/Iprat 2.5/0.5mg 3 Ml Ampul.Neb) 3 ml INHALE RQ4H WHILE AWAKE [facility] Last Admin: 02/14/24 11:19 Dose: 3 ml Documented By: ZE Atorvastatin Calcium (Atorvastatin Calcium 20 Mg Tablet) 20 mg PO DAILY [facility] Last Admin: 02/14/24 07:41 Dose: 20 mg Documented By: HINA Calcium Carbonate (Calcium Carbonate 750 Mg Tab.Chew) 750 mg PO BID [facility] Last Admin: 02/14/24 07:41 Dose: Not Given Documented By: HINA Non-Admin Reason: Patient Refused Fluticasone/Vilanterol (Fluticasone/Vilanterol 100/25 Blst.W.Dev) 1 puff INHALE RDAILY [facility] Last Admin: 02/13/24 07:51 Dose: 1 puff Documented By: SHANEL Heparin Sodium (Porcine) (Heparin Sodium,Porcine 5,000 Unit/Ml Vial) 5,000 unit SUBCUT Q8H [facility] Last Admin: 02/14/24 15:12 Dose: 5,000 unit Documented By: RAMON Metronidazole (Flagyl) 500 mg in 100 mls @ 100 mls/hr IV Q8H [facility] Last Admin: 02/14/24 15:12 Dose: 100 mls/hr Documented By: RAMON Azithromycin 500 mg/ Sodium (Chloride) 250 mls @ 125 mls/hr IV Q24H [facility] Magnesium Hydroxide (Milk Of Magnesia 30 Ml Oral.Susp) 30 ml PO DAILY PRN PRN Reason: Constipation Melatonin (Melatonin 3 Mg Tablet) 6 mg PO BEDTIME PRN PRN Reason: Insomnia Montelukast Sodium (Montelukast Sodium 10 Mg Tablet) 10 mg PO DAILY [facility] Last Admin: 02/14/24 07:41 Dose: 10 mg Documented By: HINA Ondansetron HCl (Ondansetron Hcl 4 Mg/2 Ml Vial) 4 mg IVPUSH Q6H PRN PRN Reason: Nausea and Vomiting Oxycodone HCl (Oxycodone Hcl Immed Release 5 Mg Tablet) 5 mg PO Q6H PRN PRN Reason: Pain, Moderate(Pain Scale 4-6) Risperidone (Risperidone 0.25 Mg Tablet) 0.25 mg PO BEDTIME [facility] Last Admin: 02/13/24 20:32 Dose: 0.25 mg Documented By: JAYCOB Risperidone (Risperidone 0.5 Mg Tablet) 0.5 mg PO DAILY [facility] Last Admin: 02/14/24 07:41 Dose: 0.5 mg Documented By: HINA Sodium Chloride (0.9 % Sodium Chloride Flush 3 Ml Syringe) 3 ml IVFLUSH QSHIFT [facility] Last Admin: 02/14/24 15:13 Dose: 3 ml Documented By: RAMON Tiotropium [place] (Tiotropium [place] 2.5 Mcg 1 Puff/2.5 Mcg Mist.Inhal) 2 puff INHALE RDAILY [facility] Last Admin: 02/14/24 07:45 Dose: 2 puff Documented By: ZE Vancomycin HCl (Vancomycin Hcl 125 Mg Capsule) 125 mg PO Q6H [facility] Last Admin: 02/14/24 12:28 Dose: 125 mg Documented By: HINA Venlafaxine HCl (Venlafaxine Hcl Er 150 Mg Cap.Er.24h) 150 mg PO DAILY [facility] Last Admin: 02/14/24 07:41 Dose: 150 mg Documented By: HINA Labs 02/14/24 08:19 02/14/24 13:09 Labs: Laboratory Results - last 24 hr 02/14/24 02/14/24 04:55 08:19 MCV 91.8 MCH 31.2 MCHC 34.0 RDW 15.0 Plt Count 263 MPV 9.6 Absolute Nucleated RBC 0.000 Nucleated RBC % (auto) 0.0 Neutrophils % (Manual) 69 Band Neutrophils % 5 Lymphocytes % (Manual) 12 L Atypical Lymphs % (Man) 2 Monocytes % (Manual) 9 Eosinophils % (Manual) 1 Basophils % (Manual) 1 Metamyelocytes % 1 Abs Neuts (Manual) 14.7 H Lymphocytes # (Manual) 2.4 Atyp Lymphs # (Manual) 0.4 Monocytes # (Manual) 1.8 H Eosinophils # (Manual) 0.2 Basophils # (Manual) 0.2 Metamyelocytes # 0.2 Platelet Estimate NORMAL Plt Morphology Comment NORMAL RBC Morphology NOTED Polychromasia 1+ (0-2) Basophilic Stippling 1+ (0-2) Macrocytosis 1+ (5-14) [place] Cells 1+ (0-2) Anion Gap 15 Estim Creat Clear Calc 49.2 Estimated GFR > 60 Random Glucose 113 Calcium 7.8 L Magnesium 1.6 Respiratory Panel Rodríguez See Note Adenovirus (Rapid PCR) Not Detected B.pert (TEM-PCR) Not Detected B.parapertussis DNA PCR Not Detected C. pneumoniae DNA (PCR) Not Detected Coronavirus OC43 (PCR) Not Detected Coronavirus HKU1 (PCR) Not Detected Coronavirus 229E (PCR) Not Detected Coronavirus NL63 (PCR) Not Detected Human Metapneumovir PCR Not Detected Influenza A (RT-PCR) Not Detected Influenza B (RT-PCR) Not Detected M. pneumoniae (PCR) Not Detected Parainfluenza 1 (PCR) Not Detected Parainfluenza 2 (PCR) Not Detected Parainfluenza 3 (PCR) Not Detected Parainfluenza 4 (PCR) Not Detected RSV (PCR) Not Detected Entero/Rhino (PCR) Detected A SARS-CoV-2 RNA (RT-PCR) Not Detected Microbiology Microbiology Results: Microbiology 02/12/24 11:39 Blood Culture - Preliminary Blood - Venous No growth after 48 hours. 02/12/24 11:39 Blood Culture - Preliminary Blood - Venous No growth after 48 hours. Assessment and Plan (1) C. difficile diarrhea: Status: Acute (2) VIKI (acute kidney injury): Status: Acute Assessment and Plan: 73-year-old female with a past medical history significant for HTN, COPD, GERD, previous smoker, who presented to the ED with 3-4 days of lightheadedness, weakness, nausea, vomiting x1 episode, diarrhea and 2 syncopal episodes 4 days ago at home. VIKI/SIRS secondary to c diff/uri/mild cap : wbc:25-19 , normal lactate, blood cultures neg@48hrs ,urine cultures neg renal US normal, UA negative,urine culture negative c diff +, GI panel negative. diarrhae improving, no fever tachycardia sec to dehydration/anxiety -not due to sirs or sepsis. ct abd -colitis ,? bibasilar atelactasis / infiltrate. cxr- bibasilar atelactasis / infiltrate, pleural effusions. rvp-positive for netro/rhino virus plan: d/w iD -leucocytosis ? unclear reason (?leucomoid reacction )lactic acid normal , blood cultures repeat , ct abd added . continue vancomycin 125mg PO Q6H as well as flagyl 500 mh q8hr( intiated 02/08/24) ,azithromycin 500 mg qd ( intiated on 02/13/24). ID follow up for duration of antibitics -shantal need vanco 125 mg for 8 more days monitor CBC, BMP. tachycardia unclear etiology-may be multifactorial( deconditioning ,anxiety ,dehydration due to diarrhae ) intially came with syncope , also has pleural effusion added pulm perfusion scan /echo moniter on tele Hypernatremia : mild sec to gi loss improved. hypokalemia : replacement added. viki -due to dec po intake/dehydration continue ivf NAGMA-due to dirrahae -ph normal on vbg,improving with hydration. syncope epsodes-tele seems fine sofar seems likely due to hypotension /bp meds /dec po intake. HTN- Hold valsartan.bp stable COPD unspecified without acute exacerbation continue home inhalers. GERD - no PPI due to C diff infection VTE prophylaxis: Heparin ongoing need : VIKI/sirs secondary to C diff infection -need iv antibiotics and monitering of renal function/elecatrolytes ,monitering bp, tele -need echo/oulm perfusion scan Quality Stroke Does the patient have a stroke diagnosis?: No VTE Prior VTE?: No VTE Risk Level:: Medical - moderate - high VTE Device Contraindication: Treatment Not Indicated VTE Drug Contraindication: N/A - Med Ordered
[2024-02-14] MEDS: Azithromycin 500 MG in 0.9 % Sodium Chloride 250 ML 125 MG IV (16:27)
[2024-02-14] MEDS: risperiDONE 0.25 MG TABLET PO (20:32)
[2024-02-15] VITALS (11 sets, daily range): BP systolic 110–140; BP diastolic 78–90; PULSE 98–121; RESP 18–20; TEMP 36.3–36.8; O2SAT 91–98
[2024-02-15 06:17] LABS: Hematocrit 36.4 % (37.0-47.0); Hemoglobin 12.3 g/dl (12.0-16.0); Mean Corpuscular HGB Conc 33.8 g/dl (31.0-35.0); Mean Corpuscular Hemoglobin 31.2 pg (27.0-33.0); Mean Corpuscular Volume 92.4 fL (80.0-98.0); Mean Platelet Volume 10.4 fL (9.4-12.3); Platelet Count 261 X10*3/uL (160-400); Red Blood Count 3.94 X10*6/uL (4.20-5.50); Red Cell Distribution Width 15.3 % (11.0-16.0); White Blood Count 19.9 X10*3/uL (4.8-10.8)
[2024-02-15] MEDS: metroNIDAZOLE/NS 500 MG/100 ML PIGGYBACK 100 MG IV ×3 (06:25→23:30)
[2024-02-15] MEDS: vancomycin HCL 125 MG CAPSULE PO ×3 (06:26→17:08)
[2024-02-15] MEDS: Heparin Sodium,Porcine 5,000 UNIT/ML VIAL 5000 UNIT SUBCUT ×3 (06:26→23:30)
[2024-02-15 06:38] LABS: Anion Gap 16 (12-20); Blood Urea Nitrogen 5 mg/dL (9-16); Calcium 7.9 mg/dL (8.4-10.2); Carbon Dioxide 22 mmol/L (22-29); Chloride 108 mmol/L (96-108); Creatinine Clr Calc Pharmacy 49.2; Estimated Glomerular Filt Rate > 60; Glucose Random 139 mg/dL (60-115); Magnesium 1.6 mg/dL (1.6-2.6); Potassium 3.6 mmol/L (3.3-5.1); Sodium 142 mmol/L (135-145)
[2024-02-15] MEDS: Albuterol/Iprat 2.5/0.5MG 3 ML AMPUL.NEB INHALE ×4 (07:41→19:23)
[2024-02-15] MEDS: Tiotropium Bromide 2.5 mcg 1 PUFF/2.5 MCG MIST.INHAL 2 PUFF INHALE (07:41)
[2024-02-15] MEDS: Montelukast Sodium 10 MG TABLET PO (07:50)
[2024-02-15] MEDS: Atorvastatin Calcium 20 MG TABLET PO (07:50)
[2024-02-15] MEDS: Venlafaxine HCl ER 150 MG CAP.ER.24H PO (07:50)
[2024-02-15] MEDS: risperiDONE 0.5 MG TABLET PO (07:50)
[2024-02-15] MEDS: 0.9 % Sodium Chloride Flush 3 ML SYRINGE IVFLUSH ×3 (07:51→23:38)
[2024-02-15] MEDS: Azithromycin 500 MG in 0.9 % Sodium Chloride 250 ML 125 MG IV (17:09)
--- NOTE | 2024-02-15 17:57 | HO.PM.IMPN ---
Subjective Subjective Date of Service: 02/15/24 Interval History: f/u on cdif, tachycardia, renal failure persistent tachycardia, etiology unclear Physical Exam Vital Signs: Vital Signs: Last Vital Signs Temp 97.4 F 02/15/24 15:38 Pulse 121 H 02/15/24 15:38 Resp 18 02/15/24 15:38 BP 133/90 H 02/15/24 15:38 Pulse Ox 94 02/15/24 15:38 O2 Del Method Nasal Cannula 02/15/24 15:38 O2 Flow Rate 2 02/15/24 15:38 BMI result Body Mass Index 21.7 General: AOx3, no acute distress Resp: air entry fair ,diminshed at bases. CVS: S1, S2, RRR, tachy GI: +BS, NT, no distention Skin: Warm, dry Neuro: Cranial nerves II-XII grossly intact bilaterally. Motor grossly intact bilaterally Extremities: No LE edema Objective Data Active Medications Acetaminophen (Acetaminophen 325 Mg Tablet) 975 mg PO Q6H PRN PRN Reason: Pain, Mild (Pain Scale 1-3), fever or headache Albuterol/Ipratropium (Albuterol/Iprat 2.5/0.5mg 3 Ml Ampul.Neb) 3 ml INHALE RQ4H WHILE AWAKE [facility] Last Admin: 02/15/24 15:25 Dose: 3 ml Documented By: LUIS Atorvastatin Calcium (Atorvastatin Calcium 20 Mg Tablet) 20 mg PO DAILY [facility] Last Admin: 02/15/24 07:50 Dose: 20 mg Documented By: LÓPEZ Calcium Carbonate (Calcium Carbonate 750 Mg Tab.Chew) 750 mg PO BID [facility] Last Admin: 02/15/24 11:43 Dose: Not Given Documented By: LÓPEZ Non-Admin Reason: Patient Refused Fluticasone/Vilanterol (Fluticasone/Vilanterol 100/25 Blst.W.Dev) 1 puff INHALE RDAILY [facility] Last Admin: 02/13/24 07:51 Dose: 1 puff Documented By: SHANEL Heparin Sodium (Porcine) (Heparin Sodium,Porcine 5,000 Unit/Ml Vial) 5,000 unit SUBCUT Q8H [facility] Last Admin: 02/15/24 17:09 Dose: 5,000 unit Documented By: LÓPEZ Metronidazole (Flagyl) 500 mg in 100 mls @ 100 mls/hr IV Q8H [facility] Last Admin: 02/15/24 17:12 Dose: 100 mls/hr Documented By: LÓPEZ Azithromycin 500 mg/ Sodium (Chloride) 250 mls @ 125 mls/hr IV Q24H [facility] Last Admin: 02/15/24 17:09 Dose: 125 mls/hr Documented By: LÓPEZ Magnesium Hydroxide (Milk Of Magnesia 30 Ml Oral.Susp) 30 ml PO DAILY PRN PRN Reason: Constipation Melatonin (Melatonin 3 Mg Tablet) 6 mg PO BEDTIME PRN PRN Reason: Insomnia Montelukast Sodium (Montelukast Sodium 10 Mg Tablet) 10 mg PO DAILY [facility] Last Admin: 02/15/24 07:50 Dose: 10 mg Documented By: LÓPEZ Ondansetron HCl (Ondansetron Hcl 4 Mg/2 Ml Vial) 4 mg IVPUSH Q6H PRN PRN Reason: Nausea and Vomiting Oxycodone HCl (Oxycodone Hcl Immed Release 5 Mg Tablet) 5 mg PO Q6H PRN PRN Reason: Pain, Moderate(Pain Scale 4-6) Risperidone (Risperidone 0.25 Mg Tablet) 0.25 mg PO BEDTIME [facility] Last Admin: 02/14/24 20:32 Dose: 0.25 mg Documented By: JAYCOB Risperidone (Risperidone 0.5 Mg Tablet) 0.5 mg PO DAILY [facility] Last Admin: 02/15/24 07:50 Dose: 0.5 mg Documented By: LÓPEZ Sodium Chloride (0.9 % Sodium Chloride Flush 3 Ml Syringe) 3 ml IVFLUSH QSHIFT [facility] Last Admin: 02/15/24 17:12 Dose: 3 ml Documented By: LÓPEZ Tiotropium [place] (Tiotropium [place] 2.5 Mcg 1 Puff/2.5 Mcg Mist.Inhal) 2 puff INHALE RDAILY [facility] Last Admin: 02/15/24 07:41 Dose: 2 puff Documented By: LUIS Vancomycin HCl (Vancomycin Hcl 125 Mg Capsule) 125 mg PO Q6H [facility] Last Admin: 02/15/24 17:08 Dose: 125 mg Documented By: LÓPEZ Venlafaxine HCl (Venlafaxine Hcl Er 150 Mg Cap.Er.24h) 150 mg PO DAILY [facility] Last Admin: 02/15/24 07:50 Dose: 150 mg Documented By: LÓPEZ Labs 02/15/24 05:35 02/15/24 05:35 Labs: Laboratory Results - last 24 hr 02/15/24 05:35 MCV 92.4 MCH 31.2 MCHC 33.8 RDW 15.3 Plt Count 261 MPV 10.4 Absolute Nucleated RBC 0.000 Nucleated RBC % (auto) 0.0 Anion Gap 16 Estim Creat Clear Calc 49.2 Estimated GFR > 60 Random Glucose 139 H Calcium 7.9 L Magnesium 1.6 Microbiology Microbiology Results: Microbiology 02/12/24 11:39 Blood Culture - Preliminary Blood - Venous No growth after 48 hours. 02/12/24 11:39 Blood Culture - Preliminary Blood - Venous No growth after 48 hours. Assessment and Plan (1) C. difficile diarrhea: Status: Acute (2) VIKI (acute kidney injury): Status: Acute Assessment and Plan: 73-year-old female with a past medical history significant for HTN, COPD, GERD, previous smoker, who presented to the ED with 3-4 days of lightheadedness, weakness, nausea, vomiting x1 episode, diarrhea and 2 syncopal episodes 4 days ago at home. VIKI likely pre renal--resolve. C dif--continue PO vanco Tachycardia--? fluid depletion -IVF and reassess, and if needed get cardiology consult tachycardia unclear etiology-may be multifactorial( deconditioning ,anxiety ,dehydration due to diarrhae ) intially came with syncope , also has pleural effusion added pulm perfusion scan /echo moniter on tele Hypernatremia : mild sec to gi loss improved. hypokalemia related to diarrhea, replaced and resolved. syncope -likely related to dehydration HTN- Hold valsartan.bp stable COPD unspecified without acute exacerbation continue home inhalers. GERD - no PPI due to C diff infection VTE prophylaxis: Heparin Quality Stroke Does the patient have a stroke diagnosis?: No VTE Prior VTE?: No VTE Risk Level:: Medical - moderate - high VTE Device Contraindication: Treatment Not Indicated VTE Drug Contraindication: N/A - Med Ordered
[2024-02-15] MEDS: Lactated Ringers 1,000 ML 80 ML IVCONT (20:10)
[2024-02-15] MEDS: risperiDONE 0.25 MG TABLET PO (20:11)
[2024-02-16] MEDS: vancomycin HCL 125 MG CAPSULE PO ×3 (00:17→13:34)
[2024-02-16 03:38] VITALS: BP 156/82; PULSE 119; RESP 20; TEMP 36.3; O2SAT 92
[2024-02-16] MEDS: metroNIDAZOLE/NS 500 MG/100 ML PIGGYBACK 100 MG IV (05:52)
[2024-02-16 07:09] VITALS: BP 135/90; PULSE 111; RESP 18; TEMP 36.2; O2SAT 93
[2024-02-16] MEDS: Albuterol/Iprat 2.5/0.5MG 3 ML AMPUL.NEB INHALE (07:34)
[2024-02-16 07:37] VITALS: PULSE 110; RESP 16; O2SAT 92
[2024-02-16] MEDS: Montelukast Sodium 10 MG TABLET PO (07:51)
[2024-02-16] MEDS: Venlafaxine HCl ER 150 MG CAP.ER.24H PO (07:51)
[2024-02-16] MEDS: risperiDONE 0.5 MG TABLET PO (07:51)
[2024-02-16] MEDS: Calcium Carbonate 750 MG TAB.CHEW PO (07:51)
[2024-02-16] MEDS: Atorvastatin Calcium 20 MG TABLET PO (07:51)
[2024-02-16] MEDS: Heparin Sodium,Porcine 5,000 UNIT/ML VIAL 5000 UNIT SUBCUT (07:51)
[2024-02-16] MEDS: 0.9 % Sodium Chloride Flush 3 ML SYRINGE IVFLUSH (07:57)
[2024-02-16] MEDS: Tiotropium Bromide 2.5 mcg 1 PUFF/2.5 MCG MIST.INHAL 2 PUFF INHALE (08:01)
--- NOTE | 2024-02-16 08:52 | P.PNIM_ITS ---
Subjective Subjective Date of Service: 02/16/24 Interval History: She is feeling better and would like to go home tachycardia perists but better Physical Exam 2 Vital Signs: Vital Signs: Last Vital Signs Temp 97.1 F 02/16/24 07:09 Pulse 110 H 02/16/24 07:37 Resp 16 02/16/24 07:37 BP 135/90 H 02/16/24 07:09 Pulse Ox 93 02/16/24 07:09 O2 Del Method Nasal Cannula 02/16/24 07:09 O2 Flow Rate 2 02/16/24 07:09 BMI result Body Mass Index 21.7 General: AO X 3, no acute distress Resp: CTA bilateral CVS: S1,S2,RRR GI: +BS, NT, no distention Skin: No rash Neuro: motor grossly intact Psych: appropriate affect Objective Data Active Medications Acetaminophen (Acetaminophen 325 Mg Tablet) 975 mg PO Q6H PRN PRN Reason: Pain, Mild (Pain Scale 1-3), fever or headache Atorvastatin Calcium (Atorvastatin Calcium 20 Mg Tablet) 20 mg PO DAILY [facility] Last Admin: 02/16/24 07:51 Dose: 20 mg Documented By: LÓPEZ Calcium Carbonate (Calcium Carbonate 750 Mg Tab.Chew) 750 mg PO BID [facility] Last Admin: 02/16/24 07:51 Dose: 750 mg Documented By: LÓPEZ Fluticasone/Vilanterol (Fluticasone/Vilanterol 100/25 Blst.W.Dev) 1 puff INHALE RDAILY [facility] Last Admin: 02/13/24 07:51 Dose: 1 puff Documented By: SHANEL Heparin Sodium (Porcine) (Heparin Sodium,Porcine 5,000 Unit/Ml Vial) 5,000 unit SUBCUT Q8H [facility] Last Admin: 02/16/24 07:51 Dose: 5,000 unit Documented By: LÓPEZ Metronidazole (Flagyl) 500 mg in 100 mls @ 100 mls/hr IV Q8H [facility] Last Infusion: 02/16/24 07:34 Dose: Infused Documented By: LÓPEZ Azithromycin 500 mg/ Sodium (Chloride) 250 mls @ 125 mls/hr IV Q24H [facility] Last Infusion: 02/15/24 20:21 Dose: Infused Documented By: RAFIA Magnesium Hydroxide (Milk Of Magnesia 30 Ml Oral.Susp) 30 ml PO DAILY PRN PRN Reason: Constipation Melatonin (Melatonin 3 Mg Tablet) 6 mg PO BEDTIME PRN PRN Reason: Insomnia Montelukast Sodium (Montelukast Sodium 10 Mg Tablet) 10 mg PO DAILY [facility] Last Admin: 02/16/24 07:51 Dose: 10 mg Documented By: LÓPEZ Ondansetron HCl (Ondansetron Hcl 4 Mg/2 Ml Vial) 4 mg IVPUSH Q6H PRN PRN Reason: Nausea and Vomiting Oxycodone HCl (Oxycodone Hcl Immed Release 5 Mg Tablet) 5 mg PO Q6H PRN PRN Reason: Pain, Moderate(Pain Scale 4-6) Risperidone (Risperidone 0.25 Mg Tablet) 0.25 mg PO BEDTIME [facility] Last Admin: 02/15/24 20:11 Dose: 0.25 mg Documented By: RAFIA Risperidone (Risperidone 0.5 Mg Tablet) 0.5 mg PO DAILY [facility] Last Admin: 02/16/24 07:51 Dose: 0.5 mg Documented By: LÓPEZ Sodium Chloride (0.9 % Sodium Chloride Flush 3 Ml Syringe) 3 ml IVFLUSH QSHIFT [facility] Last Admin: 02/16/24 07:57 Dose: 3 ml Documented By: LÓPEZ Tiotropium [place] (Tiotropium [place] 2.5 Mcg 1 Puff/2.5 Mcg Mist.Inhal) 2 puff INHALE RDAILY [facility] Last Admin: 02/16/24 08:01 Dose: 2 puff Documented By: GONZALEZ Vancomycin HCl (Vancomycin Hcl 125 Mg Capsule) 125 mg PO Q6H [facility] Last Admin: 02/16/24 05:52 Dose: 125 mg Documented By: RAFIA Venlafaxine HCl (Venlafaxine Hcl Er 150 Mg Cap.Er.24h) 150 mg PO DAILY [facility] Last Admin: 02/16/24 07:51 Dose: 150 mg Documented By: LÓPEZ Labs 02/15/24 05:35 02/15/24 05:35 Assessment and Plan (1) C. difficile diarrhea: Status: Acute (2) VIKI (acute kidney injury): Status: Acute Assessment and Plan: 73-year-old female with a past medical history significant for HTN, COPD, GERD, previous smoker, who presented to the ED with 3-4 days of lightheadedness, weakness, nausea, vomiting x1 episode, diarrhea and 2 syncopal episodes 4 days ago at home. VIKI likely pre renal--resolve. C dif--continue PO vanco Tachycardia--? fluid depletion vs albuterol -IVF and reassess, and if needed get cardiology consult Hypernatremia : hypokalemia related to diarrhea, replaced and resolved. syncope -likely related to dehydration HTN-valsartan on old COPD --stop albuterol GERD - no PPI due to C diff infection VTE prophylaxis: Heparin Quality Stroke Does the patient have a stroke diagnosis?: No VTE Prior VTE?: No VTE Risk Level:: Medical - moderate - high VTE Device Contraindication: Treatment Not Indicated VTE Drug Contraindication: N/A - Med Ordered
--- NOTE | 2024-02-16 09:47 | PM.DS ---
DS: Providers Provider Date of Service: 02/16/24 Date of admission: 02/07/24 22:39 Date of discharge: 02/16/24 Primary care physician: Alok Guallpa MD Consults: 02/07/24 23:12 Consult to Infectious Diseases Routine Consulting Provider: [facility] [place] [facility] Reason for consultation: c diff Has provider been notified: No 02/16/24 07:12 Consult to Cardiology Routine Consulting Provider: [facility] [place] [facility] Reason for consultation: unexplained tachycardia Has provider been notified: Yes DS: Diagnosis Discharge Diagnosis (1) C. difficile diarrhea: Status: Acute (2) VIKI (acute kidney injury): Status: Acute DS: Summary Hospital Course Hospital Course: admission hpi Chief Complaint: Diarrhea, vomiting, poor p.o. intake Patient is a 73-year-old female with a past medical history significant for HTN, COPD, GERD, previous smoker, who presented to the ED with 3-4 days of lightheadedness, weakness, nausea, vomiting x1 episode, diarrhea and 2 syncopal episodes 4 days ago at home. She reports loose watery diarrhea, brown, no hematochezia. Episodes occur multiple times a day if she has anything to eat or drink. She has not been able to tolerate much by mouth due to her symptoms. She reported 2 episodes of dizziness and syncope a few days ago prior to the diarrheal illness beginning. She now has lightheadedness with exertion. She also reports recent fever, chills, runny nose, sore throat and productive cough but has not been able to bring up the sputum. She reports that her is being treated currently for an upper respiratory infection. hospital course: The patient was admitted for the management of C. difficile-associated diarrhea, which caused dehydration and hypokalemia. She has been treated with vancomycin and has responded well, with her WBC trending down. Diarrhea has significantly reduced. She will complete a 14-day course of vancomycin. VIKI pre renal due to diarrhea, Creatine was 3.75 and now 0.79 Hypernatermia--mild d/t diarrhea, resolved. Hypokalemia--d/t diarrhea, repleted and resolved syncope -likely related to dehydration from diarrrhea, no arrythmia noted, HTN-valsartan has been on hold. Can resume upon discharge given no further diarrhea, and no renal failure COPD --no exacerbation, was on albuterol in the hospital which may have caused tachycardia GERD - no PPI due to C diff infection Time Attestation Discharge Coordination Time (in mins): 45 Quality: Safe Use of Opioids Does Pt have an Active Cancer Diagnosis on the Problem List?: No Quality: Stroke Does the patient have a stroke diagnosis?: No Physical Exam Vital Signs: Vital Signs: Last Vital Signs Temp 97.1 F 02/16/24 07:09 Pulse 110 H 02/16/24 07:37 Resp 16 02/16/24 07:37 BP 135/90 H 02/16/24 07:09 Pulse Ox 93 02/16/24 07:09 O2 Del Method Nasal Cannula 02/16/24 07:09 O2 Flow Rate 2 02/16/24 07:09 BMI result Body Mass Index 21.7 Const: Other: General: AO X 3, no acute distress Resp: CTA bilateral CVS: S1,S2,RRR GI: +BS, NT, no distention Skin: No rash Neuro: motor grossly intact Psych: appropriate affect DS: Data Data Completed and Pending Labs on day of discharge: Preliminary micro results at discharge 02/12/24 11:39 Blood Culture - Preliminary Blood - Venous No growth after 48 hours. 02/12/24 11:39 Blood Culture - Preliminary Blood - Venous No growth after 48 hours. Discharge Plan Discharge Anticipated Discharge Date/Time: 02/14/24 11:11 Patient Disposition: Home, Self-Care Discharge Diagnosis: c diff diarrhae ,viki ,electrolytic abnormalities ,possible mild pneumonia . Referrals: Alok Guallpa MD [Primary Care Provider] - 1 Week Discharge Medications: New vancomycin 125 mg Capsule 125 mg PO Q6H Qty: 28 0RF potassium chloride 10 mEq capsule, extended release 10 meq PO DAILY Qty: 7 0RF magnesium glycinate 100 mg magnesium capsule 100 mg PO DAILY Qty: 10 0RF azithromycin 250 mg Tablet 250 mg PO Q24H Qty: 3 0RF Rx Instructions: next dose tomorrow Continued atorvastatin 20 mg tablet 20 mg PO DAILY alendronate 70 mg tablet 70 mg PO SA venlafaxine 150 mg capsule,extended release 24hr 150 mg PO DAILY valsartan 80 mg tablet 80 mg PO DAILY montelukast 10 mg tablet 10 mg PO DAILY risperidone 0.5 mg tablet 1 tab PO DAILY fluticasone furoate-vilanterol [Breo Ellipta] 100-25 mcg/dose Blister With Device 1 ea inhalation RDAILY Qty: 60 0RF Spiriva Respimat 2.5 mcg/actuation mist 2 puff inhalation DAILY risperidone 0.5 mg tablet 0.25 mg PO BEDTIME (DME) Oxygen Home Use Kit See Rx Instructions .ROUTE Rx Instructions: As directed Discharge Orders: Discharge Order (Routine); Ordered 02/16/24 Ordered By: Ludwig Brown Diet: Advance to usual diet Activity on Discharge: As tolerated Stand Alone Forms: Patient Portal Discharge page Print Language: Portuguese Care Plan Goals: recovery from cdif Health Concerns: cdif tachycardia pneumonia Plan of Treatment: take vancomyin as recommended for cdif take azithromycin for pneumonia follow up with your doctor in a week follow up the heart doctor for rapid heart rate Assessment: see above Discharge Date/Time: 02/16/24 14:10
--- NOTE | 2024-02-16 10:47 | P.CONCA_ITS ---
History of Present Illness History of Present Illness Date of Service: 02/16/24 Chief complaint: SIRS VIKI ? Viral Gastroenteritis vs Pneumonia Narrative: This is a cardiology consultation regarding tachycardia. It seems that patient has sinus tachycardia on telemetry and it has been like this for the last few days. On review of chart as well as speaking to patient, it seems that she was admitted for lightheadedness/weakness, nausea/vomiting and diarrhea. Also has had 2 syncopal episodes prior to admission. She is being treated for C diff as well as VIKI. In this context, we are consulted for the tachycardia. Otherwise, patient states that she never had any cardiac issues including coronary artery disease or myocardial infarction or cardiomyopathy or in fact any other cardiac issues. She also denies any history of anginal-type chest pains ever. Currently, she is not having any complaints from cardiac. She is not feeling any palpitations. Review of Systems 2 Review of Systems: Yes all other systems are reviewed and are negative Constitutional: Constitutional: Reports as per HPI and Reports no additional constitutional complaints Eyes: Eyes: Reports as per HPI and Denies no additional eye complaints ENT: Denies system reviewed and no additional complaints, except as documented and Reports as per HPI Cardiovascular: Cardiovascular: Reports as per HPI, Reports no additional cardiovascular complaints, Denies acrocyanosis, Denies cool extremities, Denies chest pain, Denies leg edema, Denies lightheadedness, Denies palpitations and Denies dyspnea Respiratory: Respiratory: Reports as per HPI, Denies no additional respiratory complaints and Denies dyspnea Gastrointestinal: Gastrointestinal: Reports as per HPI and Denies no additional gastrointestinal complaints Genitourinary: Genitourinary: Reports as per HPI Musculoskeletal: Musculoskeletal: Reports no additional musculoskeletal complaints and Reports as per HPI Integumentary/Breasts: Skin/Breast: Reports system reviewed and no additional complaints, except as docu Neurologic: Reports system reviewed and no additional complaints, except as documented and Reports as per HPI Psychiatric: Psychiatric: Reports no additional psychiatric complaints and Reports as per HPI Endocrine: Endocrine: Reports no additional endocrine complaints, Reports as per HPI and Denies palpitations Hematologic/Lymphatic: Hematologic/Lymphatic: Reports no additional hematologic/lymphatic complaints and Reports as per HPI Allergic/Immunologic: Allergic/Immunologic: Reports no additional allergic/immunologic complaints and Reports as per HPI PMFSH Past Medical History Medical History GERD (gastroesophageal reflux disease) Pulmonary nodules COPD (chronic obstructive pulmonary disease) Chronic respiratory failure Depression Hypertension Personal history of nicotine dependence Osteopenia (~2005) Family History Family History Mother Eye cancer Maternal Grandmother Cirrhosis Father Lung cancer Family history: reviewed and not pertinent Surgical History Surgical History History of cholecystectomy History of colonoscopy Social History Social History Household Members: Spouse Housing: House Do you presently have visiting nurse or other home services: No Alcohol intake: never Comment: pt refusing high fall socks - has shoes with rubber soles on Patient Tobacco Use Status: Former Tobacco user Tobacco use type: Cigarette Years Smoked: 51 (onset 17, 1ppd x 51yrs, 47+PYH - quit 2016) Second Hand Smoke Exposure: No service: No Current occupational status: retired [employer] Allergies Allergy/AdvReac Type Severity Reaction Status Date / Time Sulfa (Sulfonamide Allergy Anaphylaxis Verified 02/07/24 13:10 Antibiotics) Active Medications: Current Medications Acetaminophen (Acetaminophen 325 Mg Tablet) 975 mg PO Q6H PRN PRN Reason: Pain, Mild (Pain Scale 1-3), fever or headache Atorvastatin Calcium (Atorvastatin Calcium 20 Mg Tablet) 20 mg PO DAILY ON LICENSE OF [facility] Last Admin: 02/16/24 07:51 Dose: 20 mg Calcium Carbonate (Calcium Carbonate 750 Mg Tab.Chew) 750 mg PO BID ON LICENSE OF [facility] Last Admin: 02/16/24 07:51 Dose: 750 mg Fluticasone/Vilanterol (Fluticasone/Vilanterol 100/25 Blst.W.Dev) 1 puff INHALE RDAILY ON LICENSE OF [facility] Last Admin: 02/13/24 07:51 Dose: 1 puff Heparin Sodium (Porcine) (Heparin Sodium,Porcine 5,000 Unit/Ml Vial) 5,000 unit SUBCUT Q8H ON LICENSE OF [facility] Last Admin: 02/16/24 07:51 Dose: 5,000 unit Metronidazole (Flagyl) 500 mg in 100 mls @ 100 mls/hr IV Q8H ON LICENSE OF [facility] Last Infusion: 02/16/24 07:34 Dose: Infused Azithromycin 500 mg/ Sodium (Chloride) 250 mls @ 125 mls/hr IV Q24H ON LICENSE OF [facility] Last Infusion: 02/15/24 20:21 Dose: Infused Magnesium Hydroxide (Milk Of Magnesia 30 Ml Oral.Susp) 30 ml PO DAILY PRN PRN Reason: Constipation Melatonin (Melatonin 3 Mg Tablet) 6 mg PO BEDTIME PRN PRN Reason: Insomnia Montelukast Sodium (Montelukast Sodium 10 Mg Tablet) 10 mg PO DAILY ON LICENSE OF [facility] Last Admin: 02/16/24 07:51 Dose: 10 mg Ondansetron HCl (Ondansetron Hcl 4 Mg/2 Ml Vial) 4 mg IVPUSH Q6H PRN PRN Reason: Nausea and Vomiting Oxycodone HCl (Oxycodone Hcl Immed Release 5 Mg Tablet) 5 mg PO Q6H PRN PRN Reason: Pain, Moderate(Pain Scale 4-6) Risperidone (Risperidone 0.25 Mg Tablet) 0.25 mg PO BEDTIME ON LICENSE OF [facility] Last Admin: 02/15/24 20:11 Dose: 0.25 mg Risperidone (Risperidone 0.5 Mg Tablet) 0.5 mg PO DAILY ON LICENSE OF [facility] Last Admin: 02/16/24 07:51 Dose: 0.5 mg Sodium Chloride (0.9 % Sodium Chloride Flush 3 Ml Syringe) 3 ml IVFLUSH QSHIFT ON LICENSE OF [facility] Last Admin: 02/16/24 07:57 Dose: 3 ml Tiotropium Holt (Tiotropium Holt 2.5 Mcg 1 Puff/2.5 Mcg Mist.Inhal) 2 puff INHALE RDAILY ON LICENSE OF [facility] Last Admin: 02/16/24 08:01 Dose: 2 puff Vancomycin HCl (Vancomycin Hcl 125 Mg Capsule) 125 mg PO Q6H ON LICENSE OF [facility] Last Admin: 02/16/24 05:52 Dose: 125 mg Venlafaxine HCl (Venlafaxine Hcl Er 150 Mg Cap.Er.24h) 150 mg PO DAILY ON LICENSE OF [facility] Last Admin: 02/16/24 07:51 Dose: 150 mg Home Medications ?Medication ?Instructions ?Recorded ?Confirmed ?Last Taken ?Type alendronate 70 mg tablet 70 mg PO SA 01/26/22 02/08/24 02/05/24 History atorvastatin 20 mg tablet 20 mg PO DAILY 01/26/22 02/08/24 02/07/24 History montelukast 10 mg tablet 10 mg PO DAILY 01/26/22 02/08/24 02/08/24 History risperidone 0.5 mg tablet 1 tab PO DAILY 01/26/22 02/08/24 02/08/24 History valsartan 80 mg tablet 80 mg PO DAILY 01/26/22 02/08/24 02/08/24 History venlafaxine 150 mg 150 mg PO DAILY 01/26/22 02/08/24 02/08/24 History capsule,extended release 24 hr Oxygen Home Use 04/23/22 Unknown History risperidone 0.5 mg tablet 0.25 mg PO BEDTIME 02/08/24 02/08/24 02/07/24 History tiotropium bromide 2.5 2 puff inhalation DAILY 02/08/24 02/08/24 02/07/24 History mcg/actuation mist for inhalation (Spiriva Respimat) Physical Exam 2 Vital Signs: Vital Signs: Last Vital Signs Temp 97.1 F 02/16/24 07:09 Pulse 110 H 02/16/24 07:37 Resp 16 02/16/24 07:37 BP 135/90 H 02/16/24 07:09 Pulse Ox 93 02/16/24 07:09 O2 Del Method Nasal Cannula 02/16/24 07:09 O2 Flow Rate 2 02/16/24 07:09 BMI result Body Mass Index 21.7 Const: General: comfortable and no acute distress O rientation/consciousness: patient oriented x3 HEENT: Other: Unremarkable Head: Yes normal to inspection Neck: Neck: Yes normal visual inspection Chest: Chest palpation & inspection: normal inspection of the chest Resp: Auscultation: clear to auscultation bilaterally Cardio: Palpation: normal PMI Heart sounds: S1 normal heart sound present, S2 normal heart sound present, no gallops, no murmurs and no rubs GI: Palpation (GI): Soft to palpation Back/Spine/Pelvis: Other: unremarkable Skin: General skin exam: no rashes or lesions noted Neuro: General: patient oriented x3 Extrem: General: Yes normal to inspection Psych: Mental Status: mental status grossly normal Objective Labs and Meds 02/15/24 05:35 02/15/24 05:35 ECG Interpretation: EKG shows underlying sinus rhythm at 95/Min; nonspecific ST-T changes in the inferior as well as anterolateral leads. Assessment and Plan (1) Cardiomyopathy: Status: Acute (2) C. difficile diarrhea: Status: Acute (3) Tachycardia: Status: Acute Plan By vital signs and EKG, she is having sinus tachycardia. Currently heart rate is around 110-115/Min. In the echocardiogram, LVEF is 46%. Wall motion abnormalities in the inferior/inferoseptal/inferolateral wall. No prior studies for comparison. High sensitivity troponins 7.5. Cardiac BNP is within normal limits at 30. In the other labs, she has a persistently high white cell count. Creatinine is normal at 0.79. Overall, tachycardia is most likely from systemic issues. Not primarily cardiac. Also she does have a propensity to run on the tachycardic side as she has heart rates in this range even in 2021. With regard to the echocardiographic findings, could have underlying coronary disease. Outpatient stress testing after she fully recovers. For management, if able to take, low-dose aspirin. Beta-blockers- low-dose metoprolol. She is already on statins. Can arrange follow-up in clinic. Procedures Date of Service Date of Service: 02/16/24
[2024-02-16 11:15] VITALS: BP 140/90; PULSE 113; RESP 18; TEMP 36.3; O2SAT 93
--- NOTE | 2024-02-16 12:19 | MHC.CM.PN ---
Second IMM given 02/15. Pt is medically cleared for discharge home self-care, pts will transport her home.
--- NOTE | 2024-02-16 13:22 | MHC.CM.PN ---
Second IMM given 02/15. Pt is medically cleared for discharge home self-care today, pts to transport her home.
== END 2024-02-16 14:10 | disposition home or self-care (01) | DRG 372 ==
LOC: HO.ED 21:52 → HO.EDOVER 22:47 → HO.IMC 02-08 19:52
PROVIDERS: Internal Medicine; Physician Assistant; Student in an Organized Health Care Education/Training Program; Admitting Provider Physician Assistant; Emergency Provider Emergency Medicine Emergency Medical Services; PCP Internal Medicine; Visit Provider Internal Medicine
DX: A04.72 Enterocolitis due to Clostridium difficile, not specified as recurrent (principal); E87.0 Hyperosmolality and hypernatremia; J44.0 Chronic obstructive pulmonary disease with (acute) lower respiratory infection; N17.9 Acute kidney failure, unspecified; J98.11 Atelectasis; J91.8 Pleural effusion in other conditions classified elsewhere; I42.9 Cardiomyopathy, unspecified; B97.89 Other viral agents as the cause of diseases classified elsewhere; B97.10 Unspecified enterovirus as the cause of diseases classified elsewhere; E86.0 Dehydration; E83.42 Hypomagnesemia; I95.9 Hypotension, unspecified; I10 Essential (primary) hypertension; K21.9 Gastro-esophageal reflux disease without esophagitis; E87.6 Hypokalemia; Z87.891 Personal history of nicotine dependence; Z79.51 Long term (current) use of inhaled steroids; Z79.899 Other long term (current) drug therapy
CPT/HCPCS: 0241U; 36415; 71045; 74176; 76775; 78580; 80048; 80053; 81001; 82803; 83605; 83735; 83880; 84132; 84145; 84484; 85007; 85025; 85027; 87040; 87086; 87324; 87449; 87493; 87507; 87633; 87651; 87899; 93005; 93306; 94640; 99285; A9540; J0456; J0613; J0696; J1644; J1836; J1940; J3475; J3480; J7120; Q9957

== ENCOUNTER → 2024-02-07 13:11 | Outpatient (BNV) | payer MEDICARE, OTHER, SELFPAY | PROVIDERS: Emergency Provider Emergency Medicine Emergency Medical Services; PCP Internal Medicine; Visit Provider Radiology Diagnostic Radiology | DX: J44.9 Chronic obstructive pulmonary disease, unspecified (principal) | CPT/HCPCS: 71045 ==

== ENCOUNTER → 2024-02-07 15:16 | Outpatient (BNV) | payer MEDICARE, OTHER, SELFPAY | PROVIDERS: Admitting Provider Physician Assistant; Emergency Provider Emergency Medicine Emergency Medical Services; PCP Internal Medicine; Visit Provider Internal Medicine Cardiovascular Disease | DX: R94.31 Abnormal electrocardiogram [ECG] [EKG] (principal) | CPT/HCPCS: 93010 ==

== ENCOUNTER 2024-02-07 22:39 | Outpatient (BNV) | payer MEDICARE, OTHER, SELFPAY | END 2024-02-14 15:00 | PROVIDERS: Admitting Provider Physician Assistant; Emergency Provider Emergency Medicine Emergency Medical Services; PCP Internal Medicine; Visit Provider Internal Medicine | DX: I36.1 Nonrheumatic tricuspid (valve) insufficiency (principal); I42.8 Other cardiomyopathies; I27.20 Pulmonary hypertension, unspecified | CPT/HCPCS: 93306 ==

== ENCOUNTER → 2024-02-07 22:39 | Outpatient (BNV) | payer MEDICARE, OTHER, SELFPAY | PROVIDERS: Admitting Provider Physician Assistant; Emergency Provider Emergency Medicine Emergency Medical Services; PCP Internal Medicine; Visit Provider Internal Medicine | DX: A04.72 Enterocolitis due to Clostridium difficile, not specified as recurrent (principal); N17.9 Acute kidney failure, unspecified; R65.10 Systemic inflammatory response syndrome (SIRS) of non-infectious origin without acute organ dysfunction | CPT/HCPCS: 99222 ==

== ENCOUNTER → 2024-02-07 22:39 | Outpatient (BNV) | payer MEDICARE, OTHER, SELFPAY | PROVIDERS: Admitting Provider Physician Assistant; Emergency Provider Emergency Medicine Emergency Medical Services; PCP Internal Medicine; Visit Provider Internal Medicine | DX: I42.9 Cardiomyopathy, unspecified (principal); A04.72 Enterocolitis due to Clostridium difficile, not specified as recurrent; R00.0 Tachycardia, unspecified | CPT/HCPCS: 99223 ==

== ENCOUNTER → 2024-02-07 22:39 | Outpatient (BNV) | payer MEDICARE, OTHER, SELFPAY | PROVIDERS: Admitting Provider Physician Assistant; Emergency Provider Emergency Medicine Emergency Medical Services; PCP Internal Medicine; Visit Provider Internal Medicine | DX: A04.72 Enterocolitis due to Clostridium difficile, not specified as recurrent (principal); N17.9 Acute kidney failure, unspecified; R65.10 Systemic inflammatory response syndrome (SIRS) of non-infectious origin without acute organ dysfunction | CPT/HCPCS: 99223; 99232 ==

== ENCOUNTER 2024-02-24 13:17 | Outpatient (REF) | payer MEDICARE, OTHER, SELFPAY ==
--- NOTE | ~2024-02-24 | XR_ITS ---
EXAMINATION: XR CHEST CLINICAL INFORMATION: F/U INFILTRATE/ATELECTASIS FROM 02/13/24 CXR COMPARISON: Most recent chest radiograph dated 02/13/2024. TECHNIQUE: 2 views of the chest were obtained. FINDINGS: Trace bilateral pleural effusions with bibasilar atelectasis versus infiltrates, slightly decreased when compared to the prior examination. No pneumothorax. Stable cardiomediastinal silhouette. XR/XR chest 2V IMPRESSION: Trace bilateral pleural effusions with bibasilar atelectasis versus infiltrates, slightly decreased when compared to the prior examination. Electronically signed by: Chuck Ibarra MD 02/24/2024 02:42 PM [facility]
== END 2024-02-24 13:18 | disposition home or self-care (01) ==
LOC: HO.HMGCX 13:17
PROVIDERS: PCP Internal Medicine; Visit Provider Internal Medicine
DX: J98.11 Atelectasis (principal)
CPT/HCPCS: 71046

== ENCOUNTER 2024-03-02 09:58 | Outpatient (REF) | payer MEDICARE, OTHER, SELFPAY ==
--- NOTE | ~2024-03-02 | XR_ITS ---
EXAMINATION: XR CHEST CLINICAL INFORMATION: Cough. F/U PNA. COMPARISON: XR Chest 02/24/2024. CT chest 01/10/2024 TECHNIQUE: 2 views of the chest were obtained. FINDINGS: The lungs are hyperinflated with bibasilar atelectasis or scarring. The heart size and pulmonary vascularity is normal. There is mild spondylosis dorsal spine. No aggressive lytic or sclerotic process seen. XR/XR chest 2V IMPRESSION: Emphysematous lungs with minimal bibasilar scarring and/or atelectasis. No change from previous chest x-ray 02/24/2024 Electronically signed by: Andrea Yarbrough MD 03/03/2024 10:54 AM EST
== END 2024-03-02 09:59 | disposition home or self-care (01) ==
LOC: HO.HMGCX 09:58
PROVIDERS: PCP Internal Medicine; Visit Provider Internal Medicine
DX: J18.9 Pneumonia, unspecified organism (principal)
CPT/HCPCS: 71046

== ENCOUNTER → 2024-03-02 10:07 | Outpatient (BNV) | payer MEDICARE, OTHER, SELFPAY | PROVIDERS: PCP Internal Medicine; Visit Provider Radiology Diagnostic Radiology | DX: J43.8 Other emphysema (principal) | CPT/HCPCS: 71046 ==

== ENCOUNTER 2024-03-16 07:59 | Outpatient (AMB) | payer MEDICARE, OTHER, SELFPAY ==
[2024-03-16 08:10] VITALS: BP 92/60; PULSE 68; BMI 21.6
--- NOTE | 2024-03-16 08:10 | MHC.OFFVIS ---
Vital Signs 03/16/24 08:10 Height 5 ft 1 in Weight 114 lb 3.191 oz BMI 21.6 BP 92/60 Blood Pressure Location Lt brachial Position Sitting Pulse 68 Pulse Source Pulse Oximeter Intake Visit Reasons: [facility] [place] discharge follow up [employer] Required: No Allergies Sulfa (Sulfonamide Antibiotics) Allergy (Verified 03/16/24 08:15) Anaphylaxis Medication List - Last Reconciled 03/16/24 by Janiya Thorpe [employer]ING [employer] SPECIALIST-[employer] alendronate 70 mg PO SA atorvastatin 20 mg PO DAILY azithromycin 250 mg PO Q24H fluticasone furoate-vilanterol 100-25 mcg/dose (Breo Ellipta) 1 ea inhalation RDAILY montelukast 10 mg PO DAILY Oxygen Home Use As directed risperidone 1 tab PO DAILY risperidone 0.25 mg PO BEDTIME tiotropium bromide 2.5 mcg/actuation (Spiriva Respimat) 2 puffs inhalation DAILY valsartan 80 mg PO DAILY vancomycin 125 mg PO Q6H venlafaxine ER 150 mg PO DAILY HPI HPI [facility] [place] discharge follow up: Details: Kelly is a 73-year-old female past medical history of hypertension, COPD, GERD, smoking who was recently admitted to [facility] with diarrhea and treated for C diff, dehydration and hypokalemia. She was noted to have sinus tachycardia and Cardiology was consulted. An echocardiogram showed mildly reduced EF with regional wall motion abnormality. He has no cardiac history. Outpatient follow-up was arranged. Today she reports that she has been doing well since her hospital discharge. She tells me she had pneumonia and she believes she is now fully recovered. Her breathing is back to baseline. She has some chronic shortness of breath which she relates to her COPD. She has no chest discomfort at rest or with activity. No heart palpitations, lightheadedness, presyncope, syncope. She denies PND, orthopnea or edema. She is taking meds as directed. She follows closely with her PCP, Dr. Guallpa. She is active with housework, care of her 2 dogs and working in her green house. [facility] Medical History GERD (gastroesophageal reflux disease) Pulmonary nodules COPD (chronic obstructive pulmonary disease) Chronic respiratory failure Depression Hypertension Personal history of nicotine dependence Osteopenia (~2004) Surgical History History of cholecystectomy History of colonoscopy Family History Mother Eye cancer Maternal Grandmother Cirrhosis Father Lung cancer Social History Household Members: Spouse Housing: House Do you presently have visiting nurse or other home services: No Alcohol intake: never Comment: pt refusing high fall socks - has shoes with rubber soles on Patient Tobacco Use Status: Former Tobacco user Tobacco use type: Cigarette Years Smoked: 51 (onset 17, 1ppd x 51yrs, 47+PYH - quit 2017) Second Hand Smoke Exposure: No service: No Current occupational status: retired Review of Systems Const All systems reviewed & are unremarkable except as noted in HPI and below ENT Denies dizziness Card Denies chest pain, Denies chest pain at rest, Denies chest pain with activity, Denies rapid heart rate, Denies pedal edema, Denies edema, Denies leg edema, Denies lightheadedness, Denies palpitations, Reports dyspnea, Denies dyspnea on exertion and Denies orthopnea Resp Denies cough, Reports dyspnea and Denies dyspnea on exertion GI Denies hematochezia and Denies change in stool character Musc Denies abnormal gait, Denies limited range of motion, Denies muscle cramps, Denies muscle weakness, Denies numbness, Denies radiating pain into limb, Denies stiffness and Denies tingling Neuro Denies abnormal gait, Denies dizziness, Denies numbness and Denies tingling Endo Denies palpitations Physical Exam Vital Signs: Last Vital Signs Pulse 68 03/16/24 08:10 BP 92/60 03/16/24 08:10 BMI result Body Mass Index 21.6 Const General: cooperative, healthy appearing, comfortable and no acute distress Orientation/consciousness: patient oriented x3 Neck Neck: Yes normal visual inspection Resp Effort & Inspection: normal respiratory effort Auscultation: clear to auscultation bilaterally, no rales, no rhonchi and no wheezes Cardio Jugular venous distension: no JVD Rate: regular rate Rhythm: regular rhythm Heart sounds: S1 normal heart sound present, S2 normal heart sound present, no murmurs and no rubs Neuro General: patient oriented x3 Extrem General: Yes normal to inspection, No no pedal edema and No calf tenderness Psych Appearance: grossly normal Mental Status: mental status grossly normal Speech and movement: Normal speech and movement present Assessment & Plan Assessment & Plan (1) Tachycardia: Code(s): R00.0 - Tachycardia, unspecified Category: Medical Plan: Recent cardiology consultation for sinus tachycardia while inpatient for noncardiac issues. At the time her sinus tachycardia was thought to be related to underlying systemic issues. She was treated for dehydration, VIKI, hypokalemia. She tells me she also had pneumonia. At this time she is recovered from her illnesses. She has not had any problems with heart palpitations. Her pulse rate is normal range today. She is not on any rate slowing agents. While inpatient she had an echocardiogram which did show EF 46%, inferior, inferior septal and inferior lateral wall motion abnormality. The plan was for an outpatient nuclear stress test however she declines. Explained echo findings to her and that she may have coronary artery disease. She states understanding but in the absence of symptoms she does not want any cardiac testing. She declines the use of daily aspirin. She is willing to continue her atorvastatin. She plans to further discuss this with her primary care doctor. She does not want a set cardiology follow-up. She will follow only if needed and recommended by her PCP. Signs and symptoms of angina reviewed with her. (2) Cardiomyopathy: Code(s): I42.9 - Cardiomyopathy, unspecified Category: Medical Plan: As above. No clinical signs of fluid overload on examination today. Cardiomyopathy discussed with her. She is on valsartan which can help with neurohormonal modulation. Blood pressure is on the low side today however asymptomatic. She has not had any recent med change. Will continue with valsartan. She says she has upcoming follow-up with PCP. (3) Abnormal echocardiogram findings without diagnosis: Code(s): R93.1 - Abnormal findings on diagnostic imaging of heart and coronary circulation Category: Medical Plan: As above (4) Hospital discharge follow-up: Code(s): Z09 - Encounter for follow-up examination after completed treatment for conditions other than malignant neoplasm Category: Medical Plan: As above Plan Time spent with chart review, documentation, interview and assessment Coding Level of Care Code Est Pt Level 4 (56923) Complex EM visit Add On G2211 Diagnoses Tachycardia R00.0 Cardiomyopathy I42.9 Abnormal echocardiogram findings without diagnosis R93.1 Hospital discharge follow-up Z09 Time Spent (min) 28
== END 2024-03-16 08:39 | disposition home or self-care (01) ==
PROVIDERS: PCP Internal Medicine; Visit Provider Nurse Practitioner Family
DX: R00.0 Tachycardia, unspecified (principal); I42.9 Cardiomyopathy, unspecified; R93.1 Abnormal findings on diagnostic imaging of heart and coronary circulation; Z09 Encounter for follow-up examination after completed treatment for conditions other than malignant neoplasm
CPT/HCPCS: 99214; G2211

== ENCOUNTER → 2024-03-16 07:59 | Outpatient (BNVA) | payer MEDICARE, OTHER, SELFPAY | PROVIDERS: PCP Internal Medicine; Visit Provider Nurse Practitioner Family | DX: Z09 Encounter for follow-up examination after completed treatment for conditions other than malignant neoplasm (principal); R00.0 Tachycardia, unspecified; R93.1 Abnormal findings on diagnostic imaging of heart and coronary circulation; I42.9 Cardiomyopathy, unspecified | CPT/HCPCS: 99212 ==

== ENCOUNTER 2024-03-30 09:56 | Outpatient (REF) | payer MEDICARE, OTHER, SELFPAY ==
--- NOTE | ~2024-03-30 | XR_ITS ---
EXAMINATION: XR CHEST 2 VIEWS HISTORY: F/U ATELECTASIS COMPARISON: Comparison is made with the prior examination dated 03/02/2024. FINDINGS: PA and lateral views of the chest are submitted. The lungs remain hyperinflated, consistent with COPD. Increased markings at the lung bases likely represent vascular crowding related to emphysema. No focal airspace opacities are seen. There is no pleural effusion, pneumothorax, or pulmonary vascular congestion. The heart is normal in size. The aorta is calcified. There is degenerative disc disease of the spine. XR/XR chest 2V IMPRESSION: COPD. No acute cardiopulmonary abnormality. Electronically signed by: Luciano Padilla MD 03/30/2024 10:29 AM WAY[facility]
--- OUTSIDE RECORDS SUMMARY | 2024-03-30 13:01 | XMS_ITS | Encounter Summary ---
Author Organization [facility] Address [address] [place] [address] Care Team Providers Care Supervisor [employer] Name Role Phone Alok Guallpa Primary Care Provider Unavailab le Encounter Details Date Type Department Care Team Description 07/15/2017 Release of Information Medical Records [address] [place] [id number] Abstract, Provider Social History Tobacco Use Types Packs/Day Years Used Date Smoking Tobacco: Former Cigarettes 1 50 Smokeless Tobacco: Never Alcohol Use Standard Drinks/Week Comments Yes 1 (1 standard drink = 0.6 oz pur e alcohol) Sex Assigned at Date Recorded Not on file documented as of this encounter Plan of Treatment Not on file documented as of this encounter Visit Diagnoses Not on filedocumented in this encounter Care Teams Supervisor [employer] Relationship Specialty Start Date End Date Alok Guallpa PCP - General Internal Medicine 05/17/17 documented as of this encounter
== END 2024-03-30 09:57 | disposition home or self-care (01) ==
LOC: HO.HMGCX 09:56
PROVIDERS: PCP Internal Medicine; Visit Provider Internal Medicine
DX: J98.11 Atelectasis (principal)
CPT/HCPCS: 71046

== ENCOUNTER → 2024-03-30 10:02 | Outpatient (BNV) | payer MEDICARE, OTHER, SELFPAY | PROVIDERS: PCP Internal Medicine; Visit Provider Radiology Diagnostic Radiology | DX: J44.9 Chronic obstructive pulmonary disease, unspecified (principal) | CPT/HCPCS: 71046 ==

== ENCOUNTER 2024-04-12 06:58 | Outpatient (REF) | payer MEDICARE, OTHER, SELFPAY ==
--- NOTE | ~2024-04-12 | CT_ITS ---
CLINICAL HISTORY: Z87.891 - Personal history of nicotine dependence CT lung cancer screening (LDCT) Comparison: CT/OR/SR - CT LUNG SCREENING - 01/10/24 07:37 EST Technique: Axial CT images of the chest using low-dose technique. Referring provider counseled the patient on shared decision-making for LDCT screening. Additional counseling was provided on smoking cessation. Effective radiation dose total: DLP 24.6 mGycm, CTDIvol 0.7 mGy. Findings: Lung nodules: The previously new ill-defined medial left upper lobe nodule can be seen currently on axial 59 of series 4 and is decreased in size, currently measuring 5 x 3 mm. Posterior left upper lobe nodule on axial 61 measures 4 mm, stable. Additional scattered stable nodules and nodular densities are present, for example left lower lobe on axial 89. No new, increasing or suspicious nodule. Incidental pulmonary findings: [id number] centrilobular emphysema. Mild airway thickening. Regions of scarring and/or atelectasis are stable. Incidental non pulmonary findings: Coronary artery calcifications: Moderate, stable. Limited upper abdomen: Unremarkable Other: None Impression: The previously new left upper lobe nodule which was reported as suspicious has significantly decreased in size. LungRADS 2 - Benign Appearance: Continue annual screening with low dose Chest CT in 12 months. ##L2# Category 1: Normal; continue annual screening Category 2: Benign appearance or behavior, continue annual screening Category 3: Probably benign, [address] recommended Category 4A: Suspicious, [address] recommended; may consider PET/CT Category 4B: Suspicious, Additional diagnostics and/or tissue sampling recommended Category 4X: Suspicious, Additional diagnostics and/or tissue sampling recommended Category 0: Recalls (incomplete screen due to Incomplete coverage, Noise, Respiratory motion, Expiration, Obscured by acute abnormality) This document has been electronically signed by: Isai Muro MD on 04/12/2024 11:38:06
--- OUTSIDE RECORDS SUMMARY | 2024-04-12 07:01 | XMS_ITS | Encounter Summary ---
Author Organization [facility] Address [address] [place] [address] Care Team Providers Care Ribbon Winder Name Role Phone Alok Guallpa Primary Care Provider Unavailab le Encounter Details Date Type Department Care Team Description 08/05/2017 Retreader Report Medical Records [address] [place] [id number] Tico Forrester MD Social History Tobacco Use Types Packs/Day Years [...] on filedocumented in this encounter Care Teams Ribbon Winder Relationship Specialty Start Date End Date Alok Guallpa PCP - General Internal Medicine 05/17/17 documented as of this encounter
== END 2024-04-12 06:59 | disposition home or self-care (01) ==
LOC: HO.CT 06:58
PROVIDERS: PCP Internal Medicine; Visit Provider Physician Assistant Medical
DX: R91.8 Other nonspecific abnormal finding of lung field (principal); Z87.891 Personal history of nicotine dependence
CPT/HCPCS: 71250

== ENCOUNTER → 2024-04-12 07:00 | Outpatient (BNV) | payer MEDICARE, OTHER, SELFPAY | PROVIDERS: PCP Internal Medicine; Visit Provider Radiology Vascular & Interventional Radiology | DX: Z87.891 Personal history of nicotine dependence (principal) | CPT/HCPCS: 71250 ==

== ENCOUNTER 2024-05-31 08:42 | Outpatient (AMB) | payer MEDICARE, OTHER, SELFPAY ==
[2024-05-31 08:59] VITALS: BP 110/64; PULSE 75; O2SAT 92; BMI 21.7
--- NOTE | 2024-05-31 08:59 | MHC.OFFVIS ---
Vital Signs 05/31/24 08:59 Height 5 ft 1 in Weight 114 lb 10.246 oz BMI 21.7 BP 110/64 Blood Pressure Location Rt brachial Position Sitting Pulse 75 Pulse Source Pulse Oximeter Pulse Oximetry (%) 92 Oxygen Delivery Method Room Air Intake Visit Reasons: COPD Allergies Sulfa (Sulfonamide Antibiotics) Allergy (Verified 05/31/24 09:02) Anaphylaxis HPI Comments Details: The patient is a 73 year woman with a known history of COPD and chronic respiratory failure on oxygen who apparently was in her usual state health until back in late fall when she developed worsening respiratory symptoms and was admitted to the hospital with right lower lobe pneumonia. The patient was treated with antibiotics in addition to prednisone and she done was also placed on oxygen. She did have a portable oxygen concentrator that she had for many years but she did not really have to use it. After that hospitalization she started having to use it more often. As far as his follow-up she did see her primary care doctor who will order repeat CT scan sometime in March 2022. it actually demonstrated that she has either new nodules or worsening of her ongoing nodules. She is also taking part of the lung cancer screening program. Therefore based on her increasing nodular densities in the concerns because of her high risk for cancer will go ahead and % throughout the lung cancer screening program that is scheduled for WednesdayMay 01. Once we can review her imaging studies from previous and her most recent CT scan with give further recommendations about future CT scans through the lung cancer screening program in the meantime the patient will continue using her oxygen. She is very happy with her current respiratory regimen including Spiriva Respimat and Breo. Therefore when I going to be looking to change that at this time. She seems to very happy with her treatment. She will need pulmonary function studies although she is reluctant to do so to assess her baseline pulmonary function. The patient still is very active. She was seen by Pulmonary in the past and she did go to pulmonary rehabilitation but she did find it very useful. 06/04/2022 the patient is here for a pulmonary follow-up visit. The patient overall is feeling about the same. She continues use her oxygen via the portable oxygen concentrator with good effect. She continues to have shortness of breath. Moderate severity. She tries to stay active. She already did pulmonary rehabilitation. She is not interested in doing it again. We did review her pulmonary function studies demonstrating very severe COPD with a trend of hyperinflation and air trapping and very severe diffusion impairment due to her Eneida. She does have a component of chronic bronchitis. Will go ahead and start her on azithromycin for the chronic bronchitis therapy. We also talked about Daliresp being an option although I does have the GI symptoms. Theophylline will be another option for her. The last blood gas she had was in 2021 demonstrated normal acid-base status with therefore she does not qualify for noninvasive ventilator at this time. The patient is not interested in referral to [place] for lung transplant. The patient would not qualify for lung volume reduction intervention as her diffusing capacity is also significantly low already. For the chronic bronchitis component will start her on his azithromycin and will also request an Acapella valve for chest physical therapy that she can perform twice a day. 12/01/2022 the patient is here for a pulmonary follow-up visit. Overall the patient has been doing well. She continues use oxygen with good effect. She did take the azithromycin 3 times a week for 3 months and it did help. She stop that after worse. The patient continues to use the Breo and also the Spiriva. I have been affecting beneficial. She has not required any prednisone. She is starting to exercise a little more which is reassuring. She does wonder about other options regarding her emphysema and COPD. We did talk about lung volume reduction to interventions but at this point I do not believe she will be a great candidate because heard air trapping is not significantly elevated. In addition to that we talked about medications such as theophylline. She does have some wheezing on examination and I do believe that the often will provide her some relief with some of the bronchodilator effects. Will start her on a low dose to minimize adverse reactions. Will keep her in the low stop therapeutic range to minimize adverse effects. We did also review her CT scan of the chest that she had to the lung cancer screening program. It was reassuring that she does have waxing waning pulmonary nodules in the bigger nodules did disappear. 06/01/2023 the patient is here for a pulmonary follow-up visit. The patient overall has been doing well. She is responding well to the current respiratory regimen. She also has the oxygen supplementation that is also affecting beneficial. The patient did try the theophylline but she stopped it because of palpitations. She is participating in the lung cancer screening program. Next the fall 2023. She is working on smoking cessation. She has been smoking cigarette today. She does have patches available at home that she can put on if she feels her cravings getting significant. 05/31/2024 the patient is here for a pulmonary follow-up visit. Overall the patient is doing well. She did have a bout of a respiratory viral infection that resulted in a COPD exacerbation and also the same time develop C diff colitis. She was in the hospital for about 9 days. She is finally feeling better. She continues use her respiratory therapy. We did talk about the importance of avoiding antibiotic use with the C diff history now. We did talk about also the use of probiotics to help her replenish her gut tamiko and got health. She did recently have a CT scan of the chest for the lung cancer screening program which is reassuring with the largest nodule is decreasing in size and therefore she is now rads 2. She will have another CAT scan in a year's time. She will continue with the current respiratory therapy follow-up in a year's time if she has any issues prior to that she will call for an earlier assessment. [facility] Medical History GERD (gastroesophageal reflux disease) Pulmonary nodules COPD (chronic obstructive pulmonary disease) Chronic respiratory failure Depression Hypertension Personal history of nicotine dependence Osteopenia (~2005) Surgical History History of cholecystectomy History of colonoscopy Family History Mother Eye cancer Maternal Grandmother Cirrhosis Father Lung cancer Social History Household Members: Spouse Housing: House Do you presently have visiting nurse or other home services: No Alcohol intake: never Comment: pt refusing high fall socks - has shoes with rubber soles on Patient Tobacco Use Status: Former Tobacco user Tobacco use type: Cigarette Years Smoked: 51 (onset 17, 1ppd x 51yrs, 47+PYH - quit 2017) Second Hand Smoke Exposure: No service: No Current occupational status: retired Review of Systems Const Denies fever(s) and Denies weight loss Eyes Denies change in vision ENT Denies change in voice Card Denies chest pain and Reports dyspnea on exertion Resp Reports cough, Reports dyspnea on exertion and Denies wheezing GI Reports dyspepsia and Reports heartburn Musc Reports myalgias Skin/Breast Denies rash Neuro Reports no additional complaints Endo Denies flushing Stuart/Lymph Denies easy bleeding and Denies easy bruising Aller/Immun Denies wheezing Physical Exam Vital Signs: Last Vital Signs Pulse 75 05/31/24 08:59 BP 110/64 05/31/24 08:59 Pulse Ox 92 05/31/24 08:59 Oxygen Delivery Method Room Air 05/31/24 08:59 BMI result Body Mass Index 21.7 Const General: comfortable HEENT Head: Yes normocephalic Neck Neck: Yes supple Chest Chest palpation & inspection: normal inspection of the chest Resp Effort & Inspection: normal respiratory effort Auscultation: no rhonchi, no wheezes and diminished lung sounds Cardio Rate: regular rate Rhythm: regular rhythm Heart sounds: S1 normal heart sound present and S2 normal heart sound present GI Palpation (GI): Soft to palpation Skin General skin exam: no rashes or lesions noted Extrem General: Yes no clubbing, cyanosis or edema Assessment & Plan Assessment & Plan (1) Chronic respiratory failure: Code(s): J96.10 - Chronic respiratory failure, unspecified whether with hypoxia or hypercapnia Category: Medical Qualifiers: Respiratory failure complication: hypoxia Qualified Code(s): J96.11 - Chronic respiratory failure with hypoxia (2) COPD (chronic obstructive pulmonary disease): Code(s): J44.9 - Chronic obstructive pulmonary disease, unspecified Category: Medical Qualifiers: COPD type: chronic bronchitis Chronic bronchitis type: mixed simple and mucopurulent Qualified Code(s): J41.8 - Mixed simple and mucopurulent chronic bronchitis (3) Pulmonary nodules: Code(s): R91.8 - Other nonspecific abnormal finding of lung field Category: Medical (4) GERD (gastroesophageal reflux disease): Code(s): K21.9 - Gastro-esophageal reflux disease without esophagitis Category: Medical Qualifiers: Esophagitis presence: without esophagitis Qualified Code(s): K21.9 - Gastro-esophageal reflux disease without esophagitis Plan Continue Breo/Spiriva MANDIE as needed start Daliresp 250mcg continue singulair 10mg daily, LDCT program reflux diet sleep with HOB elevated continue oxygen supplementation F/U 6-12 months Medications: New roflumilast (Daliresp) 250 mcg PO DAILY 30 tabs 11RF 30 days J44.9 - Chronic obstructive pulmonary disease, unspecified Coding Level of Care Code Est Pt Level 4 (67249) Complex EM visit Add On G2211 Diagnoses Chronic respiratory failure with hypoxia J96.11 Respiratory failure complication: hypoxia Mixed simple and mucopurulent chronic bronchitis J41.8 COPD type: chronic bronchitis Chronic bronchitis type: mixed simple and mucopurulent Pulmonary nodules R91.8 Gastroesophageal reflux disease without esophagitis K21.9 Esophagitis presence: without esophagitis Time Spent (min) 17
== END 2024-05-31 09:40 | disposition home or self-care (01) ==
PROVIDERS: PCP Internal Medicine; Visit Provider Hospitalist
DX: J96.11 Chronic respiratory failure with hypoxia (principal); J41.8 Mixed simple and mucopurulent chronic bronchitis; R91.8 Other nonspecific abnormal finding of lung field; K21.9 Gastro-esophageal reflux disease without esophagitis
CPT/HCPCS: 99214; G2211

== ENCOUNTER → 2024-05-31 08:42 | Outpatient (BNVA) | payer MEDICARE, OTHER, SELFPAY | PROVIDERS: PCP Internal Medicine; Visit Provider Hospitalist | DX: J96.11 Chronic respiratory failure with hypoxia (principal); J41.8 Mixed simple and mucopurulent chronic bronchitis; R91.8 Other nonspecific abnormal finding of lung field; K21.9 Gastro-esophageal reflux disease without esophagitis | CPT/HCPCS: 99212 ==

== ENCOUNTER 2024-07-25 09:29 | Outpatient (REF) | payer MEDICARE, OTHER, SELFPAY ==
[2024-07-25 13:23] LABS: MANUAL DIFF FLAG NO
[2024-07-25 13:42] LABS: Basophils Absolute Auto 0.1 X10*3/uL (0.0-0.2); Basophils Percent Auto 1.1 % (0-2); Eosinophils Absolute Auto 0.8 X10*3/uL (0.0-0.4); Eosinophils Percent Auto 6.3 % (0-4); Hematocrit 41.5 % (37.0-47.0); Hemoglobin 13.9 g/dl (12.0-16.0); Imm Gran Abs Auto 0.08 X10*3/uL (0.00-0.03); Imm Gran Pct Auto 0.7 % (0.0-0.4); Lymphocytes Absolute Auto 3.7 X10*3/uL (1.2-4.9); Lymphocytes Percent Auto 30.1 % (20-40); Mean Corpuscular HGB Conc 33.5 g/dl (31.0-35.0); Mean Corpuscular Hemoglobin 30.7 pg (27.0-33.0); Mean Corpuscular Volume 91.6 fL (80.0-98.0); Monocytes Absolute Auto 1.3 X10*3/uL (0.1-1.2); Monocytes Percent Auto 10.6 % (2-11); Neutrophils Absolute Auto 6.2 x10*3/uL (2.0-8.3); Neutrophils Percent Auto 51.2 % (45-73); Platelet Count 397 X10*3/uL (160-400); Red Blood Count 4.53 X10*6/uL (4.20-5.50); Red Cell Distribution Width 14.6 % (11.0-16.0); White Blood Count 12.1 X10*3/uL (4.8-10.8)
[2024-07-25 13:49] LABS: Alanine Aminotransferase 20 U/L (0-31); Albumin Level 4.2 g/dL (3.5-5.0); Alkaline Phosphatase 84 U/L (39-117); Anion Gap 12 (12-20); Aspartate Amino Transferase 31 U/L (5-31); Bilirubin Total 0.5 mg/dL (0.0-1.0); Blood Urea Nitrogen 13 mg/dL (9-16); Calcium 9.1 mg/dL (8.4-10.2); Carbon Dioxide 20 mmol/L (22-29); Chloride 110 mmol/L (96-108); Cholesterol 150 mg/dL (<200); Estimated Glomerular Filt Rate 59; Glucose Fasting 86 mg/dL (60-99); HDL Cholesterol 56 mg/dL (>40); LDL Cholesterol Calculated 66 mg/dL (<100); Potassium 3.4 mmol/L (3.3-5.1); Sodium 139 mmol/L (135-145); Total Protein 7.1 g/dL (6.5-8.0); Triglycerides 141 mg/dL (<150)
== END 2024-07-25 09:30 | disposition home or self-care (01) ==
LOC: HO.HMGCLDS 09:29
PROVIDERS: PCP Internal Medicine; Visit Provider Internal Medicine
DX: Z00.00 Encounter for general adult medical examination without abnormal findings (principal); E78.5 Hyperlipidemia, unspecified; R53.83 Other fatigue
CPT/HCPCS: 36415; 80053; 80061; 85025

== ENCOUNTER 2024-08-29 11:21 | Outpatient (AMB) | payer MEDICARE, OTHER, SELFPAY ==
--- NOTE | 2024-08-29 11:57 | MHC.PC.OV ---
Vital Signs 08/29/24 12:02 Height 5 ft 1.02 in Weight 119 lb BMI 22.5 BP 145/70 H Respiration 18 Pulse 82 Pulse Source Pulse Oximeter Temp 97.6 F Temp Source Temporal Artery Scan Pulse Oximetry (%) 91 L Oxygen Delivery Method Room Air Intake Visit Reasons: establish care Member Service Representative Required: No Accompanied by: Self / Same As Patient Allergies Sulfa (Sulfonamide Antibiotics) Allergy (Verified 09/05/24 06:50) Anaphylaxis Medication List - Last Reconciled 09/05/24 by Amish Lopez MD alendronate 70 mg PO SA atorvastatin 20 mg PO DAILY fluticasone furoate-vilanterol 100-25 mcg/dose (Breo Ellipta) 1 ea inhalation RDAILY montelukast 10 mg PO DAILY Oxygen Home Use As directed risperidone 0.25 mg PO BEDTIME tiotropium bromide 2.5 mcg/actuation (Spiriva Respimat) 2 puffs inhalation DAILY valsartan 80 mg PO DAILY venlafaxine ER 150 mg PO DAILY Tobacco use date assessed: 08/29/24 Fall risk assessment: No Falls in past year Last assessed Fall Risk: 08/29/24 Dental Screening Dental Screen Date: 08/29/24 Did you have a dental visit in the last 12 months?: No Did you have a dental problem in the last 6 months where you did not have access to dental care?: No Was dental information given to patient?: Patient has dentist (patient has dentures) [facility] Medical History GERD (gastroesophageal reflux disease) Pulmonary nodules COPD (chronic obstructive pulmonary disease) Chronic respiratory failure Depression Hypertension Personal history of nicotine dependence Osteopenia (~2004) Surgical History History of cholecystectomy History of colonoscopy (~10/31/10) Family History Mother Eye cancer Maternal Grandmother Cirrhosis Father Lung cancer Social History Household Members: Spouse Housing: House Do you presently have visiting nurse or other home services: No Alcohol intake: current Alcohol intake frequency: holidays/special occasions only Alcohol type: wine Patient Tobacco Use Status: Former Tobacco user Tobacco use type: Cigarette Years Smoked: 51 (onset 17, 1ppd x 51yrs, 47+PYH - quit 2017) Second Hand Smoke Exposure: No service: No Current occupational status: retired Cognitive needs: No Hearing needs: No Vision needs: Yes (rx glasses) Questionnaire PHQ-9 Over the last 2 weeks, how often have you been bothered by any of the following problems? 1. Little interest or pleasure in doing things: not at all 2. Feeling down, depressed, or hopeless: not at all 3. Trouble falling or staying asleep, or sleeping too much: not at all 4. Feeling tired or having little energy: not at all 5. Poor appetite or overeating: not at all 6. Feeling bad about yourself - or that you are a failure or have let yourself or your family down: not at all 7. Trouble concentrating on things, such as reading the newspaper or watching television: not at all 8. Moving or speaking so slowly that other people could have noticed. Or the opposite - being so fidgety or restless that you have been moving around a lot more than usual: not at all 9. Thoughts that you would be better off or of hurting yourself in some way: not at all Total score: 0 Depression Screening Interpretation: Negative Depression Screening Done: Yes Source: Developed by Drs. Luciano Kelly, Aleta Goodson, Shalom Carbajal and colleagues, with an educational evelyn from [employer]. Thrive Questionnaire Date Thrive assessed: 08/29/24 I am a: Patient What is your living situation today?: I have a steady place to live Within the past 12 months, did the food you bought not last and you didn't have the money to get more?: Never true Within the past 12 months, did you worry whether your food would run out before you got money to buy more?: Never true Do you have trouble paying for medicines?: No Do you have trouble getting transportation to medical appointments?: No Do you have trouble paying your heating and electricity bill?: No Do you have trouble taking care of your child, family member or friend?: No Do you have trouble with day-to-day activities such as bathing, preparing meals, shopping, managing finances, etc.?: No Are you currently unemployed and looking for a job?: No Are you interested in more education?: No Please select the resources that you would like help with: None THRIVE Score: 0 AUDIT C Alcohol Use Questionnaire (AUDIT-C) 1. How often do you have a drink containing alcohol?: Monthly or less 2. How many drinks containing alcohol do you have on a typical day when you are drinking?: 1 or 2 3. How often do you have six or more drinks on one occasion?: Never Total Score: 1 ARLENE-7 AMB Questionnaire ARLENE-7 Date ARLENE - 7 assessed: 08/29/24 Feeling nervous, anxious, or on edge: 0 = Not at all Not being able to stop or control worryin = Not at all Worrying too much about different things: 0 = Not at all Trouble relaxin = Not at all Being so restless that it is hard to sit still: 0 = Not at all Becoming easily annoyed or irritable: 0 = Not at all Feeling afraid as if something awful might happen: 0 = Not at all Total ARLENE-7 score (0-4 normal; 5-9 mild; 10-14 moderate; 15-21 severe): 0 Source: Developed by Drs. Luciano Kelly, Aleta Goodson, Shalom Carbajal and colleagues, with an educational evelyn from [employer]. Physical exam (Primary Care) Vital Signs: Last Vital Signs Temp 97.6 F 08/29/24 12:02 Pulse 82 08/29/24 12:02 Resp 18 08/29/24 12:02 BP 145/70 H 08/29/24 12:02 Pulse Ox 91 L 08/29/24 12:02 Oxygen Delivery Method Room Air 08/29/24 12:02 BMI result Body Mass Index 22.5 Tobacco/Smoking Status: Tobacco use Status Tobacco use date assessed 08/29/24 08/29/24 12:13 Patient Tobacco Use Status Former Tobacco user 08/29/24 12:13 Tobacco use type Cigarette 08/29/24 12:13 PHQ-9: PHQ-9 Score PHQ-9: Total score 0 08/29/24 12:13 Depression Screening Interpretation: Negative Thrive Assessment: Date of Thrive Assessment Date Thrive assessed 08/29/24 08/29/24 12:13 Coding Level of Care Code New Pt Level 4 (21178) Complex EM visit Add On G2211 Diagnoses Acute on chronic respiratory failure with hypoxemia J96.21 Assessment & Plan Assessment & Plan (1) Acute on chronic respiratory failure with hypoxemia: Code(s): J96.21 - Acute and chronic respiratory failure with hypoxia Category: Medical Plan: History of Present Illness - The patient is a 74-year-old female presenting with Chronic Obstructive Pulmonary Disease (COPD) and recurrent pneumonia. - She is currently managed by Dr. Forrester for COPD and reports frequent pneumonia episodes despite vaccinations. - The patient undergoes annual lung cancer screening with a CT scan due to her smoking history. Social History - Smoking history: The patient has a history of smoking, which necessitates annual lung cancer screening. Review of Systems - Respiratory: Reports recurrent pneumonia. Denies current dyspnea or cough. Physical Exam General: Cooperative and healthy appearing Nutritional Appearance: Well nourished Orientation/consciousness: Patient oriented x3 Limitations: No limitations Head: Normal to inspection General: Appearance normal, both eyes and all related structures Neck: Normal visual inspection Chest: Normal palpation of entire chest wall Respiratory: COPD, predisposed to pneumonia ormal respiratory effort Neurology: Patient oriented x3 Results Plan 1. Chronic Obstructive Pulmonary Disease (Copd) - Continue management under Dr. Forrester. - Ensure adherence to prescribed medications and vaccinations. 2. Recurrent Pneumonia - Continue receiving pneumonia and influenza vaccinations. - Monitor for any new symptoms and seek medical attention if pneumonia recurs. 3. Preventative Care: Lung Cancer Screening With Ct Scan - Continue annual CT scan screenings due to smoking history. Discussion Notes During the visit, we discussed the importance of continuing management for COPD under Dr. Forrester and ensuring adherence to vaccinations to prevent recurrent pneumonia. We also emphasized the need for annual CT scan screenings due to the patient's smoking history. Patient Instructions - Continue seeing Dr. Forrester for COPD management. - Keep up with pneumonia and flu vaccinations. - Attend annual CT scan screenings for lung cancer. - Monitor for symptoms of pneumonia and seek medical care if they occur.
[2024-08-29 12:02] VITALS: BP 145/70; PULSE 82; RESP 18; TEMP 36.4; O2SAT 91; BMI 22.5
--- OUTSIDE RECORDS SUMMARY | 2024-08-29 12:36 | XMS_ITS | Patient Health Record ---
Author Organization [facility] Address [address] [place] [address] Care Team Providers Care Delivery Associate Name Role Phone Saloni CASAS, Alok Primary Care Provider Unavailab Panchito Pena Jr Unavailable [phone] Allergies Allergen (clinical drug ingredient) Drug/Non Drug Allergy documented on EMR Reaction Allergy Type Onset Date Status Sulfa Unknown Drug Allergy Active Reason For Referral No Information Medications Medication SIG (Take, Route, Frequency, Duration) Notes Start Date End Date Status Effexor XR Active Diovan Active RisperDAL Active Lipitor Active Plan Of Treatment Pending Test Test Name Order Date COLONOSCOPY AND BIOPSY 10/31/2010 Insurance Providers Payer Name Payer Address Payer Phone Subscriber Number Group Number Insured Name Patient Relationship to Insured Coverage Start Date Coverage End Date MEDICARE OF [place] [address] [place], [place] [id number] ERIN SHAH Self - patient is the insured FOR LIFE [address] [place] [address] [id number] ERIN SHAH Self - patient is the insured
--- OUTSIDE RECORDS SUMMARY | 2024-08-29 12:36 | XMS_ITS | Clinical Summary ---
Author Organization [facility] Address [address] [place] [address] Care Team Providers Care Law Clerk Name Role Phone Alok Guallpa Primary Care Provider Unavailab le Allergies Active Allergy Reactions Severity Noted Date Comments Sulfa Drugs 07/13/2017 Medications Medication Sig Dispensed Refills Start Date End Date Status venlafaxine (EFFEXOR-XR) 150 MG 24 hr capsule Take 150 mg by mouth daily. 0 Active risperidone (RISPERDAL) 0.5 MG tablet Take 0.5 mg by mouth 2 times daily. 1/2 am 1 tab pm 0 Active valsartan (DIOVAN) 80 MG tablet Take 80 mg by mouth daily. 0 Active atorvastatin (LIPITOR) 20 MG tablet Take 20 mg by mouth daily. 0 Active Fluticasone Furoate-Vilanterol 100-25 MCG/INH AEROSOL POWDER,BREATH ACTIVATED Inhale 1 Puff into the lungs daily. 0 Active tiotropium (SPIRIVA) 18 MCG inhalation capsule Inhale 18 mcg into the lungs daily. Inhale the contents of one capsule through the Spiriva device every AM 0 Active ALBUTEROL SULFATE 108 (90 BASE) MCG/ACT Aero Soln Inhale 2 Puffs into the lungs every 4 hours as needed. 0 Active Ipratropium-Albute rol 0.5-2.5 (3) MG/3ML Solution Inhale 3 mL into the lungs 4 times daily. 0 Active Oxygen Historical (HISTORICAL OXYGEN) Inhale into the lungs. inogen 0 Active budesonide (PULMICORT) 0.5 MG/2ML nebulizer solution Take 2 mL by nebulization 2 times daily. 60 Ampule 11 07/13/2017 Active Umeclidinium-Vilan terol (ANORO ELLIPTA) 62.5-25 MCG/INH AEROSOL POWDER,BREATH ACTIVATED Inhale 1 Puff into the lungs daily. 3 Each 3 07/15/2017 Active Active Problems Problem Noted Date Hyperlipidemia 07/29/2017 Hypertension 07/29/2017 Depression 07/29/2017 Bipolar disorder 07/29/2017 COPD (chronic obstructive pulmonary dise ase) 07/13/2017 Social History Tobacco Use Types Packs/Day Years Used Date Smoking Tobacco: Former Cigarettes 1 50 Smokeless Tobacco: Never Alcohol Use Standard Drinks/Week Comments Yes 1 (1 standard drink = 0.6 oz pur e alcohol) Sex Assigned at Date Recorded Not on file Last Filed Vital Signs Vital Sign Reading Time Taken Comments Blood Pressure 140/82 07/13/2017 9:12 AM EDT Pulse 102 07/13/2017 9:12 AM EDT Temperature - - Respiratory Rate - - Oxygen Saturation 93% 07/13/2017 9:12 AM EDT r/a Inhaled Oxygen Concentration - - Weight 70.8 kg (156 lb) 07/13/2017 9:12 AM EDT Height 157.5 cm (5' 2 ) 07/13/2017 9:12 AM EDT Body Mass Index 28.53 07/13/2017 9:12 AM EDT Plan of Treatment Health Maintenance Due Date Last Done Comments Covid-19 Vaccine (#1) 02/01/1951 HEPATITIS C SCREENING 1970 DTAP/TDAP/TD (1 - Tdap) 08/03/1971 CHOLESTEROL SCREENING 1972 MAMMOGRAM 1992 COLON CANCER SCREENING 2002 SHINGLES VACCINE (1 of 2) 2002 BONE DENSITY SCREENING 2017 PNEUMOCOCCAL VACCINE (1 - PCV) 2017 BMI CHECK/ADVISE 03/01/2024 07/13/2017 INFLUENZA (Season Ended) 2024 Care Teams Law Clerk Relationship Specialty Start Date End Date Alok Guallpa PCP - General Internal Medicine 05/17/17
== END 2024-08-29 12:24 | disposition home or self-care (01) ==
LOC: HO.HMCSH 11:21
PROVIDERS: PCP Internal Medicine; Visit Provider Internal Medicine
DX: J96.21 Acute and chronic respiratory failure with hypoxia (principal)

== ENCOUNTER → 2024-08-29 11:21 | Outpatient (BNVA) | payer MEDICARE, OTHER, SELFPAY | PROVIDERS: PCP Internal Medicine; Visit Provider Internal Medicine | DX: J96.21 Acute and chronic respiratory failure with hypoxia (principal) | CPT/HCPCS: 99202 ==

== ENCOUNTER 2024-11-27 07:09 | Outpatient (REF) | payer MEDICARE, OTHER, SELFPAY ==
--- NOTE | ~2024-11-27 | MM_ITS ---
EXAMINATION: MM SCREENING DIGITAL BREAST TOMOSYNTHESIS, BILATERAL CLINICAL INFORMATION: Screening. Asymptomatic. COMPARISON: Mammography: Comparison is made with available priors TECHNIQUE: Digital breast mammography with tomosynthesis is performed in both the craniocaudal and mediolateral oblique views along with computer-aided detection (CAD). FINDINGS: There are scattered areas of fibroglandular density. There are no significant masses, abnormal calcifications, or other abnormalities. MM/MM tomosynthesis screening BI IMPRESSION: No mammographic evidence of malignancy. ASSESSMENT: BI-RADS Category 1: Negative RECOMMENDATION: Routine annual mammography screening. 1 year F/U This examination should not preclude the clinical evaluation of a suspicious palpable abnormality. This patient's information was entered into a reminder system with a target due date for their next mammogram. Electronically signed by: Jeri Foster DO 11/28/2024 02:14 PM EDT
--- OUTSIDE RECORDS SUMMARY | 2024-11-27 07:11 | XMS_ITS | Clinical Summary ---
Author Organization [facility] Address [address] [place] [address] Care Team Providers Care Mat Man Name Role Phone Alok Guallpa Primary Care [...] PCV) 2017 BMI CHECK/ADVISE 03/01/2024 07/13/2017 INFLUENZA (#1) 2024 Care Teams Mat Man Relationship Specialty Start Date End Date Alok Guallpa PCP - General Internal Medicine 05/17/17
--- OUTSIDE RECORDS SUMMARY | 2024-11-27 07:11 | XMS_ITS | Patient Health Record ---
Author Organization [facility] Address [address] [place] [address] Care Team Providers Care Cash Management Specialist Name Role Phone Saloni (RETIRED) Alok CASAS Primary Care Provider Unavailable Panchito Hale Jr Unavailable [phone] Allergies Allergen (clinical drug ingredient) Drug/Non [...] Date MEDICARE OF [place] [address] [place], [place] [id number] ERIN SHAH Self - patient is the insured FOR LIFE [address] [place] [address] [id number] ERIN SHAH Self - patient is the insured
--- OUTSIDE RECORDS SUMMARY | 2024-11-27 07:11 | XMS_ITS | Encounter Summary ---
Author Organization [facility] Address [address] [place] [address] Care Team Providers Care News Photographer Name Role Phone Alok Guallpa Primary Care Provider Unavailab le Encounter Details Date Type Department Care Team Description 07/15/2017 Release of Information Medical Records [address] [place] [id number] Abstract, Provider Social History Tobacco Use Types [...] on filedocumented in this encounter Care Teams News Photographer Relationship Specialty Start Date End Date Alok Guallpa PCP - General Internal Medicine 05/17/17 documented as of this encounter
== END 2024-11-27 07:10 | disposition home or self-care (01) ==
LOC: HO.MAMMO 07:09
PROVIDERS: PCP Internal Medicine; Visit Provider Internal Medicine
DX: Z12.31 Encounter for screening mammogram for malignant neoplasm of breast (principal)
CPT/HCPCS: 77063; 77067

== ENCOUNTER → 2024-11-27 07:30 | Outpatient (BNV) | payer MEDICARE, OTHER, SELFPAY | PROVIDERS: PCP Internal Medicine; Visit Provider Internal Medicine | DX: Z12.31 Encounter for screening mammogram for malignant neoplasm of breast (principal) | CPT/HCPCS: 77063; 77067 ==

== ENCOUNTER 2025-01-02 08:45 | Outpatient (AMB) | payer MEDICARE, OTHER, SELFPAY ==
[2025-01-02 08:49] VITALS: BP 112/60; PULSE 88; O2SAT 94; BMI 24.2
--- NOTE | 2025-01-02 08:49 | A.OFFVIS_ITS ---
Vital Signs 01/02/25 08:49 Height 5 ft 1 in Weight 127 lb 13.89 oz BMI 24.2 BP 112/60 Blood Pressure Location Lt brachial Position Sitting Pulse 88 Pulse Source Pulse Oximeter Pulse Oximetry (%) 94 Oxygen Delivery Method Room Air Intake Visit Reasons: COPD School Lunch Monitor Required: No Accompanied by: Self / Same As Patient Allergies Sulfa (Sulfonamide Antibiotics) Allergy (Verified 01/02/25 08:52) Anaphylaxis HPI Comments Details: The patient is a 74 year woman with a known history of COPD and chronic respiratory failure on oxygen who apparently was in her usual state health until back in late fall when she developed worsening respiratory symptoms and was admitted to the hospital with right lower lobe pneumonia. The patient was treated with antibiotics in addition to prednisone and she done was also placed on oxygen. She did have a portable oxygen concentrator that she had for many years but she did not really have to use it. After that hospitalization she started having to use it more often. As far as his follow-up she did see her primary care doctor who will order repeat CT scan sometime in March 2022. it actually demonstrated that she has either new nodules or worsening of her ongoing nodules. She is also taking part of the lung cancer screening program. Therefore based on her increasing nodular densities in the concerns because of her high risk for cancer will go ahead and % throughout the lung cancer screening program that is scheduled for WednesdayMay 01. Once we can review her imaging studies from previous and her most recent CT scan with give further recommendations about future CT scans through the lung cancer screening program in the meantime the patient will continue using her oxygen. She is very happy with her current respiratory regimen including Spiriva Respimat and Breo. Therefore when I going to be looking to change that at this time. She seems to very happy with her treatment. She will need pulmonary function studies although she is reluctant to do so to assess her baseline pulmonary function. The patient still is very active. She was seen by Pulmonary in the past and she did go to pulmonary rehabilitation but she did find it very useful. 06/04/2022 the patient is here for a pulmonary follow-up visit. The patient overall is feeling about the same. She continues use her oxygen via the portable oxygen concentrator with good effect. She continues to have shortness of breath. Moderate severity. She tries to stay active. She already did pulmonary rehabilitation. She is not interested in doing it again. 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 She does have a component of chronic bronchitis. Will go ahead and start her on azithromycin for the chronic bronchitis therapy. We also talked about Daliresp being an option although I does have the GI symptoms. Theophylline will be another option for her. The last blood gas she had was in 2021 demonstrated normal acid-base status with therefore she does not qualify for noninvasive ventilator at this time. The patient is not interested in referral to [place] for lung transplant. The patient would not qualify for lung volume reduction intervention as her diffusing capacity is also significantly low already. For the chronic bronchitis component will start her on his azithromycin and will also request an Acapella valve for chest physical therapy that she can perform twice a day. 12/01/2022 the patient is here for a pulmonary follow-up visit. Overall the patient has been doing well. She continues use oxygen with good effect. She did take the azithromycin 3 times a week for 3 months and it did help. She stop that after worse. The patient continues to use the Breo and also the Spiriva. I have been affecting beneficial. She has not required any prednisone. She is starting to exercise a little more which is reassuring. She does wonder about other options regarding her emphysema and COPD. We did talk about lung volume reduction to interventions but at this point I do not believe she will be a great candidate because heard air trapping is not significantly elevated. In ad dition to that we talked about medications such as theophylline. She does have some wheezing on examination and I do believe that the often will provide her some relief with some of the bronchodilator effects. Will start her on a low dose to minimize adverse reactions. Will keep her in the low stop therapeutic range to minimize adverse effects. We did also review her CT scan of the chest that she had to the lung cancer screening program. It was reassuring that she does have waxing waning pulmonary nodules in the bigger nodules did disappear. 06/01/2023 the patient is here for a pulmonary follow-up visit. The patient overall has been doing well. She is responding well to the current respiratory regimen. She also has the oxygen supplementation that is also affecting beneficial. The patient did try the theophylline but she stopped it because of palpitations. She is participating in the lung cancer screening program. Next the fall 2023. She is working on smoking cessation. She has been smoking cigarette today. She does have patches available at home that she can put on if she feels her cravings getting significant. 05/31/2024 the patient is here for a pulmonary follow-up visit. Overall the patient is doing well. She did have a bout of a respiratory viral infection that resulted in a COPD exacerbation and also the same time develop C diff colitis. She was in the hospital for about 9 days. She is finally feeling better. She continues use her respiratory therapy. We did talk about the importance of avoiding antibiotic use with the C diff history now. We did talk about also the use of probiotics to help her replenish her gut tamiko and got health. She did recently have a CT scan of the chest for the lung cancer screening program which is reassuring with the largest nodule is decreasing in size and therefore she is now rads 2. She will have another CAT scan in a year's time. She will continue with the current respiratory therapy follow-up in a year's time if she has any issues prior to that she will call for an earlier assessment. 01/02/2025 the patient is here for pulmonary follow-up visit. Overall she is doing okay although she got sick in November. She started developing worsening respiratory symptoms. She did recover to some degree although she is not at her baseline. Still having shortness of breath with activity. The patient does have oxygen at home but she has not been using it. The patient continues with respiratory therapy that seems to be partially helpful. She did try the Daliresp but she did not tolerate it. She has had history of C diff so we have to be careful with antibiotics. The patient is taking probiotics. Will go ahead and start her on doxycycline since we know that that is a little bit more tolerable. In the meantime the patient can started low-dose prednisone for her COPD exacerbation. She will continue with respiratory therapy as prescribed. She needs a nebulizer make sure to send a request for a nebulizer for her to have and start therapy. She does not typically respond well to albuterol so we sent her DuoNeb. The patient is participating in the lung cancer screening program. Next CAT scan should be sometime in the winter of 2025. Will follow- up with her after that. If she has any issues prior to that she can always call for an earlier assessment or recommendations. [facility] Medical History GERD (gastroesophageal reflux disease) Pulmonary nodules COPD (chronic obstructive pulmonary disease) Chronic respiratory failure Depression Hypertension Personal history of nicotine dependence Osteopenia (~2004) Surgical History History of cholecystectomy History of colonoscopy (~10/31/10) Family History Mother Eye cancer Maternal Grandmother Cirrhosis Father Lung cancer Social History Household Members: Spouse Housing: House Do you presently have visiting nurse or other home services: No Alcohol intake: current Alcohol intake frequency: holidays/special occasions only Alcohol type: wine Patient Tobacco Use Status: Former Tobacco user Tobacco use type: Cigarette Years Smoked: 51 (onset 17, 1ppd x 51yrs, 47+PYH - quit 2016) Second Hand Smoke Exposure: No service: No Current occupational status: retired Cognitive needs: No Hearing needs: No Vision needs: Yes (rx glasses) Review of Systems Const Denies fever(s) and Denies weight loss Eyes Denies change in vision ENT Denies change in voice Card Denies chest pain and Reports dyspnea on exertion Resp Reports chest congestion, Reports cough, Reports dyspnea on exertion and Reports wheezing GI Reports dyspepsia and Reports heartburn Musc Reports myalgias Skin/Breast Denies rash Neuro Reports no additional complaints Endo Denies flushing Stuart/Lymph Denies easy bleeding and Denies easy bruising Aller/Immun Reports wheezing Physical Exam Vital Signs: Last Vital Signs Pulse 88 01/02/25 08:49 BP 112/60 01/02/25 08:49 Pulse Ox 94 01/02/25 08:49 Oxygen Delivery Method Room Air 01/02/25 08:49 BMI result Body Mass Index 24.2 Const General: comfortable HEENT Head: Yes normocephalic Neck Neck: Yes supple Chest Chest palpation & inspection: normal inspection of the chest Resp Effort & Inspection: normal respiratory effort and prolonged expiratory phase Auscultation: no rhonchi, no wheezes and diminished lung sounds Cardio Rate: regular rate Rhythm: regular rhythm Heart sounds: S1 normal heart sound present and S2 normal heart sound present GI Palpation (GI): Soft to palpation Skin General skin exam: no rashes or lesions noted Extrem General: Yes no clubbing, cyanosis or edema Assessment & Plan Assessment & Plan (1) Chronic respiratory failure: Code(s): J96.10 - Chronic respiratory failure, unspecified whether with hypoxia or hypercapnia Category: Medical Qualifiers: Respiratory failure complication: hypoxia Qualified Code(s): J96.11 - Chronic respiratory failure with hypoxia (2) COPD (chronic obstructive pulmonary disease): Code(s): J44.9 - Chronic obstructive pulmonary disease, unspecified Category: Medical Qualifiers: COPD type: COPD with acute exacerbation Qualified Code(s): J44.1 - Chronic obstructive pulmonary disease with (acute) exacerbation (3) Pulmonary nodules: Code(s): R91.8 - Other nonspecific abnormal finding of lung field Category: Medical (4) GERD (gastroesophageal reflux disease): Code(s): K21.9 - Gastro-esophageal reflux disease without esophagitis Category: Medical Qualifiers: Esophagitis presence: without esophagitis Qualified Code(s): K21.9 - Gastro-esophageal reflux disease without esophagitis Plan Continue Breo/Spiriva MANDIE as needed stopped Daliresp 250mcg Start Doxycycline start low prednisone start nebulizer Duoneb Daily continue singulair 10mg daily, LDCT program reflux diet sleep with HOB elevated continue oxygen supplementation F/U 6-12 months Medications: New ipratropium-albuterol 0.5 mg-3 mg(2.5 mg base)/3 mL 3 mL inhalation DAILY 30 days 90 mL 11RF J44.9 - Chronic obstructive pulmonary disease, unspecified doxycycline monohydrate 100 mg PO BID 28 tabs 0RF 14 days prednisone PO daily; Take 2 tablets daily x 10 days, then 1 tab daily x 10 days 30 tabs 0RF 20 days doxycycline monohydrate 100 mg PO BID 14 days 28 tabs 0RF prednisone PO daily; Take 2 tablets daily x 10 days, then 1 tab daily x 10 days 20 days 30 tabs 0RF ipratropium-albuterol 0.5 mg-3 mg(2.5 mg base)/3 mL 3 mL inhalation DAILY 90 mL 11RF 30 days J44.9 - Chronic obstructive pulmonary disease, unspecified Coding Level of Care Code Est Pt Level 4 (14478) Complex EM visit Add On G2211 Diagnoses Chronic respiratory failure with hypoxia J96.11 Respiratory failure complication: hypoxia Chronic obstructive pulmonary disease with acute exacerbation J44.1 COPD type: COPD with acute exacerbation Pulmonary nodules R91.8 Gastroesophageal reflux disease without esophagitis K21.9 Esophagitis presence: without esophagitis Time Spent (min) 16
--- OUTSIDE RECORDS SUMMARY | 2025-01-02 09:13 | XMS_ITS | Patient Health Record ---
Author Organization [facility] Address [address] [place] [address] Care Team Providers Care Ferryboat Ticket Taker Name Role Phone Saloni (RETIRED) Alok CASAS Primary Care Provider Unavailable Panchito Hale Jr Unavailable Allergies Allergen (clinical drug ingredient) Drug/Non Drug [...] Date MEDICARE OF [place] [address] [place], [place] [id number] ERIN SHAH Self - patient is the insured FOR LIFE [address] [place] [address] [phone] [id number] ERIN SHAH Self - patient is the insured
== END 2025-01-02 09:15 | disposition home or self-care (01) ==
LOC: HO.HPS 08:45
PROVIDERS: PCP Internal Medicine; Visit Provider Hospitalist
DX: J96.11 Chronic respiratory failure with hypoxia (principal); J44.1 Chronic obstructive pulmonary disease with (acute) exacerbation; R91.8 Other nonspecific abnormal finding of lung field; K21.9 Gastro-esophageal reflux disease without esophagitis
CPT/HCPCS: 99214; G2211

== ENCOUNTER → 2025-01-02 08:45 | Outpatient (BNVA) | payer MEDICARE, OTHER, SELFPAY | PROVIDERS: PCP Internal Medicine; Visit Provider Hospitalist | DX: J44.1 Chronic obstructive pulmonary disease with (acute) exacerbation (principal); K21.9 Gastro-esophageal reflux disease without esophagitis; R91.8 Other nonspecific abnormal finding of lung field; J96.11 Chronic respiratory failure with hypoxia | CPT/HCPCS: 99212 ==

== ENCOUNTER 2025-01-16 08:17 | Outpatient (AMB) | payer MEDICARE, OTHER, SELFPAY ==
--- NOTE | 2025-01-16 08:40 | A.OFFPC_ITS ---
Vital Signs 01/16/25 08:49 Height 5 ft 1 in Weight 131 lb BMI 24.7 BP 110/67 Blood Pressure Location Lt brachial Pulse 89 Pulse Source Pulse Oximeter Temp 97.0 F Pulse Oximetry (%) 96 Intake Visit Reasons: Medication review (Wegovy) Allergies Sulfa (Sulfonamide Antibiotics) Allergy (Verified 01/16/25 08:43) Anaphylaxis Tobacco use date assessed: 08/29/24 Dental Screening Dental Screen Date: 08/29/24 HPI HPI Comments History of Present Illness Details History of Present Illness - The patient is a 74-year-old female pr esenting to discuss restarting Wegovy. - She was previously on Wegovy last year and discontinued the medication in March or April after achieving her desired weight loss, reaching a low weight of approximately 109 pounds. - At that time, she was on the maximum d ose of 2.5 mg. - Since stopping the medication, she rep orts having regained about 20 pounds, despite efforts with diet and exercise. - The patient pays for the medication ou t-of-pocket as she does not meet the insurance criteria for coverage. - Her psychiatric medications include ri speridone and venlafaxine. - She confirms she has received her flu and COVID-19 vaccinations. Social History - Diet and Exercise: The patient reports she is exercising and dieting. Results [facility] Medical History GERD (gastroesophageal reflux disease) Pulmonary nodules COPD (chronic obstructive pulmonary disease) Chronic respiratory failure Depression Hypertension Personal history of nicotine dependence Osteopenia (~2004) Surgical History History of cholecystectomy History of colonoscopy (~10/31/10) Family History Mother Eye cancer Maternal Grandmother Cirrhosis Father Lung cancer Social History Household Members: Spouse Housing: House Do you presently have visiting nurse or other home services: No Alcohol intake: current Alcohol intake frequency: holidays/special occasions only Alcohol type: wine Patient Tobacco Use Status: Former Tobacco user Tobacco use type: Cigarette Years Smoked: 51 (onset 17, 1ppd x 51yrs, 47+PYH - quit 2016) Second Hand Smoke Exposure: No service: No Current occupational status: retired Cognitive needs: No Hearing needs: No Vision needs: Yes (rx glasses) Questionnaire PHQ-9 Over the last 2 weeks, how often have you been bothered by any of the following problems? 1. Little interest or pleasure in doing things: not at all 2. Feeling down, depressed, or hopeless: not at all 3. Trouble falling or staying asleep, or sleeping too much: not at all 4. Feeling tired or having little energy: not at all 5. Poor appetite or overeating: not at all 6. Feeling bad about yourself - or that you are a failure or have let yourself or your family down: not at all 7. Trouble concentrating on things, such as reading the newspaper or watching television: not at all 8. Moving or speaking so slowly that other people could have noticed. Or the opposite - being so fidgety or restless that you have been moving around a lot more than usual: not at all 9. Thoughts that you would be better off or of hurting yourself in some way: not at all Total score: 0 Depression Screening Interpretation: Negative Depression Screening Done: Yes Source: Developed by Drs. Luciano Kelly, Aleta Goodson, Shalom Carbajal and colleagues, with an educational evelyn from [employer]. Thrive Questionnaire Date Thrive assessed: 08/29/24 I am a: Patient What is your living situation today?: I have a steady place to live Within the past 12 months, did the food you bought not last and you didn't have the money to get more?: Never true Within the past 12 months, did you worry whether your food would run out before you got money to buy more?: Never true Do you have trouble paying for medicines?: No Do you have trouble getting transportation to medical appointments?: No Do you have trouble paying your heating and electricity bill?: No Do you have trouble taking care of your child, family member or friend?: No Do you have trouble with day-to-day activities such as bathing, preparing meals, shopping, managing finances, etc.?: No Are you currently unemployed and looking for a job?: No Are you interested in more education?: No Please select the resources that you would like help with: None THRIVE Score: 0 AUDIT C Alcohol Use Questionnaire (AUDIT-C) 1. How often do you have a drink containing alcohol?: Monthly or less 2. How many drinks containing alcohol do you have on a typical day when you are drinking?: 1 or 2 3. How often do you have six or more drinks on one occasion?: Never Total Score: 1 ARLENE-7 AMB Questionnaire ARLENE-7 Date ARLENE - 7 assessed: 08/29/24 Feeling nervous, anxious, or on edge: 0 = Not at all Not being able to stop or control worryin = Not at all Worrying too much about different things: 0 = Not at all Trouble relaxin = Not at all Being so restless that it is hard to sit still: 0 = Not at all Becoming easily annoyed or irritable: 0 = Not at all Feeling afraid as if something awful might happen: 0 = Not at all Total ARLENE-7 score (0-4 normal; 5-9 mild; 10-14 moderate; 15-21 severe): 0 Source: Developed by Drs. Luciano Kelly, Aleta Goodson, Shalom Carbajal and colleagues, with an educational evelyn from [employer]. Review of Systems Narrative Review of Systems - Constitutional: Reports a weight gain of approximately 20 pounds since April. Physical exam (Primary Care) Vital Signs: Last Vital Signs Temp 97.0 F 01/16/25 08:49 Pulse 89 01/16/25 08:49 BP 110/67 01/16/25 08:49 Pulse Ox 96 01/16/25 08:49 BMI result Body Mass Index 24.7 Tobacco/Smoking Status: Tobacco use Status Tobacco use date assessed 08/29/24 01/16/25 08:46 Patient Tobacco Use Status Former Tobacco user 01/16/25 08:46 Tobacco use type Cigarette 01/16/25 08:46 PHQ-9: PHQ-9 Score PHQ-9: Total score 0 01/16/25 08:46 Depression Screening Interpretation: Negative Thrive Assessment: Date of Thrive Assessment Date Thrive assessed 08/29/24 01/16/25 08:46 Narrative Physical Exam General: Appearance normal, both eyes and all related structures Nutritional Appearance: Well nourished, current weight 131 pounds Orientation/consciousness: Patient oriented x3 Limitations: No limitations Head: Normal to inspection Neck: Normal visual inspection Chest: Normal palpation of entire chest wall Respiratory: Normal respiratory effort Neurology: Patient oriented x3 Office Procedures Flu Questionnaire Does the patient have a severe egg allergy?: No Does the patient have severe life threatening allergies?: No Does the patient have a fever or illness today?: No Has the patient ever had Guillain-Decker Syndrome?: No Has the patient ever had any past reaction to a flu shot?: No Immunizations Fluarix [id number] (PF) 45 mcg (15 mcg x 3)/0.5 mL IM syringe Performing Provider: Amish Lopez MD [facility] Documented (not given) by: Cheryl Page on 01/16/25 08:46 Dose Route Admin Location Dispensed Lot Number Expiration Date [employer] 0.5 mL IM mL VIS Given Date VIS Provided VIS Publication Date 01/16/25 Single Vaccine 24 Eligibility Eligibility Date Funding Source Coding Level of Care Code Est Pt Level 4 (62293) Complex EM visit Add On G2211 Diagnoses Gastroesophageal reflux disease without esophagitis K21.9 Esophagitis presence: without esophagitis Assessment & Plan Assessment & Plan (1) GERD (gastroesophageal reflux disease): Code(s): K21.9 - Gastro-esophageal reflux disease without esophagitis Category: Medical Qualifiers: Esophagitis presence: without esophagitis Qualified Code(s): K21.9 - Gastro-esophageal reflux disease without esophagitis Plan Plan - A prescription for Wegovy will be initiated at a starting dose of 0.5 mg. - The prescription will be sent to the [facility] in [place], as requested by the patient. - The patient understands she will be self-paying for the medication. - Counselled the patient that diet and exercise are recommended for weight management and that her current BMI of 24.7 does not medically necessitate this medication. - Patient confirmed she is up-to-date with her flu and COVID-19 vaccinations. - The patient is scheduled for a follow-up for a six-month checkup in March. Discussion Notes I advised the patient that in my medical opinion, she does not need to restart Wegovy for weight loss. I explained that her BMI is 24.7, which is within a healthy range, and that she is not considered overweight. I also expressed concern about adding a medication that is not medically necessary, particularly since she is already taking psychotropic medications. Despite my recommendation to manage her weight with a healthy diet and regular exercise, the patient was insistent on restarting Wegovy. The patient acknowledged my concerns but stated she still wanted the prescription and would pay for it herself. After ensuring she understood the discussion, I agreed to her request and have prescribed Wegovy at a starting dose of 0.5 mg. Patient Instructions - I have sent a prescription for Wegovy to your pharmacy. - You will start with the 0.5 mg dose. - Your pharmacy is [facility] on [address] [facility] in [place]. - Remember that this medication is not covered by your insurance, and you will need to pay for it yourself. - Continue to focus on a healthy diet and regular exercise. - Your next follow-up appointment for a six-month checkup is in March. Orders: Orders Influenza [id number] Immunization Today Z23 - Encounter for immunization Medications: New Fluarix [id number] (PF) (flu vac ts 2024-(6mos up)-PF) 0.5 mL IM ONCE 0.5 mL 0RF NS Z23 - Encounter for immunization semaglutide (weight loss) (Wegovy) administer weeks 1 through 4 of therapy 0.5 mg (0.5 mL) subcut QWEEK 2.5 mL 0RF 30 days
[2025-01-16 08:49] VITALS: BP 110/67; PULSE 89; TEMP 36.1; O2SAT 96; BMI 24.7
== END 2025-01-16 09:16 | disposition home or self-care (01) ==
LOC: HO.HMCSH 08:17
PROVIDERS: PCP Internal Medicine; Visit Provider Internal Medicine
DX: K21.9 Gastro-esophageal reflux disease without esophagitis (principal); Z23 Encounter for immunization

== ENCOUNTER → 2025-01-16 08:17 | Outpatient (BNVA) | payer MEDICARE, OTHER, SELFPAY | PROVIDERS: PCP Internal Medicine; Visit Provider Internal Medicine | DX: K21.9 Gastro-esophageal reflux disease without esophagitis (principal); Z23 Encounter for immunization; Z28.89 Immunization not carried out for other reason | CPT/HCPCS: 90471; 96127; 99212 ==